=== PATIENT | male | born 1945 | race Two or more races ===

== ENCOUNTER 2018-11-30 09:34 | Inpatient (IN) | payer MEDICAID ==
[2018-11-30] VITALS (17 sets, daily range): BP systolic 70–142; BP diastolic 33–80
[~2018-11-30] VITALS: Ht 154.9 cm; Wt 96.4 kg
--- NOTE | 2018-11-30 09:40 | NUR ---
ED Nurse Note: informed Dr. Vincent regarding pt.'s troponin level of 5.612
--- NOTE | 2018-11-30 09:40 | NUR ---
ED Nurse Note: Patient brought in by [facility] from [facility] c/o fever that started last night, EMS states that the patient's temp was 103.0 at around 3am, patient was not given a tylenol, was given a norco at 0600. at time of arrival patient's temp is 97.8 oral. patient is also hypotensive at 70/41, patient is a dialysis patient, schedule is MWF. patient is alert and oriented x4. wound noted on patients left lower extremity, patient is amputated on both feet. IV started on right forearm 18 gauge, patient placed in trendelenburg position. will continue to monitor
--- NOTE | 2018-11-30 09:44 | Emergency Room Report ---
History of Present Illness General Chief Complaint: Fever Source: Patient, Medical Record Present Illness HPI Patient is a 73-year-old male brought in by ambulance after decreased oxygen saturation and increased fever. Patient was sent in from [facility]. He was noted to have temperature greater than 102 degrees. Patient is dialysis dependent and is normally dialyzed every Monday and Monday. He patient was noted to have did not have dialysis today. Been given [place] by facility. He was noted to be full code. Patient was noted to be hypotensive on arrival. Allergies: Coded Allergies: No Known Allergies (Unverified , 11/30/18) Patient History Past Medical History: see triage record Reviewed Nursing Documentation: PMH: Agreed; PSxH: Agreed Nursing Documentation-PMH Past Medical History: No History, Except For Hx Hypertension: Yes - anemia Hx Diabetes: Yes - polyneuropathy Hx Gastrointestinal Problems: Yes - GERD Hx Dialysis: Yes - CKD, MWF Review of Systems All Other Systems: limited Physical Exam Vital Signs Date Time Temp Pulse Resp B/P (MAP) Pulse Ox O2 Delivery O2 Flow Rate FiO2 11/30/18 09:34 98.2 61 22 78/51 (60) 96 Non-Rebreather 15.0 General Appearance: alert, moderate distress, Chronically Ill Eyes: bilateral eye conjunctivae pale ENT: normal pharynx Neck: full range of motion, thyroid normal Respiratory: rales - right lung base Cardiovascular #1: normal peripheral pulses, regular rate, rhythm, other - thrill to left upper extremity shunt Gastrointestinal: normal inspection, non tender, soft Musculoskeletal: decreased range of motion, other - bilateral amputations Neurologic: normal inspection, alert, oriented x3, track laminating machine tender III-XII nml as tested Skin: other - foul smelling drainage from left leg ulcer Procedures Critical Care Time Critical Care Time Critical care time excluding separately billed procedures was approximately 40 minutes Medical Decision Making Diagnostic Impression: Primary Impression: Severe sepsis Additional Impressions: ESRD (end stage renal disease) 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 Differential diagnosis include was not limited to sepsis, pneumonia, infected dialysis access , osteomyelitis, hyperkalemia among others. Because of complexity of patient's case laboratory tests and imaging studies were ordered. Patient was noted to be near anuric. He is currently on dialysis and is normally dialyzed Monday. He is scheduled for dialysis today. Patient was noted to be hypotensive initially. Patient denies any chest discomfort. Denies any shortness of breath. Patient was given IV fluids as well as IV antibiotics due to significant fever. Laboratory testing showed markedly elevated white blood count consistent with significant infection. Patient's left lower extremity ulcer appears to be necrotic and may have some evidence of osteomyelitis. Patient had previous amputation to that spot and may require further amputation. Dr. Pravin Patton was contacted for inpatient management. Dr. Davenport was contacted for surgical consult. Patient will be admitted to ICU for treatment of severe infection Labs Test 11/30/18 09:40 11/30/18 09:50 11/30/18 10:12 White Blood Count 30.5 K/UL (4.8-10.8) Red Blood Count 3.50 M/UL (4.70-6.10) Hemoglobin 9.1 G/DL (14.2-18.0) Hematocrit 29.8 % (42.0-52.0) Mean Corpuscular Volume 85 FL (80-99) Mean Corpuscular Hemoglobin 26.0 PG (27.0-31.0) Mean Corpuscular Hemoglobin Concent 30.5 G/DL (32.0-36.0) Red Cell Distribution Width 14.0 % (11.6-14.8) Platelet Count 362 K/UL (150-450) Mean Platelet Volume 5.7 FL (6.5-10.1) Neutrophils (%) (Auto) % (45.0-75.0) Lymphocytes (%) (Auto) % (20.0-45.0) Monocytes (%) (Auto) % (1.0-10.0) Eosinophils (%) (Auto) % (0.0-3.0) Basophils (%) (Auto) % (0.0-2.0) Differential Total Cells Counted 100 Neutrophils % (Manual) 91 % (45-75) Lymphocytes % (Manual) 2 % (20-45) Monocytes % (Manual) 6 % (1-10) Eosinophils % (Manual) 0 % (0-3) Basophils % (Manual) 0 % (0-2) Band Neutrophils 1 % (0-8) Platelet Estimate Adequate Platelet Morphology Normal Hypochromasia 2+ Anisocytosis 1+ Sodium Level 129 MMOL/L (136-145) Potassium Level 5.3 MMOL/L (3.5-5.1) Chloride Level 93 MMOL/L (98-107) Carbon Dioxide Level 25 MMOL/L (21-32) Anion Gap 11 mmol/L (5-15) Blood Urea Nitrogen 51 mg/dL (7-18) Creatinine 8.7 MG/DL (0.55-1.30) Estimat Glomerular Filtration Rate mL/min (>60) Glucose Level 328 MG/DL (74-106) Calcium Level 9.4 MG/DL (8.5-10.1) Phosphorus Level 4.3 MG/DL (2.5-4.9) Magnesium Level 2.1 MG/DL (1.8-2.4) Total Bilirubin 0.4 MG/DL (0.2-1.0) Aspartate Amino Transf (AST/SGOT) 31 U/L (15-37) Alanine Aminotransferase (ALT/SGPT) 13 U/L (12-78) Alkaline Phosphatase 141 U/L (46-116) Total Creatine Kinase 277 U/L (26-308) Creatine Kinase MB 15.5 NG/ML (0.0-3.6) Creatine Kinase MB Relative Index 5.5 Troponin I 5.612 ng/mL (0.000-0.056) Pro-B-Type Natriuretic Peptide > 73315 pg/mL (0-125) Total Protein 7.4 G/DL (6.4-8.2) Albumin 2.6 G/DL (3.4-5.0) Globulin 4.8 g/dL Albumin/Globulin Ratio 0.5 (1.0-2.7) Lactic Acid Level 1.20 mmol/L (0.4-2.0) Arterial Blood pH 7.349 (7.350-7.450) Arterial Blood Partial Pressure CO2 39.2 mmHg (35.0-45.0) Arterial Blood Partial Pressure O2 66.0 mmHg (75.0-100.0) Arterial Blood HCO3 21.1 mmol/L (22.0-26.0) Arterial Blood Oxygen Saturation 91.9 % (95-100) Arterial Blood Base Excess -4.1 (-2-2) Tank Test Positive EKG Diagnostic Results Rate: normal Rhythm: NSR ST Segments: no acute changes Reevaluation Time: 15:00 Last Vital Signs Date Time Temp Pulse Resp B/P (MAP) Pulse Ox O2 Delivery O2 Flow Rate FiO2 11/30/18 09:34 98.2 61 22 78/51 (60) 96 Non-Rebreather 15.0 Status: unchanged Reevaluation Impression Improved blood pressure and skin perfusion. Patient was seen by surgeon in the emergency department. Patient's mental status remained unchanged and patient continues to have no significant respiratory distress. Repeat lactic acid was also noted to be elevated Disposition: ADMITTED INPATIENT Condition: Critical Yamil Vincent MD Nov 30, 2018 09:44
[2018-11-30] MEDS ORDERED: Cefepime HCl 1 GM in NS 55 ML IV SCH (09:45)
[2018-11-30] MEDS ORDERED: Vancomycin 1 GM in NS 275 ML IV ONE (09:45)
--- NOTE | 2018-11-30 09:45 | NUR ---
ED Nurse Note: Patient presents with eschar on patients lower left leg. wound is non draining and presents a foul odor. Picture taken and updated
[2018-11-30 09:56] LABS: HEMATOCRIT 29.8 % (42.0-52.0); HEMOGLOBIN 9.1 G/DL (14.2-18.0); MEAN CORPUSCULAR VOLUME 85 FL (80-99); PLATELET COUNT 362 K/UL (150-450)
[2018-11-30 10:01] LABS: WHITE BLOOD COUNT 30.5 K/UL (4.8-10.8)
[2018-11-30 10:17] LABS: ANION GAP 11 mmol/L (5-15); BLOOD UREA NITROGEN 51 mg/dL (7-18); CALCIUM 9.4 MG/DL (8.5-10.1); CARBON DIOXIDE 25 MMOL/L (21-32); CHLORIDE 93 MMOL/L (98-107); CREATININE 8.7 MG/DL (0.55-1.30); POTASSIUM 5.3 MMOL/L (3.5-5.1); SODIUM 129 MMOL/L (136-145)
--- NOTE | 2018-11-30 10:30 | NUR ---
ED Nurse Note: 2nd IV access established on patients upper right forearm 18 gauge
[2018-11-30 10:31] LABS: ALANINE AMINOTRANSFERASE 13 U/L (12-78); ALBUMIN 2.6 G/DL (3.4-5.0); ALBUMIN/GLOBULIN RATIO 0.5 (1.0-2.7); ALKALINE PHOSPHATASE 141 U/L (46-116); ASPARTATE AMINO TRANSFERASE 31 U/L (15-37); BILIRUBIN,TOTAL 0.4 MG/DL (0.2-1.0); CKMB 15.5 NG/ML (0.0-3.6); CREATINE KINASE 277 U/L (26-308); PHOSPHORUS 4.3 MG/DL (2.5-4.9)
[2018-11-30] MEDS ORDERED: Aspirin Baby 81mg ORAL ONE (10:45)
--- NOTE | 2018-11-30 10:55 | Diagnostic Imaging Report ---
Indication: Left leg pain Comparison: None Findings: Two views of the left tibia and fibula were obtained. Bones are osteopenic. No definite fracture or malalignment identified. Extensive vascular calcification noted. IMPRESSION: No acute injury identified. Diffuse osteopenia.
--- NOTE | 2018-11-30 10:56 | Diagnostic Imaging Report ---
Indication: Dyspnea Comparison: None A single view chest radiograph was obtained. Findings: Pulmonary vascularity and interstitium are prominent. Heart is enlarged. Bones are osteopenic. IMPRESSION: CHF
--- NOTE | 2018-11-30 11:30 | NUR ---
ED Nurse Note: Patient sleeping calmly in bed
--- NOTE | 2018-11-30 12:30 | NUR ---
ED Nurse Note: Patient sleeping calmly in bed. will continue to monitor
[2018-11-30] MEDS ORDERED: NEPHROVITE1 TAB ORAL (12:58)
[2018-11-30] MEDS ORDERED: ASPIR 8181 MG ORAL (12:58)
[2018-11-30] MEDS ORDERED: METOPROLOL TART50 M1 ORAL (12:58)
[2018-11-30] MEDS ORDERED: CRANBERRY450 M4 PO (12:58)
[2018-11-30] MEDS ORDERED: PRO-STAT LIQUID30 ML ORAL (12:58)
[2018-11-30] MEDS ORDERED: DIOVAN320 MG ORAL (12:58)
[2018-11-30] MEDS ORDERED: GLUCAGON EMERGEN1 MG IJ (12:58)
[2018-11-30] MEDS ORDERED: BISACODYL10 M1 RC (12:58)
[2018-11-30] MEDS ORDERED: AMLODIPINE BESY10 MG ORAL (12:58)
[2018-11-30] MEDS ORDERED: GABAPENTIN100 MG ORAL (12:58)
[2018-11-30] MEDS ORDERED: RENVELA0.8 GM ORAL (12:58)
[2018-11-30] MEDS ORDERED: FLEET ENEMA133 ML RECTAL (12:58)
[2018-11-30] MEDS ORDERED: MILK OF MA2400 MG/10 ORAL (12:58)
[2018-11-30] MEDS ORDERED: COLACE100 MG ORAL (12:58)
[2018-11-30] MEDS ORDERED: PLAVIX75 MG ORAL (12:58)
[2018-11-30] MEDS ORDERED: GLUCOSE GEL38 GM PO (12:58)
[2018-11-30] MEDS ORDERED: NORCO 5-325 TA1 EACH ORAL (12:58)
[2018-11-30] MEDS ORDERED: NEXIUM40 MG ORAL (12:58)
[2018-11-30] MEDS ORDERED: HYDRALAZINE HCL25 M1 ORAL (12:58)
--- NOTE | 2018-11-30 14:07 | Consultation ---
History of Present Illness General Date patient seen: Nov 30, 2018 Chief Complaint: Fever Present Illness HPI 73 y/o M with hx of ESRD on HD MWF, anemia, polyneuropathy, GERD, NH resident presented to ED on 11/30 with fever, desaturation. Upon arrival to ED, patient was noted to be hypotensive. Reported T up to 102; here afebrile so far. Will be admitted to ICU. Allergies: Coded Allergies: No Known Allergies (Unverified , 11/30/18) Medication History Scheduled Amino Acids/Protein Hydrolys (Pro-Stat Liquid), 30 ML ORAL TWICE A DAY, ( Reported) Amlodipine Besylate* (Amlodipine Besylate*), 10 MG ORAL DAILY, (Reported) Aspirin* (Aspir 81*), 81 MG ORAL DAILY, (Reported) Bisacodyl (Bisacodyl), 10 MG RC PRN, (Reported) Clopidogrel Bisulfate* (Plavix*), 75 MG ORAL DAILY, (Reported) Cranberry Fruit Concentrate (Cranberry), 450 MG PO BID, (Reported) Docusate Sodium* (Colace*), 100 MG ORAL DAILY, (Reported) Esomeprazole Magnesium (Nexium), 40 MG ORAL DAILY, (Reported) Gabapentin* (Gabapentin*), 200 MG ORAL THREE TIMES A DAY, (Reported) Hydralazine Hcl* (Hydralazine Hcl*), 25 MG ORAL PRN, (Reported) Magnesium Hydroxide* (Milk Of Magnesia*), 30 ML ORAL DAILY, (Reported) Metoprolol Tartrate* (Metoprolol Tartrate*), 37.5 MG ORAL EVERY 12 HOURS, ( Reported) Na Phos,M-B/Na Phos,Di-Ba* (Fleet Enema*), 133 ML RECTAL PRN, (Reported) Sevelamer Carbonate* (Renvela*), 800 MG ORAL THREE TIMES A DAY, (Reported) Valsartan (Diovan), 320 MG ORAL DAILY, (Reported) Vitamin B Cmplx/Vit C/Folic AC (Nephro-Alina Tablet), 1 TAB ORAL DAILY, (Reported ) Scheduled PRN Hydrocodone Bit/Acetaminophen 5-325* (Lincoln 5-325*), 1 TAB ORAL Q4H PRN for For Pain, (Reported) Miscellaneous Medications Dextrose (Glucose Gel), 38 GM PO, (Reported) Glucagon,Human Recombinant (Glucagon Emergency Kit), 1 MG IJ, (Reported) Patient History Healthcare decision maker Resuscitation status Advanced Directive on File Patient History Narrative Pmhx: as above Shx: reviewed Fhx: non contributory Review of Systems All Other Systems: negative except mentioned in HPI Physical Exam Physical Exam Narrative General Appearance: alert, moderate distress, Chronically Ill Eyes: bilateral eye conjunctivae pale ENT: normal pharynx Neck: full range of motion, thyroid normal Respiratory: rales - right lung base Cardiovascular #1: normal peripheral pulses, regular rate, rhythm, other - thrill to left upper extremity shunt Gastrointestinal: normal inspection, non tender, soft Musculoskeletal: other - bilateral amputations Neurologic: normal inspection, alert, oriented x3, clerical aide III-XII nml as tested Skin: other - foul smelling drainage from left leg ulcer Last 24 Hour Vital Signs Date Time Temp Pulse Resp B/P (MAP) Pulse Ox O2 Delivery O2 Flow Rate FiO2 11/30/18 13:29 98.2 76 16 93/62 95 Room Air 15.0 11/30/18 12:18 97.8 79 16 87/59 95 Room Air 11/30/18 10:41 97.8 80 16 94/60 96 Room Air 11/30/18 09:40 61 22 Room Air 11/30/18 09:40 97.8 71 16 70/41 96 Room Air 11/30/18 09:34 98.2 61 22 78/51 (60) 96 Non-Rebreather 15.0 Laboratory Tests Test 11/30/18 09:40 11/30/18 09:50 11/30/18 10:12 White Blood Count 30.5 K/UL (4.8-10.8) *H Red Blood Count 3.50 M/UL (4.70-6.10) L Hemoglobin 9.1 G/DL (14.2-18.0) L Hematocrit 29.8 % (42.0-52.0) L Mean Corpuscular Volume 85 FL (80-99) Mean Corpuscular Hemoglobin 26.0 PG (27.0-31.0) L Mean Corpuscular Hemoglobin Concent 30.5 G/DL (32.0-36.0) L Red Cell Distribution Width 14.0 % (11.6-14.8) Platelet Count 362 K/UL (150-450) Mean Platelet Volume 5.7 FL (6.5-10.1) L Neutrophils (%) (Auto) % (45.0-75.0) Lymphocytes (%) (Auto) % (20.0-45.0) Monocytes (%) (Auto) % (1.0-10.0) Eosinophils (%) (Auto) % (0.0-3.0) Basophils (%) (Auto) % (0.0-2.0) Differential Total Cells Counted 100 Neutrophils % (Manual) 91 % (45-75) H Lymphocytes % (Manual) 2 % (20-45) L Monocytes % (Manual) 6 % (1-10) Eosinophils % (Manual) 0 % (0-3) Basophils % (Manual) 0 % (0-2) Band Neutrophils 1 % (0-8) Platelet Estimate Adequate Platelet Morphology Normal Hypochromasia 2+ Anisocytosis 1+ Sodium Level 129 MMOL/L (136-145) L Potassium Level 5.3 MMOL/L (3.5-5.1) H Chloride Level 93 MMOL/L (98-107) L Carbon Dioxide Level 25 MMOL/L (21-32) Anion Gap 11 mmol/L (5-15) Blood Urea Nitrogen 51 mg/dL (7-18) H Creatinine 8.7 MG/DL (0.55-1.30) H Estimat Glomerular Filtration Rate mL/min (>60) Glucose Level 328 MG/DL (74-106) H Calcium Level 9.4 MG/DL (8.5-10.1) Phosphorus Level 4.3 MG/DL (2.5-4.9) Magnesium Level 2.1 MG/DL (1.8-2.4) Total Bilirubin 0.4 MG/DL (0.2-1.0) Aspartate Amino Transf (AST/SGOT) 31 U/L (15-37) Alanine Aminotransferase (ALT/SGPT) 13 U/L (12-78) Alkaline Phosphatase 141 U/L (46-116) H Total Creatine Kinase 277 U/L (26-308) Creatine Kinase MB 15.5 NG/ML (0.0-3.6) H Creatine Kinase MB Relative Index 5.5 Troponin I 5.612 ng/mL (0.000-0.056) Pro-B-Type Natriuretic Peptide > 85177 pg/mL (0-125) H Total Protein 7.4 G/DL (6.4-8.2) Albumin 2.6 G/DL (3.4-5.0) L Globulin 4.8 g/dL Albumin/Globulin Ratio 0.5 (1.0-2.7) L Lactic Acid Level 1.20 mmol/L (0.4-2.0) Arterial Blood pH 7.349 (7.350-7.450) Arterial Blood Partial Pressure CO2 39.2 mmHg (35.0-45.0) Arterial Blood Partial Pressure O2 66.0 mmHg (75.0-100.0) L Arterial Blood HCO3 21.1 mmol/L (22.0-26.0) L Arterial Blood Oxygen Saturation 91.9 % (95-100) L Arterial Blood Base Excess -4.1 (-2-2) L Tank Test Positive Microbiology Date/Time Source Procedure Growth Status 11/30/18 09:50 Nasal Nares - Final Complete 11/30/18 09:50 Nasal Nares - Final Complete Height (Feet): 5 Height (Inches): 1.00 Weight (Pounds): 150 Medications Current Medications Medications (Trade) Dose Ordered Sig/Elva Route PRN Reason Start Time Stop Time Status Last Admin Dose Admin Cefepime HCl 1 gm/ Sodium Chloride 55 ml @ 110 mls/hr Q12H IV 11/30/18 09:45 12/01/18 09:44 11/30/18 09:54 Metronidazole 100 ml @ 100 mls/hr Q6H IV 11/30/18 09:45 12/01/18 09:44 11/30/18 10:30 Assessment/Plan Assessment/Plan: Abx: IV Vancomycin x1 11/20 Cefepime 11/30- Flagyl 11/30- Assessment: Septic shock- likely 2ry to PNA- r.o bacteremia -CXR: Pulmonary vascularity and interstitium are prominent. -influenza sc neg Fever ([employer])- here none so far Hyperleukocytosis L heel wet gangrene ESRD on HD MWF anemia polyneuropathy GERD NH resident Plan: -Switch empiric Cefepime and Flagyl #1 to Meropenem -Continue empiric IV Vancomycin #1 -f/u cx -Monitor CBC/CMP, temperatures -sp cx -ICU care -aspiration precautions Thank you for this consultation. Will continue to follow along with you. Discussed with Aparna Grijalva M.D. Nov 30, 2018 14:07
--- NOTE | 2018-11-30 14:14 | NUR ---
ED Nurse Note: Patient sleeping calmly in bed, waiting for room assignment.
[2018-11-30] MEDS ORDERED: Miralax 17gm pkt ORAL PRN (14:45)
[2018-11-30] MEDS ORDERED: Albuterol/Ipratropium 3ml neb HHN PRN (14:45)
--- NOTE | 2018-11-30 14:45 | NUR ---
ED Nurse Note: Dr. Davenport at bedside to look at infected woud, will continue to monitor
--- NOTE | 2018-11-30 15:17 | Consultation ---
Consult Note Consult Note asked to eval at the request of Dr Patton Has ESRD on HD- left arm fistula patient seen in ER multiple medical problems ER: Patient is a 73-year-old male brought in by ambulance after decreased oxygen saturation and increased fever. Patient was sent in from [facility]. He was noted to have temperature greater than 102 degrees. Patient is dialysis dependent and is normally dialyzed every Monday and Monday. He patient was noted to have did not have dialysis today. Been given [place] by facility. He was noted to be full code. Patient was noted to be hypotensive on arrival. No Known Allergies (Unverified , 11/30/18) Hx Hypertension: Yes - anemia Hx Diabetes: Yes - polyneuropathy Hx Gastrointestinal Problems: Yes - GERD Hx Dialysis: Yes - CKD, MWF examined data reviewed discussed with GS . Assessment/Plan ESRD on HD M W Fr Sepsis / Leukocytosuis ( Pneumonia, Infected foot ulcer) Hypotension / Shock Anemia GERD ECF resident DM OOC Elevated Troponin over 5 ICU admit Antibiotics Fluid challenge / Watch for CHF Dialysis as needed per orders Sincere Almaguer MD Nov 30, 2018 15:17
--- NOTE | 2018-11-30 16:40 | NUR ---
TRANSFER TO FLOOR: Patient transferred to ICU as ordered, per . Report given to RN. patient is accompanied by pc maintenance technician and RN
--- NOTE | 2018-11-30 16:45 | NUR ---
NURSE NOTES: Patient received from [facility] from the ER, transported up to the unit on a stretcher. Patient is A&O x3, able to follow commands. Vitals on arrival B/P:119/33, HR:105, RR:28, SpO2: 92%, T:99.5. Pt was received on room air, however quickly became SOB and nauseous, was placed on 3L NC, which improved SpO2 to 95%. Patient noted to have a unstageable Left heel pressure ulcer with a foul odor on admission. Rt FA #18 on upper part of FA, and Rt FA #18 also noted on lower part of FA, both placed in ER. Call light within reach, bed in lowest position with bed alarm on. Will resume plan of care.
--- NOTE | 2018-11-30 17:03 | Consultation ---
History of Present Illness General Date patient seen: Nov 30, 2018 Reason for Hospitalization: Fever Present Illness HPI This is a very pleasant 73-year-old male with multiple medical comorbidities who is a [facility]dc resident that presented to [facility] for evaluation fevers and worsening lower extremity necrosis. Patient was identified to have a T-max of 102, leukocytosis 30,000, elevated troponin, abnormal labs electrolytes, gangrene necrosis of the left heel with foul odor. 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 Patient initially hypotensive and tachycardic in emergency department but responsive to fluid. Patient renal insufficiency on hemodialysis through left upper extremity fistula. Surgery was called to the evaluate and assist with care given patient being and acute sepsis with potential etiology being the lower extremity foul-smelling necrotic gangrene. Patient was seen in the emergency department, patient evaluate, chart reviewed. Allergies: Coded Allergies: No Known Allergies (Unverified , 11/30/18) Medication History Scheduled Amino Acids/Protein Hydrolys (Pro-Stat Liquid), 30 ML ORAL TWICE A DAY, ( Reported) Amlodipine Besylate* (Amlodipine Besylate*), 10 MG ORAL DAILY, (Reported) Aspirin* (Aspir 81*), 81 MG ORAL DAILY, (Reported) Bisacodyl (Bisacodyl), 10 MG RC PRN, (Reported) Clopidogrel Bisulfate* (Plavix*), 75 MG ORAL DAILY, (Reported) Cranberry Fruit Concentrate (Cranberry), 450 MG PO BID, (Reported) Docusate Sodium* (Colace*), 100 MG ORAL DAILY, (Reported) Esomeprazole Magnesium (Nexium), 40 MG ORAL DAILY, (Reported) Gabapentin* (Gabapentin*), 200 MG ORAL THREE TIMES A DAY, (Reported) Hydralazine Hcl* (Hydralazine Hcl*), 25 MG ORAL PRN, (Reported) Magnesium Hydroxide* (Milk Of Magnesia*), 30 ML ORAL DAILY, (Reported) Metoprolol Tartrate* (Metoprolol Tartrate*), 37.5 MG ORAL EVERY 12 HOURS, ( Reported) Na Phos,M-B/Na Phos,Di-Ba* (Fleet Enema*), 133 ML RECTAL PRN, (Reported) Sevelamer Carbonate* (Renvela*), 800 MG ORAL THREE TIMES A DAY, (Reported) Valsartan (Diovan), 320 MG ORAL DAILY, (Reported) Vitamin B Cmplx/Vit C/Folic AC (Nephro-Alina Tablet), 1 TAB ORAL DAILY, (Reported ) Scheduled PRN Hydrocodone Bit/Acetaminophen 5-325* ([place] 5-325*), 1 TAB ORAL Q4H PRN for For Pain, (Reported) Miscellaneous Medications Dextrose (Glucose Gel), 38 GM PO, (Reported) Glucagon,Human Recombinant (Glucagon Emergency Kit), 1 MG IJ, (Reported) Patient History History Provided By: Patient, Medical Record, PMD Healthcare decision maker Resuscitation status Advanced Directive on File Yes Past Medical/Surgical History Past Medical/Surgical History: (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 (2) ESRD (end stage renal disease) (3) Severe sepsis (4) Infected ulcer of skin Review of Systems Review of Symptoms General ROS: no weight loss or fever Psychological ROS: no depression or mood changes, no memory loss Ophthalmic ROS: no visual changes or eye irritation ENT ROS: no nasal congestion, hearing loss, dizziness Allergy and Immunology ROS: no allergic symptoms or urticaria Hematological and Lymphatic ROS: no swollen glands, unusual bleeding or bruising Endocrine ROS: no polyuria, polydipsia, weight changes, temperature intolerance Respiratory ROS: no cough, shortness of breath, or wheezing Cardiovascular ROS: no chest pain or dyspnea on exertion Gastrointestinal ROS: denies abdominal pain, bright red blood in stool. Musculoskeletal ROS: no myalgias or arthralgias Neurological ROS: no TIA or stroke symptoms Dermatological ROS: no new or changing skin lesions, rashes or pruritis Physical Exam Physical Exam General appearance: alert, cooperative, no distress, appears stated age Head: Normocephalic, without obvious abnormality, atraumatic Eyes: conjunctivae/corneas clear. PERRL, EOM's intact. Fundi benign Throat: Lips, mucosa, and tongue normal. Teeth and gums normal Neck: supple, symmetrical, trachea midline, no adenopathy, thyroid: not enlarged, symmetric, no tenderness/mass/nodules, no carotid bruit and no JVD Lungs: clear to auscultation bilaterally Heart: regular rate and rhythm, S1, S2 normal, no murmur, click, rub or gallop Abdomen: soft, non-tender. Bowel sounds normal. No masses, no organomegaly Extremities: extremities with gangrene necrosis at the heel with foul odor. Soft. No purulent drainage. Periwound without significant cellulitis. Pulses: 2+ and symmetric Skin: Skin color, texture, turgor normal. No rashes or lesions Neurologic: Grossly normal Last 24 Hour Vital Signs Date Time Temp Pulse Resp B/P (MAP) Pulse Ox O2 Delivery O2 Flow Rate FiO2 11/30/18 15:32 98.2 83 18 91/61 95 Room Air 11/30/18 14:14 98.2 80 16 94/60 95 Room Air 11/30/18 13:29 98.2 76 16 93/62 95 Room Air 15.0 11/30/18 12:18 97.8 79 16 87/59 95 Room Air 11/30/18 10:41 97.8 80 16 94/60 96 Room Air 11/30/18 09:40 61 22 Room Air 11/30/18 09:40 97.8 71 16 70/41 96 Room Air 11/30/18 09:34 98.2 61 22 78/51 (60) 96 Non-Rebreather 15.0 Laboratory Tests Test 11/30/18 09:40 11/30/18 09:50 11/30/18 10:12 White Blood Count 30.5 K/UL (4.8-10.8) *H Red Blood Count 3.50 M/UL (4.70-6.10) L Hemoglobin 9.1 G/DL (14.2-18.0) L Hematocrit 29.8 % (42.0-52.0) L Mean Corpuscular Volume 85 FL (80-99) Mean Corpuscular Hemoglobin 26.0 PG (27.0-31.0) L Mean Corpuscular Hemoglobin Concent 30.5 G/DL (32.0-36.0) L Red Cell Distribution Width 14.0 % (11.6-14.8) Platelet Count 362 K/UL (150-450) Mean Platelet Volume 5.7 FL (6.5-10.1) L Neutrophils (%) (Auto) % (45.0-75.0) Lymphocytes (%) (Auto) % (20.0-45.0) Monocytes (%) (Auto) % (1.0-10.0) Eosinophils (%) (Auto) % (0.0-3.0) Basophils (%) (Auto) % (0.0-2.0) Differential Total Cells Counted 100 Neutrophils % (Manual) 91 % (45-75) H Lymphocytes % (Manual) 2 % (20-45) L Monocytes % (Manual) 6 % (1-10) Eosinophils % (Manual) 0 % (0-3) Basophils % (Manual) 0 % (0-2) Band Neutrophils 1 % (0-8) Platelet Estimate Adequate Platelet Morphology Normal Hypochromasia 2+ Anisocytosis 1+ Sodium Level 129 MMOL/L (136-145) L Potassium Level 5.3 MMOL/L (3.5-5.1) H Chloride Level 93 MMOL/L (98-107) L Carbon Dioxide Level 25 MMOL/L (21-32) Anion Gap 11 mmol/L (5-15) Blood Urea Nitrogen 51 mg/dL (7-18) H Creatinine 8.7 MG/DL (0.55-1.30) H Estimat Glomerular Filtration Rate mL/min (>60) Glucose Level 328 MG/DL (74-106) H Calcium Level 9.4 MG/DL (8.5-10.1) Phosphorus Level 4.3 MG/DL (2.5-4.9) Magnesium Level 2.1 MG/DL (1.8-2.4) Total Bilirubin 0.4 MG/DL (0.2-1.0) Aspartate Amino Transf (AST/SGOT) 31 U/L (15-37) Alanine Aminotransferase (ALT/SGPT) 13 U/L (12-78) Alkaline Phosphatase 141 U/L (46-116) H Total Creatine Kinase 277 U/L (26-308) Creatine Kinase MB 15.5 NG/ML (0.0-3.6) H Creatine Kinase MB Relative Index 5.5 Troponin I 5.612 ng/mL (0.000-0.056) Pro-B-Type Natriuretic Peptide > 06347 pg/mL (0-125) H Total Protein 7.4 G/DL (6.4-8.2) Albumin 2.6 G/DL (3.4-5.0) L Globulin 4.8 g/dL Albumin/Globulin Ratio 0.5 (1.0-2.7) L Lactic Acid Level 1.20 mmol/L (0.4-2.0) Arterial Blood pH 7.349 (7.350-7.450) Arterial Blood Partial Pressure CO2 39.2 mmHg (35.0-45.0) Arterial Blood Partial Pressure O2 66.0 mmHg (75.0-100.0) L Arterial Blood HCO3 21.1 mmol/L (22.0-26.0) L Arterial Blood Oxygen Saturation 91.9 % (95-100) L Arterial Blood Base Excess -4.1 (-2-2) L Tank Test Positive Microbiology Date/Time Source Procedure Growth Status 11/30/18 09:50 Nasal Nares - Final Complete 11/30/18 09:50 Nasal Nares - Final Complete Height (Feet): 5 Height (Inches): 1.00 Weight (Pounds): 150 Medications Current Medications Medications (Trade) Dose Ordered Sig/Elva Route PRN Reason Start Time Stop Time Status Last Admin Dose Admin Acetaminophen (Tylenol) 650 mg Q4H PRN ORAL fever 11/30/18 14:45 12/30/18 14:44 Albumin Human 500 ml @ 0 mls/hr Q0M ONCE IV 11/30/18 15:30 11/30/18 15:31 UNV Albuterol/ Ipratropium (Albuterol/ Ipratropium) 3 ml Q4H PRN HHN Shortness of Breath 11/30/18 14:45 12/05/18 14:44 Heparin Sodium (Porcine) (Heparin 5000 units/ml) 5,000 units EVERY 12 HOURS SUBQ 11/30/18 21:00 12/30/18 20:59 Meropenem 500 mg/ Sodium Chloride 55 ml @ 110 mls/hr Q24H IVPB 11/30/18 15:00 12/05/18 14:59 Morphine Sulfate (Morphine Sulfate) 2 mg Q4H PRN IVP Severe Pain (Pain Scale 7-10) 11/30/18 14:45 12/07/18 14:44 Norepinephrine Bitartrate 4 mg/ Dextrose 254 ml @ 0 mls/hr Q24H IV 11/30/18 14:45 12/30/18 14:44 Ondansetron HCl (Zofran) 4 mg Q6H PRN IVP Nausea & Vomiting 11/30/18 14:45 12/30/18 14:44 Pantoprazole (Protonix) 40 mg DAILY IVP 12/01/18 09:00 12/31/18 08:59 Polyethylene Glycol (Miralax) 17 gm DAILYPRN PRN ORAL Constipation 11/30/18 14:45 12/30/18 14:44 Sevelamer Carbonate (Renvela) 800 mg THREE TIMES A DAY ORAL 11/30/18 18:00 12/30/18 17:59 Sodium Chloride 1,000 ml @ 50 mls/hr Q20H IV 11/30/18 15:30 12/30/18 15:29 UNV Sodium Chloride 1,000 ml @ 100 mls/hr Q10H IVLG 11/30/18 14:35 12/30/18 14:34 Vancomycin HCl (Vanco rx to dose) 1 ea DAILY PRN MISC Per rx protocol 11/30/18 14:00 12/30/18 13:59 Vitamin B Complex/ Vit C/Folic Acid (Nephrovite) 1 tab DAILY ORAL 12/01/18 09:00 12/31/18 08:59 Assessment/Plan Problem List: (1) 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 On admission patient has a very foul-smelling left heel necrotic wound/ulcer. No purulent drainage no significant foot or leg cellulitis. Prior midfoot amputation. Very foul-smelling. Given patient's current medical condition status with his consent a wound expiration was done at the bedside to ensure no underlying pus, gas-forming infection, acute etiology of severe sepsis. Using a fresh #11 scalpel incision was made in the middle of the area of necrosis and followed down to healthy tissue which is not identified until bone was reached. Wound necrosis directly down to bone. No pus tunneling or gas-forming infectious and noted. We will continue with local wound care Recommend podiatry evaluation for potential debridement of heel versus further recommendations for amputation. Given patient's current medical condition status will need resuscitation and clearance prior to any surgical intervention or podiatry intervention. Antibiotics as per infectious disease We will follow with recommendations thank you ICD Codes: L97.404 - Non-pressure chronic ulcer of unspecified heel and midfoot with necrosis of bone SNOMED: 46438701, 922148584 (2) Severe sepsis Assessment & Plan: leukocytosis abnormal labs elevated troponin -abx as per ID -local wound care -will follow with recs thank you ICD Codes: A41.9 - Sepsis, unspecified organism; R65.20 - Severe sepsis without septic shock SNOMED: 32501834 (3) Infected ulcer of skin ICD Codes: L98.499 - Non-pressure chronic ulcer of skin of other sites with unspecified severity; L08.9 - Local infection of the skin and subcutaneous tissue, unspecified SNOMED: [id number] Noam Davenport Nov 30, 2018 17:03
[2018-11-30] MEDS: Meropenem 500 MG in NS 55 ML IVPB SCH (18:11)
[2018-11-30] MEDS: Renvela 800mg Pkt ORAL SCH (18:28)
--- NOTE | 2018-11-30 19:07 | Cardiology Progress Note ---
Assessment/Plan Assessment/Plan sepsis hypotension mi esrd dm gangrene ? rewsponded to ivf oxygen repeat crdiac enzyme neeed ekg adn echo ecotrin statin bb when bp allow he deneis any cp no ekg to review ordered [id number] Objective Last 24 Hour Vital Signs Date Time Temp Pulse Resp B/P (MAP) Pulse Ox O2 Delivery O2 Flow Rate FiO2 11/30/18 18:00 3.0 11/30/18 16:45 Nasal Cannula 3.0 11/30/18 15:32 98.2 83 18 91/61 95 Room Air 11/30/18 14:14 98.2 80 16 94/60 95 Room Air 11/30/18 13:29 98.2 76 16 93/62 95 Room Air 15.0 11/30/18 12:18 97.8 79 16 87/59 95 Room Air 11/30/18 10:41 97.8 80 16 94/60 96 Room Air 11/30/18 09:40 61 22 Room Air 11/30/18 09:40 97.8 71 16 70/41 96 Room Air 11/30/18 09:34 98.2 61 22 78/51 (60) 96 Non-Rebreather 15.0 Laboratory Tests Test 11/30/18 09:40 11/30/18 09:50 11/30/18 10:12 White Blood Count 30.5 K/UL (4.8-10.8) *H Red Blood Count 3.50 M/UL (4.70-6.10) L Hemoglobin 9.1 G/DL (14.2-18.0) L Hematocrit 29.8 % (42.0-52.0) L Mean Corpuscular Volume 85 FL (80-99) Mean Corpuscular Hemoglobin 26.0 PG (27.0-31.0) L Mean Corpuscular Hemoglobin Concent 30.5 G/DL (32.0-36.0) L Red Cell Distribution Width 14.0 % (11.6-14.8) Platelet Count 362 K/UL (150-450) Mean Platelet Volume 5.7 FL (6.5-10.1) L Neutrophils (%) (Auto) % (45.0-75.0) Lymphocytes (%) (Auto) % (20.0-45.0) Monocytes (%) (Auto) % (1.0-10.0) Eosinophils (%) (Auto) % (0.0-3.0) Basophils (%) (Auto) % (0.0-2.0) Differential Total Cells Counted 100 Neutrophils % (Manual) 91 % (45-75) H Lymphocytes % (Manual) 2 % (20-45) L Monocytes % (Manual) 6 % (1-10) Eosinophils % (Manual) 0 % (0-3) Basophils % (Manual) 0 % (0-2) Band Neutrophils 1 % (0-8) Platelet Estimate Adequate Platelet Morphology Normal Hypochromasia 2+ Anisocytosis 1+ Sodium Level 129 MMOL/L (136-145) L Potassium Level 5.3 MMOL/L (3.5-5.1) H Chloride Level 93 MMOL/L (98-107) L Carbon Dioxide Level 25 MMOL/L (21-32) Anion Gap 11 mmol/L (5-15) Blood Urea Nitrogen 51 mg/dL (7-18) H Creatinine 8.7 MG/DL (0.55-1.30) H Estimat Glomerular Filtration Rate mL/min (>60) Glucose Level 328 MG/DL (74-106) H Calcium Level 9.4 MG/DL (8.5-10.1) Phosphorus Level 4.3 MG/DL (2.5-4.9) Magnesium Level 2.1 MG/DL (1.8-2.4) Total Bilirubin 0.4 MG/DL (0.2-1.0) Aspartate Amino Transf (AST/SGOT) 31 U/L (15-37) Alanine Aminotransferase (ALT/SGPT) 13 U/L (12-78) Alkaline Phosphatase 141 U/L (46-116) H Total Creatine Kinase 277 U/L (26-308) Creatine Kinase MB 15.5 NG/ML (0.0-3.6) H Creatine Kinase MB Relative Index 5.5 Troponin I 5.612 ng/mL (0.000-0.056) Pro-B-Type Natriuretic Peptide > 27543 pg/mL (0-125) H Total Protein 7.4 G/DL (6.4-8.2) Albumin 2.6 G/DL (3.4-5.0) L Globulin 4.8 g/dL Albumin/Globulin Ratio 0.5 (1.0-2.7) L Lactic Acid Level 1.20 mmol/L (0.4-2.0) Arterial Blood pH 7.349 (7.350-7.450) Arterial Blood Partial Pressure CO2 39.2 mmHg (35.0-45.0) Arterial Blood Partial Pressure O2 66.0 mmHg (75.0-100.0) L Arterial Blood HCO3 21.1 mmol/L (22.0-26.0) L Arterial Blood Oxygen Saturation 91.9 % (95-100) L Arterial Blood Base Excess -4.1 (-2-2) L Tank Test Positive Microbiology Date/Time Source Procedure Growth Status 11/30/18 09:50 Nasal Nares - Final Complete 11/30/18 09:50 Nasal Nares - Final Complete Milton Mary MD Nov 30, 2018 19:07
--- NOTE | 2018-11-30 19:15 | NUR ---
HAND-OFF: Report given to IWONA Diaz.
--- NOTE | 2018-11-30 19:55 | NUR ---
NURSE NOTES: Received report from Ashlee BUSTILLO. Patient in bed awake,alert able to verbalize needs to staff. denies any pain or discomfort. received on oxygen 3L via mask , changed to 3 liters via N/C satting 96%. HOB elevated. pt with Temperature on 102.5 axillary cooling measure provided, Tylenol 650mg tab po given, will recheck temp. patient left foot with foul smell. dressing intact. skin warm and dry to touch. Urinal at bedside. Instructed patient to use call light for assistance. bed alarm on. bed lock and in low position. AV shunt on left upper arm with + bruit and thrill. Right lower F/a #18 and Right upper arm #18Iv intact running NS at 50cc/hr. will continue plan of care.
[2018-11-30] MEDS: Metoprolol Tartrate 12.5mg TAB ORAL SCH (21:00)
--- NOTE | 2018-11-30 21:01 | Consultation ---
DATE OF CONSULTATION: 11/30/2018 CARDIOLOGY CONSULTATION CONSULTING PHYSICIAN: Milton Mary M.D. REFERRING PHYSICIAN: Pravin Patton D.O. REASON FOR REFERRAL: Abnormal cardiac enzymes. HISTORY OF PRESENT ILLNESS: This is an elderly gentleman, who is a resident of convalescent facility with history of multiple medical problems. The patient was apparently transferred to the emergency room at [facility] because of fevers, noted to be in severe sepsis, and abnormal cardiac enzymes were documented in the emergency room. This consultation is subsequently requested. The patient is [place] speaking only. On questioning, denies having any chest pain. Denies any shortness of breath at the present time, but when he arrived to the intensive care unit, was noted to be somewhat short of breath. The natural sciences professor run sheet is difficult to read, but the patient was brought in from a correction to the emergency room. The emergency room physician's notation indicated to the ambulance that the patient was noted to have decreased oxygen saturation and increased temperature of 102, dialysis dependent, dilated usually Monday, Monday, and Monday, he did not have dialysis today, and was noted to be hypotensive on arrival. PAST MEDICAL HISTORY: According to the correction data indicates end-stage renal disease, on hemodialysis. 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 ALLERGIES: No known drug allergies. SOCIAL HISTORY: He denies any smoking or alcohol. He is a resident of convalescent facility. REVIEW OF SYSTEMS: GASTROINTESTINAL: He denies any nausea or vomiting. No diarrhea. No black or bloody stools. GENITOURINARY: Denies any discomfort or blood in his urine. PULMONARY: Denies any coughing or wheezing. CONSTITUTIONAL: No fevers he states although the correction does indicate a fever of 102, but he states he felt chills. PHYSICAL EXAMINATION: GENERAL: Shows to be elderly gentleman, in no respiratory distress. NECK: Supple although he does have nasal cannula in place. LUNGS: Clear to auscultation and percussion. CARDIAC: Regular rhythm. A holosystolic regurgitant murmur at the apex. ABDOMEN: Soft and nontender. Positive bowel sounds. EXTREMITIES: There is no significant edema. NEUROLOGICAL: He is arousable and responsive. LABORATORY AND DIAGNOSTIC DATA: White count of 30.5, hemoglobin 9.1, and platelet count of 362,000. A pH is 7.34, pCO2 of 39, pO2 of 66, and bicarbonate of 21. His sodium is 129, potassium 5.3, chloride 93, bicarb 25, BUN of 51, creatinine 8.7, and glucose of 328. Alkaline phosphatase 151. CK-MB of 15. ProBNP of greater than 35,000. Albumin of 2.6. He has had a tib-fib x-rays with no acute injuries and he has had a chest x-ray that showed congestive heart failure. I am unable to locate any EKGs in the patient's chart. ASSESSMENT: 1. Myocardial infarction possibly secondary event. 2. Valvular heart disease with possible mitral regurgitation. 3. Diabetes mellitus. 4. Diabetic peripheral neuropathy. 5. Peripheral vascular disease. 6. End-stage renal disease, on hemodialysis. 7. Sepsis. 8. Hypoalbuminemia. 9. Possible gangrene. PLAN: This patient was seen in cardiac consultation. The patient remained hypotensive, however, maintaining a blood pressures in the 90s right now. Albumin is being administered somewhat tachycardiac. An EKG will be ordered. An echocardiogram will be ordered. Serial enzymes will be ordered. The patient should receive some aspirin and some statins for the time being. He does have underlying history of infections from before. The patient has already been seen by Infectious Disease. The patient will have an echocardiogram. Blood cultures are pending. Empiric antibiotics have already been started, aspirin, and statins. As the patient's blood pressure allows, beta-blockers will be resumed. He absolutely denies any chest pain at the present time. Further recommendation depending on the results the above findings. The patient has already been seen by Infectious Disease as well as Nephrology and General Surgery as well. Dialysis as the patient's blood pressure allows. Milton Mary M.D. DR: FAYE JOB#: [id number] CC:
--- NOTE | 2018-11-30 21:29 | NUR ---
NURSE NOTES: called Dr. Davenport if he can come and insert Central to patient due to low BP need to hv Levo drip per Dr. Davenport ask ER MD if they can do central line if not call him back. called ER spoke with Bill BUSTILLO, per Bill Seo will do it. Charge nurse aware.
--- NOTE | 2018-11-30 21:35 | NUR ---
NURSE NOTES: Family at bedside
[2018-11-30] MEDS: Heparin 5000 units/ml inj SUBQ SCH (21:53)
[2018-11-30] MEDS: Aspirin EC 81mg tab ORAL SCH (21:53)
[2018-11-30] MEDS: Atorvastatin 80mg tab ORAL SCH (21:54)
[2018-11-30] MEDS ORDERED: Lidocaine 1% 10mg/ml/Epi 0.005mg/ml 30ml vial INJ ONE ×2 (22:35→23:45)
[2018-11-30] MEDS ORDERED: Heparin1,000 units/500ml Premix(Conc:2 units/ml) IV ONE (22:45)
[2018-11-30] MEDS ORDERED: Lidocaine 1% Plain 30 ml INJ ONE ×2 (22:45)
--- NOTE | 2018-11-30 22:45 | NUR ---
NURSE NOTES: Dr Seo came and inserted Right Femoral TLC dressing intact no bleeding. Per MD gardner to use the central line. Son aware. Consent given by Son
--- NOTE | 2018-11-30 23:15 | NUR ---
NURSE NOTES: Called dr. Patton regarding patient with 9/10 left foot toe pain and requesting King medication, Dr Patton gave orders noted and carried out. Addendum: 12/02/18 at 0421 by JESSICA DAMON RN started Levo drip at 5mcg/min BP 82/57 via right Femoral TLC.
[2018-11-30] MEDS: HYDROcodone/Acetamin 10/325 tab ORAL PRN (23:43)
[2018-12-01] VITALS (26 sets, daily range): BP systolic 85–137; BP diastolic 42–84
--- NOTE | 2018-12-01 00:43 | NUR ---
NURSE NOTES: patient complained of 9/10 left foot toe, repositioned, float feet, elevate with pillow, talk therapy provided not effective. Gilbert 10/325mg tab po given effective. Patient with low grade fever continue cooling measure continued. No s/s of acute distress noted. no s/s of hypo/hyperglycemia. call light within easy reach. will continue to monitor patient.
--- NOTE | 2018-12-01 02:00 | NUR ---
NURSE NOTES: Patient in bed sleeping comfortably. on 3 liter oxygen via N/C satting 91-94%. No s/s of acute distress noted. will continue plan of care.
--- NOTE | 2018-12-01 02:58 | NUR ---
RESPIRATORY NOTE: Pt desat to 90% on 3L NC. Placed pt on venturi mask 8 L 40%. Saturation increased to 94%. Will continue to monitor.
--- NOTE | 2018-12-01 03:00 | NUR ---
NURSE NOTES: patient saturation with 3L oxygen via N/C satting 88-91%. called RT, RT placed Venturi mask 8L satting 93-94%. denies any pain or discomfort. call light within easy reach. uses urinal.
--- NOTE | 2018-12-01 03:25 | NUR ---
RESPIRATORY NOTE: Pt felt discomfort and states that he cannot breathe with venturi mask. Begins to desat back down to 90%. ABG done. Placed pt back on 5 L NC. Breathing treatment given. Sats now increased to 94%. No respiratory distress noted. Will continue to monitor.
--- NOTE | 2018-12-01 04:01 | Emergency Room Report ---
History of Present Illness General Chief Complaint: Fever Source: Patient, Medical Record Present Illness Allergies: Coded Allergies: No Known Allergies (Unverified , 11/30/18) Nursing Documentation-[facility] Past Medical History: No History, Except For Hx Cardiac Problems: Yes Hx Hypertension: Yes Hx Diabetes: Yes Hx Gastrointestinal Problems: Yes - GERD Hx Dialysis: Yes - CKD, MWF Hx Neurological Problems: No Physical Exam Vital Signs Date Time Temp Pulse Resp B/P (MAP) Pulse Ox O2 Delivery O2 Flow Rate FiO2 11/30/18 09:34 98.2 61 22 78/51 (60) 96 Non-Rebreather 15.0 11/30/18 23:14 32 Procedures Critical Care Time Critical Care Time i. I feel this is a highly complex case requiring extensive working including EKG/Rhythm strip, Xray/CT/US, Blood/urine lab work, repeat exams while in ED, and administration of strong opiates/narcotics for pain control, admission to hospital or close patient follow up. Total time: 30 min bedside evaluation and treatment excludes procedures (EKG). Reason for critical care: sepsis, hypotension Possible complications: hypotension, hypertension, LA, shock, arrhythmias, metabolic acidosis, end organ damage, respiratory failure. Interventions: central line, pressors Course: I evaluated this patient in the ICU. Patient admitted for sepsis. End- stage renal disease on dialysis. Hypotensive. Discussed with family. Consent obtained. Right femoral central line placed. Pressors started. Care resumed by admitting team Consultations: nursing staff, EMS, family Performed by: Dr Seo Tolerated well condition = critical j. because of unstable vital signs this patient had a condition that could potentially threaten life or limb. I feel this is a critical patient who required my full attention while patient was considered critical. Total Critical Care Time excluding procedures was greater than 35 minutes Central Line Central Line : Consent: Written Central Line Lumen: triple Maximal Sterile Barrier Tech: yes cap, yes mask, yes sterile gown, yes sterile gloves, yes large sterile sheet, yes hand hygiene, yes chlorhexidine prep Central Line Postion: femoral (R) Anesthesia: Lidocaine Complications: none Central Line Post Position: sutured, good blood return Attempts: One Patient Tolerated: Well Complications: None Medical Decision Making Diagnostic Impression: Primary Impression: Severe sepsis Additional Impressions: Amputation below knee Infected ulcer of skin Amputation at midfoot Elevated troponin ESRD (end stage renal disease) ER Course Called to evaluate this patient in the ICU. Patient hypotensive. Admitted for sepsis. Not responsive to fluids. Discussed with sons at bedside. Consent obtained. Right femoral central line placed. Pressors started. Care resumed by admitting team Last Vital Signs Date Time Temp Pulse Resp B/P (MAP) Pulse Ox O2 Delivery O2 Flow Rate FiO2 12/01/18 02:00 101 16 129/79 (96) 94 12/01/18 00:13 99.0 12/01/18 00:00 Venturi Mask 8.0 11/30/18 23:14 32 Status: improved Disposition: ADMITTED INPATIENT Condition: Critical Referrals: NON PHYSICIAN (PCP) Nj Seo MD Dec 01, 2018 04:01
--- NOTE | 2018-12-01 04:07 | NUR ---
NURSE NOTES: patient on venturi mask 8L with saturation 88-91%. ABG done. breathing treatment given, after breathing Treatment saturation increase to 93-95%. patient denies sob. blood glucose check 190mg/dl. HOB elevated. EKG done per Dr. Mary order for mitral valve disorder.
--- NOTE | 2018-12-01 06:00 | NUR ---
NURSE NOTES: Patient on 3L oxygen via N/C
[2018-12-01 06:24] LABS: HEMATOCRIT 31.5 % (42.0-52.0); HEMOGLOBIN 9.7 G/DL (14.2-18.0); MEAN CORPUSCULAR VOLUME 86 FL (80-99); PLATELET COUNT 354 K/UL (150-450); RED BLOOD COUNT 3.67 M/UL (4.70-6.10); RED CELL DISTRIBUTION WIDTH 14.4 % (11.6-14.8)
[2018-12-01 06:56] LABS: AMMONIA 11 umol/L (11-32)
[2018-12-01 06:59] LABS: % IRON SATURATION 14 % (15-50); ALANINE AMINOTRANSFERASE 15 U/L (12-78); ALBUMIN 2.7 G/DL (3.4-5.0); ALBUMIN/GLOBULIN RATIO 0.6 (1.0-2.7); ALKALINE PHOSPHATASE 138 U/L (46-116); ANION GAP 18 mmol/L (5-15); ASPARTATE AMINO TRANSFERASE 55 U/L (15-37); BILIRUBIN,TOTAL 0.6 MG/DL (0.2-1.0); BLOOD UREA NITROGEN 60 mg/dL (7-18); CALCIUM 9.6 MG/DL (8.5-10.1); CARBON DIOXIDE 20 MMOL/L (21-32); CHLORIDE 95 MMOL/L (98-107); CHOLESTEROL 113 MG/DL (< 200); CREATININE 9.7 MG/DL (0.55-1.30); FERRITIN 1516 NG/ML (8-388); HDL CHOLESTEROL 24 MG/DL (40-60); IRON 10 ug/dL (50-175); POTASSIUM 5.7 MMOL/L (3.5-5.1); SODIUM 133 MMOL/L (136-145); TOTAL IRON BINDING CAPACITY 73 ug/dL (250-450); TRIGLYCERIDES 102 MG/DL (30-150)
[2018-12-01 07:08] LABS: CREATINE KINASE 489 U/L (26-308); GAMMA GLUTAMYL TRANSPEPTIDASE 80 U/L (5-85)
[2018-12-01 07:15] LABS: WHITE BLOOD COUNT 23.1 K/UL (4.8-10.8)
--- NOTE | 2018-12-01 07:18 | NUR ---
HAND-OFF: Report given to Ashlee RODSeen and examined by Dr Fernando an MD.
--- NOTE | 2018-12-01 07:19 | NUR ---
NURSE NOTES: Received report from IWONA Diaz. Patient in bed awake, alert able to verbalize needs to staff. No pain or discomfort reported at this time. Received on oxygen 3L via N/C SpO2 93%. 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 HOB elevated. Dr. King at bedside assessing patient's left foot ulcer. noted to have a foul smell. dressing reinforced. skin warm and dry to touch. AV shunt on left upper arm with + bruit and thrill. Right wrist #18g and Right AF #18g intact running NS at 50mL/hr. Urinal at bedside. Instructed patient to use call light for assistance. bed alarm on and in lowest position. Will f/u with Dr. Patton regarding dialysis and last night's desatting episodes. will resume plan of care.
--- NOTE | 2018-12-01 07:21 | Consultation ---
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 Left foot is not salvageable and patient will require higher level amputation BK vs AK. Discussed with patient in surinamese that his foot is a likely source of his current condition and he may succumb to his infection if not addressed. He understands and will consider. 2) Wound care orders placed 3) D/W IM, ID, Gen Surg 4) Will follow Thank you Eduard Florentino DPM Dec 01, 2018 07:20
--- NOTE | 2018-12-01 07:31 | NUR ---
NURSE NOTES: Endorsed to Ashlee BUSTILLO to let Dr Patton about pts SOB episode, and pt got better after resp. tx, 02 sat >92%.
--- NOTE | 2018-12-01 08:00 | NUR ---
NURSE NOTES: Dr. Almaguer at bedside assessing patient and will look into ordering dialysis if appropriate. Levophed running at 3mcg/min through Rt Femoral TLC. B/P: 119/70
--- NOTE | 2018-12-01 08:19 | NUR ---
NURSE NOTES: Spoke with Dr. Mary, updated him with patient's current condition and notified him of Troponin result 11.774, as well as EKG results. No new orders at this time. Will continue to monitor.
--- NOTE | 2018-12-01 08:22 | Nephrology Progress Note ---
Assessment/Plan Problem List: (1) ESRD (end stage renal disease) (2) Elevated troponin (3) Infected ulcer of skin (4) Diabetes Assessment: uncontrolled Assessment ESRD on HD M W Fr Sepsis / Leukocytosuis ( Pneumonia, Infected foot ulcer) Hypotension / Shock Anemia GERD ECF resident DM OOC Elevated Troponin over 5 Plan on low dose pressors Antibiotics Fluid challenge / Watch for CHF Dialysis today per orders per consultants Subjective ROS Limited/Unobtainable: No Interval Events/Complaints in icu Constitutional: Reports: malaise, weakness Objective Objective Last 24 Hour Vital Signs Date Time Temp Pulse Resp B/P (MAP) Pulse Ox O2 Delivery O2 Flow Rate FiO2 12/01/18 08:01 97 Nasal Cannula 3.0 32 12/01/18 07:00 102 16 119/72 (88) 94 12/01/18 07:00 119/72 12/01/18 06:00 103 16 117/73 (88) 94 12/01/18 06:00 117/73 12/01/18 05:00 131/73 12/01/18 05:00 103 16 131/73 (92) 93 12/01/18 04:00 99.4 110 16 131/75 (93) 93 12/01/18 04:00 109 12/01/18 04:00 131/75 12/01/18 04:00 Venturi Mask 8.0 12/01/18 03:51 108 18 95 Nasal Cannula 5.0 40 104 20 92 12/01/18 03:00 110 16 137/84 (101) 91 12/01/18 03:00 137/84 12/01/18 02:00 101 16 129/79 (96) 94 12/01/18 02:00 129/79 12/01/18 01:00 98 16 118/71 (87) 94 12/01/18 01:00 130/75 12/01/18 00:30 101 16 132/74 (93) 94 12/01/18 00:15 98 16 118/71 (87) 94 12/01/18 00:13 99.0 12/01/18 00:00 100.0 98 14 126/75 (92) 95 12/01/18 00:00 98 12/01/18 00:00 126/75 12/01/18 00:00 Venturi Mask 8.0 11/30/18 23:45 98 16 129/78 (95) 95 11/30/18 23:30 96 16 135/71 (92) 95 11/30/18 23:15 93 16 135/73 (93) 95 11/30/18 23:14 91 19 96 Simple Mask 3.0 32 11/30/18 23:14 96 Nasal Cannula 3.0 32 11/30/18 23:00 82 16 88/52 (64) 95 11/30/18 22:59 82/57 11/30/18 22:00 99.0 94 16 85/53 (64) 95 11/30/18 21:00 102.0 94 16 82/49 (60) 95 11/30/18 21:00 94 85/58 11/30/18 20:25 102.0 11/30/18 20:00 94 11/30/18 20:00 102.5 91 16 100/61 (74) 96 11/30/18 20:00 Nasal Cannula 3.0 11/30/18 19:00 94 16 95/58 (70) 95 11/30/18 18:40 Nasal Cannula 3.0 11/30/18 18:00 94 18 99/61 (74) 95 11/30/18 18:00 3.0 11/30/18 17:00 105 27 142/80 (100) 94 11/30/18 16:45 99.5 92 16 119/33 (61) 92 11/30/18 16:45 Nasal Cannula 3.0 11/30/18 16:40 98.2 80 18 98/62 95 Room Air 11/30/18 15:32 98.2 83 18 91/61 95 Room Air 11/30/18 14:14 98.2 80 16 94/60 95 Room Air 11/30/18 13:29 98.2 76 16 93/62 95 Room Air 15.0 11/30/18 12:18 97.8 79 16 87/59 95 Room Air 11/30/18 10:41 97.8 80 16 94/60 96 Room Air 11/30/18 09:40 61 22 Room Air 11/30/18 09:40 97.8 71 16 70/41 96 Room Air 11/30/18 09:34 98.2 61 22 78/51 (60) 96 Non-Rebreather 15.0 Intake and Output 11/30/18 12/01/18 19:00 07:00 Intake Total 1292.5 ml 729.54 ml Balance 1292.5 ml 729.54 ml Intake IV Total 1292.5 ml 729.54 ml # Voids 2 Laboratory Tests 11/30/18 09:40: White Blood Count 30.5*H, Red Blood Count 3.50L, Hemoglobin 9.1L, Hematocrit 29.8L, Mean Corpuscular Volume 85, Mean Corpuscular Hemoglobin 26.0L, Mean Corpuscular Hemoglobin Concent 30.5L, Red Cell Distribution Width 14.0, Platelet Count 362, Mean Platelet Volume 5.7L, Neutrophils (%) (Auto) , Lymphocytes (%) (Auto) , Monocytes (%) (Auto) , Eosinophils (%) (Auto) , Basophils (%) (Auto) , Differential Total Cells Counted 100, Neutrophils % ( Manual) 91H, Lymphocytes % (Manual) 2L, Monocytes % (Manual) 6, Eosinophils % ( Manual) 0, Basophils % (Manual) 0, Band Neutrophils 1, Platelet Estimate Adequate, Platelet Morphology Normal, Hypochromasia 2+, Anisocytosis 1+, Sodium Level 129L, Potassium Level 5.3H, Chloride Level 93L, Carbon Dioxide Level 25, Anion Gap 11, Blood Urea Nitrogen 51H, Creatinine 8.7H, Estimat Glomerular Filtration Rate , Glucose Level 328H, Calcium Level 9.4, Phosphorus Level 4.3, Magnesium Level 2.1, Total Bilirubin 0.4, Aspartate Amino Transf (AST/SGOT) 31, Alanine Aminotransferase (ALT/SGPT) 13, Alkaline Phosphatase 141H, Total Creatine Kinase 277, Creatine Kinase MB 15.5H, Creatine Kinase MB Relative Index 5.5, Troponin I 5.612H, Pro-B-Type Natriuretic Peptide > 91430P, Total Protein 7.4, Albumin 2.6L, Globulin 4.8, Albumin/Globulin Ratio 0.5L 11/30/18 09:50: Lactic Acid Level 1.20 11/30/18 10:12: Arterial Blood pH 7.349L, Arterial Blood Partial Pressure CO2 39.2, Arterial Blood Partial Pressure O2 66.0L, Arterial Blood HCO3 21.1L, Arterial Blood Oxygen Saturation 91.9L, Arterial Blood Base Excess -4.1L, Tank Test Positive 12/01/18 03:38: Arterial Blood pH 7.307L, Arterial Blood Partial Pressure CO2 34.7L, Arterial Blood Partial Pressure O2 57.5L, Arterial Blood HCO3 17.0*L, Arterial Blood Oxygen Saturation 87.1*L, Arterial Blood Base Excess -8.5L, Tank Test Positive 12/01/18 05:45: White Blood Count 23.1*H, Red Blood Count 3.67L, Hemoglobin 9.7L, Hematocrit 31.5L, Mean Corpuscular Volume 86, Mean Corpuscular Hemoglobin 26.6L, Mean Corpuscular Hemoglobin Concent 31.0L, Red Cell Distribution Width 14.4, Platelet Count 354, Mean Platelet Volume 5.8L, Neutrophils (%) (Auto) , Lymphocytes (%) (Auto) , Monocytes (%) (Auto) , Eosinophils (%) (Auto) , Basophils (%) (Auto) , Neutrophils % (Manual) [Pending], Lymphocytes % (Manual) [Pending], Platelet Estimate [Pending], Platelet Morphology [Pending], Arterial Blood pH 7.323L, Arterial Blood Partial Pressure CO2 30.2L, Arterial Blood Partial Pressure O2 61.7L, Arterial Blood HCO3 15.3*L, Arterial Blood Oxygen Saturation 89.4*L, Arterial Blood Base Excess -9.6*L, Tank Test Positive, Sodium Level 133L, Potassium Level 5.7H, Chloride Level 95L, Carbon Dioxide Level 20L, Anion Gap 18H, Blood Urea Nitrogen 60H, Creatinine 9.7H, Estimat Glomerular Filtration Rate , Glucose Level 229#H, Hemoglobin A1c 8.9H, Uric Acid 5.7, Calcium Level 9.6, Phosphorus Level 5.0H, Magnesium Level 2.2, Iron Level 10L, Total Iron Binding Capacity 73L, Percent Iron Saturation 14L, Unsaturated Iron Binding 63L, Ferritin 1516H, Total Bilirubin 0.6, Gamma Glutamyl Transpeptidase 80, Aspartate Amino Transf (AST/SGOT) 55H, Alanine Aminotransferase (ALT/SGPT) 15, Alkaline Phosphatase 138H, Ammonia 11, Total Creatine Kinase 489H, Troponin I 11.774H, C-Reactive Protein, Quantitative > 70.0H, Pro-B-Type Natriuretic Peptide > 19819F, Total Protein 7.6, Albumin 2.7L , Globulin 4.9, Albumin/Globulin Ratio 0.6L, Triglycerides Level 102, Cholesterol Level 113, LDL Cholesterol 56, HDL Cholesterol 24L, Cholesterol/HDL Ratio 4.7H, Vitamin B12 Level 1097H, Folate 18.8, Thyroid Stimulating Hormone ( TSH) 1.075, Random Vancomycin Level 11.0 Height (Feet): 5 Height (Inches): 1.00 Weight (Pounds): 167 General Appearance: no apparent distress, lethargic Cardiovascular: tachycardia Respiratory/Chest: decreased breath sounds, other - SOB at times Abdomen: soft Sincere Almaguer MD Dec 01, 2018 08:22
--- NOTE | 2018-12-01 08:28 | NUR ---
NURSE NOTES: [facility] Nephrology @ [phone] notified of urgent dialysis order, as per Dr. Almaguer. Waiting for call back.
--- NOTE | 2018-12-01 08:30 | Consultation ---
DATE OF CONSULTATION: 12/01/2018 CONSULTING PHYSICIAN: Eduard King D.P.M. REQUESTING PHYSICIAN: Pravin Patton D.O. REASON FOR CONSULTATION: Infected left foot in the presence of diabetes mellitus, peripheral vascular disease, and end-stage renal disease. HISTORY OF PRESENT ILLNESS: The patient is a 73-year-old male who was admitted to [facility] yesterday for severe sepsis. The patient states that he has had the wound on his left heel for several months and the nursing care facility has been tending to it putting some type of cream and dressings daily. The patient does admit to pain in the left foot. He is nonambulatory and states that he uses a wheelchair for getting around. He also denies any problems with his circulation. PAST MEDICAL HISTORY: Significant for end-stage renal disease, peripheral vascular disease, hypertension, anemia, gastroesophageal reflux disease, metabolic encephalopathy. ALLERGIES: He has no known drug allergies. MEDICATIONS: Per [facility] and currently include meropenem and vancomycin. FAMILY HISTORY: Noncontributory. SOCIAL HISTORY: The patient resides in a group home facility. REVIEW OF SYSTEMS: HEENT: The patient denies any headaches, blurred vision, or ringing in the ears. CARDIOVASCULAR: The patient denies any chest pain or shortness of breath. GENITOURINARY: The patient denies any issues with urination. GASTROINTESTINAL: The patient denies any constipation, diarrhea, blood in the stools. PHYSICAL EXAMINATION: VITAL SIGNS: Temperature is 99.4, pulse 103, respiration rate is 16, blood pressure is 117/73, saturating 93% on room air. LOWER EXTREMITIES: Vascular, nonpalpable pedal pulses noted bilaterally. Left foot is warmer than the right. No edema noted. DERMATOLOGICAL: Skin on the right foot is intact. Left foot posterior heel, a large necrotic wound is noted. There is some sanguinous drainage noted from the site. Periwound skin is macerated. There is a strong malodor coming from the wound. Bone is exposed. MUSCULOSKELETAL: There is a right transmetatarsal amputation noted. Left Chopart amputation noted. Otherwise, no other gross deformities are seen. DIAGNOSTIC DATA: Lower extremity imaging, a left tib-fib x-ray is noted. No acute injury identified. Diffuse osteopenia. LABORATORY DATA: White blood cell count is 23.1, down from admission of 30.5, hemoglobin and hematocrit is 9.7 and 31.5, and platelet count is 357. Potassium is 5.7, BUN 60, creatinine is 9.7. Hemoglobin A1c is 8.9, glucose 229. C-reactive protein is pending. Albumin is 2.7. ASSESSMENT: 1. Wet gangrene of the left heel, possible source is leukocytosis/septic shock. 2. Uncontrolled diabetes mellitus. 3. History of peripheral vascular disease. 4. Left Chopart amputation. 5. Right transmetatarsal amputation. 6. Nonambulatory. 7. End-stage renal disease. PLAN: 1. General surgery consult noted. Exploration was performed. No amanuel purulence seen. Bone is exposed. 2. The patient examined, extensive chart review performed. Left foot is nonsalvageable and the patient will require higher level amputation either below-knee versus above-knee amputation. Discussed with the patient in Kiswahili that his foot is likely source of his current condition and he may succumb to infection if not addressed. He understands and will consider. 3. Wound care orders placed to apply Betadine-soaked gauze twice a day. 4. Discussed current condition with Dr. Patton , Dr. Ramirez and Dr. Davenport. 5. We will follow. Thank you for the courtesy of this consultation. Eduard King D.P.M. DR: Eva JOB#: [id number] CC: VIDA
--- NOTE | 2018-12-01 08:52 | Consultation ---
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 At the facility fever was over 102. Patient did not have dialysis at that day as scheduled. Upon arrival patient was afebrile , but hypotensive with blood pressure 78/51 and was hypoxic , requiring 100% nonrebreathing mask ; patient was also tachypneic. Laboratory work-up revealed significant leukocytosis WBC 30.5, hemoglobin 9.1, hematocrit 29.8 , platelet count 362. ABG on room air revealed O2 sat 91% . Sodium 129, potassium 5.3, chloride 93. BUN 51, creatinine 8.7 , consistent with known history of end-stage renal disease. Glucose 328. Stable LFT. Troponin 5.612; pro BNP above 35,000. EKG revealed sinus rhythm, no acute ischemic changes. Physical exam revealed foul-smelling drainage from the left leg ulcer. Surgeon seen patient in emergency department. Patient received fluid bolus, blood pressure responded to fluids initially . Patient pancultured, started on empiric antibiotic and admitted to ICU for further management. Allergies: Coded Allergies: No Known Allergies (Unverified , 11/30/18) Medication History Scheduled Amino Acids/Protein Hydrolys (Pro-Stat Liquid), 30 ML ORAL TWICE A DAY, ( Reported) Amlodipine Besylate* (Amlodipine Besylate*), 10 MG ORAL DAILY, (Reported) Aspirin* (Aspir 81*), 81 MG ORAL DAILY, (Reported) Bisacodyl (Bisacodyl), 10 MG RC PRN, (Reported) Clopidogrel Bisulfate* (Plavix*), 75 MG ORAL DAILY, (Reported) Cranberry Fruit Concentrate (Cranberry), 450 MG PO BID, (Reported) Docusate Sodium* (Colace*), 100 MG ORAL DAILY, (Reported) Esomeprazole Magnesium (Nexium), 40 MG ORAL DAILY, (Reported) Gabapentin* (Gabapentin*), 200 MG ORAL THREE TIMES A DAY, (Reported) Hydralazine Hcl* (Hydralazine Hcl*), 25 MG ORAL PRN, (Reported) Magnesium Hydroxide* (Milk Of Magnesia*), 30 ML ORAL DAILY, (Reported) Metoprolol Tartrate* (Metoprolol Tartrate*), 37.5 MG ORAL EVERY 12 HOURS, ( Reported) Na Phos,M-B/Na Phos,Di-Ba* (Fleet Enema*), 133 ML RECTAL PRN, (Reported) Sevelamer Carbonate* (Renvela*), 800 MG ORAL THREE TIMES A DAY, (Reported) Valsartan (Diovan), 320 MG ORAL DAILY, (Reported) Vitamin B Cmplx/Vit C/Folic AC (Nephro-Alina Tablet), 1 TAB ORAL DAILY, (Reported ) Scheduled PRN Hydrocodone Bit/Acetaminophen 5-325* (Choudrant 5-325*), 1 TAB ORAL Q4H PRN for For Pain, (Reported) Miscellaneous Medications Dextrose (Glucose Gel), 38 GM PO, (Reported) Glucagon,Human Recombinant (Glucagon Emergency Kit), 1 MG IJ, (Reported) Patient History History Provided By: Medical Record, EMS Healthcare decision maker N Resuscitation status Advanced Directive on File Yes Past Medical/Surgical History Past Medical/Surgical History: (1) ESRD (end stage renal disease) (2) Diabetes Review of Systems ROS Narrative unable to obtain due to patient's condition Physical Exam General Appearance: no apparent distress, alert Lines, tubes and drains: central line - R femoral HEENT: normocephalic, atraumatic, anicteric Neck: supple Respiratory/Chest: lungs clear, no respiratory distress, no accessory muscle use Cardiovascular/Chest: normal rate, regular rhythm Abdomen: non tender, soft Extremities: no calf tenderness Skin Exam: warm/dry, other - midfoot amputation ; R midfoot DIEGO, L midfoot with dressing Neurologic: alert Musculoskeletal: atrophy - BLE, other - kat mid foot amputation Last 24 Hour Vital Signs Date Time Temp Pulse Resp B/P (MAP) Pulse Ox O2 Delivery O2 Flow Rate FiO2 12/01/18 08:01 97 Nasal Cannula 3.0 32 12/01/18 07:00 102 16 119/72 (88) 94 12/01/18 07:00 119/72 12/01/18 06:00 103 16 117/73 (88) 94 12/01/18 06:00 117/73 12/01/18 05:00 131/73 12/01/18 05:00 103 16 131/73 (92) 93 12/01/18 04:00 99.4 110 16 131/75 (93) 93 12/01/18 04:00 109 12/01/18 04:00 131/75 12/01/18 04:00 Venturi Mask 8.0 12/01/18 03:51 108 18 95 Nasal Cannula 5.0 40 104 20 92 12/01/18 03:00 110 16 137/84 (101) 91 12/01/18 03:00 137/84 12/01/18 02:00 101 16 129/79 (96) 94 12/01/18 02:00 129/79 12/01/18 01:00 98 16 118/71 (87) 94 12/01/18 01:00 130/75 12/01/18 00:30 101 16 132/74 (93) 94 12/01/18 00:15 98 16 118/71 (87) 94 12/01/18 00:13 99.0 12/01/18 00:00 100.0 98 14 126/75 (92) 95 12/01/18 00:00 98 12/01/18 00:00 126/75 12/01/18 00:00 Venturi Mask 8.0 11/30/18 23:45 98 16 129/78 (95) 95 11/30/18 23:30 96 16 135/71 (92) 95 11/30/18 23:15 93 16 135/73 (93) 95 11/30/18 23:14 91 19 96 Simple Mask 3.0 32 11/30/18 23:14 96 Nasal Cannula 3.0 32 11/30/18 23:00 82 16 88/52 (64) 95 11/30/18 22:59 82/57 11/30/18 22:00 99.0 94 16 85/53 (64) 95 11/30/18 21:00 102.0 94 16 82/49 (60) 95 11/30/18 21:00 94 85/58 11/30/18 20:25 102.0 11/30/18 20:00 94 11/30/18 20:00 102.5 91 16 100/61 (74) 96 11/30/18 20:00 Nasal Cannula 3.0 11/30/18 19:00 94 16 95/58 (70) 95 11/30/18 18:40 Nasal Cannula 3.0 11/30/18 18:00 94 18 99/61 (74) 95 11/30/18 18:00 3.0 11/30/18 17:00 105 27 142/80 (100) 94 11/30/18 16:45 99.5 92 16 119/33 (61) 92 11/30/18 16:45 Nasal Cannula 3.0 11/30/18 16:40 98.2 80 18 98/62 95 Room Air 11/30/18 15:32 98.2 83 18 91/61 95 Room Air 11/30/18 14:14 98.2 80 16 94/60 95 Room Air 11/30/18 13:29 98.2 76 16 93/62 95 Room Air 15.0 11/30/18 12:18 97.8 79 16 87/59 95 Room Air 11/30/18 10:41 97.8 80 16 94/60 96 Room Air 11/30/18 09:40 61 22 Room Air 11/30/18 09:40 97.8 71 16 70/41 96 Room Air 11/30/18 09:34 98.2 61 22 78/51 (60) 96 Non-Rebreather 15.0 Intake and Output 11/30/18 12/01/18 19:00 07:00 Intake Total 1292.5 ml 729.54 ml Balance 1292.5 ml 729.54 ml Intake IV Total 1292.5 ml 729.54 ml # Voids 2 Laboratory Tests Test 11/30/18 09:40 11/30/18 09:50 11/30/18 10:12 12/01/18 03:38 White Blood Count 30.5 K/UL (4.8-10.8) *H Red Blood Count 3.50 M/UL (4.70-6.10) L Hemoglobin 9.1 G/DL (14.2-18.0) L Hematocrit 29.8 % (42.0-52.0) L Mean Corpuscular Volume 85 FL (80-99) Mean Corpuscular Hemoglobin 26.0 PG (27.0-31.0) L Mean Corpuscular Hemoglobin Concent 30.5 G/DL (32.0-36.0) L Red Cell Distribution Width 14.0 % (11.6-14.8) Platelet Count 362 K/UL (150-450) Mean Platelet Volume 5.7 FL (6.5-10.1) L Neutrophils (%) (Auto) % (45.0-75.0) Lymphocytes (%) (Auto) % (20.0-45.0) Monocytes (%) (Auto) % (1.0-10.0) Eosinophils (%) (Auto) % (0.0-3.0) Basophils (%) (Auto) % (0.0-2.0) Differential Total Cells Counted 100 Neutrophils % (Manual) 91 % (45-75) H Lymphocytes % (Manual) 2 % (20-45) L Monocytes % (Manual) 6 % (1-10) Eosinophils % (Manual) 0 % (0-3) Basophils % (Manual) 0 % (0-2) Band Neutrophils 1 % (0-8) Platelet Estimate Adequate Platelet Morphology Normal Hypochromasia 2+ Anisocytosis 1+ Sodium Level 129 MMOL/L (136-145) L Potassium Level 5.3 MMOL/L (3.5-5.1) H Chloride Level 93 MMOL/L (98-107) L Carbon Dioxide Level 25 MMOL/L (21-32) Anion Gap 11 mmol/L (5-15) Blood Urea Nitrogen 51 mg/dL (7-18) H Creatinine 8.7 MG/DL (0.55-1.30) H Estimat Glomerular Filtration Rate mL/min (>60) Glucose Level 328 MG/DL (74-106) H Calcium Level 9.4 MG/DL (8.5-10.1) Phosphorus Level 4.3 MG/DL (2.5-4.9) Magnesium Level 2.1 MG/DL (1.8-2.4) Total Bilirubin 0.4 MG/DL (0.2-1.0) Aspartate Amino Transf (AST/SGOT) 31 U/L (15-37) Alanine Aminotransferase (ALT/SGPT) 13 U/L (12-78) Alkaline Phosphatase 141 U/L (46-116) H Total Creatine Kinase 277 U/L (26-308) Creatine Kinase MB 15.5 NG/ML (0.0-3.6) H Creatine Kinase MB Relative Index 5.5 Troponin I 5.612 ng/mL (0.000-0.056) Pro-B-Type Natriuretic Peptide > 22426 pg/mL (0-125) H Total Protein 7.4 G/DL (6.4-8.2) Albumin 2.6 G/DL (3.4-5.0) L Globulin 4.8 g/dL Albumin/Globulin Ratio 0.5 (1.0-2.7) L Lactic Acid Level 1.20 mmol/L (0.4-2.0) Arterial Blood pH 7.349 (7.350-7.450) 7.307 (7.350-7.450) Arterial Blood Partial Pressure CO2 39.2 mmHg (35.0-45.0) 34.7 mmHg (35.0-45.0) L Arterial Blood Partial Pressure O2 66.0 mmHg (75.0-100.0) L 57.5 mmHg (75.0-100.0) L Arterial Blood HCO3 21.1 mmol/L (22.0-26.0) L 17.0 mmol/L (22.0-26.0) *L Arterial Blood Oxygen Saturation 91.9 % (95-100) L 87.1 % (95-100) *L Arterial Blood Base Excess -4.1 (-2-2) L -8.5 (-2-2) L Tank Test Positive Positive Test 12/01/18 05:45 White Blood Count 23.1 K/UL (4.8-10.8) *H Red Blood Count 3.67 M/UL (4.70-6.10) L Hemoglobin 9.7 G/DL (14.2-18.0) L Hematocrit 31.5 % (42.0-52.0) L Mean Corpuscular Volume 86 FL (80-99) Mean Corpuscular Hemoglobin 26.6 PG (27.0-31.0) L Mean Corpuscular Hemoglobin Concent 31.0 G/DL (32.0-36.0) L Red Cell Distribution Width 14.4 % (11.6-14.8) Platelet Count 354 K/UL (150-450) Mean Platelet Volume 5.8 FL (6.5-10.1) L Neutrophils (%) (Auto) % (45.0-75.0) Lymphocytes (%) (Auto) % (20.0-45.0) Monocytes (%) (Auto) % (1.0-10.0) Eosinophils (%) (Auto) % (0.0-3.0) Basophils (%) (Auto) % (0.0-2.0) Neutrophils % (Manual) Pending Lymphocytes % (Manual) Pending Platelet Estimate Pending Platelet Morphology Pending Arterial Blood pH 7.323 (7.350-7.450) Arterial Blood Partial Pressure CO2 30.2 mmHg (35.0-45.0) L Arterial Blood Partial Pressure O2 61.7 mmHg (75.0-100.0) L Arterial Blood HCO3 15.3 mmol/L (22.0-26.0) *L Arterial Blood Oxygen Saturation 89.4 % (95-100) *L Arterial Blood Base Excess -9.6 (-2-2) *L Tank Test Positive Sodium Level 133 MMOL/L (136-145) L Potassium Level 5.7 MMOL/L (3.5-5.1) H Chloride Level 95 MMOL/L (98-107) L Carbon Dioxide Level 20 MMOL/L (21-32) L Anion Gap 18 mmol/L (5-15) H Blood Urea Nitrogen 60 mg/dL (7-18) H Creatinine 9.7 MG/DL (0.55-1.30) H Estimat Glomerular Filtration Rate mL/min (>60) Glucose Level 229 MG/DL (74-106) #H Hemoglobin A1c 8.9 % (4.3-6.0) H Uric Acid 5.7 MG/DL (2.6-7.2) Calcium Level 9.6 MG/DL (8.5-10.1) Phosphorus Level 5.0 MG/DL (2.5-4.9) H Magnesium Level 2.2 MG/DL (1.8-2.4) Iron Level 10 ug/dL (50-175) L Total Iron Binding Capacity 73 ug/dL (250-450) L Percent Iron Saturation 14 % (15-50) L Unsaturated Iron Binding 63 ug/dL (112-346) L Ferritin 1516 NG/ML (8-388) H Total Bilirubin 0.6 MG/DL (0.2-1.0) Gamma Glutamyl Transpeptidase 80 U/L (5-85) Aspartate Amino Transf (AST/SGOT) 55 U/L (15-37) H Alanine Aminotransferase (ALT/SGPT) 15 U/L (12-78) Alkaline Phosphatase 138 U/L (46-116) H Ammonia 11 umol/L (11-32) Total Creatine Kinase 489 U/L (26-308) H Troponin I 11.774 ng/mL (0.000-0.056) C-Reactive Protein, Quantitative > 70.0 mg/dL (0.00-0.90) H Pro-B-Type Natriuretic Peptide > 88923 pg/mL (0-125) H Total Protein 7.6 G/DL (6.4-8.2) Albumin 2.7 G/DL (3.4-5.0) L Globulin 4.9 g/dL Albumin/Globulin Ratio 0.6 (1.0-2.7) L Triglycerides Level 102 MG/DL (30-150) Cholesterol Level 113 MG/DL (< 200) LDL Cholesterol 56 mg/dL (<100) HDL Cholesterol 24 MG/DL (40-60) L Cholesterol/HDL Ratio 4.7 (3.3-4.4) H Vitamin B12 Level 1097 PG/ML (193-986) H Folate 18.8 NG/ML (8.6-58.9) Thyroid Stimulating Hormone (TSH) 1.075 uiU/mL (0.358-3.740) Random Vancomycin Level 11.0 ug/mL Microbiology Date/Time Source Procedure Growth Status 11/30/18 09:50 Nasal Nares - Final Complete 11/30/18 09:50 Nasal Nares - Final Complete 11/30/18 10:00 Rectum Received Height (Feet): 5 Height (Inches): 1.00 Weight (Pounds): 167 Medications Current Medications Medications (Trade) Dose Ordered Sig/Elva Route PRN Reason Start Time Stop Time Status Last Admin Dose Admin Acetaminophen (Tylenol) 650 mg Q4H PRN ORAL fever 11/30/18 14:45 12/30/18 14:44 11/30/18 19:55 Acetaminophen/ Hydrocodone Bitart (Choudrant 10/325) 1 tab EVERY 6 HOURS PRN ORAL Severe Pain (Pain Scale 7-10) 11/30/18 23:15 12/07/18 23:14 11/30/18 23:43 Acetaminophen/ Hydrocodone Bitart (Choudrant 5/325) 1 tab Q6H PRN ORAL Moderate Pain (Pain Scale 4-6) 11/30/18 23:15 12/07/18 23:14 Albuterol/ Ipratropium (Albuterol/ Ipratropium) 3 ml Q4H PRN HHN Shortness of Breath 11/30/18 14:45 12/05/18 14:44 12/01/18 03:50 Aspirin (Ecotrin) 81 mg DAILY ORAL 11/30/18 19:00 12/30/18 18:59 Atorvastatin Calcium (Lipitor) 80 mg BEDTIME ORAL 11/30/18 21:00 12/30/18 20:59 Chlorhexidine Gluconate (Keke-Hex 2%) 1 applic DAILY@2000 TOPIC 12/01/18 20:00 12/31/18 19:59 Heparin Sodium (Porcine) (Heparin 5000 units/ml) 5,000 units EVERY 12 HOURS SUBQ 11/30/18 21:00 12/30/18 20:59 Meropenem 500 mg/ Sodium Chloride 55 ml @ 110 mls/hr Q24H IVPB 11/30/18 15:00 12/05/18 14:59 11/30/18 18:11 Metoprolol Tartrate (Lopressor) 12.5 mg Q12HR ORAL 11/30/18 21:00 12/30/18 20:59 Morphine Sulfate (Morphine Sulfate) 2 mg Q4H PRN IVP Severe Pain (Pain Scale 7-10) 11/30/18 14:45 12/07/18 14:44 Norepinephrine Bitartrate 4 mg/ Dextrose 254 ml @ 0 mls/hr Q24H IV 11/30/18 14:45 12/30/18 14:44 11/30/18 22:59 Ondansetron HCl (Zofran) 4 mg Q6H PRN IVP Nausea & Vomiting 11/30/18 14:45 12/30/18 14:44 Pantoprazole (Protonix) 40 mg DAILY IVP 12/01/18 09:00 12/31/18 08:59 Polyethylene Glycol (Miralax) 17 gm DAILYPRN PRN ORAL Constipation 11/30/18 14:45 12/30/18 14:44 Sevelamer Carbonate (Renvela) 800 mg THREE TIMES A DAY ORAL 11/30/18 18:00 12/30/18 17:59 11/30/18 18:28 Sodium Chloride 1,000 ml @ 50 mls/hr Q20H IV 11/30/18 15:30 12/30/18 15:29 11/30/18 15:30 Vancomycin HCl (Vanco rx to dose) 1 ea DAILY PRN MISC Per rx protocol 11/30/18 14:00 12/30/18 13:59 Vancomycin HCl 1 gm/Sodium Chloride 275 ml @ 183.3 mls/ hr ONCE ONCE IVPB 12/01/18 10:00 12/01/18 11:30 Vitamin B Complex/ Vit C/Folic Acid (Nephrovite) 1 tab DAILY ORAL 12/01/18 09:00 12/31/18 08:59 Assessment/Plan Assessment/Plan: ASSESSMENT Severe sepsis with shock Possible pneumonia Acute GA Infected leg ulcer, probably gangrene Ulcer of heel and midfoot with necrosis to bone PVD with amputation End-stage renal disease, on hemodialysis Anemia of chronic kidney disease Electrolyte abnormalities Diabetes mellitus with diabetic neuropathy PLAN OF CARE ICU O2 HHN , now on NC CXR and ABG noted BP responded to IVF initially, now on Levophed, monitor hemodynamic status and titrate pressor to keep mean arterial BP above 65 Serial troponin Echo cardio follows Started on ASA, and statin Low-dose of BB, closely monitor BP abx as per ID fup with SCX, WCX surgery follows status post wound exploration ; wound necrosis to bone noted wound care as per surgeon recommendation podiatry eval appreciated : left foot not salvageable and will require amputation wound care DVT prophylaxis HD as per rn labor and delivery with close monitoring of volumes, renal parameters, and electrolytes-today BS management DVT prophylaxis Monitor H&H with goal to keep Hgb above 7 Supportive care case discussed and evaluated by supervising physician Beatriz Nova NP Dec 01, 2018 08:52
--- NOTE | 2018-12-01 08:58 | Diagnostic Imaging Report ---
EXAM: XR Chest, 1 View CLINICAL HISTORY: DYSPNEA TECHNIQUE: Frontal view of the chest. COMPARISON: Chest x-ray dated 11 30 18 FINDINGS: Lungs: Interval development of patchy opacities throughout the right lung, concerning for pneumonia. Persistent pulmonary vascular congestion. Pleural space: Unremarkable. The costophrenic angles are sharp. No visible pneumothorax. Heart: Mild cardiomegaly. Mediastinum: Unremarkable. Bones joints: Unremarkable. Vasculature: Atherosclerotic calcifications are noted within the aortic arch. Tubes, lines and devices: Telemetry leads overlie the thorax. Other findings: Trace fluid in the minor fissure. IMPRESSION: 1. Interval development of patchy consolidation throughout the right lung, concerning for pneumonia. Consolidations related to pulmonary edema are less likely since it is predominantly on the right side. 2. Persistent pulmonary vascular congestion. 3. Trace fluid in the minor fissure. 4. Mild cardiomegaly.
[2018-12-01] MEDS: Metoprolol Tartrate 12.5mg TAB ORAL SCH ×2 (09:00→21:00)
[2018-12-01] MEDS: Pantoprazole Inj IVP SCH (09:24)
[2018-12-01] MEDS: Renvela 800mg Pkt ORAL SCH ×3 (09:24→18:20)
[2018-12-01] MEDS: Aspirin EC 81mg tab ORAL SCH (09:25)
[2018-12-01] MEDS: Nephrovite tab (Rena-Vite) ORAL SCH (09:25)
[2018-12-01] MEDS: Heparin 5000 units/ml inj SUBQ SCH ×2 (09:29→21:01)
--- NOTE | 2018-12-01 09:45 | NUR ---
NURSE NOTES: cash application clerkLloyd at bedside. Consent obtained and put in chart. Pt connected to machine, tolerating well. B/P:112/72, HR:106, RR:20, SpO2: 94%. Levo running at 2mcgs/min. Will continue to titrate off of Levo as tolerated, per Dr. Mary.
[2018-12-01] MEDS ORDERED: Vancomycin 1 GM in NS 275 ML IVPB ONE (10:00)
--- NOTE | 2018-12-01 11:40 | NUR ---
NURSE NOTES: Dialysis complete at this time. 1L out, per IWONA Desai. Pt tolerated it well. B/P:120/72, HR:82, RR:13, SpO2:98%. Temp 99.2 after receiving Tylenol for a fever of 102.5. Pt remains on 3L NC. Pt repositioned. No distress noted and no physical concerns voiced.
--- NOTE | 2018-12-01 12:03 | NUR ---
RD ASSESSMENT & RECOMMENDATIONS SEE CARE ACTIVITY FOR COMPLETE ASSESSMENT DAILY ESTIMATED NEEDS: Needs based on Wound, sepsis, ESRD w/ HD, 65kg abw 25-35 kcals/kg 3946-5698 total kcals 1.25-2 g protein/kg 81-130 g total protein 20-22 mL/kg 0817-4353 total fluid mLs NUTRITION DIAGNOSIS: Increased kcal/prot needs R/T sepsis, ESRD dx, wound healing as evidenced by critically elev wbc (30.5* -> 23.1*), elev CRP, febrile, hypotensive on pressor support, elev HR, pt HD dependent, admitted w/ lt heel gangrene, w/ necrosis directly down to bone per MD. CURRENT DIET:RENAL, nectar thick PO DIET RECOMMENDATIONS: RENAL, CCHO MED/ texture per HYDROGEN CELL TENDER ADDITIONAL RECOMMENDATIONS: * HYDROGEN CELL TENDER evaluation for appropriate texture * Monitor PO tolerance and acceptance -> add Nepro x 1 for now (425kcal, 19g prot per one thomas) * Wound healing: Continue Nephrovite x 1 : add ZnSO4 220mg QD x 10 days : Paul 1pkt daily * Rec NISS + long acting insulin * Calibrated bedscale wt, obtain dry wt post HD
--- NOTE | 2018-12-01 12:54 | Surgery Progress Note ---
Surgery Progress Note Subjective Additional Comments Patient seen and examined bedside. Still in ICU. He is awake alert responsive. Febrile. Tachycardic. Leukocytosis slightly improved today. Labs noted. Troponins trending up. Cardiology input appreciated. Objective Last 24 Hour Vital Signs Date Time Temp Pulse Resp B/P (MAP) Pulse Ox O2 Delivery O2 Flow Rate FiO2 12/01/18 12:00 108/65 12/01/18 11:00 95/61 12/01/18 10:00 101.6 105 21 108/75 (86) 96 12/01/18 10:00 108/75 12/01/18 09:55 101.6 12/01/18 09:30 112/72 12/01/18 09:00 102.5 106 22 110/67 (81) 94 12/01/18 09:00 107 112/68 12/01/18 09:00 110/67 12/01/18 08:01 97 Nasal Cannula 3.0 32 12/01/18 08:00 119/70 12/01/18 08:00 Nasal Cannula 3.0 12/01/18 08:00 99 22 119/70 (86) 93 12/01/18 07:26 102 12/01/18 07:00 102 16 119/72 (88) 94 12/01/18 07:00 119/72 12/01/18 06:00 103 16 117/73 (88) 94 12/01/18 06:00 117/73 12/01/18 05:00 131/73 12/01/18 05:00 103 16 131/73 (92) 93 12/01/18 04:00 99.4 110 16 131/75 (93) 93 12/01/18 04:00 109 12/01/18 04:00 131/75 12/01/18 04:00 Venturi Mask 8.0 12/01/18 03:51 108 18 95 Nasal Cannula 5.0 40 104 20 92 12/01/18 03:00 110 16 137/84 (101) 91 12/01/18 03:00 137/84 12/01/18 02:00 101 16 129/79 (96) 94 12/01/18 02:00 129/79 12/01/18 01:00 98 16 118/71 (87) 94 12/01/18 01:00 130/75 12/01/18 00:30 101 16 132/74 (93) 94 12/01/18 00:15 98 16 118/71 (87) 94 12/01/18 00:13 99.0 12/01/18 00:00 100.0 98 14 126/75 (92) 95 12/01/18 00:00 98 12/01/18 00:00 126/75 12/01/18 00:00 Venturi Mask 8.0 11/30/18 23:45 98 16 129/78 (95) 95 11/30/18 23:30 96 16 135/71 (92) 95 11/30/18 23:15 93 16 135/73 (93) 95 11/30/18 23:14 91 19 96 Simple Mask 3.0 32 11/30/18 23:14 96 Nasal Cannula 3.0 32 11/30/18 23:00 82 16 88/52 (64) 95 11/30/18 22:59 82/57 11/30/18 22:00 99.0 94 16 85/53 (64) 95 11/30/18 21:00 102.0 94 16 82/49 (60) 95 11/30/18 21:00 94 85/58 11/30/18 20:00 94 11/30/18 20:00 102.5 91 16 100/61 (74) 96 11/30/18 20:00 Nasal Cannula 3.0 11/30/18 19:00 94 16 95/58 (70) 95 11/30/18 18:40 Nasal Cannula 3.0 11/30/18 18:00 94 18 99/61 (74) 95 11/30/18 18:00 3.0 11/30/18 17:00 105 27 142/80 (100) 94 11/30/18 16:45 99.5 92 16 119/33 (61) 92 11/30/18 16:45 Nasal Cannula 3.0 11/30/18 16:40 98.2 80 18 98/62 95 Room Air 11/30/18 15:32 98.2 83 18 91/61 95 Room Air 11/30/18 14:14 98.2 80 16 94/60 95 Room Air 11/30/18 13:29 98.2 76 16 93/62 95 Room Air 15.0 I&O Intake and Output 11/30/18 12/01/18 18:59 06:59 Intake Total 1105 ml 855.61 ml Balance 1105 ml 855.61 ml IV Total 1105 ml 855.61 ml # Voids 2 Dressing: saturated Wound: other Drains: other Cardiovascular: RSR Respiratory: decreased breath sounds Abdomen: soft, present bowel sounds Extremities: cyanosis, no edema, no tenderness, other Laboratory Tests Test 12/01/18 03:38 12/01/18 05:45 Arterial Blood pH 7.307 (7.350-7.450) 7.323 (7.350-7.450) Arterial Blood Partial Pressure CO2 34.7 mmHg (35.0-45.0) L 30.2 mmHg (35.0-45.0) L Arterial Blood Partial Pressure O2 57.5 mmHg (75.0-100.0) L 61.7 mmHg (75.0-100.0) L Arterial Blood HCO3 17.0 mmol/L (22.0-26.0) *L 15.3 mmol/L (22.0-26.0) *L Arterial Blood Oxygen Saturation 87.1 % (95-100) *L 89.4 % (95-100) *L Arterial Blood Base Excess -8.5 (-2-2) L -9.6 (-2-2) *L Tank Test Positive Positive White Blood Count 23.1 K/UL (4.8-10.8) *H Red Blood Count 3.67 M/UL (4.70-6.10) L Hemoglobin 9.7 G/DL (14.2-18.0) L Hematocrit 31.5 % (42.0-52.0) L Mean Corpuscular Volume 86 FL (80-99) Mean Corpuscular Hemoglobin 26.6 PG (27.0-31.0) L Mean Corpuscular Hemoglobin Concent 31.0 G/DL (32.0-36.0) L Red Cell Distribution Width 14.4 % (11.6-14.8) Platelet Count 354 K/UL (150-450) Mean Platelet Volume 5.8 FL (6.5-10.1) L Neutrophils (%) (Auto) % (45.0-75.0) Lymphocytes (%) (Auto) % (20.0-45.0) Monocytes (%) (Auto) % (1.0-10.0) Eosinophils (%) (Auto) % (0.0-3.0) Basophils (%) (Auto) % (0.0-2.0) Differential Total Cells Counted 100 Neutrophils % (Manual) 92 % (45-75) H Lymphocytes % (Manual) 2 % (20-45) L Monocytes % (Manual) 3 % (1-10) Eosinophils % (Manual) 0 % (0-3) Basophils % (Manual) 0 % (0-2) Band Neutrophils 3 % (0-8) Platelet Estimate Adequate Platelet Morphology Normal Hypochromasia 1+ Sodium Level 133 MMOL/L (136-145) L Potassium Level 5.7 MMOL/L (3.5-5.1) H Chloride Level 95 MMOL/L (98-107) L Carbon Dioxide Level 20 MMOL/L (21-32) L Anion Gap 18 mmol/L (5-15) H Blood Urea Nitrogen 60 mg/dL (7-18) H Creatinine 9.7 MG/DL (0.55-1.30) H Estimat Glomerular Filtration Rate mL/min (>60) Glucose Level 229 MG/DL (74-106) #H Hemoglobin A1c 8.9 % (4.3-6.0) H Uric Acid 5.7 MG/DL (2.6-7.2) Calcium Level 9.6 MG/DL (8.5-10.1) Phosphorus Level 5.0 MG/DL (2.5-4.9) H Magnesium Level 2.2 MG/DL (1.8-2.4) Iron Level 10 ug/dL (50-175) L Total Iron Binding Capacity 73 ug/dL (250-450) L Percent Iron Saturation 14 % (15-50) L Unsaturated Iron Binding 63 ug/dL (112-346) L Ferritin 1516 NG/ML (8-388) H Total Bilirubin 0.6 MG/DL (0.2-1.0) Gamma Glutamyl Transpeptidase 80 U/L (5-85) Aspartate Amino Transf (AST/SGOT) 55 U/L (15-37) H Alanine Aminotransferase (ALT/SGPT) 15 U/L (12-78) Alkaline Phosphatase 138 U/L (46-116) H Ammonia 11 umol/L (11-32) Total Creatine Kinase 489 U/L (26-308) H Troponin I 11.774 ng/mL (0.000-0.056) C-Reactive Protein, Quantitative > 70.0 mg/dL (0.00-0.90) H Pro-B-Type Natriuretic Peptide > 21881 pg/mL (0-125) H Total Protein 7.6 G/DL (6.4-8.2) Albumin 2.7 G/DL (3.4-5.0) L Globulin 4.9 g/dL Albumin/Globulin Ratio 0.6 (1.0-2.7) L Triglycerides Level 102 MG/DL (30-150) Cholesterol Level 113 MG/DL (< 200) LDL Cholesterol 56 mg/dL (<100) HDL Cholesterol 24 MG/DL (40-60) L Cholesterol/HDL Ratio 4.7 (3.3-4.4) H Vitamin B12 Level 1097 PG/ML (193-986) H Folate 18.8 NG/ML (8.6-58.9) Thyroid Stimulating Hormone (TSH) 1.075 uiU/mL (0.358-3.740) Random Vancomycin Level 11.0 ug/mL Hepatitis B Surface Antigen Pending Plan Problems: (1) 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 On admission patient has a very foul-smelling left heel necrotic wound/ulcer. No purulent drainage no significant foot or leg cellulitis. Prior midfoot amputation. Very foul-smelling. Given patient's current medical condition status with his consent a wound expiration was done at the bedside to ensure no underlying pus, gas-forming infection, acute etiology of severe sepsis. Using a fresh #11 scalpel incision was made in the middle of the area of necrosis and followed down to healthy tissue which is not identified until bone was reached. Wound necrosis directly down to bone. No pus tunneling or gas-forming infectious and noted. We will continue with local wound care Appreciate podiatry input. Agree foot not salvageable and recommend BKA. We will proceed once cleared Given patient's current medical condition status will need resuscitation and clearance prior to any surgical intervention or podiatry intervention. Antibiotics as per infectious disease We will follow with recommendations thank you (2) Severe sepsis Assessment & Plan: leukocytosis abnormal labs elevated troponin -abx as per ID -local wound care Appreciate cardiology input. Will plan for amputation -will follow with recs thank you (3) Infected ulcer of skin Noam Davenport Dec 01, 2018 12:54
[2018-12-01] MEDS: Meropenem 500 MG in NS 55 ML IVPB SCH (14:48)
--- NOTE | 2018-12-01 15:00 | NUR ---
NURSE NOTES: Patient's son at bedside. Updated him on patient's current condition. SpO2 (98%) and HR (80) significantly improved after dialysis. Patient cleaned and repositioned. Patient on Levophed 1mcg/min. B/P: 105/86. Will continue to monitor.
--- NOTE | 2018-12-01 15:41 | NUR ---
CASE MANAGEMENT: INITIAL REVIEW 73 YO M CONTRERAS FROM [facility] CC: FEVER PMHx: HTN. DM. GERD. HD MWF. CKD. SI:SEVERE SEPSIS. ESRD. T 98.2 HR 61 RR 22 B/P 78/51 SATS 96% ON 15L/NRB WBC 30.5 NA 129 K 5.3 CL 93 BUN 51 CR 8.7 GLU 328 ALP 141 CKMB 15.5 BNP >35K IS:CEFEPIME IV X1 FLAGYL IV X1 NS BOLUS X1 ASA PO X1 PATIENT ADMITTED TO ICU 11/30/2018 @ 1250 DCP: PATIENT TO BE DISCHARGED TO SNF ONCE MEDICALLY CLEARED. Addendum: 12/01/18 at 1656 by Melinda Causey INTERQUAL MET
[2018-12-01] MEDS ORDERED: NS 275ml ONE (17:09)
[2018-12-01] MEDS ORDERED: Tubing IV Secondary IV ONE (17:09)
--- NOTE | 2018-12-01 17:12 | Cardiology Report ---
APPROVED REPORT EKG Measurement Heart [id number] Normal sinus rhythm Low voltage QRS Inferolateral ST-T abn suggesting acute ischemia Nonspecific T wave abnormality Abnormal EKG
--- NOTE | 2018-12-01 17:16 | Cardiology Report ---
APPROVED REPORT EKG Measurement Heart [id number] Normal sinus rhythm Left axis deviation Low voltage QRS Incomplete right bundle branch block Abnormal ECG
--- NOTE | 2018-12-01 17:19 | Infectious Diseases Prog Note ---
Assessment/Plan Assessment/Plan Assessment: Septic shock-2ry to PNA- r.o bacteremia -12/01 CXR: . Interval development of patchy consolidation throughout the right lung, concerning for pneumonia. Consolidations related to pulmonary edema are less likely since it is predominantly on the right side. Persistent pulmonary vascular congestion. -CXR: Pulmonary vascularity and interstitium are prominent. -influenza sc neg -sp cx, BCx p Fever Hyperleukocytosis; improving ESRD on HD MWF anemia polyneuropathy GERD NH resident Plan: -Continue empiric Meropenem #2 and IV Vancomycin #2 and add Azithromycin for atypical coverage -11/30 SP Cefepime #1, Flagyl #1 -f/u cx (Sp, BL) -Monitor CBC/CMP, temperatures -ICU care -aspiration precautions Thank you for this consultation. Will continue to follow along with you. Discussed with RN Subjective Allergies: Coded Allergies: No Known Allergies (Unverified , 11/30/18) Subjective Tm 102.5 wbc improving levophed down to 1 Objective Vital Signs Last 24 Hour Vital Signs Date Time Temp Pulse Resp B/P (MAP) Pulse Ox O2 Delivery O2 Flow Rate FiO2 12/01/18 17:00 82 12 107/64 (78) 96 12/01/18 17:00 107/64 12/01/18 16:00 Nasal Cannula 3.0 12/01/18 16:00 99.4 85 16 113/67 (82) 95 12/01/18 16:00 113/67 12/01/18 15:39 85 12/01/18 15:00 81 15 112/65 (81) 97 12/01/18 15:00 105/86 12/01/18 14:48 94/61 12/01/18 14:00 80 14 104/67 (79) 98 12/01/18 14:00 104/67 12/01/18 13:00 80 13 97/61 (73) 97 12/01/18 13:00 97/61 12/01/18 12:00 108/65 12/01/18 12:00 Nasal Cannula 3.0 12/01/18 12:00 99.2 85 15 111/65 (80) 97 12/01/18 11:53 83 12/01/18 11:00 95/61 12/01/18 11:00 81 14 115/68 (84) 96 12/01/18 10:00 101.6 105 21 108/75 (86) 96 12/01/18 10:00 108/75 12/01/18 09:55 101.6 12/01/18 09:30 112/72 12/01/18 09:00 102.5 106 22 110/67 (81) 94 12/01/18 09:00 107 112/68 12/01/18 09:00 110/67 12/01/18 08:01 97 Nasal Cannula 3.0 32 12/01/18 08:00 119/70 12/01/18 08:00 Nasal Cannula 3.0 12/01/18 08:00 99 22 119/70 (86) 93 12/01/18 07:26 102 12/01/18 07:00 102 16 119/72 (88) 94 12/01/18 07:00 119/72 12/01/18 06:00 103 16 117/73 (88) 94 12/01/18 06:00 117/73 12/01/18 05:00 131/73 12/01/18 05:00 103 16 131/73 (92) 93 12/01/18 04:00 99.4 110 16 131/75 (93) 93 12/01/18 04:00 109 12/01/18 04:00 131/75 12/01/18 04:00 Venturi Mask 8.0 12/01/18 03:51 108 18 95 Nasal Cannula 5.0 40 104 20 92 12/01/18 03:00 110 16 137/84 (101) 91 12/01/18 03:00 137/84 12/01/18 02:00 101 16 129/79 (96) 94 12/01/18 02:00 129/79 12/01/18 01:00 98 16 118/71 (87) 94 12/01/18 01:00 130/75 12/01/18 00:30 101 16 132/74 (93) 94 12/01/18 00:15 98 16 118/71 (87) 94 12/01/18 00:13 99.0 12/01/18 00:00 100.0 98 14 126/75 (92) 95 12/01/18 00:00 98 12/01/18 00:00 126/75 12/01/18 00:00 Venturi Mask 8.0 11/30/18 23:45 98 16 129/78 (95) 95 11/30/18 23:30 96 16 135/71 (92) 95 11/30/18 23:15 93 16 135/73 (93) 95 11/30/18 23:14 91 19 96 Simple Mask 3.0 32 11/30/18 23:14 96 Nasal Cannula 3.0 32 11/30/18 23:00 82 16 88/52 (64) 95 11/30/18 22:59 82/57 11/30/18 22:00 99.0 94 16 85/53 (64) 95 11/30/18 21:00 102.0 94 16 82/49 (60) 95 11/30/18 21:00 94 85/58 11/30/18 20:00 94 11/30/18 20:00 102.5 91 16 100/61 (74) 96 11/30/18 20:00 Nasal Cannula 3.0 11/30/18 19:00 94 16 95/58 (70) 95 11/30/18 18:40 Nasal Cannula 3.0 11/30/18 18:00 94 18 99/61 (74) 95 11/30/18 18:00 3.0 Height (Feet): 5 Height (Inches): 1.00 Weight (Pounds): 167 Microbiology Date/Time Source Procedure Growth Status 11/30/18 09:50 Nasal Nares - Final Complete 11/30/18 09:50 Nasal Nares - Final Complete 11/30/18 10:00 Rectum Received Laboratory Tests Test 12/01/18 03:38 12/01/18 05:45 Arterial Blood pH 7.307 (7.350-7.450) 7.323 (7.350-7.450) Arterial Blood Partial Pressure CO2 34.7 mmHg (35.0-45.0) L 30.2 mmHg (35.0-45.0) L Arterial Blood Partial Pressure O2 57.5 mmHg (75.0-100.0) L 61.7 mmHg (75.0-100.0) L Arterial Blood HCO3 17.0 mmol/L (22.0-26.0) *L 15.3 mmol/L (22.0-26.0) *L Arterial Blood Oxygen Saturation 87.1 % (95-100) *L 89.4 % (95-100) *L Arterial Blood Base Excess -8.5 (-2-2) L -9.6 (-2-2) *L Tank Test Positive Positive White Blood Count 23.1 K/UL (4.8-10.8) *H Red Blood Count 3.67 M/UL (4.70-6.10) L Hemoglobin 9.7 G/DL (14.2-18.0) L Hematocrit 31.5 % (42.0-52.0) L Mean Corpuscular Volume 86 FL (80-99) Mean Corpuscular Hemoglobin 26.6 PG (27.0-31.0) L Mean Corpuscular Hemoglobin Concent 31.0 G/DL (32.0-36.0) L Red Cell Distribution Width 14.4 % (11.6-14.8) Platelet Count 354 K/UL (150-450) Mean Platelet Volume 5.8 FL (6.5-10.1) L Neutrophils (%) (Auto) % (45.0-75.0) Lymphocytes (%) (Auto) % (20.0-45.0) Monocytes (%) (Auto) % (1.0-10.0) Eosinophils (%) (Auto) % (0.0-3.0) Basophils (%) (Auto) % (0.0-2.0) Differential Total Cells Counted 100 Neutrophils % (Manual) 92 % (45-75) H Lymphocytes % (Manual) 2 % (20-45) L Monocytes % (Manual) 3 % (1-10) Eosinophils % (Manual) 0 % (0-3) Basophils % (Manual) 0 % (0-2) Band Neutrophils 3 % (0-8) Platelet Estimate Adequate Platelet Morphology Normal Hypochromasia 1+ Sodium Level 133 MMOL/L (136-145) L Potassium Level 5.7 MMOL/L (3.5-5.1) H Chloride Level 95 MMOL/L (98-107) L Carbon Dioxide Level 20 MMOL/L (21-32) L Anion Gap 18 mmol/L (5-15) H Blood Urea Nitrogen 60 mg/dL (7-18) H Creatinine 9.7 MG/DL (0.55-1.30) H Estimat Glomerular Filtration Rate mL/min (>60) Glucose Level 229 MG/DL (74-106) #H Hemoglobin A1c 8.9 % (4.3-6.0) H Uric Acid 5.7 MG/DL (2.6-7.2) Calcium Level 9.6 MG/DL (8.5-10.1) Phosphorus Level 5.0 MG/DL (2.5-4.9) H Magnesium Level 2.2 MG/DL (1.8-2.4) Iron Level 10 ug/dL (50-175) L Total Iron Binding Capacity 73 ug/dL (250-450) L Percent Iron Saturation 14 % (15-50) L Unsaturated Iron Binding 63 ug/dL (112-346) L Ferritin 1516 NG/ML (8-388) H Total Bilirubin 0.6 MG/DL (0.2-1.0) Gamma Glutamyl Transpeptidase 80 U/L (5-85) Aspartate Amino Transf (AST/SGOT) 55 U/L (15-37) H Alanine Aminotransferase (ALT/SGPT) 15 U/L (12-78) Alkaline Phosphatase 138 U/L (46-116) H Ammonia 11 umol/L (11-32) Total Creatine Kinase 489 U/L (26-308) H Troponin I 11.774 ng/mL (0.000-0.056) C-Reactive Protein, Quantitative > 70.0 mg/dL (0.00-0.90) H Pro-B-Type Natriuretic Peptide > 60816 pg/mL (0-125) H Total Protein 7.6 G/DL (6.4-8.2) Albumin 2.7 G/DL (3.4-5.0) L Globulin 4.9 g/dL Albumin/Globulin Ratio 0.6 (1.0-2.7) L Triglycerides Level 102 MG/DL (30-150) Cholesterol Level 113 MG/DL (< 200) LDL Cholesterol 56 mg/dL (<100) HDL Cholesterol 24 MG/DL (40-60) L Cholesterol/HDL Ratio 4.7 (3.3-4.4) H Vitamin B12 Level 1097 PG/ML (193-986) H Folate 18.8 NG/ML (8.6-58.9) Thyroid Stimulating Hormone (TSH) 1.075 uiU/mL (0.358-3.740) Random Vancomycin Level 11.0 ug/mL Hepatitis B Surface Antigen Pending Current Medications Medications (Trade) Dose Ordered Sig/Elva Route PRN Reason Start Time Stop Time Status Last Admin Dose Admin Acetaminophen (Tylenol) 650 mg Q4H PRN ORAL fever 11/30/18 14:45 12/30/18 14:44 12/01/18 09:25 Acetaminophen/ Hydrocodone Bitart ([place] 10/325) 1 tab EVERY 6 HOURS PRN ORAL Severe Pain (Pain Scale 7-10) 11/30/18 23:15 12/07/18 23:14 11/30/18 23:43 Acetaminophen/ Hydrocodone Bitart ([place] 5/325) 1 tab Q6H PRN ORAL Moderate Pain (Pain Scale 4-6) 11/30/18 23:15 12/07/18 23:14 Albuterol/ Ipratropium (Albuterol/ Ipratropium) 3 ml Q4H PRN HHN Shortness of Breath 11/30/18 14:45 12/05/18 14:44 12/01/18 03:50 Aspirin (Ecotrin) 81 mg DAILY ORAL 11/30/18 19:00 12/30/18 18:59 12/01/18 09:25 Atorvastatin Calcium (Lipitor) 80 mg BEDTIME ORAL 11/30/18 21:00 12/30/18 20:59 Chlorhexidine Gluconate (Keke-Hex 2%) 1 applic DAILY@2000 TOPIC 12/01/18 20:00 12/31/18 19:59 Heparin Sodium (Porcine) (Heparin 5000 units/ml) 5,000 units EVERY 12 HOURS SUBQ 11/30/18 21:00 12/30/18 20:59 12/01/18 09:29 Meropenem 500 mg/ Sodium Chloride 55 ml @ 110 mls/hr Q24H IVPB 11/30/18 15:00 12/05/18 14:59 12/01/18 14:48 Metoprolol Tartrate (Lopressor) 12.5 mg Q12HR ORAL 11/30/18 21:00 12/30/18 20:59 Morphine Sulfate (Morphine Sulfate) 2 mg Q4H PRN IVP Severe Pain (Pain Scale 7-10) 11/30/18 14:45 12/07/18 14:44 Norepinephrine Bitartrate 4 mg/ Dextrose 254 ml @ 0 mls/hr Q24H IV 11/30/18 14:45 12/30/18 14:44 12/01/18 14:48 Ondansetron HCl (Zofran) 4 mg Q6H PRN IVP Nausea & Vomiting 11/30/18 14:45 12/30/18 14:44 Pantoprazole (Protonix) 40 mg DAILY IVP 12/01/18 09:00 12/31/18 08:59 12/01/18 09:24 Polyethylene Glycol (Miralax) 17 gm DAILYPRN PRN ORAL Constipation 11/30/18 14:45 12/30/18 14:44 Sevelamer Carbonate (Renvela) 800 mg THREE TIMES A DAY ORAL 11/30/18 18:00 12/30/18 17:59 12/01/18 12:26 Sodium Chloride 1,000 ml @ 50 mls/hr Q20H IV 11/30/18 15:30 12/30/18 15:29 12/01/18 12:27 Vancomycin HCl (Vanco rx to dose) 1 ea DAILY PRN MISC Per rx protocol 11/30/18 14:00 12/30/18 13:59 Vitamin B Complex/ Vit C/Folic Acid (Nephrovite) 1 tab DAILY ORAL 12/01/18 09:00 12/31/18 08:59 12/01/18 09:25 Aparna Ramirez M.D. Dec 01, 2018 17:19
[2018-12-01] MEDS ORDERED: Azithromycin 250mg tab ORAL SCH ×2 (17:30→18:15)
--- NOTE | 2018-12-01 17:45 | History and Physical Report ---
DATE OF ADMISSION: 11/30/2018 DATE AND TIME SEEN: 12/01/2018 at 10 a.m. CONSULTANTS: 1. Rebekah Arora M.D. 2. Milton Mary M.D. 3. Sincere Almaguer M.D. 4. Noam Davenport M.D. 5. Corbin Wright M.D. 6. Eduard King D.P.M. CHIEF COMPLAINT: Septic shock, necrotic leg, ESRD. BRIEF HISTORY: This is a 73-year-old male from [facility], presented with leg looking much worse. The patient came to [place], diagnosed with septic shock, necrotic leg, and ESRD, admitted to ICU for further care. Currently, O2 NC, calm, sleeping in bed, getting dialysis, not talking much. REVIEW OF SYSTEMS: Unavailable. PAST MEDICAL HISTORY: Hypertension, diabetes, anemia, PVD, GERD, metabolic encephalopathy, and ESRD. PAST SURGICAL HISTORY: Amputation of left midfoot. MEDICATIONS: Include chlorhexidine, vancomycin, pantoprazole, lidocaine, hydrocodone, heparin, atorvastatin, metoprolol, aspirin, , meropenem, albuterol, morphine, polyethylene, norepinephrine, and vancomycin. ALLERGIES: Denies. REVIEW OF SYSTEMS: Unavailable. PHYSICAL EXAMINATION: GENERAL: Calm in bed, lethargic, O2 NC, sleeping in bed, in ICU. VITAL SIGNS: Temperature is 101, pulse 105, respirations 21, blood pressure 108/75. CARDIOVASCULAR: No murmur. LUNGS: Poor air exchange. ABDOMEN: Bowel sounds distant. EXTREMITIES: No cyanosis, clubbing, or edema. Left foot dressing clean and dry. NEUROLOGIC: The patient is flaccid in bed, not following directions. LABORATORY AND DIAGNOSTIC DATA: Labs at this time show white count 23, hemoglobin and hematocrit 9.7 and 31 and otherwise CBC is normal. BMP shows sodium 133, potassium 5.7, chloride 95, CO2 20. BUN/creatinine 60/9.7. Glucose 229. Troponin . BNP is 35,000. Albumin 2.7, malnutrition. ASSESSMENT: 1. Septic shock. 2. ESRD. 3. Anemia. 4. Necrotic leg. 5. Malnutrition. 6. Diabetes. 7. Hypertension. 8. PVD. 9. GERD. 10. Metabolic encephalopathy. 11. ESRD. PLAN: 1. Blood pressure and blood sugar control. 2. Wound care, antibiotic Infectious Disease. 3. Pain control. 4. Surgery followup dialysis as needed. 5. CBC and BMP in the morning. 6. Resume home medications. Pravin Patton D.O. DR: YARIEL JOB#: [id number] CC:
[2018-12-01] MEDS: HYDROcodone/Acetamin 10/325 tab ORAL PRN (18:21)
--- NOTE | 2018-12-01 18:21 | NUR ---
NURSE NOTES: Pt cleaned after bowel movement and repositioned. Pt c/o pain 7/10, requested and received PRN Mcloud. Will reassess in 30 min.
--- NOTE | 2018-12-01 18:52 | NUR ---
NURSE NOTES: Pt reported some pain relief, 4/10 on pain scale. Observed laying in bed, calmly with eyes closed.
--- NOTE | 2018-12-01 19:15 | NUR ---
HAND-OFF: Report given to IWONA Diaz.
--- NOTE | 2018-12-01 19:20 | NUR ---
NURSE NOTES: Received report from Ashlee BUSTILLO. Patient in bed resting awake,alert able to verbalize needs to staff. denies any pain or discomfort. received on oxygen 3 liters via N/C satting 94%. HOB elevated. pt with Temperature on 99.6 axillary cooling measure provided. patient left foot with foul smell. dressing intact. skin warm and dry to touch. P200 mattress for wound management. Urinal at bedside. Instructed patient to use call light for assistance. bed alarm on. bed lock and in low position. AV shunt on left upper arm with + bruit and thrill. Right lower F/a #18 and Right upper arm #18 intact running NS at 50cc/hr, received patient with Levophed 1mcg/min BP 84/54 titrate to Levo @ 2mcg will continue plan of care.
--- NOTE | 2018-12-01 20:11 | NUR ---
NURSE NOTES: Seen by Dr. Ramirez with new order wound culture of left foot, and clindamycin ATB noted and carried out.
[2018-12-01] MEDS: Dyna-Hex 2% Top Sol 2oz TOPIC SCH (21:00)
[2018-12-01] MEDS: Atorvastatin 80mg tab ORAL SCH (21:00)
--- NOTE | 2018-12-01 22:24 | Cardiology Progress Note ---
Assessment/Plan Assessment/Plan acute OK, possibly due to CAD aggravated by sepsis, pneumonia, work up for endocarditis in progress Subjective Subjective the patient is sleeping in bed, he jsut udnerwent dialysis denies chest pain and reports feeling fine Objective Last 24 Hour Vital Signs Date Time Temp Pulse Resp B/P (MAP) Pulse Ox O2 Delivery O2 Flow Rate FiO2 12/01/18 21:30 99.0 12/01/18 21:00 71 104/65 12/01/18 21:00 107/66 12/01/18 21:00 82 16 107/66 (80) 94 12/01/18 20:00 99.6 83 13 112/65 (81) 94 12/01/18 20:00 Nasal Cannula 3.0 12/01/18 20:00 115/65 12/01/18 19:00 71 13 85/55 (65) 94 12/01/18 18:00 85 17 117/70 (86) 92 12/01/18 17:00 82 12 107/64 (78) 96 12/01/18 17:00 107/64 12/01/18 16:00 Nasal Cannula 3.0 12/01/18 16:00 99.4 85 16 113/67 (82) 95 12/01/18 16:00 113/67 12/01/18 15:39 85 12/01/18 15:00 81 15 112/65 (81) 97 12/01/18 15:00 105/86 12/01/18 14:48 94/61 12/01/18 14:00 80 14 104/67 (79) 98 12/01/18 14:00 104/67 12/01/18 13:00 80 13 97/61 (73) 97 12/01/18 13:00 97/61 12/01/18 12:00 108/65 12/01/18 12:00 Nasal Cannula 3.0 12/01/18 12:00 99.2 85 15 111/65 (80) 97 12/01/18 11:53 83 12/01/18 11:00 95/61 12/01/18 11:00 81 14 115/68 (84) 96 12/01/18 10:00 101.6 105 21 108/75 (86) 96 12/01/18 10:00 108/75 12/01/18 09:30 112/72 12/01/18 09:00 102.5 106 22 110/67 (81) 94 12/01/18 09:00 107 112/68 12/01/18 09:00 110/67 12/01/18 08:01 97 Nasal Cannula 3.0 32 12/01/18 08:00 119/70 12/01/18 08:00 Nasal Cannula 3.0 12/01/18 08:00 99 22 119/70 (86) 93 12/01/18 07:26 102 12/01/18 07:00 102 16 119/72 (88) 94 12/01/18 07:00 119/72 12/01/18 06:00 103 16 117/73 (88) 94 12/01/18 06:00 117/73 12/01/18 05:00 131/73 12/01/18 05:00 103 16 131/73 (92) 93 12/01/18 04:00 99.4 110 16 131/75 (93) 93 12/01/18 04:00 109 12/01/18 04:00 131/75 12/01/18 04:00 Venturi Mask 8.0 12/01/18 03:51 108 18 95 Nasal Cannula 5.0 40 104 20 92 12/01/18 03:00 110 16 137/84 (101) 91 12/01/18 03:00 137/84 12/01/18 02:00 101 16 129/79 (96) 94 12/01/18 02:00 129/79 12/01/18 01:00 98 16 118/71 (87) 94 12/01/18 01:00 130/75 12/01/18 00:30 101 16 132/74 (93) 94 12/01/18 00:15 98 16 118/71 (87) 94 12/01/18 00:13 99.0 12/01/18 00:00 100.0 98 14 126/75 (92) 95 12/01/18 00:00 98 12/01/18 00:00 126/75 12/01/18 00:00 Venturi Mask 8.0 11/30/18 23:45 98 16 129/78 (95) 95 11/30/18 23:30 96 16 135/71 (92) 95 11/30/18 23:15 93 16 135/73 (93) 95 11/30/18 23:14 91 19 96 Simple Mask 3.0 32 11/30/18 23:14 96 Nasal Cannula 3.0 32 11/30/18 23:00 82 16 88/52 (64) 95 11/30/18 22:59 82/57 General Appearance: lethargic EENT: PERRL/EOMI Neck: JVD Rhythm: NSR Cardiovascular: regularly irregular, systolic murmur Respiratory/Chest: crackles/rales Abdomen: soft Extremities: no swelling Intake and Output 11/30/18 12/01/18 19:00 07:00 Intake Total 1292.5 ml 729.54 ml Balance 1292.5 ml 729.54 ml IV Total 1292.5 ml 729.54 ml # Voids 2 Laboratory Tests Test 12/01/18 03:38 12/01/18 05:45 Arterial Blood pH 7.307 (7.350-7.450) 7.323 (7.350-7.450) Arterial Blood Partial Pressure CO2 34.7 mmHg (35.0-45.0) L 30.2 mmHg (35.0-45.0) L Arterial Blood Partial Pressure O2 57.5 mmHg (75.0-100.0) L 61.7 mmHg (75.0-100.0) L Arterial Blood HCO3 17.0 mmol/L (22.0-26.0) *L 15.3 mmol/L (22.0-26.0) *L Arterial Blood Oxygen Saturation 87.1 % (95-100) *L 89.4 % (95-100) *L Arterial Blood Base Excess -8.5 (-2-2) L -9.6 (-2-2) *L Tank Test Positive Positive White Blood Count 23.1 K/UL (4.8-10.8) *H Red Blood Count 3.67 M/UL (4.70-6.10) L Hemoglobin 9.7 G/DL (14.2-18.0) L Hematocrit 31.5 % (42.0-52.0) L Mean Corpuscular Volume 86 FL (80-99) Mean Corpuscular Hemoglobin 26.6 PG (27.0-31.0) L Mean Corpuscular Hemoglobin Concent 31.0 G/DL (32.0-36.0) L Red Cell Distribution Width 14.4 % (11.6-14.8) Platelet Count 354 K/UL (150-450) Mean Platelet Volume 5.8 FL (6.5-10.1) L Neutrophils (%) (Auto) % (45.0-75.0) Lymphocytes (%) (Auto) % (20.0-45.0) Monocytes (%) (Auto) % (1.0-10.0) Eosinophils (%) (Auto) % (0.0-3.0) Basophils (%) (Auto) % (0.0-2.0) Differential Total Cells Counted 100 Neutrophils % (Manual) 92 % (45-75) H Lymphocytes % (Manual) 2 % (20-45) L Monocytes % (Manual) 3 % (1-10) Eosinophils % (Manual) 0 % (0-3) Basophils % (Manual) 0 % (0-2) Band Neutrophils 3 % (0-8) Platelet Estimate Adequate Platelet Morphology Normal Hypochromasia 1+ Sodium Level 133 MMOL/L (136-145) L Potassium Level 5.7 MMOL/L (3.5-5.1) H Chloride Level 95 MMOL/L (98-107) L Carbon Dioxide Level 20 MMOL/L (21-32) L Anion Gap 18 mmol/L (5-15) H Blood Urea Nitrogen 60 mg/dL (7-18) H Creatinine 9.7 MG/DL (0.55-1.30) H Estimat Glomerular Filtration Rate mL/min (>60) Glucose Level 229 MG/DL (74-106) #H Hemoglobin A1c 8.9 % (4.3-6.0) H Uric Acid 5.7 MG/DL (2.6-7.2) Calcium Level 9.6 MG/DL (8.5-10.1) Phosphorus Level 5.0 MG/DL (2.5-4.9) H Magnesium Level 2.2 MG/DL (1.8-2.4) Iron Level 10 ug/dL (50-175) L Total Iron Binding Capacity 73 ug/dL (250-450) L Percent Iron Saturation 14 % (15-50) L Unsaturated Iron Binding 63 ug/dL (112-346) L Ferritin 1516 NG/ML (8-388) H Total Bilirubin 0.6 MG/DL (0.2-1.0) Gamma Glutamyl Transpeptidase 80 U/L (5-85) Aspartate Amino Transf (AST/SGOT) 55 U/L (15-37) H Alanine Aminotransferase (ALT/SGPT) 15 U/L (12-78) Alkaline Phosphatase 138 U/L (46-116) H Ammonia 11 umol/L (11-32) Total Creatine Kinase 489 U/L (26-308) H Troponin I 11.774 ng/mL (0.000-0.056) C-Reactive Protein, Quantitative > 70.0 mg/dL (0.00-0.90) H Pro-B-Type Natriuretic Peptide > 81795 pg/mL (0-125) H Total Protein 7.6 G/DL (6.4-8.2) Albumin 2.7 G/DL (3.4-5.0) L Globulin 4.9 g/dL Albumin/Globulin Ratio 0.6 (1.0-2.7) L Triglycerides Level 102 MG/DL (30-150) Cholesterol Level 113 MG/DL (< 200) LDL Cholesterol 56 mg/dL (<100) HDL Cholesterol 24 MG/DL (40-60) L Cholesterol/HDL Ratio 4.7 (3.3-4.4) H Vitamin B12 Level 1097 PG/ML (193-986) H Folate 18.8 NG/ML (8.6-58.9) Thyroid Stimulating Hormone (TSH) 1.075 uiU/mL (0.358-3.740) Random Vancomycin Level 11.0 ug/mL Hepatitis B Surface Antigen Pending Microbiology Date/Time Source Procedure Growth Status 11/30/18 09:50 Nasal Nares - Final Complete 11/30/18 09:50 Nasal Nares - Final Complete 11/30/18 10:00 Rectum Received Cortney Garcia MD Dec 01, 2018 22:24
[2018-12-01] MEDS: Clindamycin 600mg 50 ML IV SCH (22:45)
[2018-12-01] MEDS: HYDROcodone/Acetamin 5/325 tab ORAL PRN (23:29)
--- NOTE | 2018-12-01 23:30 | NUR ---
NURSE NOTES: patient complained of 6/10 left foot toe, repositioned, float feet, elevate with pillow, talk therapy provided not effective. Isabella 5/325mg tab PO given effective. No s/s of acute distress noted. no s/s of hypo/hyperglycemia. call light within easy reach. will continue to monitor patient.
[2018-12-02] VITALS (36 sets, daily range): BP systolic 84–117; BP diastolic 52–70
--- NOTE | 2018-12-02 | NUR ---
NURSE NOTES: NORCO EFFECTIVE 0/10 PAIN. PATIENT IN BED SLEEPING COMFORTABLY.
--- NOTE | 2018-12-02 02:00 | NUR ---
NURSE NOTES: Patient in bed sleeping comfortably in bed. no s/s of acute distress noted. On Levo drip at 2mcg/min BP 109/65 via right Femoral TLC.Turned and repositioned. Frequent visual checks continued. Pt anuric, kept clean and dry. will continue plan of care.
--- NOTE | 2018-12-02 04:00 | NUR ---
NURSE NOTES: Patient in bed sleeping comfortably in bed. on 3 liters oxygen via N/C satting 97%. No s/s of hypo/hyperglycemia.no s/s of acute distress noted. On Levo drip at 2mcg/min BP 108/62 via right Femoral TLC.Turned and repositioned. Frequent visual checks continued. Pt anuric, kept clean and dry. will continue plan of care.
--- NOTE | 2018-12-02 06:00 | NUR ---
NURSE NOTES: Patient in bed awake,alert able to verbalize needs known to staff. on 3 liters oxygen via N/C satting 97%. No s/s of hypo/hyperglycemia. no s/s of acute distress noted. Temp 98.9 Axillary. On Levo drip at 2mcg/min BP 112/65 via right Femoral TLC.Turned and repositioned. Frequent visual checks continued. Pt anuric, kept clean and dry. call light within easy reach. will continue plan of care
[2018-12-02 06:18] LABS: HEMATOCRIT 26.8 % (42.0-52.0); HEMOGLOBIN 8.4 G/DL (14.2-18.0); MEAN CORPUSCULAR VOLUME 85 FL (80-99); PLATELET COUNT 350 K/UL (150-450); RED BLOOD COUNT 3.16 M/UL (4.70-6.10); RED CELL DISTRIBUTION WIDTH 14.6 % (11.6-14.8); WHITE BLOOD COUNT 20.7 K/UL (4.8-10.8)
[2018-12-02] MEDS: Clindamycin 600mg 50 ML IV SCH ×3 (06:27→21:10)
[2018-12-02 06:44] LABS: ALANINE AMINOTRANSFERASE 16 U/L (12-78); ALBUMIN 2.4 G/DL (3.4-5.0); ALBUMIN/GLOBULIN RATIO 0.5 (1.0-2.7); ALKALINE PHOSPHATASE 122 U/L (46-116); ANION GAP 16 mmol/L (5-15); ASPARTATE AMINO TRANSFERASE 51 U/L (15-37); BILIRUBIN,TOTAL 0.6 MG/DL (0.2-1.0); BLOOD UREA NITROGEN 54 mg/dL (7-18); CALCIUM 9.3 MG/DL (8.5-10.1); CARBON DIOXIDE 23 MMOL/L (21-32); CHLORIDE 100 MMOL/L (98-107); CREATININE 8.3 MG/DL (0.55-1.30); POTASSIUM 4.8 MMOL/L (3.5-5.1); SODIUM 138 MMOL/L (136-145)
[2018-12-02 06:59] LABS: PHOSPHORUS 6.1 MG/DL (2.5-4.9)
--- NOTE | 2018-12-02 07:20 | NUR ---
NURSE NOTES: Received report from IWONA Diza. Patient in bed asleep, awakens to name. No pain or discomfort reported at this time. Received on oxygen 3L via N/C SpO2 97%. B/P: 111/68 HR: 76 on playground monitor. HOB elevated. Patient's left foot ulcer noted to have a foul smell. dressing clean, dry and intact. AV shunt on left upper arm with + bruit and thrill. Right AF #18g intact running NS at 50mL/hr. Right femoral TLC clean, dry intact, asymptomatic. Urinal at bedside. Instructed patient to use call light for assistance. Bed alarm on and in lowest position. Dr. Mary notified of Troponin 13.96. Ordered to decrease Levophed by 1cc every 30 mins. Levophed decreased from 7.5cc/hr to 6.5cc/hr. will resume plan of care.
--- NOTE | 2018-12-02 07:22 | Pulmonolgy Critical Care Note ---
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 full a/coagulation - per cardio management abx as per ID fup with SCX, WCX surgery follows status post wound exploration ; wound necrosis to bone noted wound care as per surgeon recommendation podiatry eval appreciated : left foot not salvageable and will require amputation wound care DVT prophylaxis HD as per grain inspector with close monitoring of volumes, renal parameters, and electrolytes-today BS management DVT prophylaxis Monitor H&H with goal to keep Hgb above 7 Supportive care case discussed and evaluated by supervising physician Critical Care - Objective Last 24 Hour Vital Signs Date Time Temp Pulse Resp B/P (MAP) Pulse Ox O2 Delivery O2 Flow Rate FiO2 12/02/18 06:00 98.9 80 12 112/65 (81) 97 12/02/18 06:00 112/65 12/02/18 05:00 75 9 109/66 (80) 96 12/02/18 05:00 109/66 12/02/18 04:00 77 12/02/18 04:00 108/62 12/02/18 04:00 Nasal Cannula 3.0 12/02/18 04:00 98.0 74 12 108/62 (77) 96 12/02/18 03:44 96 Nasal Cannula 3.0 32 12/02/18 03:00 109/67 12/02/18 03:00 78 12 109/65 (80) 96 12/02/18 02:00 113/61 12/02/18 02:00 76 13 113/61 (78) 97 12/02/18 01:00 75 14 103/63 (76) 96 12/02/18 01:00 103/63 12/02/18 00:00 107/68 12/02/18 00:00 72 12/02/18 00:00 Nasal Cannula 3.0 12/02/18 00:00 99.0 75 13 107/68 (81) 95 12/01/18 23:59 99.0 12/01/18 23:00 78 11 110/64 (79) 94 12/01/18 23:00 78 11 110/64 (79) 94 12/01/18 23:00 110/64 12/01/18 22:25 80 18 105/42 (63) 95 12/01/18 22:25 80 18 105/42 (63) 95 12/01/18 22:00 105/42 12/01/18 21:30 99.0 12/01/18 21:00 71 104/65 12/01/18 21:00 107/66 12/01/18 21:00 100.0 82 16 107/66 (80) 94 12/01/18 20:00 99.6 83 13 112/65 (81) 94 12/01/18 20:00 Nasal Cannula 3.0 12/01/18 20:00 71 12/01/18 20:00 115/65 12/01/18 19:00 71 13 85/55 (65) 94 12/01/18 18:00 85 17 117/70 (86) 92 12/01/18 17:00 82 12 107/64 (78) 96 12/01/18 17:00 107/64 12/01/18 16:00 Nasal Cannula 3.0 12/01/18 16:00 99.4 85 16 113/67 (82) 95 12/01/18 16:00 113/67 12/01/18 15:39 85 12/01/18 15:00 81 15 112/65 (81) 97 12/01/18 15:00 105/86 12/01/18 14:48 94/61 12/01/18 14:00 80 14 104/67 (79) 98 12/01/18 14:00 104/67 12/01/18 13:00 80 13 97/61 (73) 97 12/01/18 13:00 97/61 12/01/18 12:00 108/65 12/01/18 12:00 Nasal Cannula 3.0 12/01/18 12:00 99.2 85 15 111/65 (80) 97 12/01/18 11:53 83 12/01/18 11:00 95/61 12/01/18 11:00 81 14 115/68 (84) 96 12/01/18 10:00 101.6 105 21 108/75 (86) 96 12/01/18 10:00 108/75 12/01/18 09:30 112/72 12/01/18 09:00 102.5 106 22 110/67 (81) 94 12/01/18 09:00 107 112/68 12/01/18 09:00 110/67 12/01/18 08:01 97 Nasal Cannula 3.0 32 12/01/18 08:00 119/70 12/01/18 08:00 Nasal Cannula 3.0 12/01/18 08:00 99 22 119/70 (86) 93 12/01/18 07:26 102 Objective: General Appearance: no apparent distress, alert Lines, tubes and drains: central line R femoral HEENT: normocephalic, atraumatic, anicteric Neck: supple Respiratory/Chest: lungs clear, no respiratory distress, no accessory muscle use Cardiovascular/Chest: normal rate, regular rhythm, LUE AV shunt + bruit/thrill Abdomen: non tender, soft Extremities: no calf tenderness Skin Exam: warm/dry, bilateral midfoot amputation ; R midfoot [employer], L midfoot with dressing Neurologic: alert Musculoskeletal: atrophy - BLE, kat mid foot amputation Micro: Microbiology Date/Time Source Procedure Growth Status 11/30/18 09:45 Blood Blood Culture - Preliminary NO GROWTH AFTER 24 HOURS Resulted 11/30/18 09:40 Blood Blood Culture - Preliminary NO GROWTH AFTER 24 HOURS Resulted 12/01/18 06:00 Sputum Gram Stain - Final Resulted 12/01/18 06:00 Sputum Sputum Culture Pending Resulted 11/30/18 10:00 Nasal Nares MRSA Culture - Final NO METHICILLIN RESISTANT STAPH AUREUS... Complete 11/30/18 09:50 Nasal Nares - Final Complete 11/30/18 09:50 Nasal Nares - Final Complete 11/30/18 10:00 Rectum VRE Culture - Final NO VANCOMYCIN RESISTANT ENTEROCOCCUS ... Complete 11/30/18 10:00 Rectum Received Accucheck: 190 Critical Care - Subjective ROS Limited/Unobtainable: Yes Interval Events: leukocytosis trending down, fever last night, currently afebrile HD done yesterday troponin tenuin up, no c/o chest pain CXR pending for this am Condition: critical IV Access: central - R femoral intact EKG Rhythm: Sinus Rhythm FI02: 32 Sputum Amount: Small Fluids: NS at 50 Drips: Levophed 2 mcg/min I&O: Intake and Output 12/01/18 12/02/18 19:00 07:00 Intake Total 1471.44 ml 733.82 ml Output Total 1000 ml 0 ml Balance 471.44 ml 733.82 ml Intake Oral 450 ml 50 ml IV Total 1021.44 ml 683.82 ml Output Urine Total 0 ml 0 ml Hemodialysis UF 1000 ml # Bowel Movements 1 CXR: CXR 12/01 1. Interval development of patchy consolidation throughout the right lung, concerning for pneumonia. Consolidations related to pulmonary edema are less likely since it is predominantly on the right side. 2. Persistent pulmonary vascular congestion. 3. Trace fluid in the minor fissure. 4. Mild cardiomegaly. Beatriz Nova NP Dec 02, 2018 07:22
--- NOTE | 2018-12-02 08:42 | General Progress Note ---
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 SNOMED: 10653534, 797081376 (4) ESRD (end stage renal disease) ICD Codes: N18.6 - End stage renal disease SNOMED: 48237365 (5) Severe sepsis ICD Codes: A41.9 - Sepsis, unspecified organism; R65.20 - Severe sepsis without septic shock SNOMED: 65960000 (6) Elevated troponin ICD Codes: R79.89 - Other specified abnormal findings of blood chemistry SNOMED: 912083462, 506661262, 607575507 (7) Infected ulcer of skin ICD Codes: L98.499 - Non-pressure chronic ulcer of skin of other sites with unspecified severity; L08.9 - Local infection of the skin and subcutaneous tissue, unspecified SNOMED: 6270742 (8) Amputation at midfoot ICD Codes: S98.319A - Complete traumatic amputation of unspecified midfoot, initial encounter SNOMED: 439116403 (9) Diabetes ICD Codes: E11.9 - Type 2 diabetes mellitus without complications SNOMED: 90846958 Status: unchanged Assessment/Plan: wound care abx pt diet cbc bmp am Subjective Constitutional: Reports: weakness Allergies: Coded Allergies: No Known Allergies (Unverified , 11/30/18) All Systems: reviewed and negative except above Subjective o2nc calm in icu Objective Last 24 Hour Vital Signs Date Time Temp Pulse Resp B/P (MAP) Pulse Ox O2 Delivery O2 Flow Rate FiO2 12/02/18 07:30 111/68 12/02/18 07:00 78 11 111/68 (82) 98 12/02/18 07:00 111/68 12/02/18 06:00 98.9 80 12 112/65 (81) 97 12/02/18 06:00 112/65 12/02/18 05:00 75 9 109/66 (80) 96 12/02/18 05:00 109/66 12/02/18 04:00 77 12/02/18 04:00 108/62 12/02/18 04:00 Nasal Cannula 3.0 12/02/18 04:00 98.0 74 12 108/62 (77) 96 12/02/18 03:44 96 Nasal Cannula 3.0 32 12/02/18 03:00 109/67 12/02/18 03:00 78 12 109/65 (80) 96 12/02/18 02:00 113/61 12/02/18 02:00 76 13 113/61 (78) 97 12/02/18 01:00 75 14 103/63 (76) 96 12/02/18 01:00 103/63 12/02/18 00:00 107/68 12/02/18 00:00 72 12/02/18 00:00 Nasal Cannula 3.0 12/02/18 00:00 99.0 75 13 107/68 (81) 95 12/01/18 23:59 99.0 12/01/18 23:00 78 11 110/64 (79) 94 12/01/18 23:00 78 11 110/64 (79) 94 12/01/18 23:00 110/64 12/01/18 22:25 80 18 105/42 (63) 95 12/01/18 22:25 80 18 105/42 (63) 95 12/01/18 22:00 105/42 12/01/18 21:30 99.0 12/01/18 21:00 71 104/65 12/01/18 21:00 107/66 12/01/18 21:00 100.0 82 16 107/66 (80) 94 12/01/18 20:00 99.6 83 13 112/65 (81) 94 12/01/18 20:00 Nasal Cannula 3.0 12/01/18 20:00 71 12/01/18 20:00 115/65 12/01/18 19:00 71 13 85/55 (65) 94 12/01/18 18:00 85 17 117/70 (86) 92 12/01/18 17:00 82 12 107/64 (78) 96 12/01/18 17:00 107/64 12/01/18 16:00 Nasal Cannula 3.0 12/01/18 16:00 99.4 85 16 113/67 (82) 95 12/01/18 16:00 113/67 10/12/19 15:39 85 12/01/18 15:00 81 15 112/65 (81) 97 12/01/18 15:00 105/86 12/01/18 14:48 94/61 12/01/18 14:00 80 14 104/67 (79) 98 12/01/18 14:00 104/67 12/01/18 13:00 80 13 97/61 (73) 97 12/01/18 13:00 97/61 12/01/18 12:00 108/65 12/01/18 12:00 Nasal Cannula 3.0 12/01/18 12:00 99.2 85 15 111/65 (80) 97 12/01/18 11:53 83 12/01/18 11:00 95/61 12/01/18 11:00 81 14 115/68 (84) 96 12/01/18 10:00 101.6 105 21 108/75 (86) 96 12/01/18 10:00 108/75 12/01/18 09:30 112/72 12/01/18 09:00 102.5 106 22 110/67 (81) 94 12/01/18 09:00 107 112/68 12/01/18 09:00 110/67 Intake and Output 12/01/18 12/02/18 19:00 07:00 Intake Total 1471.44 ml 841.44 ml Output Total 1000 ml 0 ml Balance 471.44 ml 841.44 ml Intake Oral 450 ml 50 ml IV Total 1021.44 ml 791.44 ml Output Urine Total 0 ml 0 ml Hemodialysis UF 1000 ml # Bowel Movements 1 Laboratory Tests 12/02/18 05:00: White Blood Count 20.7H, Red Blood Count 3.16L, Hemoglobin 8.4L, Hematocrit 26.8L, Mean Corpuscular Volume 85, Mean Corpuscular Hemoglobin 26.5L, Mean Corpuscular Hemoglobin Concent 31.2L, Red Cell Distribution Width 14.6, Platelet Count 350, Mean Platelet Volume 6.2L, Neutrophils (%) (Auto) , Lymphocytes (%) (Auto) , Monocytes (%) (Auto) , Eosinophils (%) (Auto) , Basophils (%) (Auto) , Differential Total Cells Counted 100, Neutrophils % ( Manual) 86H, Lymphocytes % (Manual) 9L, Monocytes % (Manual) 5, Eosinophils % ( Manual) 0, Basophils % (Manual) 0, Band Neutrophils 0, Platelet Estimate Adequate, Platelet Morphology Normal, Hypochromasia 2+, Anisocytosis 1+, Sodium Level 138, Potassium Level 4.8, Chloride Level 100, Carbon Dioxide Level 23, Anion Gap 16H, Blood Urea Nitrogen 54H, Creatinine 8.3H, Estimat Glomerular Filtration Rate , Glucose Level 211H, Uric Acid 4.7, Calcium Level 9.3, Phosphorus Level 6.1H, Magnesium Level 2.4, Total Bilirubin 0.6, Aspartate Amino Transf (AST/SGOT) 51H, Alanine Aminotransferase (ALT/SGPT) 16, Alkaline Phosphatase 122H, Troponin I 13.986H, C-Reactive Protein, Quantitative > 70.0H, Pro-B-Type Natriuretic Peptide > 31112C, Total Protein 6.9, Albumin 2.4L, Globulin 4.5, Albumin/Globulin Ratio 0.5L, Random Vancomycin Level 18.2 Height (Feet): 5 Height (Inches): 1.00 Weight (Pounds): 167 General Appearance: lethargic EENT: normal ENT inspection Neck: normal alignment Cardiovascular: normal peripheral pulses, normal rate, regular rhythm Respiratory/Chest: chest wall non-tender, lungs clear, normal breath sounds Abdomen: normal bowel sounds, non tender, soft Extremities: normal inspection Edema: no edema noted Arm (L), no edema noted Arm (R), no edema noted Leg (L), no edema noted Leg (R), no edema noted Pedal (L), no edema noted Pedal (R), no edema noted Generalized Neurologic: motor weakness Skin: normal pigmentation, warm/dry Pravin Patton DO Dec 02, 2018 08:42
[2018-12-02] MEDS: Pantoprazole Inj IVP SCH ×2 (08:56→21:03)
[2018-12-02] MEDS: Nephrovite tab (Rena-Vite) ORAL SCH (08:57)
[2018-12-02] MEDS: Renvela 800mg Pkt ORAL SCH ×3 (08:57→17:05)
[2018-12-02] MEDS: Metoprolol Tartrate 12.5mg TAB ORAL SCH ×2 (08:57→21:00)
[2018-12-02] MEDS: Aspirin EC 81mg tab ORAL SCH (08:57)
[2018-12-02] MEDS: Azithromycin 250mg tab ORAL SCH (08:57)
[2018-12-02] MEDS: Heparin 5000 units/ml inj SUBQ SCH (09:04)
--- NOTE | 2018-12-02 09:38 | Nephrology Progress Note ---
Assessment/Plan Problem List: (1) ESRD (end stage renal disease) (2) Elevated troponin Assessment: and rising (3) Infected ulcer of skin (4) Diabetes Assessment: uncontrolled Assessment ESRD on HD M W Fr Sepsis / Leukocytosuis ( Pneumonia, Infected foot ulcer) Hypotension / Shock Anemia GERD ECF resident DM OOC Elevated Troponin over 5 Plan asa , beta blockers on low dose pressors Antibiotics Fluid challenge / Watch for CHF Dialysis 12/01 per orders per consultants will start heparin Subjective ROS Limited/Unobtainable: No Constitutional: Reports: malaise Objective Objective Last 24 Hour Vital Signs Date Time Temp Pulse Resp B/P (MAP) Pulse Ox O2 Delivery O2 Flow Rate FiO2 12/02/18 09:09 95 Nasal Cannula 3.0 32 12/02/18 08:57 77 107/66 12/02/18 07:30 111/68 12/02/18 07:00 78 11 111/68 (82) 98 12/02/18 07:00 111/68 12/02/18 06:00 98.9 80 12 112/65 (81) 97 12/02/18 06:00 112/65 12/02/18 05:00 75 9 109/66 (80) 96 12/02/18 05:00 109/66 12/02/18 04:00 77 12/02/18 04:00 108/62 12/02/18 04:00 Nasal Cannula 3.0 12/02/18 04:00 98.0 74 12 108/62 (77) 96 12/02/18 03:44 96 Nasal Cannula 3.0 32 12/02/18 03:00 109/67 12/02/18 03:00 78 12 109/65 (80) 96 12/02/18 02:00 113/61 12/02/18 02:00 76 13 113/61 (78) 97 12/02/18 01:00 75 14 103/63 (76) 96 12/02/18 01:00 103/63 12/02/18 00:00 107/68 12/02/18 00:00 72 12/02/18 00:00 Nasal Cannula 3.0 12/02/18 00:00 99.0 75 13 107/68 (81) 95 12/01/18 23:59 99.0 12/01/18 23:00 78 11 110/64 (79) 94 12/01/18 23:00 78 11 110/64 (79) 94 12/01/18 23:00 110/64 12/01/18 22:25 80 18 105/42 (63) 95 12/01/18 22:25 80 18 105/42 (63) 95 12/01/18 22:00 105/42 12/01/18 21:30 99.0 12/01/18 21:00 71 104/65 12/01/18 21:00 107/66 12/01/18 21:00 100.0 82 16 107/66 (80) 94 12/01/18 20:00 99.6 83 13 112/65 (81) 94 12/01/18 20:00 Nasal Cannula 3.0 12/01/18 20:00 71 12/01/18 20:00 115/65 12/01/18 19:00 71 13 85/55 (65) 94 12/01/18 18:00 85 17 117/70 (86) 92 12/01/18 17:00 82 12 107/64 (78) 96 12/01/18 17:00 107/64 12/01/18 16:00 Nasal Cannula 3.0 12/01/18 16:00 99.4 85 16 113/67 (82) 95 12/01/18 16:00 113/67 12/01/18 15:39 85 12/01/18 15:00 81 15 112/65 (81) 97 12/01/18 15:00 105/86 12/01/18 14:48 94/61 12/01/18 14:00 80 14 104/67 (79) 98 12/01/18 14:00 104/67 12/01/18 13:00 80 13 97/61 (73) 97 12/01/18 13:00 97/61 12/01/18 12:00 108/65 12/01/18 12:00 Nasal Cannula 3.0 12/01/18 12:00 99.2 85 15 111/65 (80) 97 12/01/18 11:53 83 12/01/18 11:00 95/61 12/01/18 11:00 81 14 115/68 (84) 96 12/01/18 10:00 101.6 105 21 108/75 (86) 96 12/01/18 10:00 108/75 Intake and Output 12/01/18 12/02/18 19:00 07:00 Intake Total 1471.44 ml 841.44 ml Output Total 1000 ml 0 ml Balance 471.44 ml 841.44 ml Intake Oral 450 ml 50 ml IV Total 1021.44 ml 791.44 ml Output Urine Total 0 ml 0 ml Hemodialysis UF 1000 ml # Bowel Movements 1 Laboratory Tests 12/02/18 05:00: White Blood Count 20.7H, Red Blood Count 3.16L, Hemoglobin 8.4L, Hematocrit 26.8L, Mean Corpuscular Volume 85, Mean Corpuscular Hemoglobin 26.5L, Mean Corpuscular Hemoglobin Concent 31.2L, Red Cell Distribution Width 14.6, Platelet Count 350, Mean Platelet Volume 6.2L, Neutrophils (%) (Auto) , Lymphocytes (%) (Auto) , Monocytes (%) (Auto) , Eosinophils (%) (Auto) , Basophils (%) (Auto) , Differential Total Cells Counted 100, Neutrophils % ( Manual) 86H, Lymphocytes % (Manual) 9L, Monocytes % (Manual) 5, Eosinophils % ( Manual) 0, Basophils % (Manual) 0, Band Neutrophils 0, Platelet Estimate Adequate, Platelet Morphology Normal, Hypochromasia 2+, Anisocytosis 1+, Sodium Level 138, Potassium Level 4.8, Chloride Level 100, Carbon Dioxide Level 23, Anion Gap 16H, Blood Urea Nitrogen 54H, Creatinine 8.3H, Estimat Glomerular Filtration Rate , Glucose Level 211H, Uric Acid 4.7, Calcium Level 9.3, Phosphorus Level 6.1H, Magnesium Level 2.4, Total Bilirubin 0.6, Aspartate Amino Transf (AST/SGOT) 51H, Alanine Aminotransferase (ALT/SGPT) 16, Alkaline Phosphatase 122H, Troponin I 13.986H, C-Reactive Protein, Quantitative > 70.0H, Pro-B-Type Natriuretic Peptide > 24065A, Total Protein 6.9, Albumin 2.4L, Globulin 4.5, Albumin/Globulin Ratio 0.5L, Random Vancomycin Level 18.2 Height (Feet): 5 Height (Inches): 1.00 Weight (Pounds): 167 General Appearance: no apparent distress Respiratory/Chest: decreased breath sounds Abdomen: soft Objective no change Sincere Almaguer MD Dec 02, 2018 09:38
--- NOTE | 2018-12-02 09:39 | Diagnostic Imaging Report ---
EXAM: XR Chest, 1 View CLINICAL HISTORY: Shortness of breath TECHNIQUE: Frontal view of the chest. COMPARISON: Chest x-ray dated 12 01 18 FINDINGS: Lungs: Persistent patchy consolidation throughout the right lung. Persistent pulmonary vascular congestion. Pleural space: Unremarkable. The costophrenic angles are sharp. No visible pneumothorax. Heart: Mild cardiomegaly. Mediastinum: Unremarkable. Bones joints: Unremarkable. Vasculature: Atherosclerotic calcifications are noted within the aortic arch. Tubes, lines and devices: Telemetry leads overlie the thorax. IMPRESSION: 1. No significant change in the patchy consolidation throughout the right lung. 2. No significant change in the pulmonary vascular congestion. 3. Mild cardiomegaly.
--- NOTE | 2018-12-02 09:45 | NUR ---
NURSE NOTES: Dr Almaguer at bedside assessing pt. Updated him on patient's current condition. New orders received, noted, and carried out. To start Heparin drip, awaiting labs. Dialysis ordered for tomorrow 12/03.
[2018-12-02] MEDS ORDERED: NS 275ml ONE (09:57)
--- NOTE | 2018-12-02 10:19 | NUR ---
NURSE NOTES: Called [facility] per Dr Almaguer's order to confirm dialysis for 12/03/18. Spoke to Nathanael.
[2018-12-02] MEDS ORDERED: Vancomycin 500mg/D5W 100ml IVPB ONE ×2 (11:00)
[2018-12-02] MEDS: Docusate 100mg cap ORAL SCH ×2 (12:03→17:05)
--- NOTE | 2018-12-02 12:03 | Cardiology Report ---
APPROVED REPORT EXAM: Two-dimensional and M-mode echocardiogram with Doppler and color Doppler. INDICATION Left ventricular function M-Mode DIMENSIONS IVSd1.1 (0.7-1.1cm)Left Atrium (MM)4.8 (1.6-4.0cm) LVDd5.6 (3.5-5.6cm)Aortic Root3.7 (2.0-3.7cm) PWd1.2 (0.7-1.1cm)Aortic Cusp Exc.2.0 (1.5-2.0cm) LVDs3.9 (2.5-4.0cm) PWs1.6 cm Normal left ventricular chamber size. Mildly depressed systolic function and wall motion. Left ventricular ejection fraction estimated to be 50 %. Mild left ventricular hypertrophy. No evidence of pericardial effusion. Left atrial size at upper limits of normal. Right cardiac chamber sizes are within normal limits. Focal aortic valve sclerosis with adequate cusp excursion. Thickened mitral valve leaflets with normal excursion. Mild mitral annulus and aortic root calcification. Pulmonic valve not well visualized. Normal tricuspid valve structure. IVC dilated at 2.3 cm without physiological collapse, suggestive of increased RA pressure. A color flow and spectral Doppler study was performed and revealed: Trace aortic regurgitation. Moderate mitral regurgitation. Mitral inflow velocities indicates possible pseudo normalization pattern implying significant left ventricular diastolic dysfunction (Grade II). Mild tricuspid regurgitation. Tricuspid systolic velocities suggests peak right ventricular systolic pressure of 53 mmHg, consistent with moderate pulmonary hypertension. No pulmonic regurgitation present.
[2018-12-02] MEDS: NovoLOG Insulin Flexpen SUBQ SCH ×3 (12:06→21:03)
--- NOTE | 2018-12-02 13:00 | NUR ---
NURSE NOTES: Patient continues to have no appetite. Took a few bites of rice for lunch. Drank about 140mL fluids. Remains anuric. Labs still pending for Heparin drip. Will continue to monitor.
[2018-12-02 13:16] LABS: HEMATOCRIT 27.7 % (42.0-52.0); HEMOGLOBIN 8.4 G/DL (14.2-18.0); MEAN CORPUSCULAR VOLUME 85 FL (80-99); PLATELET COUNT 312 K/UL (150-450); RED BLOOD COUNT 3.25 M/UL (4.70-6.10); RED CELL DISTRIBUTION WIDTH 14.2 % (11.6-14.8); WHITE BLOOD COUNT 18.4 K/UL (4.8-10.8)
--- NOTE | 2018-12-02 13:17 | NUR ---
CASE MANAGEMENT: REVIEW 12/02/2018 SI:SEVERE SEPSIS. ESRD. T 99.2 HR 77 RR 12 B/P 98/58 SATS 93% ON 3L/NC BUN 54 CR 8.3 GLU 211 IS:NS IV @ 50 mL/HR LIPITOR PO QHS AZITHROMYCIN PO QD ASA PO QD HEPARIN DRIP PER PARAMETERS MEROPENEM IV Q24H LEVOPHED PER PARAMETERS CLINDAMYCIN IV Q8H ICU STATUS DCP: PATIENT TO BE DISCHARGED TO SNF ONCE MEDICALLY CLEARED.
[2018-12-02 13:25] LABS: INR 1.8 (0.9-1.1)
[2018-12-02] MEDS ORDERED: Heparin 25,000u/D5W 500ml 500 ML IV SCH ×2 (14:00→21:00)
[2018-12-02] MEDS ORDERED: Heparin 5000 units/ml inj IV SCH ×2 (14:00→21:00)
--- NOTE | 2018-12-02 14:02 | Consultation ---
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 Present Illness Allergies: Coded Allergies: No Known Allergies (Unverified , 11/30/18) Medication History Scheduled Amino Acids/Protein Hydrolys (Pro-Stat Liquid), 30 ML ORAL TWICE A DAY, ( Reported) Amlodipine Besylate* (Amlodipine Besylate*), 10 MG ORAL DAILY, (Reported) Aspirin* (Aspir 81*), 81 MG ORAL DAILY, (Reported) Bisacodyl (Bisacodyl), 10 MG RC PRN, (Reported) Clopidogrel Bisulfate* (Plavix*), 75 MG ORAL DAILY, (Reported) Cranberry Fruit Concentrate (Cranberry), 450 MG PO BID, (Reported) Docusate Sodium* (Colace*), 100 MG ORAL DAILY, (Reported) Esomeprazole Magnesium (Nexium), 40 MG ORAL DAILY, (Reported) Gabapentin* (Gabapentin*), 200 MG ORAL THREE TIMES A DAY, (Reported) Hydralazine Hcl* (Hydralazine Hcl*), 25 MG ORAL PRN, (Reported) Magnesium Hydroxide* (Milk Of Magnesia*), 30 ML ORAL DAILY, (Reported) Metoprolol Tartrate* (Metoprolol Tartrate*), 37.5 MG ORAL EVERY 12 HOURS, ( Reported) Na Phos,M-B/Na Phos,Di-Ba* (Fleet Enema*), 133 ML RECTAL PRN, (Reported) Sevelamer Carbonate* (Renvela*), 800 MG ORAL THREE TIMES A DAY, (Reported) Valsartan (Diovan), 320 MG ORAL DAILY, (Reported) Vitamin B Cmplx/Vit C/Folic AC (Nephro-Alina Tablet), 1 TAB ORAL DAILY, (Reported ) Scheduled PRN Hydrocodone Bit/Acetaminophen 5-325* (Vista 5-325*), 1 TAB ORAL Q4H PRN for For Pain, (Reported) Miscellaneous Medications Dextrose (Glucose Gel), 38 GM PO, (Reported) Glucagon,Human Recombinant (Glucagon Emergency Kit), 1 MG IJ, (Reported) Patient History Healthcare decision maker N Resuscitation status Advanced Directive on File Yes Physical Exam Last 24 Hour Vital Signs Date Time Temp Pulse Resp B/P (MAP) Pulse Ox O2 Delivery O2 Flow Rate FiO2 12/02/18 13:48 97/56 12/02/18 13:00 16 108/66 (80) 100 12/02/18 12:00 94/58 12/02/18 12:00 99.2 14 94/58 (70) 95 12/02/18 12:00 Nasal Cannula 3.0 12/02/18 11:55 73 12/02/18 11:00 97/62 12/02/18 11:00 13 97/62 (74) 96 12/02/18 10:00 107/67 12/02/18 10:00 12 98/58 (71) 93 12/02/18 09:30 107/67 12/02/18 09:09 95 Nasal Cannula 3.0 32 12/02/18 09:00 93/59 12/02/18 09:00 12 93/59 (70) 94 12/02/18 08:57 77 107/66 12/02/18 08:00 Nasal Cannula 3.0 12/02/18 08:00 77 12/02/18 08:00 107/66 12/02/18 08:00 99.2 76 12 107/66 (80) 96 12/02/18 07:30 111/68 12/02/18 07:00 78 11 111/68 (82) 98 12/02/18 07:00 111/68 12/02/18 06:00 98.9 80 12 112/65 (81) 97 12/02/18 06:00 112/65 12/02/18 05:00 75 9 109/66 (80) 96 12/02/18 05:00 109/66 12/02/18 04:00 77 12/02/18 04:00 108/62 12/02/18 04:00 Nasal Cannula 3.0 12/02/18 04:00 98.0 74 12 108/62 (77) 96 12/02/18 03:44 96 Nasal Cannula 3.0 32 12/02/18 03:00 109/67 12/02/18 03:00 78 12 109/65 (80) 96 12/02/18 02:00 113/61 12/02/18 02:00 76 13 113/61 (78) 97 12/02/18 01:00 75 14 103/63 (76) 96 12/02/18 01:00 103/63 12/02/18 00:00 107/68 12/02/18 00:00 72 12/02/18 00:00 Nasal Cannula 3.0 12/02/18 00:00 99.0 75 13 107/68 (81) 95 12/01/18 23:59 99.0 12/01/18 23:00 78 11 110/64 (79) 94 12/01/18 23:00 78 11 110/64 (79) 94 12/01/18 23:00 110/64 12/01/18 22:25 80 18 105/42 (63) 95 12/01/18 22:25 80 18 105/42 (63) 95 12/01/18 22:00 105/42 12/01/18 21:30 99.0 12/01/18 21:00 71 104/65 12/01/18 21:00 107/66 12/01/18 21:00 100.0 82 16 107/66 (80) 94 12/01/18 20:00 99.6 83 13 112/65 (81) 94 12/01/18 20:00 Nasal Cannula 3.0 12/01/18 20:00 71 12/01/18 20:00 115/65 12/01/18 19:00 71 13 85/55 (65) 94 12/01/18 18:00 85 17 117/70 (86) 92 12/01/18 17:00 82 12 107/64 (78) 96 12/01/18 17:00 107/64 12/01/18 16:00 Nasal Cannula 3.0 12/01/18 16:00 99.4 85 16 113/67 (82) 95 12/01/18 16:00 113/67 12/01/18 15:39 85 12/01/18 15:00 81 15 112/65 (81) 97 12/01/18 15:00 105/86 12/01/18 14:48 94/61 12/01/18 14:00 80 14 104/67 (79) 98 12/01/18 14:00 104/67 Intake and Output 12/01/18 12/02/18 18:59 06:59 Intake Total 1482.87 ml 808.82 ml Output Total 1000 ml 0 ml Balance 482.87 ml 808.82 ml Intake Oral 450 ml 50 ml IV Total 1032.87 ml 758.82 ml Output Urine Total 0 ml 0 ml Hemodialysis UF 1000 ml # Bowel Movements 1 Laboratory Tests Test 12/02/18 05:00 12/02/18 12:45 White Blood Count 20.7 K/UL (4.8-10.8) H 18.4 K/UL (4.8-10.8) H Red Blood Count 3.16 M/UL (4.70-6.10) L 3.25 M/UL (4.70-6.10) L Hemoglobin 8.4 G/DL (14.2-18.0) L 8.4 G/DL (14.2-18.0) L Hematocrit 26.8 % (42.0-52.0) L 27.7 % (42.0-52.0) L Mean Corpuscular Volume 85 FL (80-99) 85 FL (80-99) Mean Corpuscular Hemoglobin 26.5 PG (27.0-31.0) L 26.0 PG (27.0-31.0) L Mean Corpuscular Hemoglobin Concent 31.2 G/DL (32.0-36.0) L 30.5 G/DL (32.0-36.0) L Red Cell Distribution Width 14.6 % (11.6-14.8) 14.2 % (11.6-14.8) Platelet Count 350 K/UL (150-450) 312 K/UL (150-450) Mean Platelet Volume 6.2 FL (6.5-10.1) L 5.9 FL (6.5-10.1) L Neutrophils (%) (Auto) % (45.0-75.0) % (45.0-75.0) Lymphocytes (%) (Auto) % (20.0-45.0) % (20.0-45.0) Monocytes (%) (Auto) % (1.0-10.0) % (1.0-10.0) Eosinophils (%) (Auto) % (0.0-3.0) % (0.0-3.0) Basophils (%) (Auto) % (0.0-2.0) % (0.0-2.0) Differential Total Cells Counted 100 Neutrophils % (Manual) 86 % (45-75) H Pending Lymphocytes % (Manual) 9 % (20-45) L Pending Monocytes % (Manual) 5 % (1-10) Eosinophils % (Manual) 0 % (0-3) Basophils % (Manual) 0 % (0-2) Band Neutrophils 0 % (0-8) Platelet Estimate Adequate Pending Platelet Morphology Normal Pending Hypochromasia 2+ Anisocytosis 1+ Sodium Level 138 MMOL/L (136-145) Potassium Level 4.8 MMOL/L (3.5-5.1) Chloride Level 100 MMOL/L (98-107) Carbon Dioxide Level 23 MMOL/L (21-32) Anion Gap 16 mmol/L (5-15) H Blood Urea Nitrogen 54 mg/dL (7-18) H Creatinine 8.3 MG/DL (0.55-1.30) H Estimat Glomerular Filtration Rate mL/min (>60) Glucose Level 211 MG/DL (74-106) H Uric Acid 4.7 MG/DL (2.6-7.2) Calcium Level 9.3 MG/DL (8.5-10.1) Phosphorus Level 6.1 MG/DL (2.5-4.9) H Magnesium Level 2.4 MG/DL (1.8-2.4) Total Bilirubin 0.6 MG/DL (0.2-1.0) Aspartate Amino Transf (AST/SGOT) 51 U/L (15-37) H Alanine Aminotransferase (ALT/SGPT) 16 U/L (12-78) Alkaline Phosphatase 122 U/L (46-116) H Troponin I 13.986 ng/mL (0.000-0.056) C-Reactive Protein, Quantitative > 70.0 mg/dL (0.00-0.90) H Pro-B-Type Natriuretic Peptide > 31812 pg/mL (0-125) H Total Protein 6.9 G/DL (6.4-8.2) Albumin 2.4 G/DL (3.4-5.0) L Globulin 4.5 g/dL Albumin/Globulin Ratio 0.5 (1.0-2.7) L Random Vancomycin Level 18.2 ug/mL Prothrombin Time 18.4 SEC (9.30-11.50) H Prothromb Time International Ratio 1.8 (0.9-1.1) H Activated Partial Thromboplast Time 46 SEC (23-33) H Height (Feet): 5 Height (Inches): 1.00 Weight (Pounds): 167 Medications Current Medications Medications (Trade) Dose Ordered Sig/Elva Route PRN Reason Start Time Stop Time Status Last Admin Dose Admin Acetaminophen (Tylenol) 650 mg Q4H PRN ORAL fever 11/30/18 14:45 12/30/18 14:44 12/01/18 21:00 Acetaminophen/ Hydrocodone Bitart (Vista 10/325) 1 tab EVERY 6 HOURS PRN ORAL Severe Pain (Pain Scale 7-10) 11/30/18 23:15 12/07/18 23:14 12/01/18 18:21 Acetaminophen/ Hydrocodone Bitart (Vista 5/325) 1 tab Q6H PRN ORAL Moderate Pain (Pain Scale 4-6) 11/30/18 23:15 12/07/18 23:14 12/01/18 23:29 Albuterol/ Ipratropium (Albuterol/ Ipratropium) 3 ml Q4H PRN HHN Shortness of Breath 11/30/18 14:45 12/05/18 14:44 12/01/18 03:50 Aspirin (Ecotrin) 325 mg DAILY ORAL 12/03/18 09:00 12/30/18 18:59 Atorvastatin Calcium (Lipitor) 80 mg BEDTIME ORAL 11/30/18 21:00 12/30/18 20:59 12/01/18 21:00 Azithromycin (Zithromax) 500 mg DAILY ORAL 12/02/18 09:00 12/09/18 08:59 12/02/18 08:57 Chlorhexidine Gluconate (Keek-Hex 2%) 1 applic DAILY@2000 TOPIC 12/01/18 20:00 12/31/18 19:59 12/01/18 21:00 Clindamycin HCl/ Dextrose 50 ml @ 100 mls/hr Q8HR IV 12/01/18 22:00 12/08/18 21:59 12/02/18 13:47 Dextrose (Dextrose 50%) 25 ml Q30M PRN IV Hypoglycemia 12/02/18 08:00 01/01/19 07:59 Dextrose (Dextrose 50%) 50 ml Q30M PRN IV Hypoglycemia 12/02/18 08:00 01/01/19 07:59 Docusate Sodium (Colace) 100 mg THREE TIMES A DAY ORAL 12/02/18 13:00 01/01/19 12:59 12/02/18 12:03 Heparin Sodium (Porcine) (Heparin 5000 units/ml) 3,000 units ONCE IV 12/02/18 14:00 12/02/18 15:00 Heparin Sodium/ Dextrose 500 ml @ 18.18 mls/ hr ADJUST PER PROTOCOL IV 12/02/18 14:00 01/01/19 13:59 Insulin Aspart (NovoLOG) BEFORE MEALS AND HS SUBQ 12/02/18 11:30 01/01/19 11:29 12/02/18 12:06 Meropenem 500 mg/ Sodium Chloride 55 ml @ 110 mls/hr Q24H IVPB 11/30/18 15:00 12/05/18 14:59 12/01/18 14:48 Metoprolol Tartrate (Lopressor) 12.5 mg Q12HR ORAL 11/30/18 21:00 12/30/18 20:59 Morphine Sulfate (Morphine Sulfate) 2 mg Q4H PRN IVP Severe Pain (Pain Scale 7-10) 11/30/18 14:45 12/07/18 14:44 Norepinephrine Bitartrate 4 mg/ Dextrose 254 ml @ 0 mls/hr Q24H IV 11/30/18 14:45 12/30/18 14:44 12/02/18 13:48 Ondansetron HCl (Zofran) 4 mg Q6H PRN IVP Nausea & Vomiting 11/30/18 14:45 12/30/18 14:44 Pantoprazole (Protonix) 40 mg Q12HR IVP 12/02/18 21:00 12/31/18 08:59 Polyethylene Glycol (Miralax) 17 gm DAILYPRN PRN ORAL Constipation 11/30/18 14:45 12/30/18 14:44 Sevelamer Carbonate (Renvela) 800 mg THREE TIMES A DAY ORAL 11/30/18 18:00 12/30/18 17:59 12/02/18 12:01 Sodium Chloride 1,000 ml @ 50 mls/hr Q20H IV 11/30/18 15:30 12/30/18 15:29 12/02/18 06:31 Vancomycin HCl (Vanco rx to dose) 1 ea DAILY PRN MISC Per rx protocol 11/30/18 14:00 12/30/18 13:59 Vitamin B Complex/ Vit C/Folic Acid (Nephrovite) 1 tab DAILY ORAL 12/01/18 09:00 12/31/18 08:59 12/02/18 08:57 Assessment/Plan Assessment/Plan: Hematology Consult REQ MD: Abdi Goldman RFC: Coagulopathy and Leukocytosis DOS: 12/02/[address] [place] -- 73 years old male with PMH of hypertension, ESRD, on hemodialysis, bilateral midfoot amputation, hypercholesterolemia, diabetes mellitus, anemia, was brought from the [facility] for fever and hypoxia. At the facility fever was over 102. Patient did not have dialysis at that day as scheduled. To get HD tomorrow. Upon arrival patient was afebrile , but hypotensive with blood pressure 78/51 and was hypoxic , requiring 100% nonrebreathing mask ; patient was also tachypneic. Laboratory work-up revealed significant leukocytosis WBC 30.5, hemoglobin 9.1, hematocrit 29.8 , platelet count 362. Noted to have a inr of 1.8, heme was consulted. Currently in the icu is on pressors. Allergies: Coded Allergies: No Known Allergies (Unverified , 11/30/18) Medications Scheduled Amino Acids/Protein Hydrolys (Pro-Stat Liquid), 30 ML ORAL TWICE A DAY, ( Reported) Amlodipine Besylate* (Amlodipine Besylate*), 10 MG ORAL DAILY, (Reported) Aspirin* (Aspir 81*), 81 MG ORAL DAILY, (Reported) Bisacodyl (Bisacodyl), 10 MG RC PRN, (Reported) Clopidogrel Bisulfate* (Plavix*), 75 MG ORAL DAILY, (Reported) Cranberry Fruit Concentrate (Cranberry), 450 MG PO BID, (Reported) Docusate Sodium* (Colace*), 100 MG ORAL DAILY, (Reported) Esomeprazole Magnesium (Nexium), 40 MG ORAL DAILY, (Reported) Gabapentin* (Gabapentin*), 200 MG ORAL THREE TIMES A DAY, (Reported) Hydralazine Hcl* (Hydralazine Hcl*), 25 MG ORAL PRN, (Reported) Magnesium Hydroxide* (Milk Of Magnesia*), 30 ML ORAL DAILY, (Reported) Metoprolol Tartrate* (Metoprolol Tartrate*), 37.5 MG ORAL EVERY 12 HOURS, ( Reported) Na Phos,M-B/Na Phos,Di-Ba* (Fleet Enema*), 133 ML RECTAL PRN, (Reported) Sevelamer Carbonate* (Renvela*), 800 MG ORAL THREE TIMES A DAY, (Reported) Valsartan (Diovan), 320 MG ORAL DAILY, (Reported) Vitamin B Cmplx/Vit C/Folic AC (Nephro-Alina Tablet), 1 TAB ORAL DAILY, (Reported ) Scheduled PRN Hydrocodone Bit/Acetaminophen 5-325* (Vista 5-325*), 1 TAB ORAL Q4H PRN for For Pain, (Reported) Miscellaneous Medications Dextrose (Glucose Gel), 38 GM PO, (Reported) Glucagon,Human Recombinant (Glucagon Emergency Kit), 1 MG IJ, (Reported) Patient History History Provided By: Medical Record, EMS Healthcare decision maker N Resuscitation status Advanced Directive on File Yes Past Medical/Surgical History Past Medical/Surgical History: (1) ESRD (end stage renal disease) (2) Diabetes Review of Systems ROS Narrative unable to obtain due to patient's condition Physical Exam: Vitals: reviewed General Appearance: NAD HEENT: normocephalic, atraumatic Neck: non-tender, normal alignment Respiratory/Chest: normal breath sounds bilaterally Cardiovascular/Chest: normal peripheral pulses, normal rate Abdomen: normal bowel sounds, soft, nontender Extremities: normal range of motion s/p midfoot amputation ; R midfoot DIEGO, L midfoot with dressing, femoral line ++ Musculoskeletal: atrophy - BLE, other - kat mid foot amputation Labs: noted Meds: noted Assessment/Plan: # Coagulation defect, multifactorial usually related to poor PO intake versus medications, versus cirrhosis, in this case, is likely related to sepsis and dic --> administer Vitamin K if patient is bleeding or FFP if the INR is >10 --> hold off on ffp unless active procedure/bleeding, first begin with vit K 10 --> mixing study as needed ordered --> hep and hiv ordered as well # Anemia of chronic disease (or of iron deficiency) due to underlying chronic medical issues, multifactorial --> Anemia workup has been ordered, rule out gi bleed --> No evidence of hemolysis is noted, peripheral smear has been reviewed. --> Hgb goal >7. Transfuse prn. --> Epogen or iron at this time is not particularly indicated --> Medications have been reviewed --> low threshold for gi evaluation in case has occult + # Leukocytosis/elevated white blood cell count, unspecified likely related to underlying stress reaction with septic shock (with poss pna) --> have reviewed peripheral smear and bandemia/neutrophilia noted --> continue antibiotics if they have been started by ID team(indira/vanc) --> monitor for resolution # Acute PR --> is on heparin gtt --> with esrd --> as per cards recs # Infected leg ulcer, probably gangrene --> Ulcer of heel and midfoot with necrosis to bone --> per podiatry and surg recs # PVD with amputation # End-stage renal disease - on hemodialysis --> per renal # Electrolyte abnormalities # Diabetes mellitus with diabetic neuropathy # Dvt ppx scds/hep gtt The timing of this note does not necessarily reflect the time of the patient was seen. Greatly appreciate consultation. Lloyd Dailey MD Dec 02, 2018 14:02
--- NOTE | 2018-12-02 14:08 | NUR ---
NURSE NOTES: Started Heparin drip, witnessed by IWONA Nye. Pt is 75.75kg. Conc: [id number]/500mL, Drip running @ 12units/kg/hr= 18.18mL/hr.
[2018-12-02] MEDS: Meropenem 500 MG in NS 55 ML IVPB SCH (14:26)
--- NOTE | 2018-12-02 16:19 | Surgery Progress Note ---
Surgery Progress Note Subjective Additional Comments leukocytosis trending down troponin trending up labs noted exam stable discussed care plan at bedside with patient Objective Last 24 Hour Vital Signs Date Time Temp Pulse Resp B/P (MAP) Pulse Ox O2 Delivery O2 Flow Rate FiO2 12/02/18 16:00 109/57 12/02/18 15:00 99/52 12/02/18 14:00 77 11 91/55 (67) 100 12/02/18 14:00 91/55 12/02/18 13:48 97/56 12/02/18 13:00 16 108/66 (80) 100 12/02/18 13:00 105/56 12/02/18 12:00 94/58 12/02/18 12:00 99.2 14 94/58 (70) 95 12/02/18 12:00 Nasal Cannula 3.0 12/02/18 11:55 73 12/02/18 11:00 97/62 12/02/18 11:00 13 97/62 (74) 96 12/02/18 10:00 107/67 12/02/18 10:00 12 98/58 (71) 93 12/02/18 09:30 107/67 12/02/18 09:09 95 Nasal Cannula 3.0 32 12/02/18 09:00 93/59 12/02/18 09:00 12 93/59 (70) 94 12/02/18 08:57 77 107/66 12/02/18 08:00 Nasal Cannula 3.0 12/02/18 08:00 77 12/02/18 08:00 107/66 12/02/18 08:00 99.2 76 12 107/66 (80) 96 12/02/18 07:30 111/68 12/02/18 07:00 78 11 111/68 (82) 98 12/02/18 07:00 111/68 12/02/18 06:00 98.9 80 12 112/65 (81) 97 12/02/18 06:00 112/65 12/02/18 05:00 75 9 109/66 (80) 96 12/02/18 05:00 109/66 12/02/18 04:00 77 12/02/18 04:00 108/62 12/02/18 04:00 Nasal Cannula 3.0 12/02/18 04:00 98.0 74 12 108/62 (77) 96 12/02/18 03:44 96 Nasal Cannula 3.0 32 12/02/18 03:00 109/67 12/02/18 03:00 78 12 109/65 (80) 96 12/02/18 02:00 113/61 12/02/18 02:00 76 13 113/61 (78) 97 12/02/18 01:00 75 14 103/63 (76) 96 12/02/18 01:00 103/63 12/02/18 00:00 107/68 12/02/18 00:00 72 12/02/18 00:00 Nasal Cannula 3.0 12/02/18 00:00 99.0 75 13 107/68 (81) 95 12/01/18 23:59 99.0 12/01/18 23:00 78 11 110/64 (79) 94 12/01/18 23:00 78 11 110/64 (79) 94 12/01/18 23:00 110/64 12/01/18 22:25 80 18 105/42 (63) 95 12/01/18 22:25 80 18 105/42 (63) 95 12/01/18 22:00 105/42 12/01/18 21:30 99.0 12/01/18 21:00 71 104/65 12/01/18 21:00 107/66 12/01/18 21:00 100.0 82 16 107/66 (80) 94 12/01/18 20:00 99.6 83 13 112/65 (81) 94 12/01/18 20:00 Nasal Cannula 3.0 12/01/18 20:00 71 12/01/18 20:00 115/65 12/01/18 19:00 71 13 85/55 (65) 94 12/01/18 18:00 85 17 117/70 (86) 92 12/01/18 17:00 82 12 107/64 (78) 96 12/01/18 17:00 107/64 I&O Intake and Output 12/01/18 12/02/18 18:59 06:59 Intake Total 1482.87 ml 808.82 ml Output Total 1000 ml 0 ml Balance 482.87 ml 808.82 ml Intake Oral 450 ml 50 ml IV Total 1032.87 ml 758.82 ml Output Urine Total 0 ml 0 ml Hemodialysis UF 1000 ml # Bowel Movements 1 Dressing: saturated Wound: other Drains: other Cardiovascular: RSR Respiratory: decreased breath sounds Abdomen: soft, present bowel sounds Extremities: cyanosis, other Laboratory Tests Test 12/02/18 05:00 12/02/18 12:45 White Blood Count 20.7 K/UL (4.8-10.8) H 18.4 K/UL (4.8-10.8) H Red Blood Count 3.16 M/UL (4.70-6.10) L 3.25 M/UL (4.70-6.10) L Hemoglobin 8.4 G/DL (14.2-18.0) L 8.4 G/DL (14.2-18.0) L Hematocrit 26.8 % (42.0-52.0) L 27.7 % (42.0-52.0) L Mean Corpuscular Volume 85 FL (80-99) 85 FL (80-99) Mean Corpuscular Hemoglobin 26.5 PG (27.0-31.0) L 26.0 PG (27.0-31.0) L Mean Corpuscular Hemoglobin Concent 31.2 G/DL (32.0-36.0) L 30.5 G/DL (32.0-36.0) L Red Cell Distribution Width 14.6 % (11.6-14.8) 14.2 % (11.6-14.8) Platelet Count 350 K/UL (150-450) 312 K/UL (150-450) Mean Platelet Volume 6.2 FL (6.5-10.1) L 5.9 FL (6.5-10.1) L Neutrophils (%) (Auto) % (45.0-75.0) % (45.0-75.0) Lymphocytes (%) (Auto) % (20.0-45.0) % (20.0-45.0) Monocytes (%) (Auto) % (1.0-10.0) % (1.0-10.0) Eosinophils (%) (Auto) % (0.0-3.0) % (0.0-3.0) Basophils (%) (Auto) % (0.0-2.0) % (0.0-2.0) Differential Total Cells Counted 100 100 Neutrophils % (Manual) 86 % (45-75) H 92 % (45-75) H Lymphocytes % (Manual) 9 % (20-45) L 5 % (20-45) L Monocytes % (Manual) 5 % (1-10) 1 % (1-10) Eosinophils % (Manual) 0 % (0-3) 1 % (0-3) Basophils % (Manual) 0 % (0-2) 0 % (0-2) Band Neutrophils 0 % (0-8) 1 % (0-8) Platelet Estimate Adequate Adequate Platelet Morphology Normal Normal Hypochromasia 2+ 2+ Anisocytosis 1+ 1+ Sodium Level 138 MMOL/L (136-145) Potassium Level 4.8 MMOL/L (3.5-5.1) Chloride Level 100 MMOL/L (98-107) Carbon Dioxide Level 23 MMOL/L (21-32) Anion Gap 16 mmol/L (5-15) H Blood Urea Nitrogen 54 mg/dL (7-18) H Creatinine 8.3 MG/DL (0.55-1.30) H Estimat Glomerular Filtration Rate mL/min (>60) Glucose Level 211 MG/DL (74-106) H Uric Acid 4.7 MG/DL (2.6-7.2) Calcium Level 9.3 MG/DL (8.5-10.1) Phosphorus Level 6.1 MG/DL (2.5-4.9) H Magnesium Level 2.4 MG/DL (1.8-2.4) Total Bilirubin 0.6 MG/DL (0.2-1.0) Aspartate Amino Transf (AST/SGOT) 51 U/L (15-37) H Alanine Aminotransferase (ALT/SGPT) 16 U/L (12-78) Alkaline Phosphatase 122 U/L (46-116) H Troponin I 13.986 ng/mL (0.000-0.056) C-Reactive Protein, Quantitative > 70.0 mg/dL (0.00-0.90) H Pro-B-Type Natriuretic Peptide > 64123 pg/mL (0-125) H Total Protein 6.9 G/DL (6.4-8.2) Albumin 2.4 G/DL (3.4-5.0) L Globulin 4.5 g/dL Albumin/Globulin Ratio 0.5 (1.0-2.7) L Random Vancomycin Level 18.2 ug/mL Prothrombin Time 18.4 SEC (9.30-11.50) H Prothromb Time International Ratio 1.8 (0.9-1.1) H Activated Partial Thromboplast Time 46 SEC (23-33) H Plan Problems: (1) 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 On admission patient has a very foul-smelling left heel necrotic wound/ulcer. No purulent drainage no significant foot or leg cellulitis. Prior midfoot amputation. Very foul-smelling. Given patient's current medical condition status with his consent a wound expiration was done at the bedside to ensure no underlying pus, gas-forming infection, acute etiology of severe sepsis. Using a fresh #11 scalpel incision was made in the middle of the area of necrosis and followed down to healthy tissue which is not identified until bone was reached. Wound necrosis directly down to bone. No pus tunneling or gas-forming infectious and noted. We will continue with local wound care Appreciate podiatry input. Agree foot not salvageable and recommend BKA. We will proceed once cleared Given patient's current medical condition status will need resuscitation and clearance prior to any surgical intervention or podiatry intervention. Antibiotics as per infectious disease We will follow with recommendations thank you (2) Severe sepsis Assessment & Plan: leukocytosis abnormal labs elevated troponin -abx as per ID -local wound care Appreciate cardiology input. Will plan for amputation on cardiac cleared okay for heparin gtt -will follow with recs thank you (3) Infected ulcer of skin Noam Davenport Dec 02, 2018 16:19
[2018-12-02] MEDS: HYDROcodone/Acetamin 5/325 tab ORAL PRN (17:05)
--- NOTE | 2018-12-02 17:05 | NUR ---
NURSE NOTES: Patient c/o pain 5/10, given Narco 5/325MG PO. Pt's temp 100.2, given Tylenol 650MG PO. Will reassess in 30 mins. Pt was cleaned and repositioned. Bed in lowest position, Call light within reach.
--- NOTE | 2018-12-02 19:12 | NUR ---
HAND-OFF: Report given to IWONA Diaz.
--- NOTE | 2018-12-02 19:20 | NUR ---
NURSE NOTES: Received report from Ashlee BUSTILLO. Patient in bed resting awake,alert able to verbalize needs to staff. denies any pain or discomfort at this time. received on oxygen 3 liters via N/C satting 94%. HOB elevated. pt with Temperature on 99.4 axillary. patient left foot with dressing intact. skin warm and dry to touch. P200 mattress for wound management. Patient anuric. AV shunt on left upper arm with + bruit and thrill. Right lower F/a #18 and Right upper arm #18 intact running NS at 50cc/hr, Levophed @ 2mcg BP 99/60, and Heparin drip at 12mcg/kg/hr for elevated troponin. Timed PTT at 2000. no bleeding. Instructed patient to use call light for assistance. bed alarm on. bed lock and in low position. will continue plan of care.
--- NOTE | 2018-12-02 20:01 | Cardiology Progress Note ---
Assessment/Plan Assessment/Plan endocarditis so far not confirmed, cultures are negative, no vegetations on TTE Subjective Subjective denies chest pain and reports feeling fine, no leg pain Objective Last 24 Hour Vital Signs Date Time Temp Pulse Resp B/P (MAP) Pulse Ox O2 Delivery O2 Flow Rate FiO2 12/02/18 19:18 94 Nasal Cannula 3.0 32 12/02/18 19:00 99/58 12/02/18 19:00 72 12 99/58 (72) 92 12/02/18 18:30 99.5 69 11 98/58 (71) 100 12/02/18 18:00 71 10 84/53 (63) 98 12/02/18 18:00 84/53 12/02/18 17:35 99.0 12/02/18 17:30 83 12 92/56 (68) 100 12/02/18 17:00 93/66 12/02/18 17:00 100.2 75 19 93/66 (75) 100 12/02/18 16:30 99.6 12 97/61 (73) 99 12/02/18 16:00 Nasal Cannula 3.0 12/02/18 16:00 109/57 12/02/18 16:00 83 13 92/54 (67) 100 12/02/18 15:37 71 12/02/18 15:30 86 14 95/56 (69) 96 12/02/18 15:00 84 13 84/57 (66) 100 12/02/18 15:00 99/52 12/02/18 14:30 84 12 101/52 (68) 99 12/02/18 14:00 77 11 91/55 (67) 100 12/02/18 14:00 91/55 12/02/18 13:48 97/56 12/02/18 13:30 81 13 97/56 (70) 99 12/02/18 13:00 16 108/66 (80) 100 12/02/18 13:00 105/56 12/02/18 12:30 77 12 109/63 (78) 100 12/02/18 12:00 94/58 12/02/18 12:00 99.2 14 94/58 (70) 95 12/02/18 12:00 Nasal Cannula 3.0 12/02/18 11:55 73 12/02/18 11:00 97/62 12/02/18 11:00 13 97/62 (74) 96 12/02/18 10:00 107/67 12/02/18 10:00 12 98/58 (71) 93 12/02/18 09:30 107/67 12/02/18 09:09 95 Nasal Cannula 3.0 32 12/02/18 09:00 93/59 12/02/18 09:00 12 93/59 (70) 94 12/02/18 08:57 77 107/66 12/02/18 08:00 Nasal Cannula 3.0 12/02/18 08:00 77 12/02/18 08:00 107/66 12/02/18 08:00 99.2 76 12 107/66 (80) 96 12/02/18 07:30 111/68 12/02/18 07:00 78 11 111/68 (82) 98 12/02/18 07:00 111/68 12/02/18 06:00 98.9 80 12 112/65 (81) 97 12/02/18 06:00 112/65 12/02/18 05:00 75 9 109/66 (80) 96 12/02/18 05:00 109/66 12/02/18 04:00 77 12/02/18 04:00 108/62 12/02/18 04:00 Nasal Cannula 3.0 12/02/18 04:00 98.0 74 12 108/62 (77) 96 12/02/18 03:44 96 Nasal Cannula 3.0 32 12/02/18 03:00 109/67 12/02/18 03:00 78 12 109/65 (80) 96 12/02/18 02:00 113/61 12/02/18 02:00 76 13 113/61 (78) 97 12/02/18 01:00 75 14 103/63 (76) 96 12/02/18 01:00 103/63 12/02/18 00:00 107/68 12/02/18 00:00 72 12/02/18 00:00 Nasal Cannula 3.0 12/02/18 00:00 99.0 75 13 107/68 (81) 95 12/01/18 23:59 99.0 12/01/18 23:00 78 11 110/64 (79) 94 12/01/18 23:00 78 11 110/64 (79) 94 12/01/18 23:00 110/64 12/01/18 22:25 80 18 105/42 (63) 95 12/01/18 22:25 80 18 105/42 (63) 95 12/01/18 22:00 105/42 12/01/18 21:00 71 104/65 12/01/18 21:00 107/66 12/01/18 21:00 100.0 82 16 107/66 (80) 94 12/01/18 20:00 99.6 83 13 112/65 (81) 94 12/01/18 20:00 Nasal Cannula 3.0 12/01/18 20:00 71 12/01/18 20:00 115/65 General Appearance: other - sleeping comfortably EENT: PERRL/EOMI Neck: supple, JVD Cardiovascular: regular rhythm Respiratory/Chest: crackles/rales Abdomen: soft Extremities: other - bilaeral foot amputation Intake and Output 12/01/18 12/02/18 18:59 06:59 Intake Total 1482.87 ml 808.82 ml Output Total 1000 ml 0 ml Balance 482.87 ml 808.82 ml Intake Oral 450 ml 50 ml IV Total 1032.87 ml 758.82 ml Output Urine Total 0 ml 0 ml Hemodialysis UF 1000 ml # Bowel Movements 1 Laboratory Tests Test 12/02/18 05:00 12/02/18 12:45 White Blood Count 20.7 K/UL (4.8-10.8) H 18.4 K/UL (4.8-10.8) H Red Blood Count 3.16 M/UL (4.70-6.10) L 3.25 M/UL (4.70-6.10) L Hemoglobin 8.4 G/DL (14.2-18.0) L 8.4 G/DL (14.2-18.0) L Hematocrit 26.8 % (42.0-52.0) L 27.7 % (42.0-52.0) L Mean Corpuscular Volume 85 FL (80-99) 85 FL (80-99) Mean Corpuscular Hemoglobin 26.5 PG (27.0-31.0) L 26.0 PG (27.0-31.0) L Mean Corpuscular Hemoglobin Concent 31.2 G/DL (32.0-36.0) L 30.5 G/DL (32.0-36.0) L Red Cell Distribution Width 14.6 % (11.6-14.8) 14.2 % (11.6-14.8) Platelet Count 350 K/UL (150-450) 312 K/UL (150-450) Mean Platelet Volume 6.2 FL (6.5-10.1) L 5.9 FL (6.5-10.1) L Neutrophils (%) (Auto) % (45.0-75.0) % (45.0-75.0) Lymphocytes (%) (Auto) % (20.0-45.0) % (20.0-45.0) Monocytes (%) (Auto) % (1.0-10.0) % (1.0-10.0) Eosinophils (%) (Auto) % (0.0-3.0) % (0.0-3.0) Basophils (%) (Auto) % (0.0-2.0) % (0.0-2.0) Differential Total Cells Counted 100 100 Neutrophils % (Manual) 86 % (45-75) H 92 % (45-75) H Lymphocytes % (Manual) 9 % (20-45) L 5 % (20-45) L Monocytes % (Manual) 5 % (1-10) 1 % (1-10) Eosinophils % (Manual) 0 % (0-3) 1 % (0-3) Basophils % (Manual) 0 % (0-2) 0 % (0-2) Band Neutrophils 0 % (0-8) 1 % (0-8) Platelet Estimate Adequate Adequate Platelet Morphology Normal Normal Hypochromasia 2+ 2+ Anisocytosis 1+ 1+ Sodium Level 138 MMOL/L (136-145) Potassium Level 4.8 MMOL/L (3.5-5.1) Chloride Level 100 MMOL/L (98-107) Carbon Dioxide Level 23 MMOL/L (21-32) Anion Gap 16 mmol/L (5-15) H Blood Urea Nitrogen 54 mg/dL (7-18) H Creatinine 8.3 MG/DL (0.55-1.30) H Estimat Glomerular Filtration Rate mL/min (>60) Glucose Level 211 MG/DL (74-106) H Uric Acid 4.7 MG/DL (2.6-7.2) Calcium Level 9.3 MG/DL (8.5-10.1) Phosphorus Level 6.1 MG/DL (2.5-4.9) H Magnesium Level 2.4 MG/DL (1.8-2.4) Total Bilirubin 0.6 MG/DL (0.2-1.0) Aspartate Amino Transf (AST/SGOT) 51 U/L (15-37) H Alanine Aminotransferase (ALT/SGPT) 16 U/L (12-78) Alkaline Phosphatase 122 U/L (46-116) H Troponin I 13.986 ng/mL (0.000-0.056) C-Reactive Protein, Quantitative > 70.0 mg/dL (0.00-0.90) H Pro-B-Type Natriuretic Peptide > 72566 pg/mL (0-125) H Total Protein 6.9 G/DL (6.4-8.2) Albumin 2.4 G/DL (3.4-5.0) L Globulin 4.5 g/dL Albumin/Globulin Ratio 0.5 (1.0-2.7) L Random Vancomycin Level 18.2 ug/mL Prothrombin Time 18.4 SEC (9.30-11.50) H Prothromb Time International Ratio 1.8 (0.9-1.1) H Activated Partial Thromboplast Time 46 SEC (23-33) H Microbiology Date/Time Source Procedure Growth Status 11/30/18 09:45 Blood Blood Culture - Preliminary NO GROWTH AFTER 24 HOURS Resulted 11/30/18 09:40 Blood Blood Culture - Preliminary NO GROWTH AFTER 24 HOURS Resulted 12/01/18 06:00 Sputum Gram Stain - Final Resulted 12/01/18 06:00 Sputum Sputum Culture Pending Resulted 11/30/18 10:00 Nasal Nares MRSA Culture - Final NO METHICILLIN RESISTANT STAPH AUREUS... Complete 11/30/18 09:50 Nasal Nares - Final Complete 11/30/18 09:50 Nasal Nares - Final Complete 11/30/18 10:00 Rectum VRE Culture - Final NO VANCOMYCIN RESISTANT ENTEROCOCCUS ... Complete 11/30/18 10:00 Rectum Received Cortney Garcia MD Dec 02, 2018 20:01
[2018-12-02 20:45] LABS: INR 1.6 (0.9-1.1)
[2018-12-02] MEDS: Dyna-Hex 2% Top Sol 2oz TOPIC SCH (21:01)
--- NOTE | 2018-12-02 21:02 | NUR ---
NURSE NOTES: PTT result 60, will follow Heparin protocol. Addendum: 12/03/18 at 0242 by JESSICA DAMON RN at 2100 Levo drip titrate to 4mcg/min BP 60/44
[2018-12-02] MEDS: Atorvastatin 80mg tab ORAL SCH (21:03)
--- NOTE | 2018-12-02 23:00 | NUR ---
NURSE NOTES: Patient in bed sleeping comfortably. Levo drip titrate to 2mcg/min BP 99/61.
[2018-12-03] VITALS (39 sets, daily range): BP systolic 80–145; BP diastolic 51–102
--- NOTE | 2018-12-03 01:00 | NUR ---
NURSE NOTES: Turned and repartitioned patient in bed patient able to hold on the side rail. Denies any pain or discomfort. no s/s of hypo/hyperglycemia. Call light within easy reach.
--- NOTE | 2018-12-03 03:00 | NUR ---
NURSE NOTES: Turned and repartitioned patient in bed patient able to hold on the side rail. Denies any pain or discomfort. no s/s of hypo/hyperglycemia. Continue on Levo drips at 2mcg/min BP105/64. Heparin drip at 14units/kg/hr. Fireproof Door Maker here to draw Timed PTT. Call light within easy reach.
[2018-12-03] MEDS: HYDROcodone/Acetamin 10/325 tab ORAL PRN ×2 (04:22→21:29)
--- NOTE | 2018-12-03 04:50 | NUR ---
NURSE NOTES: Called Lab for timed PTT still pending result spoke with Deana Lumber Hacker. charge nurse aware.
[2018-12-03 04:54] LABS: BASOPHILS % (AUTO) 0.3 % (0.0-2.0); EOSINOPHILS % (AUTO) 0.9 % (0.0-3.0); HEMATOCRIT 26.4 % (42.0-52.0); HEMOGLOBIN 8.2 G/DL (14.2-18.0); LYMPHOCYTES % (AUTO) 7.6 % (20.0-45.0); MEAN CORPUSCULAR VOLUME 84 FL (80-99); MONOCYTES % (AUTO) 7.3 % (1.0-10.0); NEUTROPHILS % (AUTO) 83.9 % (45.0-75.0); PLATELET COUNT 309 K/UL (150-450); RED BLOOD COUNT 3.14 M/UL (4.70-6.10); RED CELL DISTRIBUTION WIDTH 14.7 % (11.6-14.8); WHITE BLOOD COUNT 15.3 K/UL (4.8-10.8)
--- NOTE | 2018-12-03 05:10 | NUR ---
NURSE NOTES: Bed bath given tolerated well. [place] given for 9/10 left foot pain and prior to wound treatment and bed bath.
[2018-12-03] MEDS ORDERED: Heparin 5000 units/ml inj IV ONE (05:30)
[2018-12-03] MEDS ORDERED: Heparin 25,000u/D5W 500ml 500 ML IV SCH ×3 (05:30→21:15)
[2018-12-03 05:41] LABS: ALANINE AMINOTRANSFERASE 18 U/L (12-78); ALBUMIN 2.3 G/DL (3.4-5.0); ALBUMIN/GLOBULIN RATIO 0.5 (1.0-2.7); ALKALINE PHOSPHATASE 186 U/L (46-116); ANION GAP 14 mmol/L (5-15); ASPARTATE AMINO TRANSFERASE 35 U/L (15-37); BILIRUBIN,TOTAL 0.6 MG/DL (0.2-1.0); BLOOD UREA NITROGEN 70 mg/dL (7-18); CALCIUM 9.1 MG/DL (8.5-10.1); CARBON DIOXIDE 23 MMOL/L (21-32); CHLORIDE 99 MMOL/L (98-107); CREATININE 9.3 MG/DL (0.55-1.30); PHOSPHORUS 4.3 MG/DL (2.5-4.9); POTASSIUM 4.8 MMOL/L (3.5-5.1); SODIUM 136 MMOL/L (136-145)
[2018-12-03] MEDS: NovoLOG Insulin Flexpen SUBQ SCH ×4 (05:44→21:23)
[2018-12-03] MEDS: Clindamycin 600mg 50 ML IV SCH ×3 (05:44→21:24)
[2018-12-03] MEDS ORDERED: Heparin 5000 units/ml inj IV SCH ×2 (05:45→13:15)
--- NOTE | 2018-12-03 07:30 | NUR ---
HAND-OFF: Report given to Alexandra BUSTILLO. Titrate Levo drips at 4mcg/min BP 80/59
--- NOTE | 2018-12-03 07:31 | NUR ---
NURSE NOTES: Received patient from IWONA Diaz. Patient sleeping at this time with no sign of acute distress. Patient blood pressure 102/62 on 4mcg/hr Levophed drip. Patient showing normal sinus rhythm on the medical social worker with rate of 78 beats per minute. patient on 3L NC with no sign of acute respiratory distress and SpO2 100% at this time. Patient had fever during the night. Temperature 99.0 at this time. Will continue to monitor. Patient is anuric at this time with urinal at the bedside. Patient has left upper arm AV shunt that is patent, thrill/bruit present. Patient has order for dialysis scheduled for today with [facility] dialysis. Dialysis nurse called yesterday to confirm. Patient on heparin drip at 16units/hr at this time for elevated troponin. Most recent PTT is 55. Troponin trending down. PTT to be drawn again at 1149. Will follow up with lab. Patient has right femoral triple lumen catheter central line with dressing intact and changed yesterday. Patient bed in low position with bed alarm on and call light in reach at this time. Will continue to monitor temperature and blood pressure.
[2018-12-03] MEDS ORDERED: Aspirin EC 81mg tab ORAL SCH (09:00)
[2018-12-03] MEDS: Metoprolol Tartrate 12.5mg TAB ORAL SCH ×2 (09:00→21:00)
--- NOTE | 2018-12-03 09:08 | General Progress Note ---
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 SNOMED: 15596678, 371928071 (4) ESRD (end stage renal disease) ICD Codes: N18.6 - End stage renal disease SNOMED: 83026002 (5) Severe sepsis ICD Codes: A41.9 - Sepsis, unspecified organism; R65.20 - Severe sepsis without septic shock SNOMED: 37332839 (6) Elevated troponin ICD Codes: R79.89 - Other specified abnormal findings of blood chemistry SNOMED: 459262121, 663031329, 029054164 (7) Infected ulcer of skin ICD Codes: L98.499 - Non-pressure chronic ulcer of skin of other sites with unspecified severity; L08.9 - Local infection of the skin and subcutaneous tissue, unspecified SNOMED: 3978497 (8) Amputation at midfoot ICD Codes: S98.319A - Complete traumatic amputation of unspecified midfoot, initial encounter SNOMED: 872604531 (9) Diabetes ICD Codes: E11.9 - Type 2 diabetes mellitus without complications SNOMED: 01022484 Status: unchanged Assessment/Plan: wound care abx pt diet cbc bmp am Subjective Constitutional: Reports: weakness Allergies: Coded Allergies: No Known Allergies (Unverified , 11/30/18) All Systems: reviewed and negative except above Subjective o2nc calm in icu Objective Last 24 Hour Vital Signs Date Time Temp Pulse Resp B/P (MAP) Pulse Ox O2 Delivery O2 Flow Rate FiO2 12/03/18 08:00 99.0 78 22 107/64 (78) 98 12/03/18 08:00 Nasal Cannula 3.0 12/03/18 07:09 70 11 94/57 (69) 99 12/03/18 07:06 70 12 83/51 (62) 98 12/03/18 07:00 80/57 12/03/18 07:00 99.5 70 12 80/57 (65) 100 12/03/18 06:00 95/56 12/03/18 06:00 74 10 95/56 (69) 99 12/03/18 05:00 78 15 96/79 (85) 90 12/03/18 05:00 96/79 12/03/18 04:52 99.0 12/03/18 04:00 75 12/03/18 04:00 109/69 12/03/18 04:00 Nasal Cannula 3.0 12/03/18 04:00 99.9 77 12 109/69 (82) 99 12/03/18 03:00 109/69 12/03/18 03:00 77 12 109/69 (82) 99 12/03/18 02:00 118/68 12/03/18 02:00 78 21 118/68 (85) 100 12/03/18 01:30 75 16 102/68 (79) 100 12/03/18 01:00 105/60 12/03/18 01:00 74 20 105/60 (75) 100 12/03/18 00:30 75 21 111/69 (83) 100 12/03/18 00:00 99.0 73 11 102/62 (75) 88 12/03/18 00:00 102/62 12/03/18 00:00 Nasal Cannula 3.0 12/02/18 23:00 99/61 12/02/18 23:00 71 22 91/54 (66) 100 12/02/18 22:30 79 12 107/70 (82) 100 12/02/18 22:00 78 17 117/63 (81) 99 12/02/18 22:00 117/60 12/02/18 21:30 74 21 113/64 (80) 100 12/02/18 21:28 72 13 97/59 (72) 98 12/02/18 21:15 72 11 85/60 (68) 100 12/02/18 21:00 73 88/52 12/02/18 21:00 60/44 12/02/18 21:00 72 17 88/52 (64) 90 12/02/18 20:30 73 11 100/61 (74) 92 12/02/18 20:00 99.4 73 12 99/60 (73) 94 12/02/18 20:00 99/60 12/02/18 20:00 Nasal Cannula 3.0 12/02/18 20:00 73 12/02/18 19:18 94 Nasal Cannula 3.0 32 12/02/18 19:00 99/58 12/02/18 19:00 72 12 99/58 (72) 92 12/02/18 18:30 99.5 69 11 98/58 (71) 100 12/02/18 18:00 71 10 84/53 (63) 98 12/02/18 18:00 84/53 12/02/18 17:35 99.0 12/02/18 17:30 83 12 92/56 (68) 100 12/02/18 17:00 93/66 12/02/18 17:00 100.2 75 19 93/66 (75) 100 12/02/18 16:30 99.6 12 97/61 (73) 99 12/02/18 16:00 Nasal Cannula 3.0 12/02/18 16:00 109/57 12/02/18 16:00 83 13 92/54 (67) 100 12/02/18 15:37 71 12/02/18 15:30 86 14 95/56 (69) 96 12/02/18 15:00 84 13 84/57 (66) 100 12/02/18 15:00 99/52 12/02/18 14:30 84 12 101/52 (68) 99 12/02/18 14:00 77 11 91/55 (67) 100 12/02/18 14:00 91/55 12/02/18 13:48 97/56 12/02/18 13:30 81 13 97/56 (70) 99 12/02/18 13:00 16 108/66 (80) 100 12/02/18 13:00 105/56 12/02/18 12:30 77 12 109/63 (78) 100 12/02/18 12:00 94/58 12/02/18 12:00 99.2 14 94/58 (70) 95 12/02/18 12:00 Nasal Cannula 3.0 12/02/18 11:55 73 12/02/18 11:00 97/62 12/02/18 11:00 13 97/62 (74) 96 12/02/18 10:00 107/67 12/02/18 10:00 12 98/58 (71) 93 12/02/18 09:30 107/67 12/02/18 09:09 95 Nasal Cannula 3.0 32 Intake and Output 12/02/18 12/03/18 19:00 07:00 Intake Total 1476.716 ml 1415.84 ml Output Total 0 ml 0 ml Balance 1476.716 ml 1415.84 ml Intake Oral 620 ml 400 ml IV Total 856.716 ml 1015.84 ml Output Urine Total 0 ml 0 ml # Bowel Movements 2 Laboratory Tests 12/02/18 12:45: White Blood Count 18.4H, Red Blood Count 3.25L, Hemoglobin 8.4L, Hematocrit 27.7L, Mean Corpuscular Volume 85, Mean Corpuscular Hemoglobin 26.0L, Mean Corpuscular Hemoglobin Concent 30.5L, Red Cell Distribution Width 14.2, Platelet Count 312, Mean Platelet Volume 5.9L, Neutrophils (%) (Auto) , Lymphocytes (%) (Auto) , Monocytes (%) (Auto) , Eosinophils (%) (Auto) , Basophils (%) (Auto) , Differential Total Cells Counted 100, Neutrophils % ( Manual) 92H, Lymphocytes % (Manual) 5L, Monocytes % (Manual) 1, Eosinophils % ( Manual) 1, Basophils % (Manual) 0, Band Neutrophils 1, Platelet Estimate Adequate, Platelet Morphology Normal, Hypochromasia 2+, Anisocytosis 1+, Prothrombin Time 18.4H, Prothromb Time International Ratio 1.8H, Activated Partial Thromboplast Time 46H 12/02/18 20:20: Prothrombin Time 16.5H, Prothromb Time International Ratio 1.6H, Activated Partial Thromboplast Time 60H 12/03/18 03:00: White Blood Count 15.3H, Red Blood Count 3.14L, Hemoglobin 8.2L, Hematocrit 26.4L, Mean Corpuscular Volume 84, Mean Corpuscular Hemoglobin 26.1L, Mean Corpuscular Hemoglobin Concent 31.0L, Red Cell Distribution Width 14.7, Platelet Count 309, Mean Platelet Volume 6.2L, Neutrophils (%) (Auto) 83.9H, Lymphocytes (%) (Auto) 7.6L, Monocytes (%) (Auto) 7.3, Eosinophils (%) (Auto) 0.9, Basophils (%) (Auto) 0.3, Activated Partial Thromboplast Time 55H, Sodium Level 136, Potassium Level 4.8, Chloride Level 99, Carbon Dioxide Level 23, Anion Gap 14, Blood Urea Nitrogen 70H, Creatinine 9.3H, Estimat Glomerular Filtration Rate , Glucose Level 238H, Calcium Level 9.1, Phosphorus Level 4.3, Magnesium Level 2.4, Total Bilirubin 0.6, Aspartate Amino Transf (AST/SGOT) 35, Alanine Aminotransferase (ALT/SGPT) 18, Alkaline Phosphatase 186H, Troponin I 11.137H, C-Reactive Protein, Quantitative 29.4H, Pro-B-Type Natriuretic Peptide > 92223B, Total Protein 6.8, Albumin 2.3L, Globulin 4.5, Albumin/Globulin Ratio 0.5L Height (Feet): 5 Height (Inches): 1.00 Weight (Pounds): 167 General Appearance: lethargic EENT: normal ENT inspection Neck: normal alignment Cardiovascular: normal peripheral pulses, normal rate, regular rhythm Respiratory/Chest: chest wall non-tender, lungs clear, normal breath sounds Abdomen: normal bowel sounds, non tender, soft Extremities: normal inspection Edema: no edema noted Arm (L), no edema noted Arm (R), no edema noted Leg (L), no edema noted Leg (R), no edema noted Pedal (L), no edema noted Pedal (R), no edema noted Generalized Neurologic: motor weakness Skin: normal pigmentation, warm/dry Pravin Patton DO Dec 03, 2018 09:08
--- NOTE | 2018-12-03 09:29 | Hematology/Onc Progress Note ---
Assessment/Plan Assessment/Plan Assessment/Plan: # Coagulation defect, multifactorial usually related to poor PO intake versus medications, versus cirrhosis, in this case, is likely related to sepsis and dic --> administer Vitamin K if patient is bleeding or FFP if the INR is >10 --> hold off on ffp unless active procedure/bleeding, first begin with vit K 10 --> mixing study ordered and reviewed, likely has vit K deficiency --> hep and hiv ordered as well # Anemia of chronic disease, due to underlying chronic medical issues, multifactorial --> Anemia workup has been reviewed, is c/w acd --> No evidence of hemolysis is noted, peripheral smear has been reviewed --> Hgb goal >7. Transfuse prn. --> Epogen or iron at this time is not particularly indicated --> Medications have been reviewed --> low threshold for gi evaluation in case has occult + # Leukocytosis/elevated white blood cell count, unspecified likely related to underlying stress reaction with septic shock (with poss pna) --> have reviewed peripheral smear and bandemia/neutrophilia noted --> continue antibiotics if they have been started by ID team (clinda/indira/vanc) --> monitor for resolution # Acute NE --> is on heparin gtt --> with esrd --> as per cards recs --> TTe neg for vegetatons # Infected leg ulcer, probably gangrene --> Ulcer of heel and midfoot with necrosis to bone --> per podiatry and surg recs # PVD with amputation # End-stage renal disease - on hemodialysis --> per renal HD 12/03 # Electrolyte abnormalities # Diabetes mellitus with diabetic neuropathy # Dvt ppx scds/hep gtt The timing of this note does not necessarily reflect the time of the patient was seen. Greatly appreciate consultation. Subjective Constitutional: Denies: no symptoms, chills, fever, malaise, weakness, other Cardiovascular: Denies: no symptoms, chest pain, edema, irregular heart rate, lightheadedness, palpitations, syncope, other Respiratory: Denies: no symptoms, cough, shortness of breath, SOB with excertion, SOB at rest, sputum, wheezing, other Gastrointestinal/Abdominal: Denies: no symptoms, abdomen distended, abdominal pain, black stools, tarry stools, blood in stool, constipated, diarrhea, difficulty swallowing, nausea, poor appetite, poor fluid intake, rectal bleeding , vomiting, other Hematologic/Lymphatic: Denies: no symptoms, anemia, easy bleeding, easy bruising, adenopathy, other Allergies: Coded Allergies: No Known Allergies (Unverified , 11/30/18) Subjective 12/03: no bleeding, no night sweats, on levo in icu, dw rn Objective Objective Current Medications Medications (Trade) Dose Ordered Sig/Elva Route PRN Reason Start Time Stop Time Status Last Admin Dose Admin Acetaminophen (Tylenol) 650 mg Q4H PRN ORAL fever 11/30/18 14:45 12/30/18 14:44 12/02/18 17:05 Acetaminophen/ Hydrocodone Bitart ([place] 10/325) 1 tab EVERY 6 HOURS PRN ORAL Severe Pain (Pain Scale 7-10) 11/30/18 23:15 12/07/18 23:14 12/03/18 04:22 Acetaminophen/ Hydrocodone Bitart ([place] 5/325) 1 tab Q6H PRN ORAL Moderate Pain (Pain Scale 4-6) 11/30/18 23:15 12/07/18 23:14 12/02/18 17:05 Albuterol/ Ipratropium (Albuterol/ Ipratropium) 3 ml Q4H PRN HHN Shortness of Breath 11/30/18 14:45 12/05/18 14:44 12/01/18 03:50 Aspirin (Ecotrin) 325 mg DAILY ORAL 12/03/18 09:00 12/30/18 18:59 Atorvastatin Calcium (Lipitor) 80 mg BEDTIME ORAL 11/30/18 21:00 12/30/18 20:59 12/02/18 21:03 Azithromycin (Zithromax) 500 mg DAILY ORAL 12/02/18 09:00 12/09/18 08:59 12/02/18 08:57 Chlorhexidine Gluconate (Keke-Hex 2%) 1 applic DAILY@2000 TOPIC 12/01/18 20:00 12/31/18 19:59 12/02/18 21:01 Clindamycin HCl/ Dextrose 50 ml @ 100 mls/hr Q8HR IV 12/01/18 22:00 12/08/18 21:59 12/03/18 05:44 Dextrose (Dextrose 50%) 25 ml Q30M PRN IV Hypoglycemia 12/02/18 08:00 01/01/19 07:59 Dextrose (Dextrose 50%) 50 ml Q30M PRN IV Hypoglycemia 12/02/18 08:00 01/01/19 07:59 Docusate Sodium (Colace) 100 mg THREE TIMES A DAY ORAL 12/02/18 13:00 01/01/19 12:59 12/02/18 17:05 Heparin Sodium/ Dextrose 500 ml @ 24.24 mls/ hr ADJUST PER PROTOCOL IV 12/03/18 05:30 01/02/19 05:29 12/03/18 05:49 Insulin Aspart (NovoLOG) BEFORE MEALS AND HS SUBQ 12/02/18 11:30 01/01/19 11:29 12/03/18 05:44 Meropenem 500 mg/ Sodium Chloride 55 ml @ 110 mls/hr Q24H IVPB 11/30/18 15:00 12/05/18 14:59 12/02/18 14:26 Metoprolol Tartrate (Lopressor) 12.5 mg Q12HR ORAL 11/30/18 21:00 12/30/18 20:59 Morphine Sulfate (Morphine Sulfate) 2 mg Q4H PRN IVP Severe Pain (Pain Scale 7-10) 11/30/18 14:45 12/07/18 14:44 Norepinephrine Bitartrate 4 mg/ Dextrose 254 ml @ 0 mls/hr Q24H IV 11/30/18 14:45 12/30/18 14:44 12/02/18 13:48 Ondansetron HCl (Zofran) 4 mg Q6H PRN IVP Nausea & Vomiting 11/30/18 14:45 12/30/18 14:44 Pantoprazole (Protonix) 40 mg Q12HR IVP 12/02/18 21:00 12/31/18 08:59 12/02/18 21:03 Polyethylene Glycol (Miralax) 17 gm DAILYPRN PRN ORAL Constipation 11/30/18 14:45 12/30/18 14:44 Sevelamer Carbonate (Renvela) 800 mg THREE TIMES A DAY ORAL 11/30/18 18:00 12/30/18 17:59 12/02/18 17:05 Sodium Chloride 1,000 ml @ 50 mls/hr Q20H IV 11/30/18 15:30 12/30/18 15:29 12/03/18 02:48 Vancomycin HCl (Vanco rx to dose) 1 ea DAILY PRN MISC Per rx protocol 11/30/18 14:00 12/30/18 13:59 Vitamin B Complex/ Vit C/Folic Acid (Nephrovite) 1 tab DAILY ORAL 12/01/18 09:00 12/31/18 08:59 12/02/18 08:57 Last 24 Hour Vital Signs Date Time Temp Pulse Resp B/P (MAP) Pulse Ox O2 Delivery O2 Flow Rate FiO2 12/03/18 08:00 99.0 78 22 107/64 (78) 98 12/03/18 08:00 Nasal Cannula 3.0 12/03/18 07:09 70 11 94/57 (69) 99 12/03/18 07:06 70 12 83/51 (62) 98 12/03/18 07:00 80/57 12/03/18 07:00 99.5 70 12 80/57 (65) 100 12/03/18 06:00 95/56 12/03/18 06:00 74 10 95/56 (69) 99 12/03/18 05:00 78 15 96/79 (85) 90 12/03/18 05:00 96/79 12/03/18 04:52 99.0 12/03/18 04:00 75 12/03/18 04:00 109/69 12/03/18 04:00 Nasal Cannula 3.0 12/03/18 04:00 99.9 77 12 109/69 (82) 99 12/03/18 03:00 109/69 12/03/18 03:00 77 12 109/69 (82) 99 12/03/18 02:00 118/68 12/03/18 02:00 78 21 118/68 (85) 100 12/03/18 01:30 75 16 102/68 (79) 100 12/03/18 01:00 105/60 12/03/18 01:00 74 20 105/60 (75) 100 12/03/18 00:30 75 21 111/69 (83) 100 12/03/18 00:00 99.0 73 11 102/62 (75) 88 12/03/18 00:00 102/62 12/03/18 00:00 Nasal Cannula 3.0 12/02/18 23:00 99/61 12/02/18 23:00 71 22 91/54 (66) 100 12/02/18 22:30 79 12 107/70 (82) 100 12/02/18 22:00 78 17 117/63 (81) 99 12/02/18 22:00 117/60 12/02/18 21:30 74 21 113/64 (80) 100 12/02/18 21:28 72 13 97/59 (72) 98 12/02/18 21:15 72 11 85/60 (68) 100 12/02/18 21:00 73 88/52 12/02/18 21:00 60/44 12/02/18 21:00 72 17 88/52 (64) 90 12/02/18 20:30 73 11 100/61 (74) 92 12/02/18 20:00 99.4 73 12 99/60 (73) 94 12/02/18 20:00 99/60 12/02/18 20:00 Nasal Cannula 3.0 12/02/18 20:00 73 12/02/18 19:18 94 Nasal Cannula 3.0 32 12/02/18 19:00 99/58 12/02/18 19:00 72 12 99/58 (72) 92 12/02/18 18:30 99.5 69 11 98/58 (71) 100 12/02/18 18:00 71 10 84/53 (63) 98 12/02/18 18:00 84/53 12/02/18 17:35 99.0 12/02/18 17:30 83 12 92/56 (68) 100 12/02/18 17:00 93/66 12/02/18 17:00 100.2 75 19 93/66 (75) 100 12/02/18 16:30 99.6 12 97/61 (73) 99 12/02/18 16:00 Nasal Cannula 3.0 12/02/18 16:00 109/57 12/02/18 16:00 83 13 92/54 (67) 100 12/02/18 15:37 71 12/02/18 15:30 86 14 95/56 (69) 96 12/02/18 15:00 84 13 84/57 (66) 100 12/02/18 15:00 99/52 12/02/18 14:30 84 12 101/52 (68) 99 12/02/18 14:00 77 11 91/55 (67) 100 12/02/18 14:00 91/55 12/02/18 13:48 97/56 12/02/18 13:30 81 13 97/56 (70) 99 12/02/18 13:00 16 108/66 (80) 100 12/02/18 13:00 105/56 12/02/18 12:30 77 12 109/63 (78) 100 12/02/18 12:00 94/58 12/02/18 12:00 99.2 14 94/58 (70) 95 12/02/18 12:00 Nasal Cannula 3.0 12/02/18 11:55 73 12/02/18 11:00 97/62 12/02/18 11:00 13 97/62 (74) 96 12/02/18 10:00 107/67 12/02/18 10:00 12 98/58 (71) 93 12/02/18 09:30 107/67 12/02/18 09:09 95 Nasal Cannula 3.0 32 12/02/18 09:00 93/59 12/02/18 09:00 12 93/59 (70) 94 12/02/18 08:57 77 107/66 12/02/18 08:00 Nasal Cannula 3.0 12/02/18 08:00 77 12/02/18 08:00 107/66 12/02/18 08:00 99.2 76 12 107/66 (80) 96 12/02/18 07:30 111/68 12/02/18 07:00 78 11 111/68 (82) 98 12/02/18 07:00 111/68 12/02/18 06:00 98.9 80 12 112/65 (81) 97 12/02/18 06:00 112/65 12/02/18 05:00 75 9 109/66 (80) 96 12/02/18 05:00 109/66 12/02/18 04:00 77 12/02/18 04:00 108/62 12/02/18 04:00 Nasal Cannula 3.0 12/02/18 04:00 98.0 74 12 108/62 (77) 96 12/02/18 03:44 96 Nasal Cannula 3.0 32 12/02/18 03:00 109/67 12/02/18 03:00 78 12 109/65 (80) 96 12/02/18 02:00 113/61 12/02/18 02:00 76 13 113/61 (78) 97 12/02/18 01:00 75 14 103/63 (76) 96 12/02/18 01:00 103/63 12/02/18 00:00 107/68 12/02/18 00:00 72 12/02/18 00:00 Nasal Cannula 3.0 12/02/18 00:00 99.0 75 13 107/68 (81) 95 12/01/18 23:59 99.0 12/01/18 23:00 78 11 110/64 (79) 94 12/01/18 23:00 78 11 110/64 (79) 94 12/01/18 23:00 110/64 12/01/18 22:25 80 18 105/42 (63) 95 12/01/18 22:25 80 18 105/42 (63) 95 12/01/18 22:00 105/42 12/01/18 21:00 71 104/65 12/01/18 21:00 107/66 12/01/18 21:00 100.0 82 16 107/66 (80) 94 12/01/18 20:00 99.6 83 13 112/65 (81) 94 12/01/18 20:00 Nasal Cannula 3.0 12/01/18 20:00 71 12/01/18 20:00 115/65 12/01/18 19:00 71 13 85/55 (65) 94 12/01/18 18:00 85 17 117/70 (86) 92 12/01/18 17:00 82 12 107/64 (78) 96 12/01/18 17:00 107/64 12/01/18 16:00 Nasal Cannula 3.0 12/01/18 16:00 99.4 85 16 113/67 (82) 95 12/01/18 16:00 113/67 12/01/18 15:39 85 12/01/18 15:00 81 15 112/65 (81) 97 12/01/18 15:00 105/86 12/01/18 14:48 94/61 12/01/18 14:00 80 14 104/67 (79) 98 12/01/18 14:00 104/67 12/01/18 13:00 80 13 97/61 (73) 97 12/01/18 13:00 97/61 12/01/18 12:00 108/65 12/01/18 12:00 Nasal Cannula 3.0 12/01/18 12:00 99.2 85 15 111/65 (80) 97 12/01/18 11:53 83 12/01/18 11:00 95/61 12/01/18 11:00 81 14 115/68 (84) 96 12/01/18 10:00 101.6 105 21 108/75 (86) 96 12/01/18 10:00 108/75 12/01/18 09:30 112/72 Intake and Output 12/02/18 12/03/18 19:00 07:00 Intake Total 1476.716 ml 1415.84 ml Output Total 0 ml 0 ml Balance 1476.716 ml 1415.84 ml Intake Oral 620 ml 400 ml IV Total 856.716 ml 1015.84 ml Output Urine Total 0 ml 0 ml # Bowel Movements 2 Labs Test 11/30/18 09:40 11/30/18 09:50 11/30/18 10:12 12/01/18 03:38 White Blood Count 30.5 K/UL (4.8-10.8) Red Blood Count 3.50 M/UL (4.70-6.10) Hemoglobin 9.1 G/DL (14.2-18.0) Hematocrit 29.8 % (42.0-52.0) Mean Corpuscular Volume 85 FL (80-99) Mean Corpuscular Hemoglobin 26.0 PG (27.0-31.0) Mean Corpuscular Hemoglobin Concent 30.5 G/DL (32.0-36.0) Red Cell Distribution Width 14.0 % (11.6-14.8) Platelet Count 362 K/UL (150-450) Mean Platelet Volume 5.7 FL (6.5-10.1) Neutrophils (%) (Auto) % (45.0-75.0) Lymphocytes (%) (Auto) % (20.0-45.0) Monocytes (%) (Auto) % (1.0-10.0) Eosinophils (%) (Auto) % (0.0-3.0) Basophils (%) (Auto) % (0.0-2.0) Differential Total Cells Counted 100 Neutrophils % (Manual) 91 % (45-75) Lymphocytes % (Manual) 2 % (20-45) Monocytes % (Manual) 6 % (1-10) Eosinophils % (Manual) 0 % (0-3) Basophils % (Manual) 0 % (0-2) Band Neutrophils 1 % (0-8) Platelet Estimate Adequate Platelet Morphology Normal Hypochromasia 2+ Anisocytosis 1+ Sodium Level 129 MMOL/L (136-145) Potassium Level 5.3 MMOL/L (3.5-5.1) Chloride Level 93 MMOL/L (98-107) Carbon Dioxide Level 25 MMOL/L (21-32) Anion Gap 11 mmol/L (5-15) Blood Urea Nitrogen 51 mg/dL (7-18) Creatinine 8.7 MG/DL (0.55-1.30) Estimat Glomerular Filtration Rate mL/min (>60) Glucose Level 328 MG/DL (74-106) Calcium Level 9.4 MG/DL (8.5-10.1) Phosphorus Level 4.3 MG/DL (2.5-4.9) Magnesium Level 2.1 MG/DL (1.8-2.4) Total Bilirubin 0.4 MG/DL (0.2-1.0) Aspartate Amino Transf (AST/SGOT) 31 U/L (15-37) Alanine Aminotransferase (ALT/SGPT) 13 U/L (12-78) Alkaline Phosphatase 141 U/L (46-116) Total Creatine Kinase 277 U/L (26-308) Creatine Kinase MB 15.5 NG/ML (0.0-3.6) Creatine Kinase MB Relative Index 5.5 Troponin I 5.612 ng/mL (0.000-0.056) Pro-B-Type Natriuretic Peptide > 81749 pg/mL (0-125) Total Protein 7.4 G/DL (6.4-8.2) Albumin 2.6 G/DL (3.4-5.0) Globulin 4.8 g/dL Albumin/Globulin Ratio 0.5 (1.0-2.7) Lactic Acid Level 1.20 mmol/L (0.4-2.0) Arterial Blood pH 7.349 (7.350-7.450) 7.307 (7.350-7.450) Arterial Blood Partial Pressure CO2 39.2 mmHg (35.0-45.0) 34.7 mmHg (35.0-45.0) Arterial Blood Partial Pressure O2 66.0 mmHg (75.0-100.0) 57.5 mmHg (75.0-100.0) Arterial Blood HCO3 21.1 mmol/L (22.0-26.0) 17.0 mmol/L (22.0-26.0) Arterial Blood Oxygen Saturation 91.9 % (95-100) 87.1 % (95-100) Arterial Blood Base Excess -4.1 (-2-2) -8.5 (-2-2) Tank Test Positive Positive Test 12/01/18 05:45 12/02/18 05:00 12/02/18 12:45 12/02/18 20:20 White Blood Count 23.1 K/UL (4.8-10.8) 20.7 K/UL (4.8-10.8) 18.4 K/UL (4.8-10.8) Red Blood Count 3.67 M/UL (4.70-6.10) 3.16 M/UL (4.70-6.10) 3.25 M/UL (4.70-6.10) Hemoglobin 9.7 G/DL (14.2-18.0) 8.4 G/DL (14.2-18.0) 8.4 G/DL (14.2-18.0) Hematocrit 31.5 % (42.0-52.0) 26.8 % (42.0-52.0) 27.7 % (42.0-52.0) Mean Corpuscular Volume 86 FL (80-99) 85 FL (80-99) 85 FL (80-99) Mean Corpuscular Hemoglobin 26.6 PG (27.0-31.0) 26.5 PG (27.0-31.0) 26.0 PG (27.0-31.0) Mean Corpuscular Hemoglobin Concent 31.0 G/DL (32.0-36.0) 31.2 G/DL (32.0-36.0) 30.5 G/DL (32.0-36.0) Red Cell Distribution Width 14.4 % (11.6-14.8) 14.6 % (11.6-14.8) 14.2 % (11.6-14.8) Platelet Count 354 K/UL (150-450) 350 K/UL (150-450) 312 K/UL (150-450) Mean Platelet Volume 5.8 FL (6.5-10.1) 6.2 FL (6.5-10.1) 5.9 FL (6.5-10.1) Neutrophils (%) (Auto) % (45.0-75.0) % (45.0-75.0) % (45.0-75.0) Lymphocytes (%) (Auto) % (20.0-45.0) % (20.0-45.0) % (20.0-45.0) Monocytes (%) (Auto) % (1.0-10.0) % (1.0-10.0) % (1.0-10.0) Eosinophils (%) (Auto) % (0.0-3.0) % (0.0-3.0) % (0.0-3.0) Basophils (%) (Auto) % (0.0-2.0) % (0.0-2.0) % (0.0-2.0) Differential Total Cells Counted 100 100 100 Neutrophils % (Manual) 92 % (45-75) 86 % (45-75) 92 % (45-75) Lymphocytes % (Manual) 2 % (20-45) 9 % (20-45) 5 % (20-45) Monocytes % (Manual) 3 % (1-10) 5 % (1-10) 1 % (1-10) Eosinophils % (Manual) 0 % (0-3) 0 % (0-3) 1 % (0-3) Basophils % (Manual) 0 % (0-2) 0 % (0-2) 0 % (0-2) Band Neutrophils 3 % (0-8) 0 % (0-8) 1 % (0-8) Platelet Estimate Adequate Adequate Adequate Platelet Morphology Normal Normal Normal Hypochromasia 1+ 2+ 2+ Arterial Blood pH 7.323 (7.350-7.450) Arterial Blood Partial Pressure CO2 30.2 mmHg (35.0-45.0) Arterial Blood Partial Pressure O2 61.7 mmHg (75.0-100.0) Arterial Blood HCO3 15.3 mmol/L (22.0-26.0) Arterial Blood Oxygen Saturation 89.4 % (95-100) Arterial Blood Base Excess -9.6 (-2-2) Tank Test Positive Sodium Level 133 MMOL/L (136-145) 138 MMOL/L (136-145) Potassium Level 5.7 MMOL/L (3.5-5.1) 4.8 MMOL/L (3.5-5.1) Chloride Level 95 MMOL/L (98-107) 100 MMOL/L (98-107) Carbon Dioxide Level 20 MMOL/L (21-32) 23 MMOL/L (21-32) Anion Gap 18 mmol/L (5-15) 16 mmol/L (5-15) Blood Urea Nitrogen 60 mg/dL (7-18) 54 mg/dL (7-18) Creatinine 9.7 MG/DL (0.55-1.30) 8.3 MG/DL (0.55-1.30) Estimat Glomerular Filtration Rate mL/min (>60) mL/min (>60) Glucose Level 229 MG/DL (74-106) 211 MG/DL (74-106) Hemoglobin A1c 8.9 % (4.3-6.0) Uric Acid 5.7 MG/DL (2.6-7.2) 4.7 MG/DL (2.6-7.2) Calcium Level 9.6 MG/DL (8.5-10.1) 9.3 MG/DL (8.5-10.1) Phosphorus Level 5.0 MG/DL (2.5-4.9) 6.1 MG/DL (2.5-4.9) Magnesium Level 2.2 MG/DL (1.8-2.4) 2.4 MG/DL (1.8-2.4) Iron Level 10 ug/dL (50-175) Total Iron Binding Capacity 73 ug/dL (250-450) Percent Iron Saturation 14 % (15-50) Unsaturated Iron Binding 63 ug/dL (112-346) Ferritin 1516 NG/ML (8-388) Total Bilirubin 0.6 MG/DL (0.2-1.0) 0.6 MG/DL (0.2-1.0) Gamma Glutamyl Transpeptidase 80 U/L (5-85) Aspartate Amino Transf (AST/SGOT) 55 U/L (15-37) 51 U/L (15-37) Alanine Aminotransferase (ALT/SGPT) 15 U/L (12-78) 16 U/L (12-78) Alkaline Phosphatase 138 U/L (46-116) 122 U/L (46-116) Ammonia 11 umol/L (11-32) Total Creatine Kinase 489 U/L (26-308) Troponin I 11.774 ng/mL (0.000-0.056) 13.986 ng/mL (0.000-0.056) C-Reactive Protein, Quantitative > 70.0 mg/dL (0.00-0.90) > 70.0 mg/dL (0.00-0.90) Pro-B-Type Natriuretic Peptide > 31743 pg/mL (0-125) > 48491 pg/mL (0-125) Total Protein 7.6 G/DL (6.4-8.2) 6.9 G/DL (6.4-8.2) Albumin 2.7 G/DL (3.4-5.0) 2.4 G/DL (3.4-5.0) Globulin 4.9 g/dL 4.5 g/dL Albumin/Globulin Ratio 0.6 (1.0-2.7) 0.5 (1.0-2.7) Triglycerides Level 102 MG/DL (30-150) Cholesterol Level 113 MG/DL (< 200) LDL Cholesterol 56 mg/dL (<100) HDL Cholesterol 24 MG/DL (40-60) Cholesterol/HDL Ratio 4.7 (3.3-4.4) Vitamin B12 Level 1097 PG/ML (193-986) Folate 18.8 NG/ML (8.6-58.9) Thyroid Stimulating Hormone (TSH) 1.075 uiU/mL (0.358-3.740) Random Vancomycin Level 11.0 ug/mL 18.2 ug/mL Hepatitis B Surface Antigen Negative (Negative) Anisocytosis 1+ 1+ Prothrombin Time 18.4 SEC (9.30-11.50) 16.5 SEC (9.30-11.50) Prothromb Time International Ratio 1.8 (0.9-1.1) 1.6 (0.9-1.1) Activated Partial Thromboplast Time 46 SEC (23-33) 60 SEC (23-33) Test 12/03/18 03:00 White Blood Count 15.3 K/UL (4.8-10.8) Red Blood Count 3.14 M/UL (4.70-6.10) Hemoglobin 8.2 G/DL (14.2-18.0) Hematocrit 26.4 % (42.0-52.0) Mean Corpuscular Volume 84 FL (80-99) Mean Corpuscular Hemoglobin 26.1 PG (27.0-31.0) Mean Corpuscular Hemoglobin Concent 31.0 G/DL (32.0-36.0) Red Cell Distribution Width 14.7 % (11.6-14.8) Platelet Count 309 K/UL (150-450) Mean Platelet Volume 6.2 FL (6.5-10.1) Neutrophils (%) (Auto) 83.9 % (45.0-75.0) Lymphocytes (%) (Auto) 7.6 % (20.0-45.0) Monocytes (%) (Auto) 7.3 % (1.0-10.0) Eosinophils (%) (Auto) 0.9 % (0.0-3.0) Basophils (%) (Auto) 0.3 % (0.0-2.0) Activated Partial Thromboplast Time 55 SEC (23-33) Sodium Level 136 MMOL/L (136-145) Potassium Level 4.8 MMOL/L (3.5-5.1) Chloride Level 99 MMOL/L (98-107) Carbon Dioxide Level 23 MMOL/L (21-32) Anion Gap 14 mmol/L (5-15) Blood Urea Nitrogen 70 mg/dL (7-18) Creatinine 9.3 MG/DL (0.55-1.30) Estimat Glomerular Filtration Rate mL/min (>60) Glucose Level 238 MG/DL (74-106) Calcium Level 9.1 MG/DL (8.5-10.1) Phosphorus Level 4.3 MG/DL (2.5-4.9) Magnesium Level 2.4 MG/DL (1.8-2.4) Total Bilirubin 0.6 MG/DL (0.2-1.0) Aspartate Amino Transf (AST/SGOT) 35 U/L (15-37) Alanine Aminotransferase (ALT/SGPT) 18 U/L (12-78) Alkaline Phosphatase 186 U/L (46-116) Troponin I 11.137 ng/mL (0.000-0.056) C-Reactive Protein, Quantitative 29.4 mg/dL (0.00-0.90) Pro-B-Type Natriuretic Peptide > 53700 pg/mL (0-125) Total Protein 6.8 G/DL (6.4-8.2) Albumin 2.3 G/DL (3.4-5.0) Globulin 4.5 g/dL Albumin/Globulin Ratio 0.5 (1.0-2.7) Height (Feet): 5 Height (Inches): 1.00 Weight (Pounds): 167 Lymphatic: normal other Objective Physical Exam: Vitals: reviewed General Appearance: NAD HEENT: normocephalic, atraumatic Neck: non-tender, normal alignment Respiratory/Chest: normal breath sounds bilaterally Cardiovascular/Chest: normal peripheral pulses, normal rate Abdomen: normal bowel sounds, soft, nontender Extremities: normal range of motion s/p midfoot amputation ; R midfoot DIEGO, L midfoot with dressing, femoral line ++ Musculoskeletal: atrophy - BLE, other - kat mid foot amputation Lloyd Dailey MD Dec 03, 2018 09:29
[2018-12-03] MEDS: Nephrovite tab (Rena-Vite) ORAL SCH (09:45)
[2018-12-03] MEDS: Pantoprazole Inj IVP SCH ×2 (09:46→21:24)
[2018-12-03] MEDS: Docusate 100mg cap ORAL SCH ×3 (09:46→17:42)
[2018-12-03] MEDS: Azithromycin 250mg tab ORAL SCH (09:46)
[2018-12-03] MEDS: Renvela 800mg Pkt ORAL SCH ×3 (09:46→17:42)
--- NOTE | 2018-12-03 10:00 | NUR ---
NURSE NOTES: Patient temperature 99.0. Will continue to monitor. patient denies pain or acute distress. patient Blood pressure 116/66 on Levophed at 4mcg/hr. Will continue to monitor. Awaiting arrival of dialysis nurse. Patient bed in low position with bed alarm on and call light in reach. Assessed patient's urine retention using bladder scanner. NO residual urine noted on bladder scanner. Patient has not voided this morning. aware.
--- NOTE | 2018-12-03 10:26 | Nephrology Progress Note ---
Assessment/Plan Problem List: (1) ESRD (end stage renal disease) (2) Elevated troponin Assessment: and rising (3) Infected ulcer of skin (4) Diabetes Assessment: uncontrolled Assessment ESRD on HD M W Fr Sepsis / Leukocytosuis ( Pneumonia, Infected foot ulcer) Hypotension / Shock Anemia GERD ECF resident DM OOC Elevated Troponin over 5 Plan asa , beta blockers on low dose pressors Antibiotics Fluid challenge / Watch for CHF Dialysis 12/03 per orders per consultants will start heparin Subjective ROS Limited/Unobtainable: No Constitutional: Reports: malaise Objective Objective Last 24 Hour Vital Signs Date Time Temp Pulse Resp B/P (MAP) Pulse Ox O2 Delivery O2 Flow Rate FiO2 12/03/18 09:40 94 Nasal Cannula 3.0 32 12/03/18 09:00 79 111/67 12/03/18 08:00 99.0 78 22 107/64 (78) 98 12/03/18 08:00 Nasal Cannula 3.0 12/03/18 07:09 70 11 94/57 (69) 99 12/03/18 07:06 70 12 83/51 (62) 98 12/03/18 07:00 80/57 12/03/18 07:00 99.5 70 12 80/57 (65) 100 12/03/18 06:00 95/56 12/03/18 06:00 74 10 95/56 (69) 99 12/03/18 05:00 78 15 96/79 (85) 90 12/03/18 05:00 96/79 12/03/18 04:52 99.0 12/03/18 04:00 75 12/03/18 04:00 109/69 12/03/18 04:00 Nasal Cannula 3.0 12/03/18 04:00 99.9 77 12 109/69 (82) 99 12/03/18 03:00 109/69 12/03/18 03:00 77 12 109/69 (82) 99 12/03/18 02:00 118/68 12/03/18 02:00 78 21 118/68 (85) 100 12/03/18 01:30 75 16 102/68 (79) 100 12/03/18 01:00 105/60 12/03/18 01:00 74 20 105/60 (75) 100 12/03/18 00:30 75 21 111/69 (83) 100 12/03/18 00:00 99.0 73 11 102/62 (75) 88 12/03/18 00:00 102/62 12/03/18 00:00 Nasal Cannula 3.0 12/02/18 23:00 99/61 12/02/18 23:00 71 22 91/54 (66) 100 12/02/18 22:30 79 12 107/70 (82) 100 12/02/18 22:00 78 17 117/63 (81) 99 12/02/18 22:00 117/60 12/02/18 21:30 74 21 113/64 (80) 100 12/02/18 21:28 72 13 97/59 (72) 98 12/02/18 21:15 72 11 85/60 (68) 100 12/02/18 21:00 73 88/52 12/02/18 21:00 60/44 12/02/18 21:00 72 17 88/52 (64) 90 12/02/18 20:30 73 11 100/61 (74) 92 12/02/18 20:00 99.4 73 12 99/60 (73) 94 12/02/18 20:00 99/60 12/02/18 20:00 Nasal Cannula 3.0 12/02/18 20:00 73 12/02/18 19:18 94 Nasal Cannula 3.0 32 12/02/18 19:00 99/58 12/02/18 19:00 72 12 99/58 (72) 92 12/02/18 18:30 99.5 69 11 98/58 (71) 100 12/02/18 18:00 71 10 84/53 (63) 98 12/02/18 18:00 84/53 12/02/18 17:35 99.0 12/02/18 17:30 83 12 92/56 (68) 100 12/02/18 17:00 93/66 12/02/18 17:00 100.2 75 19 93/66 (75) 100 12/02/18 16:30 99.6 12 97/61 (73) 99 12/02/18 16:00 Nasal Cannula 3.0 12/02/18 16:00 109/57 12/02/18 16:00 83 13 92/54 (67) 100 12/02/18 15:37 71 10/13/19 15:30 86 14 95/56 (69) 96 12/02/18 15:00 84 13 84/57 (66) 100 12/02/18 15:00 99/52 12/02/18 14:30 84 12 101/52 (68) 99 12/02/18 14:00 77 11 91/55 (67) 100 12/02/18 14:00 91/55 12/02/18 13:48 97/56 12/02/18 13:30 81 13 97/56 (70) 99 12/02/18 13:00 16 108/66 (80) 100 12/02/18 13:00 105/56 12/02/18 12:30 77 12 109/63 (78) 100 12/02/18 12:00 94/58 12/02/18 12:00 99.2 14 94/58 (70) 95 12/02/18 12:00 Nasal Cannula 3.0 12/02/18 11:55 73 12/02/18 11:00 97/62 12/02/18 11:00 13 97/62 (74) 96 Intake and Output 12/02/18 12/03/18 19:00 07:00 Intake Total 1476.716 ml 1415.84 ml Output Total 0 ml 0 ml Balance 1476.716 ml 1415.84 ml Intake Oral 620 ml 400 ml IV Total 856.716 ml 1015.84 ml Output Urine Total 0 ml 0 ml # Bowel Movements 2 Laboratory Tests 12/02/18 12:45: White Blood Count 18.4H, Red Blood Count 3.25L, Hemoglobin 8.4L, Hematocrit 27.7L, Mean Corpuscular Volume 85, Mean Corpuscular Hemoglobin 26.0L, Mean Corpuscular Hemoglobin Concent 30.5L, Red Cell Distribution Width 14.2, Platelet Count 312, Mean Platelet Volume 5.9L, Neutrophils (%) (Auto) , Lymphocytes (%) (Auto) , Monocytes (%) (Auto) , Eosinophils (%) (Auto) , Basophils (%) (Auto) , Differential Total Cells Counted 100, Neutrophils % ( Manual) 92H, Lymphocytes % (Manual) 5L, Monocytes % (Manual) 1, Eosinophils % ( Manual) 1, Basophils % (Manual) 0, Band Neutrophils 1, Platelet Estimate Adequate, Platelet Morphology Normal, Hypochromasia 2+, Anisocytosis 1+, Prothrombin Time 18.4H, Prothromb Time International Ratio 1.8H, Activated Partial Thromboplast Time 46H 12/02/18 20:20: Prothrombin Time 16.5H, Prothromb Time International Ratio 1.6H, Activated Partial Thromboplast Time 60H 12/03/18 03:00: White Blood Count 15.3H, Red Blood Count 3.14L, Hemoglobin 8.2L, Hematocrit 26.4L, Mean Corpuscular Volume 84, Mean Corpuscular Hemoglobin 26.1L, Mean Corpuscular Hemoglobin Concent 31.0L, Red Cell Distribution Width 14.7, Platelet Count 309, Mean Platelet Volume 6.2L, Neutrophils (%) (Auto) 83.9H, Lymphocytes (%) (Auto) 7.6L, Monocytes (%) (Auto) 7.3, Eosinophils (%) (Auto) 0.9, Basophils (%) (Auto) 0.3, Activated Partial Thromboplast Time 55H, Sodium Level 136, Potassium Level 4.8, Chloride Level 99, Carbon Dioxide Level 23, Anion Gap 14, Blood Urea Nitrogen 70H, Creatinine 9.3H, Estimat Glomerular Filtration Rate , Glucose Level 238H, Calcium Level 9.1, Phosphorus Level 4.3, Magnesium Level 2.4, Total Bilirubin 0.6, Aspartate Amino Transf (AST/SGOT) 35, Alanine Aminotransferase (ALT/SGPT) 18, Alkaline Phosphatase 186H, Troponin I 11.137H, C-Reactive Protein, Quantitative 29.4H, Pro-B-Type Natriuretic Peptide > 04665B, Total Protein 6.8, Albumin 2.3L, Globulin 4.5, Albumin/Globulin Ratio 0.5L Height (Feet): 5 Height (Inches): 1.00 Weight (Pounds): 167 General Appearance: no apparent distress, lethargic Objective no change Sincere Almaguer MD Dec 03, 2018 10:26
--- NOTE | 2018-12-03 10:45 | Pulmonolgy Critical Care Note ---
Critical Care - Asmt/Plan Problems: (1) Non-ST elevation (NSTEMI) myocardial infarction (2) Severe sepsis (3) ESRD (end stage renal disease) (4) Amputation at midfoot (5) Diabetes (6) HTN (hypertension) Respiratory: monitor respiratory rate, adjust FIO2, CXR Cardiac: continue pressors, d/c residential monitor Renal: F/U I&O Infectious Disease: check cultures, continue antibiotics, other - wbc decreasing Gastrointestinal: continue feedings/current rate Endocrine: monitor blood sugar, continue sliding scale insulin Hematologic: transfuse if hgb<8.5 Neurologic: PRN Ativan, PRN Morphine, keep patient comfortable Affect: PRN ativan Disposition: keep in ICU Time Spent (Minutes): 40 Notes Reviewed: women's studies lecturer, renal Discussed with: nurses, consultants, behavioral health case managercommunication and outreach manager - Objective Last 24 Hour Vital Signs Date Time Temp Pulse Resp B/P (MAP) Pulse Ox O2 Delivery O2 Flow Rate FiO2 12/03/18 09:40 94 Nasal Cannula 3.0 32 12/03/18 09:00 79 111/67 12/03/18 08:00 99.0 78 22 107/64 (78) 98 12/03/18 08:00 Nasal Cannula 3.0 12/03/18 07:09 70 11 94/57 (69) 99 12/03/18 07:06 70 12 83/51 (62) 98 12/03/18 07:00 80/57 12/03/18 07:00 99.5 70 12 80/57 (65) 100 12/03/18 06:00 95/56 12/03/18 06:00 74 10 95/56 (69) 99 12/03/18 05:00 78 15 96/79 (85) 90 12/03/18 05:00 96/79 12/03/18 04:52 99.0 12/03/18 04:00 75 12/03/18 04:00 109/69 12/03/18 04:00 Nasal Cannula 3.0 12/03/18 04:00 99.9 77 12 109/69 (82) 99 12/03/18 03:00 109/69 12/03/18 03:00 77 12 109/69 (82) 99 12/03/18 02:00 118/68 12/03/18 02:00 78 21 118/68 (85) 100 12/03/18 01:30 75 16 102/68 (79) 100 12/03/18 01:00 105/60 12/03/18 01:00 74 20 105/60 (75) 100 12/03/18 00:30 75 21 111/69 (83) 100 12/03/18 00:00 99.0 73 11 102/62 (75) 88 12/03/18 00:00 102/62 12/03/18 00:00 Nasal Cannula 3.0 12/02/18 23:00 99/61 12/02/18 23:00 71 22 91/54 (66) 100 12/02/18 22:30 79 12 107/70 (82) 100 12/02/18 22:00 78 17 117/63 (81) 99 12/02/18 22:00 117/60 12/02/18 21:30 74 21 113/64 (80) 100 12/02/18 21:28 72 13 97/59 (72) 98 12/02/18 21:15 72 11 85/60 (68) 100 12/02/18 21:00 73 88/52 12/02/18 21:00 60/44 12/02/18 21:00 72 17 88/52 (64) 90 12/02/18 20:30 73 11 100/61 (74) 92 12/02/18 20:00 99.4 73 12 99/60 (73) 94 12/02/18 20:00 99/60 12/02/18 20:00 Nasal Cannula 3.0 12/02/18 20:00 73 12/02/18 19:18 94 Nasal Cannula 3.0 32 12/02/18 19:00 99/58 12/02/18 19:00 72 12 99/58 (72) 92 12/02/18 18:30 99.5 69 11 98/58 (71) 100 12/02/18 18:00 71 10 84/53 (63) 98 12/02/18 18:00 84/53 12/02/18 17:35 99.0 12/02/18 17:30 83 12 92/56 (68) 100 12/02/18 17:00 93/66 12/02/18 17:00 100.2 75 19 93/66 (75) 100 12/02/18 16:30 99.6 12 97/61 (73) 99 12/02/18 16:00 Nasal Cannula 3.0 12/02/18 16:00 109/57 12/02/18 16:00 83 13 92/54 (67) 100 12/02/18 15:37 71 12/02/18 15:30 86 14 95/56 (69) 96 12/02/18 15:00 84 13 84/57 (66) 100 12/02/18 15:00 99/52 12/02/18 14:30 84 12 101/52 (68) 99 12/02/18 14:00 77 11 91/55 (67) 100 12/02/18 14:00 91/55 12/02/18 13:48 97/56 12/02/18 13:30 81 13 97/56 (70) 99 12/02/18 13:00 16 108/66 (80) 100 12/02/18 13:00 105/56 12/02/18 12:30 77 12 109/63 (78) 100 12/02/18 12:00 94/58 12/02/18 12:00 99.2 14 94/58 (70) 95 12/02/18 12:00 Nasal Cannula 3.0 12/02/18 11:55 73 12/02/18 11:00 97/62 12/02/18 11:00 13 97/62 (74) 96 Status: awake Condition: critical HEENT: atraumatic Neck: full ROM Heart: HR/BP stable Abdomen: soft, non-tender, feeding tube Extremities: other - wound left heel Micro: Microbiology Date/Time Source Procedure Growth Status 12/01/18 06:00 Sputum Gram Stain - Final Complete 12/01/18 06:00 Sputum Culture - Final Bree Albicans Usual Upper Respiratory Vickie Complete 12/01/18 00:00 Foot Left Gram Stain - Final Resulted 12/01/18 00:00 Foot Left Wound Culture Pending Resulted Accucheck: 282 Critical Care - Subjective ROS Limited/Unobtainable: No Condition: critical FI02: 32 Sputum Amount: Small I&O: Intake and Output 12/02/18 12/03/18 19:00 07:00 Intake Total 1476.716 ml 1415.84 ml Output Total 0 ml 0 ml Balance 1476.716 ml 1415.84 ml Intake Oral 620 ml 400 ml IV Total 856.716 ml 1015.84 ml Output Urine Total 0 ml 0 ml # Bowel Movements 2 CXR: less haziness at right Labs: Laboratory Tests Test 12/02/18 12:45 12/02/18 20:20 12/03/18 03:00 White Blood Count 18.4 K/UL (4.8-10.8) H 15.3 K/UL (4.8-10.8) H Red Blood Count 3.25 M/UL (4.70-6.10) L 3.14 M/UL (4.70-6.10) L Hemoglobin 8.4 G/DL (14.2-18.0) L 8.2 G/DL (14.2-18.0) L Hematocrit 27.7 % (42.0-52.0) L 26.4 % (42.0-52.0) L Mean Corpuscular Volume 85 FL (80-99) 84 FL (80-99) Mean Corpuscular Hemoglobin 26.0 PG (27.0-31.0) L 26.1 PG (27.0-31.0) L Mean Corpuscular Hemoglobin Concent 30.5 G/DL (32.0-36.0) L 31.0 G/DL (32.0-36.0) L Red Cell Distribution Width 14.2 % (11.6-14.8) 14.7 % (11.6-14.8) Platelet Count 312 K/UL (150-450) 309 K/UL (150-450) Mean Platelet Volume 5.9 FL (6.5-10.1) L 6.2 FL (6.5-10.1) L Neutrophils (%) (Auto) % (45.0-75.0) 83.9 % (45.0-75.0) H Lymphocytes (%) (Auto) % (20.0-45.0) 7.6 % (20.0-45.0) L Monocytes (%) (Auto) % (1.0-10.0) 7.3 % (1.0-10.0) Eosinophils (%) (Auto) % (0.0-3.0) 0.9 % (0.0-3.0) Basophils (%) (Auto) % (0.0-2.0) 0.3 % (0.0-2.0) Differential Total Cells Counted 100 Neutrophils % (Manual) 92 % (45-75) H Lymphocytes % (Manual) 5 % (20-45) L Monocytes % (Manual) 1 % (1-10) Eosinophils % (Manual) 1 % (0-3) Basophils % (Manual) 0 % (0-2) Band Neutrophils 1 % (0-8) Platelet Estimate Adequate Platelet Morphology Normal Hypochromasia 2+ Anisocytosis 1+ Prothrombin Time 18.4 SEC (9.30-11.50) H 16.5 SEC (9.30-11.50) H Prothromb Time International Ratio 1.8 (0.9-1.1) H 1.6 (0.9-1.1) H Activated Partial Thromboplast Time 46 SEC (23-33) H 60 SEC (23-33) H 55 SEC (23-33) H Sodium Level 136 MMOL/L (136-145) Potassium Level 4.8 MMOL/L (3.5-5.1) Chloride Level 99 MMOL/L (98-107) Carbon Dioxide Level 23 MMOL/L (21-32) Anion Gap 14 mmol/L (5-15) Blood Urea Nitrogen 70 mg/dL (7-18) H Creatinine 9.3 MG/DL (0.55-1.30) H Estimat Glomerular Filtration Rate mL/min (>60) Glucose Level 238 MG/DL (74-106) H Calcium Level 9.1 MG/DL (8.5-10.1) Phosphorus Level 4.3 MG/DL (2.5-4.9) Magnesium Level 2.4 MG/DL (1.8-2.4) Total Bilirubin 0.6 MG/DL (0.2-1.0) Aspartate Amino Transf (AST/SGOT) 35 U/L (15-37) Alanine Aminotransferase (ALT/SGPT) 18 U/L (12-78) Alkaline Phosphatase 186 U/L (46-116) H Troponin I 11.137 ng/mL (0.000-0.056) C-Reactive Protein, Quantitative 29.4 mg/dL (0.00-0.90) H Pro-B-Type Natriuretic Peptide > 39806 pg/mL (0-125) H Total Protein 6.8 G/DL (6.4-8.2) Albumin 2.3 G/DL (3.4-5.0) L Globulin 4.5 g/dL Albumin/Globulin Ratio 0.5 (1.0-2.7) L Rebekah Arora MD Dec 03, 2018 10:45
--- NOTE | 2018-12-03 11:13 | Diagnostic Imaging Report ---
Indication: Shortness of breath Technique: One view of the chest Comparison: 12/02/2018 Findings: Right lung infiltrates versus edema have improved considerably in the interim, although some patchy perihilar disease persists. Left lung, bilateral pleural spaces remain clear Impression: Improved right lung parenchymal disease, over one day
--- NOTE | 2018-12-03 11:46 | Diagnostic Imaging Report ---
Indication: Abnormal liver function tests, abnormal renal function tests, leukocytosis Technique: Eric-scale and duplex images of the upper abdomen were obtained Comparison: Findings: Gallbladder is unremarkable, without stones, wall thickening, nor pericholecystic fluid. Sonographic Harrell's sign is negative. Common bile duct measures 3 mm in diameter. No intrahepatic biliary ductal dilatation. The liver is mildly enlarged. There is equivocal slight surface nodularity. Normal echogenicity. Portal vein and hepatic veins are patent. There is trace free intraperitoneal fluid demonstrated. Pancreas is obscured by bowel gas. Spleen is unremarkable. Left kidney measures 10.9 cm in length. Right kidney measures 10.2 cm length. Both kidneys demonstrate slightly increased echogenicity. There is no hydronephrosis. Echogenic foci are seen in the renal sinuses bilaterally. . Abdominal aorta is partially obscured by bowel gas, visualized portions are non-aneurysmal . There is a right pleural effusion. There is questionably a small left pleural effusion Impression: Mild hepatomegaly. Equivocal slight hepatic surface nodularity, raises possibility of cirrhotic change if real Increased bilateral renal echogenicity, suggests medical renal disease. Negative for hydronephrosis Right pleural effusion. Equivocal small left pleural effusion Echogenic foci in the bilateral renal sinuses, may reflect nonobstructive renal calculi versus artifact Note nonvisualization of the pancreas and portions of the abdominal aorta
--- NOTE | 2018-12-03 12:00 | NUR ---
NURSE NOTES: Patient on hemodialysis. Patient denies acute distress or pain at this time. Patient blood pressure 124/73 on 4mcg/hr Levophed drip. Will titrate levophed drip when hemodialysis complete. Patient showing normal sinus rhythm on the quality assurance monitor with rate of bats per minute. patient on 3L NC with no sign of acute respiratory distress and SpO2 100% at this time.Temperature 98.7 at this time. Will continue to monitor. Patient remains anuric. Left upper arm AV shunt that is patent, thrill/bruit present. Patient remains anuric. Patient remains on heparin drip at 16units/hr at this time for elevated troponin. PTT drawn. Awaiting result. Will follow up with lab. Right femoral triple lumen catheter central line remains intact with dressing intact. Patient bed in low position with bed alarm on and call light in reach at this time. Will continue to monitor temperature and blood pressure.
--- NOTE | 2018-12-03 12:03 | Infectious Diseases Prog Note ---
Assessment/Plan Assessment/Plan Assessment: Septic shock-2ry to PNA and wet gangrene -12/01 CXR: . Interval development of patchy consolidation throughout the right lung, concerning for pneumonia. Consolidations related to pulmonary edema are less likely since it is predominantly on the right side. Persistent pulmonary vascular congestion. -CXR: Pulmonary vascularity and interstitium are prominent. -influenza sc neg -sp cx normal resp ingris - BCx NTD L heel wet gangrene -wound cx p -xray L tibia/fibula: No acute injury identified. Diffuse osteopenia. Fever ; improving Hyperleukocytosis; improving ESRD on HD MWF anemia polyneuropathy GERD [facility] resident Plan: -Switch empiric Meropenem #4 to ZOsyn -COntinue empiric IV Vancomycin #4 , Clindamycin #3 -Azithromycin #3/5 -11/30 SP Cefepime #1, Flagyl #1 -f/u cx (Sp, BL) -Monitor CBC/CMP, temperatures -ICU care -aspiration precautions -podiatry, surgery f/u- plan for L foot amputation Thank you for this consultation. Will continue to follow along with you. Discussed with RN Subjective Allergies: Coded Allergies: No Known Allergies (Unverified , 11/30/18) Subjective Tm 100.2 wbc improving levophed at 4 bcx NTD Objective Vital Signs Last 24 Hour Vital Signs Date Time Temp Pulse Resp B/P (MAP) Pulse Ox O2 Delivery O2 Flow Rate FiO2 12/03/18 09:40 94 Nasal Cannula 3.0 32 12/03/18 09:00 79 111/67 12/03/18 08:00 99.0 78 22 107/64 (78) 98 12/03/18 08:00 Nasal Cannula 3.0 12/03/18 07:09 70 11 94/57 (69) 99 12/03/18 07:06 70 12 83/51 (62) 98 12/03/18 07:00 80/57 12/03/18 07:00 99.5 70 12 80/57 (65) 100 12/03/18 06:00 95/56 12/03/18 06:00 74 10 95/56 (69) 99 12/03/18 05:00 78 15 96/79 (85) 90 12/03/18 05:00 96/79 12/03/18 04:52 99.0 12/03/18 04:00 75 10/14/19 04:00 109/69 12/03/18 04:00 Nasal Cannula 3.0 12/03/18 04:00 99.9 77 12 109/69 (82) 99 12/03/18 03:00 109/69 12/03/18 03:00 77 12 109/69 (82) 99 12/03/18 02:00 118/68 12/03/18 02:00 78 21 118/68 (85) 100 12/03/18 01:30 75 16 102/68 (79) 100 12/03/18 01:00 105/60 12/03/18 01:00 74 20 105/60 (75) 100 12/03/18 00:30 75 21 111/69 (83) 100 12/03/18 00:00 99.0 73 11 102/62 (75) 88 12/03/18 00:00 102/62 12/03/18 00:00 Nasal Cannula 3.0 12/02/18 23:00 99/61 12/02/18 23:00 71 22 91/54 (66) 100 12/02/18 22:30 79 12 107/70 (82) 100 12/02/18 22:00 78 17 117/63 (81) 99 12/02/18 22:00 117/60 12/02/18 21:30 74 21 113/64 (80) 100 12/02/18 21:28 72 13 97/59 (72) 98 12/02/18 21:15 72 11 85/60 (68) 100 12/02/18 21:00 73 88/52 12/02/18 21:00 60/44 12/02/18 21:00 72 17 88/52 (64) 90 12/02/18 20:30 73 11 100/61 (74) 92 12/02/18 20:00 99.4 73 12 99/60 (73) 94 12/02/18 20:00 99/60 12/02/18 20:00 Nasal Cannula 3.0 12/02/18 20:00 73 12/02/18 19:18 94 Nasal Cannula 3.0 32 12/02/18 19:00 99/58 12/02/18 19:00 72 12 99/58 (72) 92 12/02/18 18:30 99.5 69 11 98/58 (71) 100 12/02/18 18:00 71 10 84/53 (63) 98 12/02/18 18:00 84/53 12/02/18 17:35 99.0 12/02/18 17:30 83 12 92/56 (68) 100 12/02/18 17:00 93/66 12/02/18 17:00 100.2 75 19 93/66 (75) 100 12/02/18 16:30 99.6 12 97/61 (73) 99 12/02/18 16:00 Nasal Cannula 3.0 12/02/18 16:00 109/57 12/02/18 16:00 83 13 92/54 (67) 100 12/02/18 15:37 71 12/02/18 15:30 86 14 95/56 (69) 96 12/02/18 15:00 84 13 84/57 (66) 100 12/02/18 15:00 99/52 12/02/18 14:30 84 12 101/52 (68) 99 12/02/18 14:00 77 11 91/55 (67) 100 12/02/18 14:00 91/55 12/02/18 13:48 97/56 12/02/18 13:30 81 13 97/56 (70) 99 12/02/18 13:00 16 108/66 (80) 100 12/02/18 13:00 105/56 12/02/18 12:30 77 12 109/63 (78) 100 12/02/18 12:00 94/58 12/02/18 12:00 99.2 14 94/58 (70) 95 12/02/18 12:00 Nasal Cannula 3.0 Height (Feet): 5 Height (Inches): 1.00 Weight (Pounds): 167 Microbiology Date/Time Source Procedure Growth Status 12/01/18 06:00 Sputum Gram Stain - Final Complete 12/01/18 06:00 Sputum Culture - Final Bree Albicans Usual Upper Respiratory Ingris Complete 12/01/18 00:00 Foot Left Gram Stain - Final Resulted 12/01/18 00:00 Foot Left Wound Culture Pending Resulted Laboratory Tests Test 12/02/18 12:45 12/02/18 20:20 12/03/18 03:00 White Blood Count 18.4 K/UL (4.8-10.8) H 15.3 K/UL (4.8-10.8) H Red Blood Count 3.25 M/UL (4.70-6.10) L 3.14 M/UL (4.70-6.10) L Hemoglobin 8.4 G/DL (14.2-18.0) L 8.2 G/DL (14.2-18.0) L Hematocrit 27.7 % (42.0-52.0) L 26.4 % (42.0-52.0) L Mean Corpuscular Volume 85 FL (80-99) 84 FL (80-99) Mean Corpuscular Hemoglobin 26.0 PG (27.0-31.0) L 26.1 PG (27.0-31.0) L Mean Corpuscular Hemoglobin Concent 30.5 G/DL (32.0-36.0) L 31.0 G/DL (32.0-36.0) L Red Cell Distribution Width 14.2 % (11.6-14.8) 14.7 % (11.6-14.8) Platelet Count 312 K/UL (150-450) 309 K/UL (150-450) Mean Platelet Volume 5.9 FL (6.5-10.1) L 6.2 FL (6.5-10.1) L Neutrophils (%) (Auto) % (45.0-75.0) 83.9 % (45.0-75.0) H Lymphocytes (%) (Auto) % (20.0-45.0) 7.6 % (20.0-45.0) L Monocytes (%) (Auto) % (1.0-10.0) 7.3 % (1.0-10.0) Eosinophils (%) (Auto) % (0.0-3.0) 0.9 % (0.0-3.0) Basophils (%) (Auto) % (0.0-2.0) 0.3 % (0.0-2.0) Differential Total Cells Counted 100 Neutrophils % (Manual) 92 % (45-75) H Lymphocytes % (Manual) 5 % (20-45) L Monocytes % (Manual) 1 % (1-10) Eosinophils % (Manual) 1 % (0-3) Basophils % (Manual) 0 % (0-2) Band Neutrophils 1 % (0-8) Platelet Estimate Adequate Platelet Morphology Normal Hypochromasia 2+ Anisocytosis 1+ Prothrombin Time 18.4 SEC (9.30-11.50) H 16.5 SEC (9.30-11.50) H Prothromb Time International Ratio 1.8 (0.9-1.1) H 1.6 (0.9-1.1) H Activated Partial Thromboplast Time 46 SEC (23-33) H 60 SEC (23-33) H 55 SEC (23-33) H Sodium Level 136 MMOL/L (136-145) Potassium Level 4.8 MMOL/L (3.5-5.1) Chloride Level 99 MMOL/L (98-107) Carbon Dioxide Level 23 MMOL/L (21-32) Anion Gap 14 mmol/L (5-15) Blood Urea Nitrogen 70 mg/dL (7-18) H Creatinine 9.3 MG/DL (0.55-1.30) H Estimat Glomerular Filtration Rate mL/min (>60) Glucose Level 238 MG/DL (74-106) H Calcium Level 9.1 MG/DL (8.5-10.1) Phosphorus Level 4.3 MG/DL (2.5-4.9) Magnesium Level 2.4 MG/DL (1.8-2.4) Total Bilirubin 0.6 MG/DL (0.2-1.0) Aspartate Amino Transf (AST/SGOT) 35 U/L (15-37) Alanine Aminotransferase (ALT/SGPT) 18 U/L (12-78) Alkaline Phosphatase 186 U/L (46-116) H Troponin I 11.137 ng/mL (0.000-0.056) C-Reactive Protein, Quantitative 29.4 mg/dL (0.00-0.90) H Pro-B-Type Natriuretic Peptide > 60546 pg/mL (0-125) H Total Protein 6.8 G/DL (6.4-8.2) Albumin 2.3 G/DL (3.4-5.0) L Globulin 4.5 g/dL Albumin/Globulin Ratio 0.5 (1.0-2.7) L Current Medications Medications (Trade) Dose Ordered Sig/Elva Route PRN Reason Start Time Stop Time Status Last Admin Dose Admin Acetaminophen (Tylenol) 650 mg Q4H PRN ORAL fever 11/30/18 14:45 12/30/18 14:44 12/02/18 17:05 Acetaminophen/ Hydrocodone Bitart ([place] 10/325) 1 tab EVERY 6 HOURS PRN ORAL Severe Pain (Pain Scale 7-10) 11/30/18 23:15 12/07/18 23:14 12/03/18 04:22 Acetaminophen/ Hydrocodone Bitart ([place] 5/325) 1 tab Q6H PRN ORAL Moderate Pain (Pain Scale 4-6) 11/30/18 23:15 12/07/18 23:14 12/02/18 17:05 Albuterol/ Ipratropium (Albuterol/ Ipratropium) 3 ml Q4H PRN HHN Shortness of Breath 11/30/18 14:45 12/05/18 14:44 12/01/18 03:50 Aspirin (ASA) 325 mg DAILY ORAL 12/03/18 10:00 01/02/19 09:59 12/03/18 10:16 Atorvastatin Calcium (Lipitor) 80 mg BEDTIME ORAL 11/30/18 21:00 12/30/18 20:59 12/02/18 21:03 Azithromycin (Zithromax) 500 mg DAILY ORAL 12/02/18 09:00 12/09/18 08:59 12/03/18 09:46 Chlorhexidine Gluconate (Keke-Hex 2%) 1 applic DAILY@2000 TOPIC 12/01/18 20:00 12/31/18 19:59 12/02/18 21:01 Clindamycin HCl/ Dextrose 50 ml @ 100 mls/hr Q8HR IV 12/01/18 22:00 12/08/18 21:59 12/03/18 05:44 Dextrose (Dextrose 50%) 25 ml Q30M PRN IV Hypoglycemia 12/02/18 08:00 01/01/19 07:59 Dextrose (Dextrose 50%) 50 ml Q30M PRN IV Hypoglycemia 12/02/18 08:00 01/01/19 07:59 Docusate Sodium (Colace) 100 mg THREE TIMES A DAY ORAL 12/02/18 13:00 01/01/19 12:59 12/03/18 09:46 Heparin Sodium/ Dextrose 500 ml @ 24.24 mls/ hr ADJUST PER PROTOCOL IV 12/03/18 05:30 01/02/19 05:29 12/03/18 05:49 Insulin Aspart (NovoLOG) BEFORE MEALS AND HS SUBQ 12/02/18 11:30 01/01/19 11:29 12/03/18 05:44 Meropenem 500 mg/ Sodium Chloride 55 ml @ 110 mls/hr Q24H IVPB 11/30/18 15:00 12/05/18 14:59 12/02/18 14:26 Metoprolol Tartrate (Lopressor) 12.5 mg Q12HR ORAL 11/30/18 21:00 12/30/18 20:59 Morphine Sulfate (Morphine Sulfate) 2 mg Q4H PRN IVP Severe Pain (Pain Scale 7-10) 11/30/18 14:45 12/07/18 14:44 Norepinephrine Bitartrate 4 mg/ Dextrose 254 ml @ 0 mls/hr Q24H IV 11/30/18 14:45 12/30/18 14:44 12/02/18 13:48 Ondansetron HCl (Zofran) 4 mg Q6H PRN IVP Nausea & Vomiting 11/30/18 14:45 12/30/18 14:44 Pantoprazole (Protonix) 40 mg Q12HR IVP 12/02/18 21:00 12/31/18 08:59 12/03/18 09:46 Polyethylene Glycol (Miralax) 17 gm DAILYPRN PRN ORAL Constipation 11/30/18 14:45 12/30/18 14:44 Sevelamer Carbonate (Renvela) 800 mg THREE TIMES A DAY ORAL 11/30/18 18:00 12/30/18 17:59 12/03/18 09:46 Sodium Chloride 1,000 ml @ 50 mls/hr Q20H IV 11/30/18 15:30 12/30/18 15:29 12/03/18 02:48 Vancomycin HCl (Vanco rx to dose) 1 ea DAILY PRN MISC Per rx protocol 11/30/18 14:00 12/30/18 13:59 Vitamin B Complex/ Vit C/Folic Acid (Nephrovite) 1 tab DAILY ORAL 12/01/18 09:00 12/31/18 08:59 12/03/18 09:45 Aparna Ramirez M.D. Dec 03, 2018 12:03
--- NOTE | 2018-12-03 13:25 | NUR ---
NURSE NOTES: hemodialysis complete. 1 Liter output. Insulin drip to be increased to 18units with 3000unit bolus. Dialysis nurse advised for the rate change to be held for 30 minutes to allow the hemodialysis access site to clot. Will wait 30 min and change rate. Pharmacy notified. Patient given lunch tray at this time.
[2018-12-03] MEDS: Piperacillin/Tazobactam 2.25 GM in D5W 55 ML IVPB SCH ×2 (13:30→21:23)
[2018-12-03] MEDS: HYDROcodone/Acetamin 5/325 tab ORAL PRN (14:26)
--- NOTE | 2018-12-03 15:00 | NUR ---
*-* INSURANCE *-* ALL CLINICALS AND REVIEWS have been faxed to: [facility] NO TRACKING# YET CM:OSVALDO #[phone] FAX#[phone] REVIEWS/CLINICALS Addendum: 12/04/18 at 1022 by CARINA LANZA CM PREFERRED IPA tracking# pending CM: Osvaldo Lee#[phone] fax#[phone]
--- NOTE | 2018-12-03 15:15 | NUR ---
CASE MANAGEMENT: REVIEW 12/03/2018 SI:SEVERE SEPSIS. ESRD. T 99 HR 78 RR 22 B/P 107/64 SATS 98% ON 3L/NC WBC 15.3 BUN 70 CR 9.3 GLU 238 ALP 186 TROPONIN 11.137 AND 9.199 BNP >60377 IS:NS IV @ 50 mL/HR LIPITOR PO QHS AZITHROMYCIN PO QD ASA PO QD HEPARIN DRIP PER PARAMETERS MEROPENEM IV Q24H LEVOPHED PER PARAMETERS CLINDAMYCIN IV Q8H ICU STATUS DCP: PATIENT TO BE DISCHARGED TO SNF ONCE MEDICALLY CLEARED.
--- NOTE | 2018-12-03 15:38 | Surgery Progress Note ---
Surgery Progress Note Subjective Additional Comments leukocytosis trending down troponin trending down us noted exam unchanged. Objective Last 24 Hour Vital Signs Date Time Temp Pulse Resp B/P (MAP) Pulse Ox O2 Delivery O2 Flow Rate FiO2 12/03/18 14:45 127/70 12/03/18 12:00 Nasal Cannula 3.0 12/03/18 09:40 94 Nasal Cannula 3.0 32 12/03/18 09:00 79 111/67 12/03/18 08:00 99.0 78 22 107/64 (78) 98 12/03/18 08:00 Nasal Cannula 3.0 12/03/18 07:09 70 11 94/57 (69) 99 12/03/18 07:06 70 12 83/51 (62) 98 12/03/18 07:00 80/57 12/03/18 07:00 99.5 70 12 80/57 (65) 100 12/03/18 06:00 95/56 12/03/18 06:00 74 10 95/56 (69) 99 12/03/18 05:00 78 15 96/79 (85) 90 12/03/18 05:00 96/79 12/03/18 04:52 99.0 12/03/18 04:00 75 12/03/18 04:00 109/69 12/03/18 04:00 Nasal Cannula 3.0 12/03/18 04:00 99.9 77 12 109/69 (82) 99 12/03/18 03:00 109/69 12/03/18 03:00 77 12 109/69 (82) 99 12/03/18 02:00 118/68 12/03/18 02:00 78 21 118/68 (85) 100 12/03/18 01:30 75 16 102/68 (79) 100 12/03/18 01:00 105/60 12/03/18 01:00 74 20 105/60 (75) 100 12/03/18 00:30 75 21 111/69 (83) 100 12/03/18 00:00 99.0 73 11 102/62 (75) 88 12/03/18 00:00 102/62 12/03/18 00:00 Nasal Cannula 3.0 12/02/18 23:00 99/61 12/02/18 23:00 71 22 91/54 (66) 100 12/02/18 22:30 79 12 107/70 (82) 100 12/02/18 22:00 78 17 117/63 (81) 99 12/02/18 22:00 117/60 12/02/18 21:30 74 21 113/64 (80) 100 12/02/18 21:28 72 13 97/59 (72) 98 12/02/18 21:15 72 11 85/60 (68) 100 12/02/18 21:00 73 88/52 12/02/18 21:00 60/44 12/02/18 21:00 72 17 88/52 (64) 90 12/02/18 20:30 73 11 100/61 (74) 92 12/02/18 20:00 99.4 73 12 99/60 (73) 94 12/02/18 20:00 99/60 12/02/18 20:00 Nasal Cannula 3.0 12/02/18 20:00 73 12/02/18 19:18 94 Nasal Cannula 3.0 32 12/02/18 19:00 99/58 12/02/18 19:00 72 12 99/58 (72) 92 12/02/18 18:30 99.5 69 11 98/58 (71) 100 12/02/18 18:00 71 10 84/53 (63) 98 12/02/18 18:00 84/53 12/02/18 17:35 99.0 12/02/18 17:30 83 12 92/56 (68) 100 12/02/18 17:00 93/66 12/02/18 17:00 100.2 75 19 93/66 (75) 100 12/02/18 16:30 99.6 12 97/61 (73) 99 12/02/18 16:00 Nasal Cannula 3.0 12/02/18 16:00 109/57 12/02/18 16:00 83 13 92/54 (67) 100 12/02/18 15:37 71 I&O Intake and Output 12/02/18 12/03/18 19:00 07:00 Intake Total 1476.716 ml 1415.84 ml Output Total 0 ml 0 ml Balance 1476.716 ml 1415.84 ml Intake Oral 620 ml 400 ml IV Total 856.716 ml 1015.84 ml Output Urine Total 0 ml 0 ml # Bowel Movements 2 Dressing: saturated Wound: other Drains: other Cardiovascular: RSR Respiratory: clear Abdomen: soft, non-tender, present bowel sounds Extremities: cyanosis, no tenderness, other Laboratory Tests Test 12/02/18 20:20 12/03/18 03:00 12/03/18 11:49 Prothrombin Time 16.5 SEC (9.30-11.50) H Prothromb Time International Ratio 1.6 (0.9-1.1) H Activated Partial Thromboplast Time 60 SEC (23-33) H 55 SEC (23-33) H 54 SEC (23-33) H White Blood Count 15.3 K/UL (4.8-10.8) H Red Blood Count 3.14 M/UL (4.70-6.10) L Hemoglobin 8.2 G/DL (14.2-18.0) L Hematocrit 26.4 % (42.0-52.0) L Mean Corpuscular Volume 84 FL (80-99) Mean Corpuscular Hemoglobin 26.1 PG (27.0-31.0) L Mean Corpuscular Hemoglobin Concent 31.0 G/DL (32.0-36.0) L Red Cell Distribution Width 14.7 % (11.6-14.8) Platelet Count 309 K/UL (150-450) Mean Platelet Volume 6.2 FL (6.5-10.1) L Neutrophils (%) (Auto) 83.9 % (45.0-75.0) H Lymphocytes (%) (Auto) 7.6 % (20.0-45.0) L Monocytes (%) (Auto) 7.3 % (1.0-10.0) Eosinophils (%) (Auto) 0.9 % (0.0-3.0) Basophils (%) (Auto) 0.3 % (0.0-2.0) Sodium Level 136 MMOL/L (136-145) Potassium Level 4.8 MMOL/L (3.5-5.1) Chloride Level 99 MMOL/L (98-107) Carbon Dioxide Level 23 MMOL/L (21-32) Anion Gap 14 mmol/L (5-15) Blood Urea Nitrogen 70 mg/dL (7-18) H Creatinine 9.3 MG/DL (0.55-1.30) H Estimat Glomerular Filtration Rate mL/min (>60) Glucose Level 238 MG/DL (74-106) H Calcium Level 9.1 MG/DL (8.5-10.1) Phosphorus Level 4.3 MG/DL (2.5-4.9) Magnesium Level 2.4 MG/DL (1.8-2.4) Total Bilirubin 0.6 MG/DL (0.2-1.0) Aspartate Amino Transf (AST/SGOT) 35 U/L (15-37) Alanine Aminotransferase (ALT/SGPT) 18 U/L (12-78) Alkaline Phosphatase 186 U/L (46-116) H Troponin I 11.137 ng/mL (0.000-0.056) 9.199 ng/mL (0.000-0.056) C-Reactive Protein, Quantitative 29.4 mg/dL (0.00-0.90) H Pro-B-Type Natriuretic Peptide > 30901 pg/mL (0-125) H Total Protein 6.8 G/DL (6.4-8.2) Albumin 2.3 G/DL (3.4-5.0) L Globulin 4.5 g/dL Albumin/Globulin Ratio 0.5 (1.0-2.7) L Plan Problems: (1) Severe sepsis Assessment & Plan: This is a 73-year-old male who presents with severe sepsis, fevers, leukocytosis, abnormal labs, elevated troponins, abnormal lecture lites. On admission patient has a very foul-smelling left heel necrotic wound/ulcer. No purulent drainage no significant foot or leg cellulitis. Prior midfoot amputation. Very foul-smelling. Given patient's current medical condition status with his consent a wound expiration was done at the bedside to ensure no underlying pus, gas-forming infection, acute etiology of severe sepsis. Using a fresh #11 scalpel incision was made in the middle of the area of necrosis and followed down to healthy tissue which is not identified until bone was reached. Wound necrosis directly down to bone. No pus tunneling or gas-forming infectious and noted. We will continue with local wound care Appreciate podiatry input. Agree foot not salvageable and recommend BKA. We will proceed once cleared Given patient's current medical condition status will need resuscitation and clearance prior to any surgical intervention or podiatry intervention. Antibiotics as per infectious disease Cardiology clearance pending We will follow with recommendations thank you leukocytosis abnormal labs elevated troponin -abx as per ID -local wound care Appreciate cardiology input. Will plan for amputation on cardiac cleared okay for heparin gtt -will follow with recs thank you Noam Davenport Dec 03, 2018 15:38
--- NOTE | 2018-12-03 16:00 | NUR ---
NURSE NOTES: Patient sleeping with no sign of acute distress. Patient blood pressure 121/70 on 4mcg/hr Levophed drip. Will titrate levophed drip per protocol. Patient showing normal sinus rhythm on the patient monitor with rate of 83 beats per minute. patient on 3L NC with no sign of acute respiratory distress and SpO2 100% at this time.Temperature 98.7 at this time. Will continue to monitor. Patient remains anuric. Left upper arm AV shunt that is patent, thrill/bruit present. Pressure dressing intact with no blood noted on the outside of the dressing. Patient remains anuric. Patient remains on heparin drip at 18units/hr at this time for elevated troponin. Next PTT ordered for 2020. Troponin at 1149 was 9.199 and trending down. Next troponin to be drawn at 2020. Right femoral triple lumen catheter central line remains intact with dressing intact. Patient bed in low position with bed alarm on and call light in reach at this time. Will continue to monitor temperature and blood pressure.
--- NOTE | 2018-12-03 17:44 | NUR ---
Social Service Note Patient is a resident of [facility] [phone], since 11/07/17. POLST completed by patient 10/2017 indicating Full code, Full treatment, long-term artificial nutrition and he doesn't have an advance directive. Patient's son is the surrogate decision maker Shailesh Maldonado [phone]. Patient receives dialysis - at [facility] [phone] chair time 5am. Patient is on bed hold. Patient will return to [place] once medically appropriate.
--- NOTE | 2018-12-03 18:30 | NUR ---
NURSE NOTES: Attempted to turn levophed to 2mcg/hr at 1800. Patient blood pressure dropped from 116/59 to 84/67. Levophed increased to 4mcg/hr at 1815. Blood pressure now 105/58. Patient restless at this time. Patient denies acute distress. Patient on bedpan per request. Will follow up and clean patient when he is ready. Patient temp 99.5. [place] removed. Will continue to monitor. Patient bed in low position with bed alarm on and call light in reach. Dinner tray at the bedside. Patient states that he does not want to eat at this time. Will continue to monitor blood pressure and temperature.
--- NOTE | 2018-12-03 19:15 | NUR ---
HAND-OFF: Report given to IWONA Diaz. patient has fever of 100.3 at this time. Temp at 1800 99.3. Endorsed to follow up. Patient blood pressure now 123/70 on Levophed at 4mcg/hr. Endorsed to monitor and follow up.
[2018-12-03] MEDS: Dyna-Hex 2% Top Sol 2oz TOPIC SCH (19:42)
--- NOTE | 2018-12-03 19:42 | NUR ---
NURSE NOTES: Patient in bed resting awake,alert able to verbalize needs to staff. denies any pain or discomfort at this time. received on oxygen 3 liters via N/C satting 94%. HOB elevated. pt with Temperature on 100.6 axillary patient refused cooling measure per patient he feels cold, patient teaching provided regarding the risk and benefits of cooling measure but pt strongly refused. Tylenol given . patient left foot with dressing intact. skin warm and dry to touch. P200 mattress for wound management. Patient anuric. AV shunt on left upper arm with + bruit and thrill. Right upper arm #18 intact and Right femoral TLC running NS at 50cc/hr, Levophed @ 4mcg BP 121/67 titrate to 2mcg, and Heparin drip at 18mcg/kg/hr for elevated troponin. Timed PTT at 2020. no bleeding. Instructed patient to use call light for assistance. bed alarm on. bed lock and in low position. will continue plan of care.
--- NOTE | 2018-12-03 20:04 | Cardiology Progress Note ---
Assessment/Plan Assessment/Plan sepsis hypotension mi esrd dm gangrene oo pressor levophed oxygen repeat cardiac enzyme show a down trend will expect a slow down trend dueto renal isuf echo note borderline global hypo with ef 50% on ecotrin and heparin and statin and bb still he deneis any cp ekg form a few day ago showed st depression pers reviewed wbc improved but still elevated d/w surgery needs amputation not emergent now but in a few days dc pressors when able to on heparin for vascular issue will increase bb when off pressor and bp is stable remain critically ill Subjective Cardiovascular: Denies: chest pain, lightheadedness, palpitations Respiratory: Denies: shortness of breath Gastrointestinal/Abdominal: Denies: abdominal pain Genitourinary: Denies: burning Objective Last 24 Hour Vital Signs Date Time Temp Pulse Resp B/P (MAP) Pulse Ox O2 Delivery O2 Flow Rate FiO2 12/03/18 19:26 80 20 98 Nasal Cannula 3.0 32 12/03/18 19:21 98 Nasal Cannula 3.0 32 12/03/18 19:00 80 20 123/70 (87) 99 12/03/18 19:00 123/70 12/03/18 18:45 81 13 105/58 (74) 100 12/03/18 18:45 123/70 12/03/18 18:30 81 13 105/58 (74) 100 12/03/18 18:30 109/60 12/03/18 18:15 81 13 81/54 (63) 98 12/03/18 18:15 84/67 12/03/18 18:00 83 13 133/70 (91) 98 12/03/18 18:00 116/59 12/03/18 17:55 116/59 12/03/18 17:00 83 13 133/70 (91) 98 12/03/18 17:00 116/59 12/03/18 16:00 99.5 83 12 125/67 (86) 96 12/03/18 16:00 121/70 12/03/18 16:00 Nasal Cannula 3.0 12/03/18 16:00 81 12/03/18 15:00 119/64 12/03/18 15:00 81 11 127/70 (89) 98 12/03/18 14:45 127/70 12/03/18 14:00 84 23 145/102 (116) 96 12/03/18 14:00 118/70 12/03/18 13:00 78 16 132/69 (90) 100 12/03/18 13:00 124/73 12/03/18 12:00 98.7 80 16 120/90 (100) 100 12/03/18 12:00 133/74 12/03/18 12:00 Nasal Cannula 3.0 12/03/18 12:00 80 12/03/18 11:00 79 10 125/67 (86) 100 12/03/18 11:00 126/66 12/03/18 10:00 79 20 116/66 (83) 98 12/03/18 10:00 119/67 12/03/18 09:40 94 Nasal Cannula 3.0 32 12/03/18 09:00 77 11 102/61 (75) 97 12/03/18 09:00 79 111/67 12/03/18 09:00 111/67 12/03/18 08:30 77 10 102/62 (75) 98 12/03/18 08:30 102/61 12/03/18 08:00 78 12/03/18 08:00 99.0 78 22 107/64 (78) 98 12/03/18 08:00 102/62 12/03/18 08:00 Nasal Cannula 3.0 12/03/18 07:45 107/64 12/03/18 07:45 99.0 78 22 107/64 (78) 98 12/03/18 07:30 107/64 12/03/18 07:30 76 13 113/69 (84) 99 12/03/18 07:15 113/69 12/03/18 07:15 76 13 113/69 (84) 99 12/03/18 07:09 70 11 94/57 (69) 99 12/03/18 07:06 70 12 83/51 (62) 98 12/03/18 07:00 80/57 12/03/18 07:00 99.5 70 12 80/57 (65) 100 12/03/18 06:00 95/56 12/03/18 06:00 74 10 95/56 (69) 99 12/03/18 05:00 78 15 96/79 (85) 90 12/03/18 05:00 96/79 12/03/18 04:52 99.0 12/03/18 04:00 75 12/03/18 04:00 109/69 12/03/18 04:00 Nasal Cannula 3.0 12/03/18 04:00 99.9 77 12 109/69 (82) 99 12/03/18 03:00 109/69 12/03/18 03:00 77 12 109/69 (82) 99 12/03/18 02:00 118/68 12/03/18 02:00 78 21 118/68 (85) 100 12/03/18 01:30 75 16 102/68 (79) 100 12/03/18 01:00 105/60 12/03/18 01:00 74 20 105/60 (75) 100 12/03/18 00:30 75 21 111/69 (83) 100 12/03/18 00:00 99.0 73 11 102/62 (75) 88 12/03/18 00:00 102/62 12/03/18 00:00 Nasal Cannula 3.0 12/02/18 23:00 99/61 12/02/18 23:00 71 22 91/54 (66) 100 12/02/18 22:30 79 12 107/70 (82) 100 12/02/18 22:00 78 17 117/63 (81) 99 12/02/18 22:00 117/60 12/02/18 21:30 74 21 113/64 (80) 100 12/02/18 21:28 72 13 97/59 (72) 98 12/02/18 21:15 72 11 85/60 (68) 100 12/02/18 21:00 73 88/52 12/02/18 21:00 60/44 12/02/18 21:00 72 17 88/52 (64) 90 12/02/18 20:30 73 11 100/61 (74) 92 12/02/18 20:00 99.4 73 12 99/60 (73) 94 12/02/18 20:00 99/60 12/02/18 20:00 Nasal Cannula 3.0 12/02/18 20:00 73 General Appearance: no apparent distress, alert Neck: supple Cardiovascular: normal rate Respiratory/Chest: crackles/rales Abdomen: normal bowel sounds, non tender, soft Extremities: no swelling Intake and Output 12/02/18 12/03/18 18:59 06:59 Intake Total 1483.536 ml 1402.16 ml Output Total 0 ml 0 ml Balance 1483.536 ml 1402.16 ml Intake Oral 620 ml 400 ml IV Total 863.536 ml 1002.16 ml Output Urine Total 0 ml 0 ml # Bowel Movements 2 Laboratory Tests Test 12/02/18 20:20 12/03/18 03:00 12/03/18 11:49 Prothrombin Time 16.5 SEC (9.30-11.50) H Prothromb Time International Ratio 1.6 (0.9-1.1) H Activated Partial Thromboplast Time 60 SEC (23-33) H 55 SEC (23-33) H 54 SEC (23-33) H White Blood Count 15.3 K/UL (4.8-10.8) H Red Blood Count 3.14 M/UL (4.70-6.10) L Hemoglobin 8.2 G/DL (14.2-18.0) L Hematocrit 26.4 % (42.0-52.0) L Mean Corpuscular Volume 84 FL (80-99) Mean Corpuscular Hemoglobin 26.1 PG (27.0-31.0) L Mean Corpuscular Hemoglobin Concent 31.0 G/DL (32.0-36.0) L Red Cell Distribution Width 14.7 % (11.6-14.8) Platelet Count 309 K/UL (150-450) Mean Platelet Volume 6.2 FL (6.5-10.1) L Neutrophils (%) (Auto) 83.9 % (45.0-75.0) H Lymphocytes (%) (Auto) 7.6 % (20.0-45.0) L Monocytes (%) (Auto) 7.3 % (1.0-10.0) Eosinophils (%) (Auto) 0.9 % (0.0-3.0) Basophils (%) (Auto) 0.3 % (0.0-2.0) Sodium Level 136 MMOL/L (136-145) Potassium Level 4.8 MMOL/L (3.5-5.1) Chloride Level 99 MMOL/L (98-107) Carbon Dioxide Level 23 MMOL/L (21-32) Anion Gap 14 mmol/L (5-15) Blood Urea Nitrogen 70 mg/dL (7-18) H Creatinine 9.3 MG/DL (0.55-1.30) H Estimat Glomerular Filtration Rate mL/min (>60) Glucose Level 238 MG/DL (74-106) H Calcium Level 9.1 MG/DL (8.5-10.1) Phosphorus Level 4.3 MG/DL (2.5-4.9) Magnesium Level 2.4 MG/DL (1.8-2.4) Total Bilirubin 0.6 MG/DL (0.2-1.0) Aspartate Amino Transf (AST/SGOT) 35 U/L (15-37) Alanine Aminotransferase (ALT/SGPT) 18 U/L (12-78) Alkaline Phosphatase 186 U/L (46-116) H Troponin I 11.137 ng/mL (0.000-0.056) 9.199 ng/mL (0.000-0.056) C-Reactive Protein, Quantitative 29.4 mg/dL (0.00-0.90) H Pro-B-Type Natriuretic Peptide > 90385 pg/mL (0-125) H Total Protein 6.8 G/DL (6.4-8.2) Albumin 2.3 G/DL (3.4-5.0) L Globulin 4.5 g/dL Albumin/Globulin Ratio 0.5 (1.0-2.7) L Microbiology Date/Time Source Procedure Growth Status 12/01/18 06:00 Sputum Gram Stain - Final Complete 12/01/18 06:00 Sputum Culture - Final Bree Albicans Usual Upper Respiratory Vickie Complete 12/01/18 00:00 Foot Left Gram Stain - Final Resulted 12/01/18 00:00 Foot Left Wound Culture Pending Resulted Milton Mary MD Dec 03, 2018 20:04
--- NOTE | 2018-12-03 20:31 | NUR ---
NURSE NOTES: seen and examined by Dr. Mary
--- NOTE | 2018-12-03 20:57 | NUR ---
NURSE NOTES: Called lab spoke with Velvet regarding the Timed PTT lab result still pending, per Velvet will talk to Maggie. starr
--- NOTE | 2018-12-03 21:10 | NUR ---
NURSE NOTES: Timed PTT 99 with new order Heparin drip at 16units/kg/hr, next timed PTT 0300 noted and carried out.
[2018-12-03] MEDS: Atorvastatin 80mg tab ORAL SCH (21:24)
--- NOTE | 2018-12-03 21:30 | NUR ---
NURSE NOTES: Patient complained of 9/10 left feel pain elevated with pillows, talk therapy provided no effective. [place] 10/325mg given. Bd bath given. will continue plan of care.
--- NOTE | 2018-12-03 22:30 | NUR ---
NURSE NOTES: patient in bed resting. denies any pain or discomfort. no s/s of acute distress noted. no s/s of hypo/hyperglycemia. call light within easy reach.
[2018-12-03] MEDS ORDERED: Vancomycin 500mg/D5W 110ml IVPB ONE ×2 (23:00)
[2018-12-04] VITALS (43 sets, daily range): BP systolic 81–133; BP diastolic 53–79
--- NOTE | 2018-12-04 | NUR ---
titrate Levo to 4mcg bp 89/43
[2018-12-04] MEDS: Morphine Sulfate 2mg/ml Inj(IV/IM USE ONLY) IVP PRN ×4 (00:21→22:25)
--- NOTE | 2018-12-04 00:21 | NUR ---
NURSE NOTES: patient calling out and moaning he is in pain. requested to have [place] 10 but RN had previously given, Medication not due yet. patient did not want [place] 5 request morphine instead. 2 mg morphine given at this time for pain 7/10. Patient also placed on bedpan. Will continue to monitor.
--- NOTE | 2018-12-04 03:00 | NUR ---
NURSE NOTES: Medical Van Driver came and draw blood for timed PTT.
[2018-12-04 03:49] LABS: BASOPHILS % (AUTO) 0.6 % (0.0-2.0); EOSINOPHILS % (AUTO) 2.5 % (0.0-3.0); HEMOGLOBIN 8.4 G/DL (14.2-18.0); MEAN CORPUSCULAR VOLUME 84 FL (80-99); MONOCYTES % (AUTO) 8.3 % (1.0-10.0); NEUTROPHILS % (AUTO) 75.6 % (45.0-75.0); PLATELET COUNT 306 K/UL (150-450); RED BLOOD COUNT 3.23 M/UL (4.70-6.10); WHITE BLOOD COUNT 12.8 K/UL (4.8-10.8)
[2018-12-04 03:54] LABS: ANION GAP 10 mmol/L (5-15); BLOOD UREA NITROGEN 46 mg/dL (7-18); CALCIUM 9.1 MG/DL (8.5-10.1); CARBON DIOXIDE 26 MMOL/L (21-32); CHLORIDE 99 MMOL/L (98-107); CREATININE 7.1 MG/DL (0.55-1.30); POTASSIUM 4.2 MMOL/L (3.5-5.1); SODIUM 135 MMOL/L (136-145)
[2018-12-04 03:55] LABS: INR 1.6 (0.9-1.1)
--- NOTE | 2018-12-04 04:03 | NUR ---
NURSE NOTES: Timed PTT 56 end message to [employer]
[2018-12-04] MEDS ORDERED: Heparin 5000 units/ml inj IV SCH ×2 (04:15→19:15)
[2018-12-04] MEDS: Heparin 25,000u/D5W 500ml 500 ML IV SCH ×3 (04:28→19:55)
[2018-12-04] MEDS: HYDROcodone/Acetamin 10/325 tab ORAL PRN (04:36)
--- NOTE | 2018-12-04 04:36 | NUR ---
NURSE NOTES: PTT 56 with new order Heparin order noted and carried out. 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 Bed bath given. Patient complained of 10/10 foot/heel pain elevated with pillow, talk therapy provided and TV not effective and patient requesting [place] 10/325mg. [place] 10/325mg 1 tab po given will recheck patient. call light within easy reach.
--- NOTE | 2018-12-04 06:00 | NUR ---
titrate Levo to 2mcg bp 132/68
[2018-12-04] MEDS: Clindamycin 600mg 50 ML IV SCH ×3 (06:16→21:35)
[2018-12-04] MEDS: Piperacillin/Tazobactam 2.25 GM in D5W 55 ML IVPB SCH ×3 (06:16→21:36)
[2018-12-04] MEDS: NovoLOG Insulin Flexpen SUBQ SCH ×4 (06:17→21:00)
--- NOTE | 2018-12-04 07:30 | NUR ---
HAND-OFF: Report given to Gladys BUSTILLO.
--- NOTE | 2018-12-04 07:33 | NUR ---
NURSE NOTES: Report received from IWONA Diaz Addendum: 12/04/18 at 1851 by Gladys Ward RN SEEN BY DR TRINITY LEWIS WITH ORDER TO CHANGE THE SENSITIVE INSULIN TO AVERAGE. ORDER NOTED AND CARRIED OUT
--- NOTE | 2018-12-04 08:10 | NUR ---
NURSE NOTES: Asleep when received, no apparent acute distress.Foul smell in the room from left leg gangrene.Dressing clean and intact.Bilateral heel floated.No fever at this time.Abdomen soft and non distended. Anuric with AV Shunt MAL bruit and thrill present.Right femoral TLC running levophed at 2 mcg. RAC 18G patent saline lock.Pt on NS at 50cc with no episode of SOB. Call light within easy reach.HOB elevated at 35 degree to prevent aspiration.Bed in low position and 3/4 side rails up to ease repositioning.Pt assist in repositioning.Mouth care done, will continue monitor
[2018-12-04] MEDS: Pantoprazole Inj IVP SCH ×2 (08:49→20:57)
[2018-12-04] MEDS: Docusate 100mg cap ORAL SCH ×3 (08:56→17:33)
[2018-12-04] MEDS: Nephrovite tab (Rena-Vite) ORAL SCH (08:56)
[2018-12-04] MEDS: Renvela 800mg Pkt ORAL SCH ×3 (08:56→17:32)
[2018-12-04] MEDS: Metoprolol Tartrate 12.5mg TAB ORAL SCH ×2 (09:00→20:57)
[2018-12-04] MEDS: Azithromycin 250mg tab ORAL SCH (09:00)
[2018-12-04 09:02] LABS: ALANINE AMINOTRANSFERASE 20 U/L (12-78); ALBUMIN 2.2 G/DL (3.4-5.0); ALKALINE PHOSPHATASE 247 U/L (46-116); ASPARTATE AMINO TRANSFERASE 46 U/L (15-37); BILIRUBIN,DIRECT 0.3 MG/DL (0.0-0.3); BILIRUBIN,TOTAL 0.7 MG/DL (0.2-1.0); PHOSPHORUS 3.8 MG/DL (2.5-4.9)
--- NOTE | 2018-12-04 09:40 | NUR ---
NURSE NOTES: Seen by Dr Arora, will follow up with new order
--- NOTE | 2018-12-04 10:10 | Pulmonolgy Critical Care Note ---
Critical Care - Asmt/Plan Problems: (1) Non-ST elevation (NSTEMI) myocardial infarction (2) Severe sepsis (3) ESRD (end stage renal disease) (4) Amputation at midfoot (5) Diabetes (6) HTN (hypertension) Respiratory: monitor respiratory rate, adjust FIO2, CXR Cardiac: continue pressors, continue to monitor HR/BP Renal: F/U I&O, keep IV fluid, check electrolytes Infectious Disease: check cultures Gastrointestinal: continue feedings/current rate Endocrine: monitor blood sugar Hematologic: monitor H/H, transfuse if hgb<8.5 Neurologic: keep patient comfortable Prophylaxis: Protonix Disposition: keep in ICU Notes Reviewed: cardio Discussed with: nurses, consultants, family preservation caseworkerconfiguration management manager - Objective Last 24 Hour Vital Signs Date Time Temp Pulse Resp B/P (MAP) Pulse Ox O2 Delivery O2 Flow Rate FiO2 12/04/18 09:00 98.5 81 9 124/65 (84) 98 12/04/18 09:00 71 97/72 12/04/18 08:56 71 20 100 Nasal Cannula 3.0 32 12/04/18 08:56 100 Nasal Cannula 3.0 32 12/04/18 08:30 68 15 94/67 (76) 99 12/04/18 08:00 69 18 97/58 (71) 99 12/04/18 07:30 70 12 97/61 (73) 100 12/04/18 07:00 72 9 96/59 (71) 98 12/04/18 07:00 96/59 12/04/18 06:30 80 11 132/68 (89) 99 12/04/18 06:00 132/68 12/04/18 06:00 99.4 81 9 124/65 (84) 98 12/04/18 05:06 99.5 12/04/18 05:00 81 13 130/75 (93) 97 12/04/18 05:00 96/79 12/04/18 04:00 Nasal Cannula 3.0 12/04/18 04:00 99.5 82 11 133/75 (94) 98 12/04/18 04:00 109/69 12/04/18 03:00 79 13 119/71 (87) 98 12/04/18 03:00 119/71 12/04/18 02:00 77 11 131/67 (88) 99 12/04/18 02:00 131/61 12/04/18 01:30 76 12 125/70 (88) 99 12/04/18 01:00 75 16 110/71 (84) 99 12/04/18 01:00 80 12/04/18 01:00 110/71 12/04/18 00:51 99.5 12/04/18 00:30 74 12 131/70 (90) 98 12/04/18 00:02 99.0 67 13 89/53 (65) 12/04/18 00:00 82 12/04/18 00:00 89/53 12/04/18 00:00 Nasal Cannula 3.0 12/03/18 23:30 68 12 92/55 (67) 99 12/03/18 23:00 69 12 96/56 (69) 100 12/03/18 23:00 96/56 12/03/18 22:00 71 12 99/65 (76) 100 12/03/18 22:00 99/65 12/03/18 21:30 73 11 108/62 (77) 97 12/03/18 21:00 75 106/62 12/03/18 21:00 97/56 12/03/18 21:00 74 13 97/56 (70) 98 12/03/18 20:30 75 13 106/62 (77) 98 12/03/18 20:12 99.5 12/03/18 20:12 99.5 12/03/18 20:00 Nasal Cannula 3.0 12/03/18 20:00 75 12/03/18 20:00 100.6 74 12 99/59 (72) 98 12/03/18 20:00 99/59 12/03/18 19:42 100.6 12/03/18 19:30 81 18 121/67 (85) 98 12/03/18 19:26 80 20 98 Nasal Cannula 3.0 32 12/03/18 19:21 98 Nasal Cannula 3.0 32 12/03/18 19:00 80 20 123/70 (87) 99 12/03/18 19:00 123/70 12/03/18 18:45 81 13 105/58 (74) 100 12/03/18 18:45 123/70 12/03/18 18:30 81 13 105/58 (74) 100 12/03/18 18:30 109/60 12/03/18 18:15 81 13 81/54 (63) 98 12/03/18 18:15 84/67 12/03/18 18:00 83 13 133/70 (91) 98 12/03/18 18:00 116/59 12/03/18 17:55 116/59 12/03/18 17:00 83 13 133/70 (91) 98 12/03/18 17:00 116/59 12/03/18 16:00 99.5 83 12 125/67 (86) 96 12/03/18 16:00 121/70 12/03/18 16:00 Nasal Cannula 3.0 12/03/18 16:00 81 12/03/18 15:00 119/64 12/03/18 15:00 81 11 127/70 (89) 98 12/03/18 14:45 127/70 12/03/18 14:00 84 23 145/102 (116) 96 12/03/18 14:00 118/70 12/03/18 13:00 78 16 132/69 (90) 100 12/03/18 13:00 124/73 12/03/18 12:00 98.7 80 16 120/90 (100) 100 12/03/18 12:00 133/74 12/03/18 12:00 Nasal Cannula 3.0 12/03/18 12:00 80 12/03/18 11:00 79 10 125/67 (86) 100 12/03/18 11:00 126/66 Status: awake Condition: critical HEENT: atraumatic Lungs: clear Heart: HR/BP unstable Abdomen: feeding tube Extremities: no C/C/E Decubiti: location Accucheck: 193 Critical Care - Subjective ROS Limited/Unobtainable: Yes Condition: critical EKG Rhythm: Sinus Rhythm FI02: 32 Sputum Amount: None I&O: Intake and Output 12/03/18 12/04/18 19:00 07:00 Intake Total 1767.005 ml 1504.33 ml Output Total 1000 ml 0 ml Balance 767.005 ml 1504.33 ml Intake Oral 630 ml 400 ml IV Total 1137.005 ml 1104.33 ml Output Urine Total 0 ml 0 ml Hemodialysis UF 1000 ml CXR: improved Labs: Laboratory Tests Test 12/03/18 11:49 12/03/18 19:55 12/04/18 02:50 Activated Partial Thromboplast Time 54 SEC (23-33) H 99 SEC (23-33) H 56 SEC (23-33) H Troponin I 9.199 ng/mL (0.000-0.056) 7.754 ng/mL (0.000-0.056) Random Vancomycin Level 19.5 ug/mL White Blood Count 12.8 K/UL (4.8-10.8) H Red Blood Count 3.23 M/UL (4.70-6.10) L Hemoglobin 8.4 G/DL (14.2-18.0) L Hematocrit 27.0 % (42.0-52.0) L Mean Corpuscular Volume 84 FL (80-99) Mean Corpuscular Hemoglobin 25.9 PG (27.0-31.0) L Mean Corpuscular Hemoglobin Concent 31.0 G/DL (32.0-36.0) L Red Cell Distribution Width 14.0 % (11.6-14.8) Platelet Count 306 K/UL (150-450) Mean Platelet Volume 6.0 FL (6.5-10.1) L Neutrophils (%) (Auto) 75.6 % (45.0-75.0) H Lymphocytes (%) (Auto) 13.0 % (20.0-45.0) L Monocytes (%) (Auto) 8.3 % (1.0-10.0) Eosinophils (%) (Auto) 2.5 % (0.0-3.0) Basophils (%) (Auto) 0.6 % (0.0-2.0) Erythrocyte Sedimentation Rate 124 MM/HR (0-20) H Prothrombin Time 17.0 SEC (9.30-11.50) H Prothromb Time International Ratio 1.6 (0.9-1.1) H Sodium Level 135 MMOL/L (136-145) L Potassium Level 4.2 MMOL/L (3.5-5.1) Chloride Level 99 MMOL/L (98-107) Carbon Dioxide Level 26 MMOL/L (21-32) Anion Gap 10 mmol/L (5-15) Blood Urea Nitrogen 46 mg/dL (7-18) H Creatinine 7.1 MG/DL (0.55-1.30) H Estimat Glomerular Filtration Rate mL/min (>60) Glucose Level 194 MG/DL (74-106) H Calcium Level 9.1 MG/DL (8.5-10.1) Phosphorus Level 3.8 MG/DL (2.5-4.9) Magnesium Level 2.2 MG/DL (1.8-2.4) Total Bilirubin 0.7 MG/DL (0.2-1.0) Direct Bilirubin 0.3 MG/DL (0.0-0.3) Aspartate Amino Transf (AST/SGOT) 46 U/L (15-37) H Alanine Aminotransferase (ALT/SGPT) 20 U/L (12-78) Alkaline Phosphatase 247 U/L (46-116) H C-Reactive Protein, Quantitative 25.9 mg/dL (0.00-0.90) H Total Protein 7.0 G/DL (6.4-8.2) Albumin 2.2 G/DL (3.4-5.0) L Rebekah Arora MD Dec 04, 2018 10:10
--- NOTE | 2018-12-04 10:15 | NUR ---
NURSE NOTES: Seen by Rosina will follow up with new orders.Pt remains hemodynamically stable and on 2mcg. First attempt to wean from Levophed but SBP drop to 86.Will continue to monitor.Turned and repositioned.
--- NOTE | 2018-12-04 10:28 | Nephrology Progress Note ---
Assessment/Plan Problem List: (1) ESRD (end stage renal disease) (2) Severe sepsis (3) Non-ST elevation (NSTEMI) myocardial infarction (4) Diabetes Assessment ESRD on HD M W Fr Sepsis / Leukocytosuis ( Pneumonia, Infected foot ulcer) Hypotension / Shock Anemia GERD ECF resident DM OOC Elevated Troponin over 5 Plan asa , beta blockers on low dose pressors Antibiotics Fluid challenge / Watch for CHF Dialysis 12/03 next per orders per consultants on IV heparin Subjective ROS Limited/Unobtainable: No Constitutional: Reports: malaise, weakness Objective Objective Last 24 Hour Vital Signs Date Time Temp Pulse Resp B/P (MAP) Pulse Ox O2 Delivery O2 Flow Rate FiO2 12/04/18 10:19 68 15 94/67 (76) 99 12/04/18 10:00 69 10 111/59 (76) 100 12/04/18 09:00 98.5 81 9 124/65 (84) 98 12/04/18 09:00 71 97/72 12/04/18 08:56 71 20 100 Nasal Cannula 3.0 32 12/04/18 08:56 100 Nasal Cannula 3.0 32 12/04/18 08:30 68 15 94/67 (76) 99 12/04/18 08:00 Nasal Cannula 3.0 12/04/18 08:00 69 18 97/58 (71) 99 12/04/18 07:30 70 12 97/61 (73) 100 12/04/18 07:00 72 9 96/59 (71) 98 12/04/18 07:00 96/59 12/04/18 06:30 80 11 132/68 (89) 99 12/04/18 06:00 132/68 12/04/18 06:00 99.4 81 9 124/65 (84) 98 12/04/18 05:06 99.5 12/04/18 05:00 81 13 130/75 (93) 97 12/04/18 05:00 96/79 12/04/18 04:00 Nasal Cannula 3.0 12/04/18 04:00 99.5 82 11 133/75 (94) 98 12/04/18 04:00 109/69 12/04/18 03:00 79 13 119/71 (87) 98 12/04/18 03:00 119/71 12/04/18 02:00 77 11 131/67 (88) 99 12/04/18 02:00 131/61 12/04/18 01:30 76 12 125/70 (88) 99 12/04/18 01:00 75 16 110/71 (84) 99 12/04/18 01:00 80 12/04/18 01:00 110/71 12/04/18 00:51 99.5 12/04/18 00:30 74 12 131/70 (90) 98 12/04/18 00:02 99.0 67 13 89/53 (65) 12/04/18 00:00 82 12/04/18 00:00 89/53 12/04/18 00:00 Nasal Cannula 3.0 12/03/18 23:30 68 12 92/55 (67) 99 12/03/18 23:00 69 12 96/56 (69) 100 12/03/18 23:00 96/56 12/03/18 22:00 71 12 99/65 (76) 100 12/03/18 22:00 99/65 12/03/18 21:30 73 11 108/62 (77) 97 12/03/18 21:00 75 106/62 12/03/18 21:00 97/56 12/03/18 21:00 74 13 97/56 (70) 98 12/03/18 20:30 75 13 106/62 (77) 98 12/03/18 20:12 99.5 12/03/18 20:12 99.5 12/03/18 20:00 Nasal Cannula 3.0 12/03/18 20:00 75 12/03/18 20:00 100.6 74 12 99/59 (72) 98 12/03/18 20:00 99/59 12/03/18 19:42 100.6 12/03/18 19:30 81 18 121/67 (85) 98 12/03/18 19:26 80 20 98 Nasal Cannula 3.0 32 12/03/18 19:21 98 Nasal Cannula 3.0 32 12/03/18 19:00 80 20 123/70 (87) 99 12/03/18 19:00 123/70 12/03/18 18:45 81 13 105/58 (74) 100 12/03/18 18:45 123/70 12/03/18 18:30 81 13 105/58 (74) 100 12/03/18 18:30 109/60 12/03/18 18:15 81 13 81/54 (63) 98 12/03/18 18:15 84/67 12/03/18 18:00 83 13 133/70 (91) 98 12/03/18 18:00 116/59 12/03/18 17:55 116/59 12/03/18 17:00 83 13 133/70 (91) 98 12/03/18 17:00 116/59 12/03/18 16:00 99.5 83 12 125/67 (86) 96 12/03/18 16:00 121/70 12/03/18 16:00 Nasal Cannula 3.0 12/03/18 16:00 81 12/03/18 15:00 119/64 12/03/18 15:00 81 11 127/70 (89) 98 12/03/18 14:45 127/70 12/03/18 14:00 84 23 145/102 (116) 96 12/03/18 14:00 118/70 12/03/18 13:00 78 16 132/69 (90) 100 12/03/18 13:00 124/73 12/03/18 12:00 98.7 80 16 120/90 (100) 100 12/03/18 12:00 133/74 12/03/18 12:00 Nasal Cannula 3.0 12/03/18 12:00 80 12/03/18 11:00 79 10 125/67 (86) 100 12/03/18 11:00 126/66 Intake and Output 12/03/18 12/04/18 19:00 07:00 Intake Total 1767.005 ml 1504.33 ml Output Total 1000 ml 0 ml Balance 767.005 ml 1504.33 ml Intake Oral 630 ml 400 ml IV Total 1137.005 ml 1104.33 ml Output Urine Total 0 ml 0 ml Hemodialysis UF 1000 ml Laboratory Tests 12/03/18 11:49: Activated Partial Thromboplast Time 54H, Troponin I 9.199H 12/03/18 19:55: Activated Partial Thromboplast Time 99H, Troponin I 7.754H, Random Vancomycin Level 19.5 12/04/18 02:50: Activated Partial Thromboplast Time 56H, White Blood Count 12.8H, Red Blood Count 3.23L, Hemoglobin 8.4L, Hematocrit 27.0L, Mean Corpuscular Volume 84, Mean Corpuscular Hemoglobin 25.9L, Mean Corpuscular Hemoglobin Concent 31.0L, Red Cell Distribution Width 14.0, Platelet Count 306, Mean Platelet Volume 6.0L , Neutrophils (%) (Auto) 75.6H, Lymphocytes (%) (Auto) 13.0L, Monocytes (%) ( Auto) 8.3, Eosinophils (%) (Auto) 2.5, Basophils (%) (Auto) 0.6, Erythrocyte Sedimentation Rate 124H, Prothrombin Time 17.0H, Prothromb Time International Ratio 1.6H, Sodium Level 135L, Potassium Level 4.2, Chloride Level 99, Carbon Dioxide Level 26, Anion Gap 10, Blood Urea Nitrogen 46H, Creatinine 7.1H, Estimat Glomerular Filtration Rate , Glucose Level 194H, Calcium Level 9.1, Phosphorus Level 3.8, Magnesium Level 2.2, Total Bilirubin 0.7, Direct Bilirubin 0.3, Aspartate Amino Transf (AST/SGOT) 46H, Alanine Aminotransferase ( ALT/SGPT) 20, Alkaline Phosphatase 247H, C-Reactive Protein, Quantitative 25.9H , Total Protein 7.0, Albumin 2.2L Height (Feet): 5 Height (Inches): 1.00 Weight (Pounds): 169 General Appearance: no apparent distress, lethargic Cardiovascular: bradycardia Respiratory/Chest: decreased breath sounds Abdomen: distended Objective no change Sincere Almaguer MD Dec 04, 2018 10:28
--- NOTE | 2018-12-04 11:15 | NUR ---
NURSE NOTES: SEEN BY DR SANTAMARIA , WILL FOLLOW UP WITH NEW ORDER
[2018-12-04] MEDS ORDERED: Heparin 25,000u/D5W 500ml 500 ML IV SCH (11:24)
--- NOTE | 2018-12-04 11:32 | Infectious Diseases Prog Note ---
Assessment/Plan Assessment/Plan Assessment: Septic shock-2ry to PNA and wet gangrene -12/01 CXR: . Interval development of patchy consolidation throughout the right lung, concerning for pneumonia. Consolidations related to pulmonary edema are less likely since it is predominantly on the right side. Persistent pulmonary vascular congestion. -CXR: Pulmonary vascularity and interstitium are prominent. -influenza sc neg -sp cx normal resp ingris - BCx NTD L heel wet gangrene -wound cx p -xray L tibia/fibula: No acute injury identified. Diffuse osteopenia. Fever ; improving Hyperleukocytosis; improving ESRD on HD MWF anemia polyneuropathy GERD [place] resident Plan: -Continue ZOsyn #2 (abx d #5) -COntinue empiric IV Vancomycin #5, Clindamycin #4 -Azithromycin #4/5 -12/03 SP Meropenem #4 -11/30 SP Cefepime #1, Flagyl #1 -f/u cx (Sp, BL) -Monitor CBC/CMP, temperatures -ICU care -aspiration precautions -podiatry, surgery f/u- plan for L foot amputation Thank you for this consultation. Will continue to follow along with you. Discussed with RN Subjective Allergies: Coded Allergies: No Known Allergies (Unverified , 11/30/18) Subjective Tm 100.6 wbc improving on levophed at 2 Objective Vital Signs Last 24 Hour Vital Signs Date Time Temp Pulse Resp B/P (MAP) Pulse Ox O2 Delivery O2 Flow Rate FiO2 12/04/18 10:19 68 15 94/67 (76) 99 12/04/18 10:00 69 10 111/59 (76) 100 12/04/18 09:00 98.5 81 9 124/65 (84) 98 12/04/18 09:00 71 97/72 12/04/18 08:56 71 20 100 Nasal Cannula 3.0 32 12/04/18 08:56 100 Nasal Cannula 3.0 32 12/04/18 08:30 68 15 94/67 (76) 99 12/04/18 08:00 Nasal Cannula 3.0 12/04/18 08:00 69 18 97/58 (71) 99 12/04/18 08:00 71 12/04/18 07:30 70 12 97/61 (73) 100 12/04/18 07:00 72 9 96/59 (71) 98 12/04/18 07:00 96/59 12/04/18 06:30 80 11 132/68 (89) 99 12/04/18 06:00 132/68 12/04/18 06:00 99.4 81 9 124/65 (84) 98 12/04/18 05:06 99.5 12/04/18 05:00 81 13 130/75 (93) 97 12/04/18 05:00 96/79 12/04/18 04:00 Nasal Cannula 3.0 12/04/18 04:00 99.5 82 11 133/75 (94) 98 12/04/18 04:00 109/69 12/04/18 03:00 79 13 119/71 (87) 98 12/04/18 03:00 119/71 12/04/18 02:00 77 11 131/67 (88) 99 12/04/18 02:00 131/61 12/04/18 01:30 76 12 125/70 (88) 99 12/04/18 01:00 75 16 110/71 (84) 99 12/04/18 01:00 80 12/04/18 01:00 110/71 12/04/18 00:51 99.5 12/04/18 00:30 74 12 131/70 (90) 98 12/04/18 00:02 99.0 67 13 89/53 (65) 12/04/18 00:00 82 12/04/18 00:00 89/53 12/04/18 00:00 Nasal Cannula 3.0 12/03/18 23:30 68 12 92/55 (67) 99 12/03/18 23:00 69 12 96/56 (69) 100 12/03/18 23:00 96/56 12/03/18 22:00 71 12 99/65 (76) 100 12/03/18 22:00 99/65 12/03/18 21:30 73 11 108/62 (77) 97 12/03/18 21:00 75 106/62 12/03/18 21:00 97/56 12/03/18 21:00 74 13 97/56 (70) 98 12/03/18 20:30 75 13 106/62 (77) 98 12/03/18 20:12 99.5 12/03/18 20:12 99.5 12/03/18 20:00 Nasal Cannula 3.0 12/03/18 20:00 75 12/03/18 20:00 100.6 74 12 99/59 (72) 98 12/03/18 20:00 99/59 12/03/18 19:42 100.6 12/03/18 19:30 81 18 121/67 (85) 98 12/03/18 19:26 80 20 98 Nasal Cannula 3.0 32 12/03/18 19:21 98 Nasal Cannula 3.0 32 12/03/18 19:00 80 20 123/70 (87) 99 12/03/18 19:00 123/70 12/03/18 18:45 81 13 105/58 (74) 100 12/03/18 18:45 123/70 12/03/18 18:30 81 13 105/58 (74) 100 12/03/18 18:30 109/60 12/03/18 18:15 81 13 81/54 (63) 98 12/03/18 18:15 84/67 12/03/18 18:00 83 13 133/70 (91) 98 12/03/18 18:00 116/59 12/03/18 17:55 116/59 12/03/18 17:00 83 13 133/70 (91) 98 12/03/18 17:00 116/59 12/03/18 16:00 99.5 83 12 125/67 (86) 96 12/03/18 16:00 121/70 12/03/18 16:00 Nasal Cannula 3.0 12/03/18 16:00 81 12/03/18 15:00 119/64 12/03/18 15:00 81 11 127/70 (89) 98 12/03/18 14:45 127/70 12/03/18 14:00 84 23 145/102 (116) 96 12/03/18 14:00 118/70 12/03/18 13:00 78 16 132/69 (90) 100 12/03/18 13:00 124/73 12/03/18 12:00 98.7 80 16 120/90 (100) 100 12/03/18 12:00 133/74 12/03/18 12:00 Nasal Cannula 3.0 12/03/18 12:00 80 Height (Feet): 5 Height (Inches): 1.00 Weight (Pounds): 169 Laboratory Tests Test 12/03/18 11:49 12/03/18 19:55 12/04/18 02:50 12/04/18 10:20 Activated Partial Thromboplast Time 54 SEC (23-33) H 99 SEC (23-33) H 56 SEC (23-33) H 102 SEC (23-33) H Troponin I 9.199 ng/mL (0.000-0.056) 7.754 ng/mL (0.000-0.056) 7.033 ng/mL (0.000-0.056) Random Vancomycin Level 19.5 ug/mL White Blood Count 12.8 K/UL (4.8-10.8) H Red Blood Count 3.23 M/UL (4.70-6.10) L Hemoglobin 8.4 G/DL (14.2-18.0) L Hematocrit 27.0 % (42.0-52.0) L Mean Corpuscular Volume 84 FL (80-99) Mean Corpuscular Hemoglobin 25.9 PG (27.0-31.0) L Mean Corpuscular Hemoglobin Concent 31.0 G/DL (32.0-36.0) L Red Cell Distribution Width 14.0 % (11.6-14.8) Platelet Count 306 K/UL (150-450) Mean Platelet Volume 6.0 FL (6.5-10.1) L Neutrophils (%) (Auto) 75.6 % (45.0-75.0) H Lymphocytes (%) (Auto) 13.0 % (20.0-45.0) L Monocytes (%) (Auto) 8.3 % (1.0-10.0) Eosinophils (%) (Auto) 2.5 % (0.0-3.0) Basophils (%) (Auto) 0.6 % (0.0-2.0) Erythrocyte Sedimentation Rate 124 MM/HR (0-20) H Prothrombin Time 17.0 SEC (9.30-11.50) H Prothromb Time International Ratio 1.6 (0.9-1.1) H Sodium Level 135 MMOL/L (136-145) L Potassium Level 4.2 MMOL/L (3.5-5.1) Chloride Level 99 MMOL/L (98-107) Carbon Dioxide Level 26 MMOL/L (21-32) Anion Gap 10 mmol/L (5-15) Blood Urea Nitrogen 46 mg/dL (7-18) H Creatinine 7.1 MG/DL (0.55-1.30) H Estimat Glomerular Filtration Rate mL/min (>60) Glucose Level 194 MG/DL (74-106) H Calcium Level 9.1 MG/DL (8.5-10.1) Phosphorus Level 3.8 MG/DL (2.5-4.9) Magnesium Level 2.2 MG/DL (1.8-2.4) Total Bilirubin 0.7 MG/DL (0.2-1.0) Direct Bilirubin 0.3 MG/DL (0.0-0.3) Aspartate Amino Transf (AST/SGOT) 46 U/L (15-37) H Alanine Aminotransferase (ALT/SGPT) 20 U/L (12-78) Alkaline Phosphatase 247 U/L (46-116) H C-Reactive Protein, Quantitative 25.9 mg/dL (0.00-0.90) H Total Protein 7.0 G/DL (6.4-8.2) Albumin 2.2 G/DL (3.4-5.0) L Current Medications Medications (Trade) Dose Ordered Sig/Elva Route PRN Reason Start Time Stop Time Status Last Admin Dose Admin Acetaminophen (Tylenol) 650 mg Q4H PRN ORAL fever 11/30/18 14:45 12/30/18 14:44 12/03/18 19:42 Acetaminophen/ Hydrocodone Bitart (Odin 10/325) 1 tab EVERY 6 HOURS PRN ORAL Severe Pain (Pain Scale 7-10) 11/30/18 23:15 12/07/18 23:14 12/04/18 04:36 Acetaminophen/ Hydrocodone Bitart (Odin 5/325) 1 tab Q6H PRN ORAL Moderate Pain (Pain Scale 4-6) 11/30/18 23:15 12/07/18 23:14 12/03/18 14:26 Albuterol/ Ipratropium (Albuterol/ Ipratropium) 3 ml Q4H PRN HHN Shortness of Breath 11/30/18 14:45 12/05/18 14:44 12/01/18 03:50 Aspirin (ASA) 325 mg DAILY ORAL 12/03/18 10:00 01/02/19 09:59 12/04/18 08:55 Atorvastatin Calcium (Lipitor) 80 mg BEDTIME ORAL 11/30/18 21:00 12/30/18 20:59 12/03/18 21:24 Azithromycin (Zithromax) 500 mg DAILY ORAL 12/02/18 09:00 12/09/18 08:59 12/04/18 09:00 Chlorhexidine Gluconate (Keke-Hex 2%) 1 applic DAILY@2000 TOPIC 12/01/18 20:00 12/31/18 19:59 12/03/18 19:42 Clindamycin HCl/ Dextrose 50 ml @ 100 mls/hr Q8HR IV 12/01/18 22:00 12/08/18 21:59 12/04/18 06:16 Dextrose (Dextrose 50%) 25 ml Q30M PRN IV Hypoglycemia 12/04/18 08:15 01/03/19 08:14 Dextrose (Dextrose 50%) 50 ml Q30M PRN IV Hypoglycemia 12/04/18 08:15 01/03/19 08:14 Docusate Sodium (Colace) 100 mg THREE TIMES A DAY ORAL 12/02/18 13:00 01/01/19 12:59 12/04/18 08:56 Heparin Sodium/ Dextrose 500 ml @ 24.24 mls/ hr ADJUST PER PROTOCOL IV 12/04/18 11:24 01/03/19 11:23 Insulin Aspart (NovoLOG) BEFORE MEALS AND HS SUBQ 12/04/18 11:30 01/03/19 11:29 Metoprolol Tartrate (Lopressor) 12.5 mg Q12HR ORAL 11/30/18 21:00 12/30/18 20:59 Morphine Sulfate (Morphine Sulfate) 2 mg Q4H PRN IVP Severe Pain (Pain Scale 7-10) 11/30/18 14:45 12/07/18 14:44 12/04/18 00:21 Norepinephrine Bitartrate 4 mg/ Dextrose 254 ml @ 0 mls/hr Q24H IV 11/30/18 14:45 12/30/18 14:44 12/03/18 17:55 Ondansetron HCl (Zofran) 4 mg Q6H PRN IVP Nausea & Vomiting 11/30/18 14:45 12/30/18 14:44 Pantoprazole (Protonix) 40 mg Q12HR IVP 12/02/18 21:00 12/31/18 08:59 12/04/18 08:49 Piperacillin Sod/ Tazobactam Sod 2.25 gm/Dextrose 55 ml @ 110 mls/hr Q8HR IVPB 12/03/18 14:00 12/10/18 13:59 12/04/18 06:16 Polyethylene Glycol (Miralax) 17 gm DAILYPRN PRN ORAL Constipation 11/30/18 14:45 12/30/18 14:44 Sevelamer Carbonate (Renvela) 800 mg THREE TIMES A DAY ORAL 11/30/18 18:00 12/30/18 17:59 12/04/18 08:56 Sodium Chloride 1,000 ml @ 50 mls/hr Q20H IV 11/30/18 15:30 12/30/18 15:29 12/03/18 21:30 Vancomycin HCl (Vanco rx to dose) 1 ea DAILY PRN MISC Per rx protocol 11/30/18 14:00 12/30/18 13:59 Vitamin B Complex/ Vit C/Folic Acid (Nephrovite) 1 tab DAILY ORAL 12/01/18 09:00 12/31/18 08:59 12/04/18 08:56 Aparna Ramirez M.D. Dec 04, 2018 11:32
--- NOTE | 2018-12-04 11:47 | Cardiology Progress Note ---
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 levophed oxygen sats are ok repeat cardiac enzyme show a down trend will expect a slow down trend due to renal isuf echo note borderline global hypo with ef 50% on ecotrin and heparin and statin and bb still he deneis any cp ekg form a few day ago showed st depression pers reviewed wbc improved but still elevated d/w surgery needs amputation not emergent but soon dc pressors when able to on heparin for vascular issue will increase bb when off pressor and bp is stable remain critically ill Subjective Cardiovascular: Denies: chest pain, lightheadedness, palpitations Respiratory: Denies: shortness of breath Gastrointestinal/Abdominal: Denies: abdominal pain Genitourinary: Denies: burning Objective Last 24 Hour Vital Signs Date Time Temp Pulse Resp B/P (MAP) Pulse Ox O2 Delivery O2 Flow Rate FiO2 12/04/18 10:19 68 15 94/67 (76) 99 12/04/18 10:00 69 10 111/59 (76) 100 12/04/18 09:00 98.5 81 9 124/65 (84) 98 12/04/18 09:00 71 97/72 12/04/18 08:56 71 20 100 Nasal Cannula 3.0 32 12/04/18 08:56 100 Nasal Cannula 3.0 32 12/04/18 08:30 68 15 94/67 (76) 99 12/04/18 08:00 Nasal Cannula 3.0 12/04/18 08:00 69 18 97/58 (71) 99 12/04/18 08:00 71 12/04/18 07:30 70 12 97/61 (73) 100 12/04/18 07:00 72 9 96/59 (71) 98 12/04/18 07:00 96/59 12/04/18 06:30 80 11 132/68 (89) 99 12/04/18 06:00 132/68 12/04/18 06:00 99.4 81 9 124/65 (84) 98 12/04/18 05:06 99.5 12/04/18 05:00 81 13 130/75 (93) 97 12/04/18 05:00 96/79 12/04/18 04:00 Nasal Cannula 3.0 12/04/18 04:00 99.5 82 11 133/75 (94) 98 12/04/18 04:00 109/69 12/04/18 03:00 79 13 119/71 (87) 98 12/04/18 03:00 119/71 12/04/18 02:00 77 11 131/67 (88) 99 12/04/18 02:00 131/61 12/04/18 01:30 76 12 125/70 (88) 99 12/04/18 01:00 75 16 110/71 (84) 99 12/04/18 01:00 80 12/04/18 01:00 110/71 12/04/18 00:51 99.5 12/04/18 00:30 74 12 131/70 (90) 98 12/04/18 00:02 99.0 67 13 89/53 (65) 12/04/18 00:00 82 12/04/18 00:00 89/53 12/04/18 00:00 Nasal Cannula 3.0 12/03/18 23:30 68 12 92/55 (67) 99 12/03/18 23:00 69 12 96/56 (69) 100 12/03/18 23:00 96/56 12/03/18 22:00 71 12 99/65 (76) 100 12/03/18 22:00 99/65 12/03/18 21:30 73 11 108/62 (77) 97 12/03/18 21:00 75 106/62 12/03/18 21:00 97/56 12/03/18 21:00 74 13 97/56 (70) 98 12/03/18 20:30 75 13 106/62 (77) 98 12/03/18 20:12 99.5 12/03/18 20:12 99.5 12/03/18 20:00 Nasal Cannula 3.0 12/03/18 20:00 75 12/03/18 20:00 100.6 74 12 99/59 (72) 98 12/03/18 20:00 99/59 12/03/18 19:42 100.6 12/03/18 19:30 81 18 121/67 (85) 98 12/03/18 19:26 80 20 98 Nasal Cannula 3.0 32 12/03/18 19:21 98 Nasal Cannula 3.0 32 12/03/18 19:00 80 20 123/70 (87) 99 12/03/18 19:00 123/70 12/03/18 18:45 81 13 105/58 (74) 100 12/03/18 18:45 123/70 12/03/18 18:30 81 13 105/58 (74) 100 12/03/18 18:30 109/60 12/03/18 18:15 81 13 81/54 (63) 98 12/03/18 18:15 84/67 12/03/18 18:00 83 13 133/70 (91) 98 12/03/18 18:00 116/59 12/03/18 17:55 116/59 12/03/18 17:00 83 13 133/70 (91) 98 12/03/18 17:00 116/59 12/03/18 16:00 99.5 83 12 125/67 (86) 96 12/03/18 16:00 121/70 12/03/18 16:00 Nasal Cannula 3.0 12/03/18 16:00 81 12/03/18 15:00 119/64 12/03/18 15:00 81 11 127/70 (89) 98 12/03/18 14:45 127/70 12/03/18 14:00 84 23 145/102 (116) 96 12/03/18 14:00 118/70 12/03/18 13:00 78 16 132/69 (90) 100 12/03/18 13:00 124/73 12/03/18 12:00 98.7 80 16 120/90 (100) 100 12/03/18 12:00 133/74 12/03/18 12:00 Nasal Cannula 3.0 12/03/18 12:00 80 General Appearance: no apparent distress, alert Neck: supple Cardiovascular: normal rate Respiratory/Chest: lungs clear - ant Abdomen: normal bowel sounds, non tender, soft Extremities: no swelling Intake and Output 12/03/18 12/04/18 19:00 07:00 Intake Total 1767.005 ml 1504.33 ml Output Total 1000 ml 0 ml Balance 767.005 ml 1504.33 ml Intake Oral 630 ml 400 ml IV Total 1137.005 ml 1104.33 ml Output Urine Total 0 ml 0 ml Hemodialysis UF 1000 ml Laboratory Tests Test 12/03/18 11:49 12/03/18 19:55 12/04/18 02:50 12/04/18 10:20 Activated Partial Thromboplast Time 54 SEC (23-33) H 99 SEC (23-33) H 56 SEC (23-33) H 102 SEC (23-33) H Troponin I 9.199 ng/mL (0.000-0.056) 7.754 ng/mL (0.000-0.056) 7.033 ng/mL (0.000-0.056) Random Vancomycin Level 19.5 ug/mL White Blood Count 12.8 K/UL (4.8-10.8) H Red Blood Count 3.23 M/UL (4.70-6.10) L Hemoglobin 8.4 G/DL (14.2-18.0) L Hematocrit 27.0 % (42.0-52.0) L Mean Corpuscular Volume 84 FL (80-99) Mean Corpuscular Hemoglobin 25.9 PG (27.0-31.0) L Mean Corpuscular Hemoglobin Concent 31.0 G/DL (32.0-36.0) L Red Cell Distribution Width 14.0 % (11.6-14.8) Platelet Count 306 K/UL (150-450) Mean Platelet Volume 6.0 FL (6.5-10.1) L Neutrophils (%) (Auto) 75.6 % (45.0-75.0) H Lymphocytes (%) (Auto) 13.0 % (20.0-45.0) L Monocytes (%) (Auto) 8.3 % (1.0-10.0) Eosinophils (%) (Auto) 2.5 % (0.0-3.0) Basophils (%) (Auto) 0.6 % (0.0-2.0) Erythrocyte Sedimentation Rate 124 MM/HR (0-20) H Prothrombin Time 17.0 SEC (9.30-11.50) H Prothromb Time International Ratio 1.6 (0.9-1.1) H Sodium Level 135 MMOL/L (136-145) L Potassium Level 4.2 MMOL/L (3.5-5.1) Chloride Level 99 MMOL/L (98-107) Carbon Dioxide Level 26 MMOL/L (21-32) Anion Gap 10 mmol/L (5-15) Blood Urea Nitrogen 46 mg/dL (7-18) H Creatinine 7.1 MG/DL (0.55-1.30) H Estimat Glomerular Filtration Rate mL/min (>60) Glucose Level 194 MG/DL (74-106) H Calcium Level 9.1 MG/DL (8.5-10.1) Phosphorus Level 3.8 MG/DL (2.5-4.9) Magnesium Level 2.2 MG/DL (1.8-2.4) Total Bilirubin 0.7 MG/DL (0.2-1.0) Direct Bilirubin 0.3 MG/DL (0.0-0.3) Aspartate Amino Transf (AST/SGOT) 46 U/L (15-37) H Alanine Aminotransferase (ALT/SGPT) 20 U/L (12-78) Alkaline Phosphatase 247 U/L (46-116) H C-Reactive Protein, Quantitative 25.9 mg/dL (0.00-0.90) H Total Protein 7.0 G/DL (6.4-8.2) Albumin 2.2 G/DL (3.4-5.0) L Milton Mary MD Dec 04, 2018 11:47
--- NOTE | 2018-12-04 12:11 | NUR ---
NURSE NOTES: Patient asleep, no significant change in condition. Call light within easy reach.Will continue to monitor
--- NOTE | 2018-12-04 13:27 | Surgery Progress Note ---
Surgery Progress Note Subjective Additional Comments labs noted. wbc trending down. trop trending down discussed with cardiology. will plan for surgery in next 1-2 days Objective Last 24 Hour Vital Signs Date Time Temp Pulse Resp B/P (MAP) Pulse Ox O2 Delivery O2 Flow Rate FiO2 12/04/18 12:30 69 12 103/67 (79) 100 12/04/18 12:00 98.8 70 13 93/54 (67) 100 12/04/18 12:00 Nasal Cannula 3.0 12/04/18 11:30 69 18 110/66 (81) 99 12/04/18 11:00 69 13 103/69 (80) 93 12/04/18 10:30 69 10 108/65 (79) 98 12/04/18 10:19 68 15 94/67 (76) 99 12/04/18 10:00 69 10 111/59 (76) 100 12/04/18 09:00 98.5 81 9 124/65 (84) 98 12/04/18 09:00 71 97/72 12/04/18 08:56 71 20 100 Nasal Cannula 3.0 32 12/04/18 08:56 100 Nasal Cannula 3.0 32 12/04/18 08:30 68 15 94/67 (76) 99 12/04/18 08:00 Nasal Cannula 3.0 12/04/18 08:00 69 18 97/58 (71) 99 12/04/18 08:00 71 12/04/18 07:30 70 12 97/61 (73) 100 12/04/18 07:00 72 9 96/59 (71) 98 12/04/18 07:00 96/59 12/04/18 06:30 80 11 132/68 (89) 99 12/04/18 06:00 132/68 12/04/18 06:00 99.4 81 9 124/65 (84) 98 12/04/18 05:06 99.5 12/04/18 05:00 81 13 130/75 (93) 97 12/04/18 05:00 96/79 12/04/18 04:00 Nasal Cannula 3.0 12/04/18 04:00 99.5 82 11 133/75 (94) 98 12/04/18 04:00 109/69 12/04/18 03:00 79 13 119/71 (87) 98 12/04/18 03:00 119/71 12/04/18 02:00 77 11 131/67 (88) 99 12/04/18 02:00 131/61 12/04/18 01:30 76 12 125/70 (88) 99 12/04/18 01:00 75 16 110/71 (84) 99 12/04/18 01:00 80 12/04/18 01:00 110/71 12/04/18 00:51 99.5 12/04/18 00:30 74 12 131/70 (90) 98 12/04/18 00:02 99.0 67 13 89/53 (65) 12/04/18 00:00 82 12/04/18 00:00 89/53 12/04/18 00:00 Nasal Cannula 3.0 12/03/18 23:30 68 12 92/55 (67) 99 12/03/18 23:00 69 12 96/56 (69) 100 12/03/18 23:00 96/56 12/03/18 22:00 71 12 99/65 (76) 100 12/03/18 22:00 99/65 12/03/18 21:30 73 11 108/62 (77) 97 12/03/18 21:00 75 106/62 12/03/18 21:00 97/56 12/03/18 21:00 74 13 97/56 (70) 98 12/03/18 20:30 75 13 106/62 (77) 98 12/03/18 20:12 99.5 12/03/18 20:12 99.5 12/03/18 20:00 Nasal Cannula 3.0 12/03/18 20:00 75 12/03/18 20:00 100.6 74 12 99/59 (72) 98 12/03/18 20:00 99/59 12/03/18 19:42 100.6 12/03/18 19:30 81 18 121/67 (85) 98 12/03/18 19:26 80 20 98 Nasal Cannula 3.0 32 12/03/18 19:21 98 Nasal Cannula 3.0 32 12/03/18 19:00 80 20 123/70 (87) 99 12/03/18 19:00 123/70 12/03/18 18:45 81 13 105/58 (74) 100 12/03/18 18:45 123/70 12/03/18 18:30 81 13 105/58 (74) 100 12/03/18 18:30 109/60 12/03/18 18:15 81 13 81/54 (63) 98 12/03/18 18:15 84/67 12/03/18 18:00 83 13 133/70 (91) 98 12/03/18 18:00 116/59 12/03/18 17:55 116/59 12/03/18 17:00 83 13 133/70 (91) 98 12/03/18 17:00 116/59 12/03/18 16:00 99.5 83 12 125/67 (86) 96 12/03/18 16:00 121/70 12/03/18 16:00 Nasal Cannula 3.0 12/03/18 16:00 81 12/03/18 15:00 119/64 12/03/18 15:00 81 11 127/70 (89) 98 12/03/18 14:45 127/70 12/03/18 14:00 84 23 145/102 (116) 96 12/03/18 14:00 118/70 I&O Intake and Output 12/03/18 12/04/18 19:00 07:00 Intake Total 1767.005 ml 1504.33 ml Output Total 1000 ml 0 ml Balance 767.005 ml 1504.33 ml Intake Oral 630 ml 400 ml IV Total 1137.005 ml 1104.33 ml Output Urine Total 0 ml 0 ml Hemodialysis UF 1000 ml Dressing: saturated Wound: other Drains: other Cardiovascular: RSR Respiratory: decreased breath sounds Abdomen: soft, present bowel sounds, non-distended Extremities: cyanosis, other Laboratory Tests Test 12/03/18 19:55 12/04/18 02:50 12/04/18 10:20 Activated Partial Thromboplast Time 99 SEC (23-33) H 56 SEC (23-33) H 102 SEC (23-33) H Troponin I 7.754 ng/mL (0.000-0.056) 7.033 ng/mL (0.000-0.056) Random Vancomycin Level 19.5 ug/mL White Blood Count 12.8 K/UL (4.8-10.8) H Red Blood Count 3.23 M/UL (4.70-6.10) L Hemoglobin 8.4 G/DL (14.2-18.0) L Hematocrit 27.0 % (42.0-52.0) L Mean Corpuscular Volume 84 FL (80-99) Mean Corpuscular Hemoglobin 25.9 PG (27.0-31.0) L Mean Corpuscular Hemoglobin Concent 31.0 G/DL (32.0-36.0) L Red Cell Distribution Width 14.0 % (11.6-14.8) Platelet Count 306 K/UL (150-450) Mean Platelet Volume 6.0 FL (6.5-10.1) L Neutrophils (%) (Auto) 75.6 % (45.0-75.0) H Lymphocytes (%) (Auto) 13.0 % (20.0-45.0) L Monocytes (%) (Auto) 8.3 % (1.0-10.0) Eosinophils (%) (Auto) 2.5 % (0.0-3.0) Basophils (%) (Auto) 0.6 % (0.0-2.0) Erythrocyte Sedimentation Rate 124 MM/HR (0-20) H Prothrombin Time 17.0 SEC (9.30-11.50) H Prothromb Time International Ratio 1.6 (0.9-1.1) H Sodium Level 135 MMOL/L (136-145) L Potassium Level 4.2 MMOL/L (3.5-5.1) Chloride Level 99 MMOL/L (98-107) Carbon Dioxide Level 26 MMOL/L (21-32) Anion Gap 10 mmol/L (5-15) Blood Urea Nitrogen 46 mg/dL (7-18) H Creatinine 7.1 MG/DL (0.55-1.30) H Estimat Glomerular Filtration Rate mL/min (>60) Glucose Level 194 MG/DL (74-106) H Calcium Level 9.1 MG/DL (8.5-10.1) Phosphorus Level 3.8 MG/DL (2.5-4.9) Magnesium Level 2.2 MG/DL (1.8-2.4) Total Bilirubin 0.7 MG/DL (0.2-1.0) Direct Bilirubin 0.3 MG/DL (0.0-0.3) Aspartate Amino Transf (AST/SGOT) 46 U/L (15-37) H Alanine Aminotransferase (ALT/SGPT) 20 U/L (12-78) Alkaline Phosphatase 247 U/L (46-116) H C-Reactive Protein, Quantitative 25.9 mg/dL (0.00-0.90) H Total Protein 7.0 G/DL (6.4-8.2) Albumin 2.2 G/DL (3.4-5.0) L Plan Problems: (1) Severe sepsis Assessment & Plan: This is a 73-year-old male who presents with severe sepsis, fevers, leukocytosis, abnormal labs, elevated troponins, abnormal lecture lites. On admission patient has a very foul-smelling left heel necrotic wound/ulcer. No purulent drainage no significant foot or leg cellulitis. Prior midfoot amputation. Very foul-smelling. Given patient's current medical condition status with his consent a wound expiration was done at the bedside to ensure no underlying pus, gas-forming infection, acute etiology of severe sepsis. Using a fresh #11 scalpel incision was made in the middle of the area of necrosis and followed down to healthy tissue which is not identified until bone was reached. Wound necrosis directly down to bone. No pus tunneling or gas-forming infectious and noted. We will continue with local wound care Appreciate podiatry input. Agree foot not salvageable and recommend BKA. We will proceed once cleared Given patient's current medical condition status will need resuscitation and clearance prior to any surgical intervention or podiatry intervention. Antibiotics as per infectious disease Cardiology clearance pending We will follow with recommendations thank you leukocytosis abnormal labs elevated troponin -abx as per ID -local wound care Appreciate cardiology input. Will plan for amputation in 1-2 days. moderate risk. okay for heparin gtt -will follow with recs thank you Noam Davenport Dec 04, 2018 13:27
--- NOTE | 2018-12-04 13:30 | NUR ---
NURSE NOTES: SEEN BY DR GOTTI WILL FOLLOW UP WITH NEW ORDERS
--- NOTE | 2018-12-04 13:34 | General Progress Note ---
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 - Complete traumatic amputation of unspecified midfoot, initial encounter SNOMED: 827744574 Status: unchanged Assessment/Plan: wound care abx pt diet cbc bmp am Subjective Constitutional: Reports: weakness Allergies: Coded Allergies: No Known Allergies (Unverified , 11/30/18) All Systems: reviewed and negative except above Subjective o2nc calm in icu Objective Last 24 Hour Vital Signs Date Time Temp Pulse Resp B/P (MAP) Pulse Ox O2 Delivery O2 Flow Rate FiO2 12/04/18 12:30 69 12 103/67 (79) 100 12/04/18 12:00 98.8 70 13 93/54 (67) 100 12/04/18 12:00 Nasal Cannula 3.0 12/04/18 11:30 69 18 110/66 (81) 99 12/04/18 11:00 69 13 103/69 (80) 93 12/04/18 10:30 69 10 108/65 (79) 98 12/04/18 10:19 68 15 94/67 (76) 99 12/04/18 10:00 69 10 111/59 (76) 100 12/04/18 09:00 98.5 81 9 124/65 (84) 98 12/04/18 09:00 71 97/72 12/04/18 08:56 71 20 100 Nasal Cannula 3.0 32 12/04/18 08:56 100 Nasal Cannula 3.0 32 12/04/18 08:30 68 15 94/67 (76) 99 12/04/18 08:00 Nasal Cannula 3.0 12/04/18 08:00 69 18 97/58 (71) 99 12/04/18 08:00 71 12/04/18 07:30 70 12 97/61 (73) 100 12/04/18 07:00 72 9 96/59 (71) 98 12/04/18 07:00 96/59 12/04/18 06:30 80 11 132/68 (89) 99 12/04/18 06:00 132/68 12/04/18 06:00 99.4 81 9 124/65 (84) 98 12/04/18 05:06 99.5 12/04/18 05:00 81 13 130/75 (93) 97 12/04/18 05:00 96/79 12/04/18 04:00 Nasal Cannula 3.0 12/04/18 04:00 99.5 82 11 133/75 (94) 98 12/04/18 04:00 109/69 12/04/18 03:00 79 13 119/71 (87) 98 12/04/18 03:00 119/71 12/04/18 02:00 77 11 131/67 (88) 99 12/04/18 02:00 131/61 12/04/18 01:30 76 12 125/70 (88) 99 12/04/18 01:00 75 16 110/71 (84) 99 12/04/18 01:00 80 12/04/18 01:00 110/71 12/04/18 00:51 99.5 12/04/18 00:30 74 12 131/70 (90) 98 12/04/18 00:02 99.0 67 13 89/53 (65) 12/04/18 00:00 82 12/04/18 00:00 89/53 12/04/18 00:00 Nasal Cannula 3.0 12/03/18 23:30 68 12 92/55 (67) 99 12/03/18 23:00 69 12 96/56 (69) 100 12/03/18 23:00 96/56 12/03/18 22:00 71 12 99/65 (76) 100 12/03/18 22:00 99/65 12/03/18 21:30 73 11 108/62 (77) 97 12/03/18 21:00 75 106/62 12/03/18 21:00 97/56 12/03/18 21:00 74 13 97/56 (70) 98 12/03/18 20:30 75 13 106/62 (77) 98 12/03/18 20:12 99.5 12/03/18 20:12 99.5 12/03/18 20:00 Nasal Cannula 3.0 12/03/18 20:00 75 12/03/18 20:00 100.6 74 12 99/59 (72) 98 12/03/18 20:00 99/59 12/03/18 19:42 100.6 12/03/18 19:30 81 18 121/67 (85) 98 12/03/18 19:26 80 20 98 Nasal Cannula 3.0 32 12/03/18 19:21 98 Nasal Cannula 3.0 32 12/03/18 19:00 80 20 123/70 (87) 99 12/03/18 19:00 123/70 12/03/18 18:45 81 13 105/58 (74) 100 12/03/18 18:45 123/70 12/03/18 18:30 81 13 105/58 (74) 100 12/03/18 18:30 109/60 12/03/18 18:15 81 13 81/54 (63) 98 12/03/18 18:15 84/67 12/03/18 18:00 83 13 133/70 (91) 98 12/03/18 18:00 116/59 12/03/18 17:55 116/59 12/03/18 17:00 83 13 133/70 (91) 98 12/03/18 17:00 116/59 12/03/18 16:00 99.5 83 12 125/67 (86) 96 12/03/18 16:00 121/70 12/03/18 16:00 Nasal Cannula 3.0 12/03/18 16:00 81 12/03/18 15:00 119/64 12/03/18 15:00 81 11 127/70 (89) 98 12/03/18 14:45 127/70 12/03/18 14:00 84 23 145/102 (116) 96 12/03/18 14:00 118/70 Intake and Output 12/03/18 12/04/18 19:00 07:00 Intake Total 1767.005 ml 1504.33 ml Output Total 1000 ml 0 ml Balance 767.005 ml 1504.33 ml Intake Oral 630 ml 400 ml IV Total 1137.005 ml 1104.33 ml Output Urine Total 0 ml 0 ml Hemodialysis UF 1000 ml Laboratory Tests 12/03/18 19:55: Activated Partial Thromboplast Time 99H, Troponin I 7.754H, Random Vancomycin Level 19.5 12/04/18 02:50: Activated Partial Thromboplast Time 56H, Troponin I 7.033H, White Blood Count 12.8H, Red Blood Count 3.23L, Hemoglobin 8.4L, Hematocrit 27.0L, Mean Corpuscular Volume 84, Mean Corpuscular Hemoglobin 25.9L, Mean Corpuscular Hemoglobin Concent 31.0L, Red Cell Distribution Width 14.0, Platelet Count 306, Mean Platelet Volume 6.0L, Neutrophils (%) (Auto) 75.6H, Lymphocytes (%) (Auto) 13.0L, Monocytes (%) (Auto) 8.3, Eosinophils (%) (Auto) 2.5, Basophils (%) (Auto ) 0.6, Erythrocyte Sedimentation Rate 124H, Prothrombin Time 17.0H, Prothromb Time International Ratio 1.6H, Sodium Level 135L, Potassium Level 4.2, Chloride Level 99, Carbon Dioxide Level 26, Anion Gap 10, Blood Urea Nitrogen 46H, Creatinine 7.1H, Estimat Glomerular Filtration Rate , Glucose Level 194H, Calcium Level 9.1, Phosphorus Level 3.8, Magnesium Level 2.2, Total Bilirubin 0.7, Direct Bilirubin 0.3, Aspartate Amino Transf (AST/SGOT) 46H, Alanine Aminotransferase (ALT/SGPT) 20, Alkaline Phosphatase 247H, C-Reactive Protein, Quantitative 25.9H, Total Protein 7.0, Albumin 2.2L 12/04/18 10:20: Activated Partial Thromboplast Time 102H Height (Feet): 5 Height (Inches): 1.00 Weight (Pounds): 169 General Appearance: lethargic EENT: normal ENT inspection Neck: normal alignment Cardiovascular: normal peripheral pulses, normal rate, regular rhythm Respiratory/Chest: chest wall non-tender, lungs clear, normal breath sounds Abdomen: normal bowel sounds, non tender, soft Extremities: normal inspection Edema: no edema noted Arm (L), no edema noted Arm (R), no edema noted Leg (L), no edema noted Leg (R), no edema noted Pedal (L), no edema noted Pedal (R), no edema noted Generalized Neurologic: motor weakness Skin: normal pigmentation, warm/dry Pravin Patton DO Dec 04, 2018 13:34
--- NOTE | 2018-12-04 14:18 | NUR ---
NURSE NOTES: Patient remains asleep , easily arousal to tactile stimuli and verbal stimuli.Family visitor at bedside and update given.Pt seen by Dr Orozco and as stated possible left foot amputation .Consent not received at this time , awaiting written order. Patient comfortable,call light within easy reach
--- NOTE | 2018-12-04 14:24 | Hematology/Onc Progress Note ---
Assessment/Plan Assessment/Plan Assessment/Plan: # Coagulation defect, multifactorial usually related to poor PO intake versus medications, versus cirrhosis, in this case, is likely related to sepsis and dic (on admission) and now on hep gtt --> administer Vitamin K if patient is bleeding or FFP if the INR is >10 --> hold off on ffp unless active procedure/bleeding, first begin with vit K 10 --> mixing study ordered and reviewed, likely has vit K deficiency --> hep and hiv ordered as well # Anemia of chronic disease, due to underlying chronic medical issues, multifactorial --> Anemia workup has been reviewed, is c/w acd --> No evidence of hemolysis is noted, peripheral smear has been reviewed --> Hgb goal >7. Transfuse prn. --> Epogen or iron at this time is not particularly indicated --> Medications have been reviewed --> low threshold for gi evaluation in case has occult + # Leukocytosis/elevated white blood cell count, unspecified likely related to underlying stress reaction with septic shock (with poss pna) --> have reviewed peripheral smear and bandemia/neutrophilia noted --> continue antibiotics if they have been started by ID team (clinda/indira/vanc) --> monitor for resolution # Acute NE --> is on heparin gtt --> with esrd --> as per cards recs --> TTe neg for vegetatons # Infected leg ulcer, probably gangrene --> Ulcer of heel and midfoot with necrosis to bone --> per podiatry and surg recs --> pending surgery shortly # PVD with amputation # End-stage renal disease - on hemodialysis --> per renal HD 12/03 # Electrolyte abnormalities # Diabetes mellitus with diabetic neuropathy # Dvt ppx scds/hep gtt The timing of this note does not necessarily reflect the time of the patient was seen. Greatly appreciate consultation. Subjective Constitutional: Denies: no symptoms, chills, fever, malaise, weakness, other HEENT: Denies: no symptoms, eye pain, blurred vision, tearing, double vision, ear pain, ear discharge, nose pain, nose congestion, throat pain, throat swelling, mouth pain, mouth swelling, other Cardiovascular: Denies: no symptoms, chest pain, edema, irregular heart rate, lightheadedness, palpitations, syncope, other Respiratory: Denies: no symptoms, cough, shortness of breath, SOB with excertion, SOB at rest, sputum, wheezing, other Gastrointestinal/Abdominal: Denies: no symptoms, abdomen distended, abdominal pain, black stools, tarry stools, blood in stool, constipated, diarrhea, difficulty swallowing, nausea, poor appetite, poor fluid intake, rectal bleeding , vomiting, other Genitourinary: Denies: no symptoms, burning, discharge, frequency, flank pain, hematuria, incontinence, pain, urgency, other Neurologic/Psychiatric: Denies: no symptoms, anxiety, depressed, emotional problems, headache, numbness, paresthesia, pre-existing deficit, seizure, tingling, tremors, weakness, other Endocrine: Denies: no symptoms, excessive sweating, flushing, intolerance to cold, intolerance to heat, increased hunger, increased thirst, increased urine, unexplained weight gain, unexplained weight loss, other Allergies: Coded Allergies: No Known Allergies (Unverified , 11/30/18) Subjective 12/03: no bleeding, no night sweats, on levo in icu, dw rn 12/04: remains on heparin, remains in icu, on pressor, pending surgery shortly Objective Objective Current Medications Medications (Trade) Dose Ordered Sig/Elva Route PRN Reason Start Time Stop Time Status Last Admin Dose Admin Acetaminophen (Tylenol) 650 mg Q4H PRN ORAL fever 11/30/18 14:45 12/30/18 14:44 12/03/18 19:42 Acetaminophen/ Hydrocodone Bitart ([place] 10/325) 1 tab EVERY 6 HOURS PRN ORAL Severe Pain (Pain Scale 7-10) 11/30/18 23:15 12/07/18 23:14 12/04/18 04:36 Acetaminophen/ Hydrocodone Bitart ([place] 5/325) 1 tab Q6H PRN ORAL Moderate Pain (Pain Scale 4-6) 11/30/18 23:15 12/07/18 23:14 12/03/18 14:26 Albuterol/ Ipratropium (Albuterol/ Ipratropium) 3 ml Q4H PRN HHN Shortness of Breath 11/30/18 14:45 12/05/18 14:44 12/01/18 03:50 Aspirin (ASA) 325 mg DAILY ORAL 12/03/18 10:00 01/02/19 09:59 12/04/18 08:55 Atorvastatin Calcium (Lipitor) 80 mg BEDTIME ORAL 11/30/18 21:00 12/30/18 20:59 12/03/18 21:24 Azithromycin (Zithromax) 500 mg DAILY ORAL 12/02/18 09:00 12/09/18 08:59 12/04/18 09:00 Chlorhexidine Gluconate (Keke-Hex 2%) 1 applic DAILY@2000 TOPIC 12/01/18 20:00 12/31/18 19:59 12/03/18 19:42 Clindamycin HCl/ Dextrose 50 ml @ 100 mls/hr Q8HR IV 12/01/18 22:00 12/08/18 21:59 12/04/18 13:34 Dextrose (Dextrose 50%) 25 ml Q30M PRN IV Hypoglycemia 12/04/18 08:15 01/03/19 08:14 Dextrose (Dextrose 50%) 50 ml Q30M PRN IV Hypoglycemia 12/04/18 08:15 01/03/19 08:14 Docusate Sodium (Colace) 100 mg THREE TIMES A DAY ORAL 12/02/18 13:00 01/01/19 12:59 12/04/18 12:09 Heparin Sodium/ Dextrose 500 ml @ 24.24 mls/ hr ADJUST PER PROTOCOL IV 12/04/18 11:24 01/03/19 11:23 12/04/18 11:48 Insulin Aspart (NovoLOG) BEFORE MEALS AND HS SUBQ 12/04/18 11:30 01/03/19 11:29 12/04/18 12:09 Metoprolol Tartrate (Lopressor) 12.5 mg Q12HR ORAL 11/30/18 21:00 12/30/18 20:59 Morphine Sulfate (Morphine Sulfate) 2 mg Q4H PRN IVP Severe Pain (Pain Scale 7-10) 11/30/18 14:45 12/07/18 14:44 12/04/18 13:26 Norepinephrine Bitartrate 4 mg/ Dextrose 254 ml @ 0 mls/hr Q24H IV 11/30/18 14:45 12/30/18 14:44 12/03/18 17:55 Ondansetron HCl (Zofran) 4 mg Q6H PRN IVP Nausea & Vomiting 11/30/18 14:45 12/30/18 14:44 Pantoprazole (Protonix) 40 mg Q12HR IVP 12/02/18 21:00 12/31/18 08:59 12/04/18 08:49 Piperacillin Sod/ Tazobactam Sod 2.25 gm/Dextrose 55 ml @ 110 mls/hr Q8HR IVPB 12/03/18 14:00 12/10/18 13:59 12/04/18 13:35 Polyethylene Glycol (Miralax) 17 gm DAILYPRN PRN ORAL Constipation 11/30/18 14:45 12/30/18 14:44 Sevelamer Carbonate (Renvela) 800 mg THREE TIMES A DAY ORAL 11/30/18 18:00 12/30/18 17:59 12/04/18 12:09 Sodium Chloride 1,000 ml @ 50 mls/hr Q20H IV 11/30/18 15:30 12/30/18 15:29 12/03/18 21:30 Vancomycin HCl (Vanco rx to dose) 1 ea DAILY PRN MISC Per rx protocol 11/30/18 14:00 12/30/18 13:59 Vitamin B Complex/ Vit C/Folic Acid (Nephrovite) 1 tab DAILY ORAL 12/01/18 09:00 12/31/18 08:59 12/04/18 08:56 Last 24 Hour Vital Signs Date Time Temp Pulse Resp B/P (MAP) Pulse Ox O2 Delivery O2 Flow Rate FiO2 12/04/18 12:30 69 12 103/67 (79) 100 12/04/18 12:00 98.8 70 13 93/54 (67) 100 12/04/18 12:00 Nasal Cannula 3.0 12/04/18 11:30 69 18 110/66 (81) 99 12/04/18 11:00 69 13 103/69 (80) 93 12/04/18 10:30 69 10 108/65 (79) 98 12/04/18 10:19 68 15 94/67 (76) 99 12/04/18 10:00 69 10 111/59 (76) 100 12/04/18 09:00 98.5 81 9 124/65 (84) 98 12/04/18 09:00 71 97/72 12/04/18 08:56 71 20 100 Nasal Cannula 3.0 32 12/04/18 08:56 100 Nasal Cannula 3.0 32 12/04/18 08:30 68 15 94/67 (76) 99 12/04/18 08:00 Nasal Cannula 3.0 12/04/18 08:00 69 18 97/58 (71) 99 12/04/18 08:00 71 12/04/18 07:30 70 12 97/61 (73) 100 12/04/18 07:00 72 9 96/59 (71) 98 12/04/18 07:00 96/59 12/04/18 06:30 80 11 132/68 (89) 99 12/04/18 06:00 132/68 12/04/18 06:00 99.4 81 9 124/65 (84) 98 12/04/18 05:06 99.5 12/04/18 05:00 81 13 130/75 (93) 97 12/04/18 05:00 96/79 12/04/18 04:00 Nasal Cannula 3.0 12/04/18 04:00 99.5 82 11 133/75 (94) 98 12/04/18 04:00 109/69 12/04/18 03:00 79 13 119/71 (87) 98 12/04/18 03:00 119/71 12/04/18 02:00 77 11 131/67 (88) 99 12/04/18 02:00 131/61 12/04/18 01:30 76 12 125/70 (88) 99 12/04/18 01:00 75 16 110/71 (84) 99 12/04/18 01:00 80 12/04/18 01:00 110/71 12/04/18 00:51 99.5 12/04/18 00:30 74 12 131/70 (90) 98 12/04/18 00:02 99.0 67 13 89/53 (65) 12/04/18 00:00 82 12/04/18 00:00 89/53 12/04/18 00:00 Nasal Cannula 3.0 12/03/18 23:30 68 12 92/55 (67) 99 12/03/18 23:00 69 12 96/56 (69) 100 12/03/18 23:00 96/56 12/03/18 22:00 71 12 99/65 (76) 100 12/03/18 22:00 99/65 12/03/18 21:30 73 11 108/62 (77) 97 12/03/18 21:00 75 106/62 12/03/18 21:00 97/56 12/03/18 21:00 74 13 97/56 (70) 98 12/03/18 20:30 75 13 106/62 (77) 98 12/03/18 20:12 99.5 12/03/18 20:12 99.5 12/03/18 20:00 Nasal Cannula 3.0 12/03/18 20:00 75 12/03/18 20:00 100.6 74 12 99/59 (72) 98 12/03/18 20:00 99/59 12/03/18 19:42 100.6 12/03/18 19:30 81 18 121/67 (85) 98 12/03/18 19:26 80 20 98 Nasal Cannula 3.0 32 12/03/18 19:21 98 Nasal Cannula 3.0 32 12/03/18 19:00 80 20 123/70 (87) 99 12/03/18 19:00 123/70 12/03/18 18:45 81 13 105/58 (74) 100 12/03/18 18:45 123/70 12/03/18 18:30 81 13 105/58 (74) 100 12/03/18 18:30 109/60 12/03/18 18:15 81 13 81/54 (63) 98 12/03/18 18:15 84/67 12/03/18 18:00 83 13 133/70 (91) 98 12/03/18 18:00 116/59 12/03/18 17:55 116/59 12/03/18 17:00 83 13 133/70 (91) 98 12/03/18 17:00 116/59 12/03/18 16:00 99.5 83 12 125/67 (86) 96 12/03/18 16:00 121/70 12/03/18 16:00 Nasal Cannula 3.0 12/03/18 16:00 81 12/03/18 15:00 119/64 12/03/18 15:00 81 11 127/70 (89) 98 12/03/18 14:45 127/70 12/03/18 14:00 84 23 145/102 (116) 96 12/03/18 14:00 118/70 12/03/18 13:00 78 16 132/69 (90) 100 12/03/18 13:00 124/73 12/03/18 12:00 98.7 80 16 120/90 (100) 100 12/03/18 12:00 133/74 12/03/18 12:00 Nasal Cannula 3.0 12/03/18 12:00 80 12/03/18 11:00 79 10 125/67 (86) 100 12/03/18 11:00 126/66 12/03/18 10:00 79 20 116/66 (83) 98 12/03/18 10:00 119/67 12/03/18 09:40 94 Nasal Cannula 3.0 32 12/03/18 09:00 77 11 102/61 (75) 97 12/03/18 09:00 79 111/67 12/03/18 09:00 111/67 12/03/18 08:30 77 10 102/62 (75) 98 12/03/18 08:30 102/61 12/03/18 08:00 78 12/03/18 08:00 99.0 78 22 107/64 (78) 98 12/03/18 08:00 102/62 12/03/18 08:00 Nasal Cannula 3.0 12/03/18 07:45 107/64 12/03/18 07:45 99.0 78 22 107/64 (78) 98 12/03/18 07:30 107/64 12/03/18 07:30 76 13 113/69 (84) 99 12/03/18 07:15 113/69 12/03/18 07:15 76 13 113/69 (84) 99 12/03/18 07:09 70 11 94/57 (69) 99 12/03/18 07:06 70 12 83/51 (62) 98 12/03/18 07:00 80/57 12/03/18 07:00 99.5 70 12 80/57 (65) 100 12/03/18 06:00 95/56 12/03/18 06:00 74 10 95/56 (69) 99 12/03/18 05:00 78 15 96/79 (85) 90 12/03/18 05:00 96/79 12/03/18 04:00 75 10/14/19 04:00 109/69 12/03/18 04:00 Nasal Cannula 3.0 12/03/18 04:00 99.9 77 12 109/69 (82) 99 12/03/18 03:00 109/69 12/03/18 03:00 77 12 109/69 (82) 99 12/03/18 02:00 118/68 12/03/18 02:00 78 21 118/68 (85) 100 12/03/18 01:30 75 16 102/68 (79) 100 12/03/18 01:00 105/60 12/03/18 01:00 74 20 105/60 (75) 100 12/03/18 00:30 75 21 111/69 (83) 100 12/03/18 00:00 99.0 73 11 102/62 (75) 88 12/03/18 00:00 102/62 12/03/18 00:00 Nasal Cannula 3.0 12/02/18 23:00 99/61 12/02/18 23:00 71 22 91/54 (66) 100 12/02/18 22:30 79 12 107/70 (82) 100 12/02/18 22:00 78 17 117/63 (81) 99 12/02/18 22:00 117/60 12/02/18 21:30 74 21 113/64 (80) 100 12/02/18 21:28 72 13 97/59 (72) 98 12/02/18 21:15 72 11 85/60 (68) 100 12/02/18 21:00 73 88/52 12/02/18 21:00 60/44 12/02/18 21:00 72 17 88/52 (64) 90 12/02/18 20:30 73 11 100/61 (74) 92 12/02/18 20:00 99.4 73 12 99/60 (73) 94 12/02/18 20:00 99/60 12/02/18 20:00 Nasal Cannula 3.0 12/02/18 20:00 73 12/02/18 19:18 94 Nasal Cannula 3.0 32 12/02/18 19:00 99/58 12/02/18 19:00 72 12 99/58 (72) 92 12/02/18 18:30 99.5 69 11 98/58 (71) 100 12/02/18 18:00 71 10 84/53 (63) 98 12/02/18 18:00 84/53 12/02/18 17:30 83 12 92/56 (68) 100 12/02/18 17:00 93/66 12/02/18 17:00 100.2 75 19 93/66 (75) 100 12/02/18 16:30 99.6 12 97/61 (73) 99 12/02/18 16:00 Nasal Cannula 3.0 12/02/18 16:00 109/57 12/02/18 16:00 83 13 92/54 (67) 100 12/02/18 15:37 71 12/02/18 15:30 86 14 95/56 (69) 96 12/02/18 15:00 84 13 84/57 (66) 100 12/02/18 15:00 99/52 12/02/18 14:30 84 12 101/52 (68) 99 Intake and Output 12/03/18 12/04/18 19:00 07:00 Intake Total 1767.005 ml 1504.33 ml Output Total 1000 ml 0 ml Balance 767.005 ml 1504.33 ml Intake Oral 630 ml 400 ml IV Total 1137.005 ml 1104.33 ml Output Urine Total 0 ml 0 ml Hemodialysis UF 1000 ml Labs Test 12/02/18 05:00 12/02/18 12:45 12/02/18 20:20 12/03/18 03:00 White Blood Count 20.7 K/UL (4.8-10.8) 18.4 K/UL (4.8-10.8) 15.3 K/UL (4.8-10.8) Red Blood Count 3.16 M/UL (4.70-6.10) 3.25 M/UL (4.70-6.10) 3.14 M/UL (4.70-6.10) Hemoglobin 8.4 G/DL (14.2-18.0) 8.4 G/DL (14.2-18.0) 8.2 G/DL (14.2-18.0) Hematocrit 26.8 % (42.0-52.0) 27.7 % (42.0-52.0) 26.4 % (42.0-52.0) Mean Corpuscular Volume 85 FL (80-99) 85 FL (80-99) 84 FL (80-99) Mean Corpuscular Hemoglobin 26.5 PG (27.0-31.0) 26.0 PG (27.0-31.0) 26.1 PG (27.0-31.0) Mean Corpuscular Hemoglobin Concent 31.2 G/DL (32.0-36.0) 30.5 G/DL (32.0-36.0) 31.0 G/DL (32.0-36.0) Red Cell Distribution Width 14.6 % (11.6-14.8) 14.2 % (11.6-14.8) 14.7 % (11.6-14.8) Platelet Count 350 K/UL (150-450) 312 K/UL (150-450) 309 K/UL (150-450) Mean Platelet Volume 6.2 FL (6.5-10.1) 5.9 FL (6.5-10.1) 6.2 FL (6.5-10.1) Neutrophils (%) (Auto) % (45.0-75.0) % (45.0-75.0) 83.9 % (45.0-75.0) Lymphocytes (%) (Auto) % (20.0-45.0) % (20.0-45.0) 7.6 % (20.0-45.0) Monocytes (%) (Auto) % (1.0-10.0) % (1.0-10.0) 7.3 % (1.0-10.0) Eosinophils (%) (Auto) % (0.0-3.0) % (0.0-3.0) 0.9 % (0.0-3.0) Basophils (%) (Auto) % (0.0-2.0) % (0.0-2.0) 0.3 % (0.0-2.0) Differential Total Cells Counted 100 100 Neutrophils % (Manual) 86 % (45-75) 92 % (45-75) Lymphocytes % (Manual) 9 % (20-45) 5 % (20-45) Monocytes % (Manual) 5 % (1-10) 1 % (1-10) Eosinophils % (Manual) 0 % (0-3) 1 % (0-3) Basophils % (Manual) 0 % (0-2) 0 % (0-2) Band Neutrophils 0 % (0-8) 1 % (0-8) Platelet Estimate Adequate Adequate Platelet Morphology Normal Normal Hypochromasia 2+ 2+ Anisocytosis 1+ 1+ Sodium Level 138 MMOL/L (136-145) 136 MMOL/L (136-145) Potassium Level 4.8 MMOL/L (3.5-5.1) 4.8 MMOL/L (3.5-5.1) Chloride Level 100 MMOL/L (98-107) 99 MMOL/L (98-107) Carbon Dioxide Level 23 MMOL/L (21-32) 23 MMOL/L (21-32) Anion Gap 16 mmol/L (5-15) 14 mmol/L (5-15) Blood Urea Nitrogen 54 mg/dL (7-18) 70 mg/dL (7-18) Creatinine 8.3 MG/DL (0.55-1.30) 9.3 MG/DL (0.55-1.30) Estimat Glomerular Filtration Rate mL/min (>60) mL/min (>60) Glucose Level 211 MG/DL (74-106) 238 MG/DL (74-106) Uric Acid 4.7 MG/DL (2.6-7.2) Calcium Level 9.3 MG/DL (8.5-10.1) 9.1 MG/DL (8.5-10.1) Phosphorus Level 6.1 MG/DL (2.5-4.9) 4.3 MG/DL (2.5-4.9) Magnesium Level 2.4 MG/DL (1.8-2.4) 2.4 MG/DL (1.8-2.4) Total Bilirubin 0.6 MG/DL (0.2-1.0) 0.6 MG/DL (0.2-1.0) Aspartate Amino Transf (AST/SGOT) 51 U/L (15-37) 35 U/L (15-37) Alanine Aminotransferase (ALT/SGPT) 16 U/L (12-78) 18 U/L (12-78) Alkaline Phosphatase 122 U/L (46-116) 186 U/L (46-116) Troponin I 13.986 ng/mL (0.000-0.056) 11.137 ng/mL (0.000-0.056) C-Reactive Protein, Quantitative > 70.0 mg/dL (0.00-0.90) 29.4 mg/dL (0.00-0.90) Pro-B-Type Natriuretic Peptide > 54357 pg/mL (0-125) > 62838 pg/mL (0-125) Total Protein 6.9 G/DL (6.4-8.2) 6.8 G/DL (6.4-8.2) Albumin 2.4 G/DL (3.4-5.0) 2.3 G/DL (3.4-5.0) Globulin 4.5 g/dL 4.5 g/dL Albumin/Globulin Ratio 0.5 (1.0-2.7) 0.5 (1.0-2.7) Random Vancomycin Level 18.2 ug/mL Prothrombin Time 18.4 SEC (9.30-11.50) 16.5 SEC (9.30-11.50) Prothromb Time International Ratio 1.8 (0.9-1.1) 1.6 (0.9-1.1) Activated Partial Thromboplast Time 46 SEC (23-33) 60 SEC (23-33) 55 SEC (23-33) Test 12/03/18 11:49 12/03/18 19:55 12/04/18 02:50 12/04/18 10:20 Activated Partial Thromboplast Time 54 SEC (23-33) 99 SEC (23-33) 56 SEC (23-33) 102 SEC (23-33) Troponin I 9.199 ng/mL (0.000-0.056) 7.754 ng/mL (0.000-0.056) 7.033 ng/mL (0.000-0.056) Random Vancomycin Level 19.5 ug/mL White Blood Count 12.8 K/UL (4.8-10.8) Red Blood Count 3.23 M/UL (4.70-6.10) Hemoglobin 8.4 G/DL (14.2-18.0) Hematocrit 27.0 % (42.0-52.0) Mean Corpuscular Volume 84 FL (80-99) Mean Corpuscular Hemoglobin 25.9 PG (27.0-31.0) Mean Corpuscular Hemoglobin Concent 31.0 G/DL (32.0-36.0) Red Cell Distribution Width 14.0 % (11.6-14.8) Platelet Count 306 K/UL (150-450) Mean Platelet Volume 6.0 FL (6.5-10.1) Neutrophils (%) (Auto) 75.6 % (45.0-75.0) Lymphocytes (%) (Auto) 13.0 % (20.0-45.0) Monocytes (%) (Auto) 8.3 % (1.0-10.0) Eosinophils (%) (Auto) 2.5 % (0.0-3.0) Basophils (%) (Auto) 0.6 % (0.0-2.0) Erythrocyte Sedimentation Rate 124 MM/HR (0-20) Prothrombin Time 17.0 SEC (9.30-11.50) Prothromb Time International Ratio 1.6 (0.9-1.1) Sodium Level 135 MMOL/L (136-145) Potassium Level 4.2 MMOL/L (3.5-5.1) Chloride Level 99 MMOL/L (98-107) Carbon Dioxide Level 26 MMOL/L (21-32) Anion Gap 10 mmol/L (5-15) Blood Urea Nitrogen 46 mg/dL (7-18) Creatinine 7.1 MG/DL (0.55-1.30) Estimat Glomerular Filtration Rate mL/min (>60) Glucose Level 194 MG/DL (74-106) Calcium Level 9.1 MG/DL (8.5-10.1) Phosphorus Level 3.8 MG/DL (2.5-4.9) Magnesium Level 2.2 MG/DL (1.8-2.4) Total Bilirubin 0.7 MG/DL (0.2-1.0) Direct Bilirubin 0.3 MG/DL (0.0-0.3) Aspartate Amino Transf (AST/SGOT) 46 U/L (15-37) Alanine Aminotransferase (ALT/SGPT) 20 U/L (12-78) Alkaline Phosphatase 247 U/L (46-116) C-Reactive Protein, Quantitative 25.9 mg/dL (0.00-0.90) Total Protein 7.0 G/DL (6.4-8.2) Albumin 2.2 G/DL (3.4-5.0) Height (Feet): 5 Height (Inches): 1.00 Weight (Pounds): 169 Objective Physical Exam: Vitals: reviewed General Appearance: NAD HEENT: normocephalic, atraumatic Neck: non-tender, normal alignment Respiratory/Chest: normal breath sounds bilaterally Cardiovascular/Chest: normal peripheral pulses, normal rate Abdomen: normal bowel sounds, soft, nontender Extremities: normal range of motion s/p midfoot amputation ; R midfoot SUB ACUTE CARE NURSE, L midfoot with dressing, femoral line ++ Musculoskeletal: atrophy - BLE, other - kat mid foot amputation Lloyd Dailey MD Dec 04, 2018 14:24
--- NOTE | 2018-12-04 16:12 | NUR ---
NURSE NOTES: ADLs turned and repositioned. Mouth care done.New order for dialysis by Dr Almaguer for tomorrow.[facility] called and spoke to Denise regarding the dialysis tomorrow.As stated she will notify the nurse, will continue same care plan.Remains on Levophed at 2mcg.
--- NOTE | 2018-12-04 17:29 | NUR ---
NURSE NOTES: Novolog held,refused to eat
--- NOTE | 2018-12-04 18:23 | NUR ---
NURSE NOTES: Patient asleep, no apparent acute distress, unable to wean from 2mcg Levophed.Turned and repositioned.Kept clean and dry.HOB elevated to prevent aspiration.Will continue to monitor
--- NOTE | 2018-12-04 19:24 | NUR ---
HAND-OFF: Report given to chato Koroma.
--- NOTE | 2018-12-04 19:40 | NUR ---
NURSE NOTES: PATIENT ALERT, ORIENTED X4, RESPIRATION REGULAR ON O2 3LPM VIA NC, DENIED SOB, ABDOMEN SOFT, NO N/V NOTED, AV SHUNT TO LEFT UPPER ARM, KEPT LEFT ARM PRECAUTION, TLC TO RIGHT FEMORAL AND PERIPHERAL LINE TO RIGHT AC, INTACT AND PATENT, ONGOING HEPARIN DRIP 16UNIT/KG/HR, LEVOPHED DRIP 2MCG/MIN AND NS AT 50ML/HR VIA TLC, RIGHT TOES AMPUTATED, LEFT TOES AMPUTATED WITH DRESSING STATUS, MADE LOWER BED POSITION AND BED ALARM, PROVIDED CALL LIGHT WITHIN REACH, WILL CONTINUE TO MONITOR.
[2018-12-04] MEDS: Dyna-Hex 2% Top Sol 2oz TOPIC SCH (19:52)
[2018-12-04] MEDS: HYDROcodone/Acetamin 5/325 tab ORAL PRN (20:29)
--- NOTE | 2018-12-04 20:29 | NUR ---
NURSE NOTES: GIVEN [place] 5/325MG BY PO FOR LEFT FOOT PAIN OF 6/10, WILL CONTINUE TO MONITOR.
[2018-12-04] MEDS: Atorvastatin 80mg tab ORAL SCH (20:57)
--- NOTE | 2018-12-04 21:20 | NUR ---
NURSE NOTES: PATIENT ASLEEP STATUS AT THIS TIME.
--- NOTE | 2018-12-04 22:25 | NUR ---
NURSE NOTES: PATIENT WANTED PAIN MED FOR HIS LEFT FOOT PAIN OF 10/10, GIVEN MORPHINE 2MG BY IVP SLOWLY PRN ORDER, WILL CONTINUE TO MONITOR.
--- NOTE | 2018-12-04 23:10 | NUR ---
NURSE NOTES: PATIENT CALM, NO PAIN NOTED, PROVIDED CALL LIGHT WITHIN REACH.
[2018-12-05] VITALS (27 sets, daily range): BP systolic 94–140; BP diastolic 51–93
--- NOTE | 2018-12-05 01:41 | NUR ---
NURSE NOTES: NO PAIN OR DISTRESS NOTED AT THIS TIME.
--- NOTE | 2018-12-05 01:58 | NUR ---
NURSE NOTES: PTT BLOOD DRAWN WA DONE.
[2018-12-05] MEDS: Morphine Sulfate 2mg/ml Inj(IV/IM USE ONLY) IVP PRN ×4 (02:01→22:35)
--- NOTE | 2018-12-05 02:01 | NUR ---
NURSE NOTES: PATIENT WANTED PAIN MED FOR HIS LEFT FOOT PAIN OF 8/10, GIVEN MORPHINE 2MG BY IVP SLOWLY PRN ORDER, WILL CONTINUE TO MONITOR.
--- NOTE | 2018-12-05 02:41 | NUR ---
NURSE NOTES: NOTED PTT 84. NO CHANGE HEPARIN RATE PER PROTOCOLS.
--- NOTE | 2018-12-05 03:10 | NUR ---
NURSE NOTES: PATIENT CALM, NO PAIN NOTED, ASLEEP STATUS.
[2018-12-05 04:57] LABS: HEMATOCRIT 24.9 % (42.0-52.0); HEMOGLOBIN 7.7 G/DL (14.2-18.0); MEAN CORPUSCULAR VOLUME 84 FL (80-99); PLATELET COUNT 297 K/UL (150-450); RED BLOOD COUNT 2.97 M/UL (4.70-6.10); RED CELL DISTRIBUTION WIDTH 14.5 % (11.6-14.8); WHITE BLOOD COUNT 10.8 K/UL (4.8-10.8)
--- NOTE | 2018-12-05 05:35 | NUR ---
NURSE NOTES: NO ACUTE DISTRESS NOTED AT THIS TIME.
[2018-12-05 05:39] LABS: ALANINE AMINOTRANSFERASE 15 U/L (12-78); ALBUMIN 2.2 G/DL (3.4-5.0); ALBUMIN/GLOBULIN RATIO 0.5 (1.0-2.7); ALKALINE PHOSPHATASE 183 U/L (46-116); ANION GAP 14 mmol/L (5-15); ASPARTATE AMINO TRANSFERASE 25 U/L (15-37); BILIRUBIN,TOTAL 0.5 MG/DL (0.2-1.0); BLOOD UREA NITROGEN 53 mg/dL (7-18); CALCIUM 9.2 MG/DL (8.5-10.1); CARBON DIOXIDE 23 MMOL/L (21-32); CHLORIDE 97 MMOL/L (98-107); POTASSIUM 4.7 MMOL/L (3.5-5.1); SODIUM 134 MMOL/L (136-145)
[2018-12-05 05:48] LABS: PHOSPHORUS 5.2 MG/DL (2.5-4.9)
[2018-12-05] MEDS: Clindamycin 600mg 50 ML IV SCH ×3 (05:59→22:24)
[2018-12-05] MEDS: Piperacillin/Tazobactam 2.25 GM in D5W 55 ML IVPB SCH ×3 (05:59→22:25)
[2018-12-05] MEDS: Heparin 25,000u/D5W 500ml 500 ML IV SCH ×2 (06:01→17:42)
[2018-12-05] MEDS: NovoLOG Insulin Flexpen SUBQ SCH ×4 (06:08→21:43)
--- NOTE | 2018-12-05 06:34 | NUR ---
NURSE NOTES: PATIENT WANTED PAIN MED FOR HIS LEFT FOOT PAIN OF 8/10, GIVEN MORPHINE 2MG BY IVP SLOWLY PRN ORDER, WILL CONTINUE TO MONITOR.
--- NOTE | 2018-12-05 07:05 | NUR ---
NURSE NOTES: PATIENT CALM, DENIED PAIN AT THIS TIME.
--- NOTE | 2018-12-05 07:15 | NUR ---
NURSE NOTES: Received report from IWONA Mendoza. Patient observed laying in bed, awake, alert, able to verbalize needs to staff. No pain or discomfort reported at this time. Received on oxygen 3L via N/C SpO2 99%. B/P: 106/62 HR: [address] monitor, T: 98.2. Lt foot ulcer dressing dry and intact, however, does have a foul smell. AV shunt on left upper arm with + bruit and thrill. Right AF #18g intact running NS @ 50mL/hr. Right femoral triple lumen catheter running Heparin @ 18 units/kg/hr. Levo currently off. Urinal at bedside. Instructed patient to use call light for assistance. HOB elevated, bed alarm on and in lowest position. Dialysis ordered for today. will resume plan of care.
--- NOTE | 2018-12-05 07:25 | NUR ---
HAND-OFF: Report given to IWONA JAIMES.
[2018-12-05] MEDS: Nephrovite tab (Rena-Vite) ORAL SCH (08:57)
[2018-12-05] MEDS: Renvela 800mg Pkt ORAL SCH ×3 (08:57→17:51)
[2018-12-05] MEDS: Pantoprazole Inj IVP SCH ×2 (08:57→21:28)
[2018-12-05] MEDS: Docusate 100mg cap ORAL SCH ×3 (08:58→17:51)
[2018-12-05] MEDS: Azithromycin 250mg tab ORAL SCH (08:58)
[2018-12-05] MEDS: Metoprolol Tartrate 12.5mg TAB ORAL SCH (09:00)
[2018-12-05] MEDS: HYDROcodone/Acetamin 5/325 tab ORAL PRN (09:01)
--- NOTE | 2018-12-05 09:01 | NUR ---
NURSE NOTES: Pt complained of left foot pain 6/10. Given [place] 5/325MG PO. Will reassess in 30 mins.
--- NOTE | 2018-12-05 09:31 | NUR ---
NURSE NOTES: Pt reports pain is better, 3/10, after receiving [place] 5/325MG PO. Pt repositioned. Blood collected for CBC, as ordered. Will continue to monitor.
--- NOTE | 2018-12-05 09:37 | General Progress Note ---
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, initial encounter SNOMED: 535783599 Status: unchanged Assessment/Plan: wound care abx pt diet cbc bmp am Subjective Constitutional: Reports: weakness Allergies: Coded Allergies: No Known Allergies (Unverified , 11/30/18) All Systems: reviewed and negative except above Subjective o2nc calm in icu Objective Last 24 Hour Vital Signs Date Time Temp Pulse Resp B/P (MAP) Pulse Ox O2 Delivery O2 Flow Rate FiO2 12/05/18 09:00 65 104/62 12/05/18 08:10 99 Nasal Cannula 3.0 32 12/05/18 08:10 72 18 100 Nasal Cannula 3.0 32 12/05/18 08:00 98.2 68 10 107/68 (81) 100 12/05/18 08:00 Nasal Cannula 3.0 12/05/18 07:25 70 12/05/18 07:00 72 10 99/51 (67) 99 12/05/18 06:30 71 9 125/74 (91) 99 12/05/18 06:00 71 12 128/79 (95) 98 12/05/18 05:30 73 10 127/80 (96) 100 12/05/18 05:00 72 18 128/77 (94) 100 12/05/18 05:00 128/77 12/05/18 04:30 73 15 111/64 (80) 98 12/05/18 04:00 125/76 12/05/18 04:00 Nasal Cannula 3.0 12/05/18 04:00 98.4 73 14 125/76 (92) 99 12/05/18 03:30 74 11 110/51 (70) 99 12/05/18 03:03 72 12/05/18 03:00 129/70 12/05/18 03:00 73 8 129/70 (89) 99 12/05/18 02:30 72 16 131/73 (92) 99 12/05/18 02:00 132/78 12/05/18 02:00 71 9 132/78 (96) 99 12/05/18 01:30 71 16 118/73 (88) 99 12/05/18 01:09 71 15 122/78 (93) 100 12/05/18 01:00 122/78 12/05/18 00:30 71 14 112/71 (85) 100 12/05/18 00:00 Nasal Cannula 3.0 12/05/18 00:00 119/61 12/05/18 00:00 98.4 71 14 119/69 (86) 100 12/04/18 23:30 70 12 121/73 (89) 100 12/04/18 23:13 71 12/04/18 23:00 71 12 110/65 (80) 100 12/04/18 23:00 110/65 12/04/18 22:30 71 16 109/66 (80) 100 12/04/18 22:00 118/69 12/04/18 22:00 70 9 118/69 (85) 99 12/04/18 21:30 71 11 114/67 (83) 100 12/04/18 21:00 123/67 12/04/18 21:00 72 17 123/67 (85) 100 12/04/18 20:57 75 126/68 12/04/18 20:30 72 19 126/68 (87) 100 12/04/18 20:00 98.6 72 10 123/65 (84) 100 12/04/18 20:00 123/65 12/04/18 20:00 Nasal Cannula 3.0 12/04/18 19:52 106/61 12/04/18 19:25 71 12/04/18 19:16 100 Nasal Cannula 3.0 32 12/04/18 19:16 74 19 100 Nasal Cannula 3.0 32 12/04/18 19:00 67 18 114/71 (85) 100 12/04/18 18:30 68 16 115/61 (79) 100 12/04/18 18:03 98.5 12/04/18 18:00 64 16 81/56 (64) 100 12/04/18 17:30 70 16 112/68 (83) 100 12/04/18 17:00 69 18 106/79 (88) 98 12/04/18 16:30 68 11 113/74 (87) 100 12/04/18 16:00 66 12/04/18 16:00 Nasal Cannula 3.0 12/04/18 16:00 98.6 69 11 97/70 (79) 100 12/04/18 15:30 67 18 106/64 (78) 12/04/18 15:00 69 15 99/59 (72) 99 12/04/18 14:30 67 9 84/55 (65) 100 12/04/18 14:00 66 9 99/60 (73) 100 12/04/18 13:30 67 9 102/57 (72) 100 12/04/18 13:00 69 10 103/67 (79) 100 12/04/18 12:30 69 12 103/67 (79) 100 12/04/18 12:00 98.8 70 13 93/54 (67) 100 12/04/18 12:00 Nasal Cannula 3.0 12/04/18 12:00 67 12/04/18 11:30 69 18 110/66 (81) 99 12/04/18 11:00 69 13 103/69 (80) 93 12/04/18 10:30 69 10 108/65 (79) 98 12/04/18 10:19 68 15 94/67 (76) 99 12/04/18 10:00 69 10 111/59 (76) 100 Intake and Output 12/04/18 12/05/18 18:59 06:59 Intake Total 1531.32 ml 1325.203 ml Output Total 0 ml Balance 1531.32 ml 1325.203 ml Intake Oral 340 ml 240 ml IV Total 1191.32 ml 1085.203 ml Output Urine Total 0 ml Laboratory Tests 12/04/18 10:20: Activated Partial Thromboplast Time 102H 12/04/18 18:30: Activated Partial Thromboplast Time 59H 12/05/18 01:50: Activated Partial Thromboplast Time 84H 12/05/18 04:00: White Blood Count 10.8, Red Blood Count 2.97L, Hemoglobin 7.7L, Hematocrit 24.9L , Mean Corpuscular Volume 84, Mean Corpuscular Hemoglobin 26.0L, Mean Corpuscular Hemoglobin Concent 31.0L, Red Cell Distribution Width 14.5, Platelet Count 297, Mean Platelet Volume 6.3L, Neutrophils (%) (Auto) , Lymphocytes (%) (Auto) , Monocytes (%) (Auto) , Eosinophils (%) (Auto) , Basophils (%) (Auto) , Differential Total Cells Counted 100, Neutrophils % ( Manual) 68, Lymphocytes % (Manual) 18L, Monocytes % (Manual) 9, Eosinophils % ( Manual) 5H, Basophils % (Manual) 0, Band Neutrophils 0, Platelet Estimate Adequate, Platelet Morphology Normal, Hypochromasia 3+, Anisocytosis 1+, Sodium Level 134L, Potassium Level 4.7, Chloride Level 97L, Carbon Dioxide Level 23, Anion Gap 14, Blood Urea Nitrogen 53H, Creatinine 8.0H, Estimat Glomerular Filtration Rate , Glucose Level 172H, Calcium Level 9.2, Phosphorus Level 5.2H, Magnesium Level 2.1, Total Bilirubin 0.5, Aspartate Amino Transf (AST/SGOT) 25, Alanine Aminotransferase (ALT/SGPT) 15, Alkaline Phosphatase 183H, Troponin I 4.653H, C-Reactive Protein, Quantitative 31.4H, Pro-B-Type Natriuretic Peptide > 29445U, Total Protein 6.7, Albumin 2.2L, Globulin 4.5, Albumin/Globulin Ratio 0.5L Height (Feet): 5 Height (Inches): 1.00 Weight (Pounds): 172 General Appearance: lethargic EENT: normal ENT inspection Neck: normal alignment Cardiovascular: normal peripheral pulses, normal rate, regular rhythm Respiratory/Chest: chest wall non-tender, lungs clear, normal breath sounds Abdomen: normal bowel sounds, non tender, soft Extremities: normal inspection Edema: no edema noted Arm (L), no edema noted Arm (R), no edema noted Leg (L), no edema noted Leg (R), no edema noted Pedal (L), no edema noted Pedal (R), no edema noted Generalized Neurologic: motor weakness Skin: normal pigmentation, warm/dry AbdiPravinjames Alanisg Dec 05, 2018 09:37
--- NOTE | 2018-12-05 09:50 | Pulmonolgy Critical Care Note ---
Critical Care - Asmt/Plan Problems: (1) Non-ST elevation (NSTEMI) myocardial infarction (2) Severe sepsis (3) Infection of amputation stump (4) ESRD (end stage renal disease) (5) HTN (hypertension) (6) Diabetes (7) Amputation at midfoot Respiratory: monitor respiratory rate, adjust FIO2, CXR Cardiac: continue to monitor HR/BP Renal: F/U I&O Infectious Disease: check cultures, continue antibiotics, other - wbc decreasing Gastrointestinal: adjust feedings Endocrine: monitor blood sugar, continue sliding scale insulin Hematologic: monitor H/H, transfuse if hgb<8.5 Neurologic: PRN Ativan, keep patient comfortable Affect: PRN ativan Prophylaxis: Protonix, Heparin Disposition: transfer to Time Spent (Minutes): 40 Notes Reviewed: composite laminator, cardio, renal Discussed with: nurses, consultants, registered nurse hh case managercafe manager - Objective Last 24 Hour Vital Signs Date Time Temp Pulse Resp B/P (MAP) Pulse Ox O2 Delivery O2 Flow Rate FiO2 12/05/18 09:00 65 104/62 12/05/18 09:00 65 10 104/62 (76) 99 12/05/18 08:10 99 Nasal Cannula 3.0 32 12/05/18 08:10 72 18 100 Nasal Cannula 3.0 32 12/05/18 08:00 98.2 68 10 107/68 (81) 100 12/05/18 08:00 Nasal Cannula 3.0 12/05/18 07:25 70 12/05/18 07:00 72 10 99/51 (67) 99 12/05/18 06:30 71 9 125/74 (91) 99 12/05/18 06:00 71 12 128/79 (95) 98 12/05/18 05:30 73 10 127/80 (96) 100 12/05/18 05:00 72 18 128/77 (94) 100 12/05/18 05:00 128/77 12/05/18 04:30 73 15 111/64 (80) 98 12/05/18 04:00 125/76 12/05/18 04:00 Nasal Cannula 3.0 12/05/18 04:00 98.4 73 14 125/76 (92) 99 12/05/18 03:30 74 11 110/51 (70) 99 12/05/18 03:03 72 12/05/18 03:00 129/70 12/05/18 03:00 73 8 129/70 (89) 99 12/05/18 02:30 72 16 131/73 (92) 99 12/05/18 02:00 132/78 12/05/18 02:00 71 9 132/78 (96) 99 12/05/18 01:30 71 16 118/73 (88) 99 12/05/18 01:09 71 15 122/78 (93) 100 12/05/18 01:00 122/78 12/05/18 00:30 71 14 112/71 (85) 100 12/05/18 00:00 Nasal Cannula 3.0 12/05/18 00:00 119/61 12/05/18 00:00 98.4 71 14 119/69 (86) 100 12/04/18 23:30 70 12 121/73 (89) 100 12/04/18 23:13 71 12/04/18 23:00 71 12 110/65 (80) 100 12/04/18 23:00 110/65 12/04/18 22:30 71 16 109/66 (80) 100 12/04/18 22:00 118/69 12/04/18 22:00 70 9 118/69 (85) 99 12/04/18 21:30 71 11 114/67 (83) 100 12/04/18 21:00 123/67 12/04/18 21:00 72 17 123/67 (85) 100 12/04/18 20:57 75 126/68 12/04/18 20:30 72 19 126/68 (87) 100 12/04/18 20:00 98.6 72 10 123/65 (84) 100 12/04/18 20:00 123/65 12/04/18 20:00 Nasal Cannula 3.0 12/04/18 19:52 106/61 12/04/18 19:25 71 12/04/18 19:16 100 Nasal Cannula 3.0 32 12/04/18 19:16 74 19 100 Nasal Cannula 3.0 32 12/04/18 19:00 67 18 114/71 (85) 100 12/04/18 18:30 68 16 115/61 (79) 100 12/04/18 18:03 98.5 12/04/18 18:00 64 16 81/56 (64) 100 12/04/18 17:30 70 16 112/68 (83) 100 12/04/18 17:00 69 18 106/79 (88) 98 12/04/18 16:30 68 11 113/74 (87) 100 12/04/18 16:00 66 12/04/18 16:00 Nasal Cannula 3.0 12/04/18 16:00 98.6 69 11 97/70 (79) 100 12/04/18 15:30 67 18 106/64 (78) 12/04/18 15:00 69 15 99/59 (72) 99 12/04/18 14:30 67 9 84/55 (65) 100 12/04/18 14:00 66 9 99/60 (73) 100 12/04/18 13:30 67 9 102/57 (72) 100 12/04/18 13:00 69 10 103/67 (79) 100 12/04/18 12:30 69 12 103/67 (79) 100 12/04/18 12:00 98.8 70 13 93/54 (67) 100 12/04/18 12:00 Nasal Cannula 3.0 12/04/18 12:00 67 12/04/18 11:30 69 18 110/66 (81) 99 12/04/18 11:00 69 13 103/69 (80) 93 12/04/18 10:30 69 10 108/65 (79) 98 12/04/18 10:19 68 15 94/67 (76) 99 12/04/18 10:00 69 10 111/59 (76) 100 Status: awake Condition: critical HEENT: atraumatic, normocephalic Neck: full ROM Lungs: clear Heart: HR/BP stable Abdomen: soft, active bowel sounds Decubiti: stage - 4 Accucheck: 150 Critical Care - Subjective ROS Limited/Unobtainable: Yes Condition: critical EKG Rhythm: Sinus Rhythm FI02: 32 Sputum Amount: None I&O: Intake and Output 12/04/18 12/05/18 18:59 06:59 Intake Total 1531.32 ml 1325.203 ml Output Total 0 ml Balance 1531.32 ml 1325.203 ml Intake Oral 340 ml 240 ml IV Total 1191.32 ml 1085.203 ml Output Urine Total 0 ml CXR: JANICE Labs: Laboratory Tests Test 12/04/18 10:20 12/04/18 18:30 12/05/18 01:50 12/05/18 04:00 Activated Partial Thromboplast Time 102 SEC (23-33) H 59 SEC (23-33) H 84 SEC (23-33) H White Blood Count 10.8 K/UL (4.8-10.8) Red Blood Count 2.97 M/UL (4.70-6.10) L Hemoglobin 7.7 G/DL (14.2-18.0) L Hematocrit 24.9 % (42.0-52.0) L Mean Corpuscular Volume 84 FL (80-99) Mean Corpuscular Hemoglobin 26.0 PG (27.0-31.0) L Mean Corpuscular Hemoglobin Concent 31.0 G/DL (32.0-36.0) L Red Cell Distribution Width 14.5 % (11.6-14.8) Platelet Count 297 K/UL (150-450) Mean Platelet Volume 6.3 FL (6.5-10.1) L Neutrophils (%) (Auto) % (45.0-75.0) Lymphocytes (%) (Auto) % (20.0-45.0) Monocytes (%) (Auto) % (1.0-10.0) Eosinophils (%) (Auto) % (0.0-3.0) Basophils (%) (Auto) % (0.0-2.0) Differential Total Cells Counted 100 Neutrophils % (Manual) 68 % (45-75) Lymphocytes % (Manual) 18 % (20-45) L Monocytes % (Manual) 9 % (1-10) Eosinophils % (Manual) 5 % (0-3) H Basophils % (Manual) 0 % (0-2) Band Neutrophils 0 % (0-8) Platelet Estimate Adequate Platelet Morphology Normal Hypochromasia 3+ Anisocytosis 1+ Sodium Level 134 MMOL/L (136-145) L Potassium Level 4.7 MMOL/L (3.5-5.1) Chloride Level 97 MMOL/L (98-107) L Carbon Dioxide Level 23 MMOL/L (21-32) Anion Gap 14 mmol/L (5-15) Blood Urea Nitrogen 53 mg/dL (7-18) H Creatinine 8.0 MG/DL (0.55-1.30) H Estimat Glomerular Filtration Rate mL/min (>60) Glucose Level 172 MG/DL (74-106) H Calcium Level 9.2 MG/DL (8.5-10.1) Phosphorus Level 5.2 MG/DL (2.5-4.9) H Magnesium Level 2.1 MG/DL (1.8-2.4) Total Bilirubin 0.5 MG/DL (0.2-1.0) Aspartate Amino Transf (AST/SGOT) 25 U/L (15-37) Alanine Aminotransferase (ALT/SGPT) 15 U/L (12-78) Alkaline Phosphatase 183 U/L (46-116) H Troponin I 4.653 ng/mL (0.000-0.056) C-Reactive Protein, Quantitative 31.4 mg/dL (0.00-0.90) H Pro-B-Type Natriuretic Peptide > 47367 pg/mL (0-125) H Total Protein 6.7 G/DL (6.4-8.2) Albumin 2.2 G/DL (3.4-5.0) L Globulin 4.5 g/dL Albumin/Globulin Ratio 0.5 (1.0-2.7) L Rebekah Arora MD Dec 05, 2018 09:50
--- NOTE | 2018-12-05 10:20 | NUR ---
NURSE NOTES: tax preparerJessica, at bedside, connected pt to machine and started dialysis. Patient tolerating well. B/P:107/54, HR:63, RR:11, SpO2:99%.
[2018-12-05 10:23] LABS: HEMATOCRIT 23.8 % (42.0-52.0); HEMOGLOBIN 7.4 G/DL (14.2-18.0); MEAN CORPUSCULAR VOLUME 83 FL (80-99); PLATELET COUNT 279 K/UL (150-450); RED BLOOD COUNT 2.85 M/UL (4.70-6.10); RED CELL DISTRIBUTION WIDTH 14.6 % (11.6-14.8); WHITE BLOOD COUNT 10.7 K/UL (4.8-10.8)
--- NOTE | 2018-12-05 10:53 | Hematology/Onc Progress Note ---
Assessment/Plan Assessment/Plan Assessment/Plan: # Coagulation defect, multifactorial usually related to poor PO intake versus medications, versus cirrhosis, in this case, is likely related to sepsis and dic (on admission) and now on hep gtt --> administer Vitamin K if patient is bleeding or FFP if the INR is >10 --> hold off on ffp unless active procedure/bleeding, first begin with vit K 10 --> mixing study ordered and reviewed, likely has vit K deficiency --> hep and hiv are negative --> us of the abdomen shows potential cirrhosis/undefined # Anemia of chronic disease, due to underlying chronic medical issues, multifactorial --> Anemia workup has been reviewed, is c/w acd --> No evidence of hemolysis is noted, peripheral smear has been reviewed --> Hgb goal >7. Transfuse prn. --> Epogen or iron at this time is not particularly indicated --> Medications have been reviewed --> low threshold for gi evaluation in case has occult + --> hgb 8.4-->7.7-->7.4 # Leukocytosis/elevated white blood cell count, unspecified likely related to underlying stress reaction with septic shock (with poss pna) --> have reviewed peripheral smear and bandemia/neutrophilia noted --> continue antibiotics if they have been started by ID team (clinda/indira/vanc) --> monitor for resolution # Acute LA --> is on heparin gtt --> with esrd --> as per cards recs --> TTe neg for vegetatons # Infected leg ulcer, probably gangrene --> Ulcer of heel and midfoot with necrosis to bone --> per podiatry and surg recs --> pending surgery shortly # PVD with amputation # End-stage renal disease - on hemodialysis --> per renal HD 12/03 # Electrolyte abnormalities # Diabetes mellitus with diabetic neuropathy # Dvt ppx scds/hep gtt The timing of this note does not necessarily reflect the time of the patient was seen. Greatly appreciate consultation. Subjective Constitutional: Denies: no symptoms, chills, fever, malaise, weakness, other HEENT: Denies: no symptoms, eye pain, blurred vision, tearing, double vision, ear pain, ear discharge, nose pain, nose congestion, throat pain, throat swelling, mouth pain, mouth swelling, other Respiratory: Denies: no symptoms, cough, shortness of breath, SOB with excertion, SOB at rest, sputum, wheezing, other Neurologic/Psychiatric: Denies: no symptoms, anxiety, depressed, emotional problems, headache, numbness, paresthesia, pre-existing deficit, seizure, tingling, tremors, weakness, other Endocrine: Denies: no symptoms, excessive sweating, flushing, intolerance to cold, intolerance to heat, increased hunger, increased thirst, increased urine, unexplained weight gain, unexplained weight loss, other Hematologic/Lymphatic: Denies: no symptoms, anemia, easy bleeding, easy bruising, adenopathy, other Allergies: Coded Allergies: No Known Allergies (Unverified , 11/30/18) Subjective 12/03: no bleeding, no night sweats, on levo in icu, dw rn 12/04: remains on heparin, remains in icu, on pressor, pending surgery shortly 12/05: hd today, given norco, on hep gtt Objective Objective Current Medications Medications (Trade) Dose Ordered Sig/Elva Route PRN Reason Start Time Stop Time Status Last Admin Dose Admin Acetaminophen (Tylenol) 650 mg Q4H PRN ORAL fever 11/30/18 14:45 12/30/18 14:44 12/03/18 19:42 Acetaminophen/ Hydrocodone Bitart ([place] 10/325) 1 tab EVERY 6 HOURS PRN ORAL Severe Pain (Pain Scale 7-10) 11/30/18 23:15 12/07/18 23:14 12/04/18 04:36 Acetaminophen/ Hydrocodone Bitart ([place] 5/325) 1 tab Q6H PRN ORAL Moderate Pain (Pain Scale 4-6) 11/30/18 23:15 12/07/18 23:14 12/05/18 09:01 Albuterol/ Ipratropium (Albuterol/ Ipratropium) 3 ml Q4H PRN HHN Shortness of Breath 11/30/18 14:45 12/05/18 14:44 12/01/18 03:50 Aspirin (ASA) 325 mg DAILY ORAL 12/03/18 10:00 01/02/19 09:59 12/05/18 08:57 Atorvastatin Calcium (Lipitor) 80 mg BEDTIME ORAL 11/30/18 21:00 12/30/18 20:59 12/04/18 20:57 Azithromycin (Zithromax) 500 mg DAILY ORAL 12/02/18 09:00 12/09/18 08:59 12/05/18 08:58 Chlorhexidine Gluconate (Keke-Hex 2%) 1 applic DAILY@2000 TOPIC 12/01/18 20:00 12/31/18 19:59 12/04/18 19:52 Clindamycin HCl/ Dextrose 50 ml @ 100 mls/hr Q8HR IV 12/01/18 22:00 12/08/18 21:59 12/05/18 05:59 Dextrose (Dextrose 50%) 25 ml Q30M PRN IV Hypoglycemia 12/04/18 08:15 01/03/19 08:14 Dextrose (Dextrose 50%) 50 ml Q30M PRN IV Hypoglycemia 12/04/18 08:15 01/03/19 08:14 Docusate Sodium (Colace) 100 mg THREE TIMES A DAY ORAL 12/02/18 13:00 01/01/19 12:59 12/05/18 08:58 Heparin Sodium/ Dextrose 500 ml @ 27.597 mls/ hr ADJUST PER PROTOCOL IV 12/04/18 19:15 01/03/19 19:14 12/05/18 06:01 Insulin Aspart (NovoLOG) BEFORE MEALS AND HS SUBQ 12/04/18 11:30 01/03/19 11:29 12/05/18 06:08 Metoprolol Tartrate (Lopressor) 12.5 mg Q12HR ORAL 11/30/18 21:00 12/30/18 20:59 Morphine Sulfate (Morphine Sulfate) 2 mg Q4H PRN IVP Severe Pain (Pain Scale 7-10) 11/30/18 14:45 12/07/18 14:44 12/05/18 06:34 Norepinephrine Bitartrate 4 mg/ Dextrose 254 ml @ 0 mls/hr Q24H IV 11/30/18 14:45 12/30/18 14:44 12/04/18 19:52 Ondansetron HCl (Zofran) 4 mg Q6H PRN IVP Nausea & Vomiting 11/30/18 14:45 12/30/18 14:44 Pantoprazole (Protonix) 40 mg Q12HR IVP 12/02/18 21:00 12/31/18 08:59 12/05/18 08:57 Piperacillin Sod/ Tazobactam Sod 2.25 gm/Dextrose 55 ml @ 110 mls/hr Q8HR IVPB 12/03/18 14:00 12/10/18 13:59 12/05/18 05:59 Polyethylene Glycol (Miralax) 17 gm DAILYPRN PRN ORAL Constipation 11/30/18 14:45 12/30/18 14:44 Sevelamer Carbonate (Renvela) 800 mg THREE TIMES A DAY ORAL 11/30/18 18:00 12/30/18 17:59 12/05/18 08:57 Sodium Chloride 1,000 ml @ 50 mls/hr Q20H IV 11/30/18 15:30 12/30/18 15:29 12/04/18 14:45 Vancomycin HCl (Vanco rx to dose) 1 ea DAILY PRN MISC Per rx protocol 11/30/18 14:00 12/30/18 13:59 Vitamin B Complex/ Vit C/Folic Acid (Nephrovite) 1 tab DAILY ORAL 12/01/18 09:00 12/31/18 08:59 12/05/18 08:57 Last 24 Hour Vital Signs Date Time Temp Pulse Resp B/P (MAP) Pulse Ox O2 Delivery O2 Flow Rate FiO2 12/05/18 10:00 64 15 101/56 (71) 99 12/05/18 09:00 65 104/62 12/05/18 09:00 65 10 104/62 (76) 99 12/05/18 08:10 99 Nasal Cannula 3.0 32 12/05/18 08:10 72 18 100 Nasal Cannula 3.0 32 12/05/18 08:00 98.2 68 10 107/68 (81) 100 12/05/18 08:00 Nasal Cannula 3.0 12/05/18 07:25 70 12/05/18 07:00 72 10 99/51 (67) 99 12/05/18 06:30 71 9 125/74 (91) 99 12/05/18 06:00 71 12 128/79 (95) 98 12/05/18 05:30 73 10 127/80 (96) 100 12/05/18 05:00 72 18 128/77 (94) 100 12/05/18 05:00 128/77 12/05/18 04:30 73 15 111/64 (80) 98 12/05/18 04:00 125/76 12/05/18 04:00 Nasal Cannula 3.0 12/05/18 04:00 98.4 73 14 125/76 (92) 99 12/05/18 03:30 74 11 110/51 (70) 99 12/05/18 03:03 72 12/05/18 03:00 129/70 12/05/18 03:00 73 8 129/70 (89) 99 12/05/18 02:30 72 16 131/73 (92) 99 12/05/18 02:00 132/78 12/05/18 02:00 71 9 132/78 (96) 99 12/05/18 01:30 71 16 118/73 (88) 99 12/05/18 01:09 71 15 122/78 (93) 100 12/05/18 01:00 122/78 12/05/18 00:30 71 14 112/71 (85) 100 12/05/18 00:00 Nasal Cannula 3.0 12/05/18 00:00 119/61 12/05/18 00:00 98.4 71 14 119/69 (86) 100 12/04/18 23:30 70 12 121/73 (89) 100 12/04/18 23:13 71 12/04/18 23:00 71 12 110/65 (80) 100 12/04/18 23:00 110/65 12/04/18 22:30 71 16 109/66 (80) 100 12/04/18 22:00 118/69 12/04/18 22:00 70 9 118/69 (85) 99 12/04/18 21:30 71 11 114/67 (83) 100 12/04/18 21:00 123/67 12/04/18 21:00 72 17 123/67 (85) 100 12/04/18 20:57 75 126/68 12/04/18 20:30 72 19 126/68 (87) 100 12/04/18 20:00 98.6 72 10 123/65 (84) 100 12/04/18 20:00 123/65 12/04/18 20:00 Nasal Cannula 3.0 12/04/18 19:52 106/61 12/04/18 19:25 71 10/15/19 19:16 100 Nasal Cannula 3.0 32 12/04/18 19:16 74 19 100 Nasal Cannula 3.0 32 12/04/18 19:00 67 18 114/71 (85) 100 12/04/18 18:30 68 16 115/61 (79) 100 12/04/18 18:03 98.5 12/04/18 18:00 64 16 81/56 (64) 100 12/04/18 17:30 70 16 112/68 (83) 100 12/04/18 17:00 69 18 106/79 (88) 98 12/04/18 16:30 68 11 113/74 (87) 100 12/04/18 16:00 66 12/04/18 16:00 Nasal Cannula 3.0 12/04/18 16:00 98.6 69 11 97/70 (79) 100 12/04/18 15:30 67 18 106/64 (78) 12/04/18 15:00 69 15 99/59 (72) 99 12/04/18 14:30 67 9 84/55 (65) 100 12/04/18 14:00 66 9 99/60 (73) 100 12/04/18 13:30 67 9 102/57 (72) 100 12/04/18 13:00 69 10 103/67 (79) 100 12/04/18 12:30 69 12 103/67 (79) 100 12/04/18 12:00 98.8 70 13 93/54 (67) 100 12/04/18 12:00 Nasal Cannula 3.0 12/04/18 12:00 67 12/04/18 11:30 69 18 110/66 (81) 99 12/04/18 11:00 69 13 103/69 (80) 93 12/04/18 10:30 69 10 108/65 (79) 98 12/04/18 10:19 68 15 94/67 (76) 99 12/04/18 10:00 69 10 111/59 (76) 100 12/04/18 09:00 98.5 81 9 124/65 (84) 98 12/04/18 09:00 71 97/72 12/04/18 08:56 71 20 100 Nasal Cannula 3.0 32 12/04/18 08:56 100 Nasal Cannula 3.0 32 12/04/18 08:30 68 15 94/67 (76) 99 10/15/19 08:00 Nasal Cannula 3.0 12/04/18 08:00 69 18 97/58 (71) 99 12/04/18 08:00 71 12/04/18 07:30 70 12 97/61 (73) 100 12/04/18 07:00 72 9 96/59 (71) 98 12/04/18 07:00 96/59 12/04/18 06:30 80 11 132/68 (89) 99 12/04/18 06:00 132/68 12/04/18 06:00 99.4 81 9 124/65 (84) 98 12/04/18 05:06 99.5 12/04/18 05:00 81 13 130/75 (93) 97 12/04/18 05:00 96/79 12/04/18 04:00 Nasal Cannula 3.0 12/04/18 04:00 99.5 82 11 133/75 (94) 98 12/04/18 04:00 109/69 12/04/18 03:00 79 13 119/71 (87) 98 12/04/18 03:00 119/71 12/04/18 02:00 77 11 131/67 (88) 99 12/04/18 02:00 131/61 12/04/18 01:30 76 12 125/70 (88) 99 12/04/18 01:00 75 16 110/71 (84) 99 12/04/18 01:00 80 12/04/18 01:00 110/71 12/04/18 00:30 74 12 131/70 (90) 98 12/04/18 00:02 99.0 67 13 89/53 (65) 12/04/18 00:00 82 12/04/18 00:00 89/53 12/04/18 00:00 Nasal Cannula 3.0 12/03/18 23:30 68 12 92/55 (67) 99 12/03/18 23:00 69 12 96/56 (69) 100 12/03/18 23:00 96/56 12/03/18 22:00 71 12 99/65 (76) 100 12/03/18 22:00 99/65 12/03/18 21:30 73 11 108/62 (77) 97 12/03/18 21:00 75 106/62 12/03/18 21:00 97/56 12/03/18 21:00 74 13 97/56 (70) 98 12/03/18 20:30 75 13 106/62 (77) 98 12/03/18 20:12 99.5 12/03/18 20:12 99.5 12/03/18 20:00 Nasal Cannula 3.0 12/03/18 20:00 75 12/03/18 20:00 100.6 74 12 99/59 (72) 98 12/03/18 20:00 99/59 12/03/18 19:42 100.6 12/03/18 19:30 81 18 121/67 (85) 98 12/03/18 19:26 80 20 98 Nasal Cannula 3.0 32 12/03/18 19:21 98 Nasal Cannula 3.0 32 12/03/18 19:00 80 20 123/70 (87) 99 12/03/18 19:00 123/70 12/03/18 18:45 81 13 105/58 (74) 100 12/03/18 18:45 123/70 12/03/18 18:30 81 13 105/58 (74) 100 12/03/18 18:30 109/60 12/03/18 18:15 81 13 81/54 (63) 98 12/03/18 18:15 84/67 12/03/18 18:00 83 13 133/70 (91) 98 12/03/18 18:00 116/59 12/03/18 17:55 116/59 12/03/18 17:00 83 13 133/70 (91) 98 12/03/18 17:00 116/59 12/03/18 16:00 99.5 83 12 125/67 (86) 96 12/03/18 16:00 121/70 12/03/18 16:00 Nasal Cannula 3.0 12/03/18 16:00 81 12/03/18 15:00 119/64 12/03/18 15:00 81 11 127/70 (89) 98 12/03/18 14:45 127/70 12/03/18 14:00 84 23 145/102 (116) 96 12/03/18 14:00 118/70 12/03/18 13:00 78 16 132/69 (90) 100 12/03/18 13:00 124/73 12/03/18 12:00 98.7 80 16 120/90 (100) 100 12/03/18 12:00 133/74 12/03/18 12:00 Nasal Cannula 3.0 12/03/18 12:00 80 12/03/18 11:00 79 10 125/67 (86) 100 12/03/18 11:00 126/66 Intake and Output 12/04/18 12/05/18 18:59 06:59 Intake Total 1531.32 ml 1325.203 ml Output Total 0 ml Balance 1531.32 ml 1325.203 ml Intake Oral 340 ml 240 ml IV Total 1191.32 ml 1085.203 ml Output Urine Total 0 ml Labs Test 12/02/18 12:45 12/02/18 20:20 12/03/18 03:00 12/03/18 11:49 White Blood Count 18.4 K/UL (4.8-10.8) 15.3 K/UL (4.8-10.8) Red Blood Count 3.25 M/UL (4.70-6.10) 3.14 M/UL (4.70-6.10) Hemoglobin 8.4 G/DL (14.2-18.0) 8.2 G/DL (14.2-18.0) Hematocrit 27.7 % (42.0-52.0) 26.4 % (42.0-52.0) Mean Corpuscular Volume 85 FL (80-99) 84 FL (80-99) Mean Corpuscular Hemoglobin 26.0 PG (27.0-31.0) 26.1 PG (27.0-31.0) Mean Corpuscular Hemoglobin Concent 30.5 G/DL (32.0-36.0) 31.0 G/DL (32.0-36.0) Red Cell Distribution Width 14.2 % (11.6-14.8) 14.7 % (11.6-14.8) Platelet Count 312 K/UL (150-450) 309 K/UL (150-450) Mean Platelet Volume 5.9 FL (6.5-10.1) 6.2 FL (6.5-10.1) Neutrophils (%) (Auto) % (45.0-75.0) 83.9 % (45.0-75.0) Lymphocytes (%) (Auto) % (20.0-45.0) 7.6 % (20.0-45.0) Monocytes (%) (Auto) % (1.0-10.0) 7.3 % (1.0-10.0) Eosinophils (%) (Auto) % (0.0-3.0) 0.9 % (0.0-3.0) Basophils (%) (Auto) % (0.0-2.0) 0.3 % (0.0-2.0) Differential Total Cells Counted 100 Neutrophils % (Manual) 92 % (45-75) Lymphocytes % (Manual) 5 % (20-45) Monocytes % (Manual) 1 % (1-10) Eosinophils % (Manual) 1 % (0-3) Basophils % (Manual) 0 % (0-2) Band Neutrophils 1 % (0-8) Platelet Estimate Adequate Platelet Morphology Normal Hypochromasia 2+ Anisocytosis 1+ Prothrombin Time 18.4 SEC (9.30-11.50) 16.5 SEC (9.30-11.50) Prothromb Time International Ratio 1.8 (0.9-1.1) 1.6 (0.9-1.1) Activated Partial Thromboplast Time 46 SEC (23-33) 60 SEC (23-33) 55 SEC (23-33) 54 SEC (23-33) Sodium Level 136 MMOL/L (136-145) Potassium Level 4.8 MMOL/L (3.5-5.1) Chloride Level 99 MMOL/L (98-107) Carbon Dioxide Level 23 MMOL/L (21-32) Anion Gap 14 mmol/L (5-15) Blood Urea Nitrogen 70 mg/dL (7-18) Creatinine 9.3 MG/DL (0.55-1.30) Estimat Glomerular Filtration Rate mL/min (>60) Glucose Level 238 MG/DL (74-106) Calcium Level 9.1 MG/DL (8.5-10.1) Phosphorus Level 4.3 MG/DL (2.5-4.9) Magnesium Level 2.4 MG/DL (1.8-2.4) Total Bilirubin 0.6 MG/DL (0.2-1.0) Aspartate Amino Transf (AST/SGOT) 35 U/L (15-37) Alanine Aminotransferase (ALT/SGPT) 18 U/L (12-78) Alkaline Phosphatase 186 U/L (46-116) Troponin I 11.137 ng/mL (0.000-0.056) 9.199 ng/mL (0.000-0.056) C-Reactive Protein, Quantitative 29.4 mg/dL (0.00-0.90) Pro-B-Type Natriuretic Peptide > 00289 pg/mL (0-125) Total Protein 6.8 G/DL (6.4-8.2) Albumin 2.3 G/DL (3.4-5.0) Globulin 4.5 g/dL Albumin/Globulin Ratio 0.5 (1.0-2.7) Test 12/03/18 19:55 12/04/18 02:50 12/04/18 10:20 12/04/18 18:30 Activated Partial Thromboplast Time 99 SEC (23-33) 56 SEC (23-33) 102 SEC (23-33) 59 SEC (23-33) Troponin I 7.754 ng/mL (0.000-0.056) 7.033 ng/mL (0.000-0.056) Random Vancomycin Level 19.5 ug/mL White Blood Count 12.8 K/UL (4.8-10.8) Red Blood Count 3.23 M/UL (4.70-6.10) Hemoglobin 8.4 G/DL (14.2-18.0) Hematocrit 27.0 % (42.0-52.0) Mean Corpuscular Volume 84 FL (80-99) Mean Corpuscular Hemoglobin 25.9 PG (27.0-31.0) Mean Corpuscular Hemoglobin Concent 31.0 G/DL (32.0-36.0) Red Cell Distribution Width 14.0 % (11.6-14.8) Platelet Count 306 K/UL (150-450) Mean Platelet Volume 6.0 FL (6.5-10.1) Neutrophils (%) (Auto) 75.6 % (45.0-75.0) Lymphocytes (%) (Auto) 13.0 % (20.0-45.0) Monocytes (%) (Auto) 8.3 % (1.0-10.0) Eosinophils (%) (Auto) 2.5 % (0.0-3.0) Basophils (%) (Auto) 0.6 % (0.0-2.0) Erythrocyte Sedimentation Rate 124 MM/HR (0-20) Prothrombin Time 17.0 SEC (9.30-11.50) Prothromb Time International Ratio 1.6 (0.9-1.1) Sodium Level 135 MMOL/L (136-145) Potassium Level 4.2 MMOL/L (3.5-5.1) Chloride Level 99 MMOL/L (98-107) Carbon Dioxide Level 26 MMOL/L (21-32) Anion Gap 10 mmol/L (5-15) Blood Urea Nitrogen 46 mg/dL (7-18) Creatinine 7.1 MG/DL (0.55-1.30) Estimat Glomerular Filtration Rate mL/min (>60) Glucose Level 194 MG/DL (74-106) Calcium Level 9.1 MG/DL (8.5-10.1) Phosphorus Level 3.8 MG/DL (2.5-4.9) Magnesium Level 2.2 MG/DL (1.8-2.4) Total Bilirubin 0.7 MG/DL (0.2-1.0) Direct Bilirubin 0.3 MG/DL (0.0-0.3) Aspartate Amino Transf (AST/SGOT) 46 U/L (15-37) Alanine Aminotransferase (ALT/SGPT) 20 U/L (12-78) Alkaline Phosphatase 247 U/L (46-116) C-Reactive Protein, Quantitative 25.9 mg/dL (0.00-0.90) Total Protein 7.0 G/DL (6.4-8.2) Albumin 2.2 G/DL (3.4-5.0) HIV (1&2) Antibody Rapid Negative (NEGATIVE) Test 12/05/18 01:50 12/05/18 04:00 12/05/18 09:30 Activated Partial Thromboplast Time 84 SEC (23-33) White Blood Count 10.8 K/UL (4.8-10.8) 10.7 K/UL (4.8-10.8) Red Blood Count 2.97 M/UL (4.70-6.10) 2.85 M/UL (4.70-6.10) Hemoglobin 7.7 G/DL (14.2-18.0) 7.4 G/DL (14.2-18.0) Hematocrit 24.9 % (42.0-52.0) 23.8 % (42.0-52.0) Mean Corpuscular Volume 84 FL (80-99) 83 FL (80-99) Mean Corpuscular Hemoglobin 26.0 PG (27.0-31.0) 25.8 PG (27.0-31.0) Mean Corpuscular Hemoglobin Concent 31.0 G/DL (32.0-36.0) 31.0 G/DL (32.0-36.0) Red Cell Distribution Width 14.5 % (11.6-14.8) 14.6 % (11.6-14.8) Platelet Count 297 K/UL (150-450) 279 K/UL (150-450) Mean Platelet Volume 6.3 FL (6.5-10.1) 6.6 FL (6.5-10.1) Neutrophils (%) (Auto) % (45.0-75.0) % (45.0-75.0) Lymphocytes (%) (Auto) % (20.0-45.0) % (20.0-45.0) Monocytes (%) (Auto) % (1.0-10.0) % (1.0-10.0) Eosinophils (%) (Auto) % (0.0-3.0) % (0.0-3.0) Basophils (%) (Auto) % (0.0-2.0) % (0.0-2.0) Differential Total Cells Counted 100 Neutrophils % (Manual) 68 % (45-75) Lymphocytes % (Manual) 18 % (20-45) Monocytes % (Manual) 9 % (1-10) Eosinophils % (Manual) 5 % (0-3) Basophils % (Manual) 0 % (0-2) Band Neutrophils 0 % (0-8) Platelet Estimate Adequate Platelet Morphology Normal Hypochromasia 3+ Anisocytosis 1+ Sodium Level 134 MMOL/L (136-145) Potassium Level 4.7 MMOL/L (3.5-5.1) Chloride Level 97 MMOL/L (98-107) Carbon Dioxide Level 23 MMOL/L (21-32) Anion Gap 14 mmol/L (5-15) Blood Urea Nitrogen 53 mg/dL (7-18) Creatinine 8.0 MG/DL (0.55-1.30) Estimat Glomerular Filtration Rate mL/min (>60) Glucose Level 172 MG/DL (74-106) Calcium Level 9.2 MG/DL (8.5-10.1) Phosphorus Level 5.2 MG/DL (2.5-4.9) Magnesium Level 2.1 MG/DL (1.8-2.4) Total Bilirubin 0.5 MG/DL (0.2-1.0) Aspartate Amino Transf (AST/SGOT) 25 U/L (15-37) Alanine Aminotransferase (ALT/SGPT) 15 U/L (12-78) Alkaline Phosphatase 183 U/L (46-116) Troponin I 4.653 ng/mL (0.000-0.056) C-Reactive Protein, Quantitative 31.4 mg/dL (0.00-0.90) Pro-B-Type Natriuretic Peptide > 64334 pg/mL (0-125) Total Protein 6.7 G/DL (6.4-8.2) Albumin 2.2 G/DL (3.4-5.0) Globulin 4.5 g/dL Albumin/Globulin Ratio 0.5 (1.0-2.7) Height (Feet): 5 Height (Inches): 1.00 Weight (Pounds): 172 Objective Physical Exam: Vitals: reviewed General Appearance: NAD HEENT: normocephalic, atraumatic Neck: non-tender, normal alignment Respiratory/Chest: normal breath sounds bilaterally Cardiovascular/Chest: normal peripheral pulses, normal rate Abdomen: normal bowel sounds, soft, nontender Extremities: normal range of motion s/p midfoot amputation ; R midfoot SCALEMAN, L midfoot with dressing, femoral line ++ Musculoskeletal: atrophy - BLE, other - kat mid foot amputation Lloyd Dailey MD Dec 05, 2018 10:53
--- NOTE | 2018-12-05 11:48 | Infectious Diseases Prog Note ---
Assessment/Plan Assessment/Plan Assessment: Septic shock-2ry to PNA and wet gangrene -12/01 CXR: . Interval development of patchy consolidation throughout the right lung, concerning for pneumonia. Consolidations related to pulmonary edema are less likely since it is predominantly on the right side. Persistent pulmonary vascular congestion. -CXR: Pulmonary vascularity and interstitium are prominent. -influenza sc neg -sp cx normal resp ingris - BCx NTD L heel wet gangrene -wound cx GNR #1, #2, GPC -xray L tibia/fibula: No acute injury identified. Diffuse osteopenia. Fever ; improving Hyperleukocytosis; SP ESRD on HD MWF anemia polyneuropathy GERD NH resident Plan: -Continue ZOsyn #3 (abx d #6) -COntinue empiric IV Vancomycin #6, Clindamycin #5 -Azithromycin #5/5 -12/03 SP Meropenem #4 -11/30 SP Cefepime #1, Flagyl #1 -f/u cx (Sp, BL) -Monitor CBC/CMP, temperatures -ICU care -aspiration precautions -podiatry, surgery f/u- plan for L foot amputation Thank you for this consultation. Will continue to follow along with you. Discussed with RN Subjective Allergies: Coded Allergies: No Known Allergies (Unverified , 11/30/18) Subjective afebrile >36hrs leukocytosis resolevd off levophed Objective Vital Signs Last 24 Hour Vital Signs Date Time Temp Pulse Resp B/P (MAP) Pulse Ox O2 Delivery O2 Flow Rate FiO2 12/05/18 11:00 65 13 94/56 (69) 100 12/05/18 10:00 64 15 101/56 (71) 99 12/05/18 09:00 65 104/62 12/05/18 09:00 65 10 104/62 (76) 99 12/05/18 08:10 99 Nasal Cannula 3.0 32 12/05/18 08:10 72 18 100 Nasal Cannula 3.0 32 12/05/18 08:00 98.2 68 10 107/68 (81) 100 12/05/18 08:00 Nasal Cannula 3.0 12/05/18 07:25 70 12/05/18 07:00 72 10 99/51 (67) 99 12/05/18 06:30 71 9 125/74 (91) 99 12/05/18 06:00 71 12 128/79 (95) 98 12/05/18 05:30 73 10 127/80 (96) 100 12/05/18 05:00 72 18 128/77 (94) 100 12/05/18 05:00 128/77 12/05/18 04:30 73 15 111/64 (80) 98 12/05/18 04:00 125/76 12/05/18 04:00 Nasal Cannula 3.0 12/05/18 04:00 98.4 73 14 125/76 (92) 99 12/05/18 03:30 74 11 110/51 (70) 99 12/05/18 03:03 72 12/05/18 03:00 129/70 12/05/18 03:00 73 8 129/70 (89) 99 12/05/18 02:30 72 16 131/73 (92) 99 12/05/18 02:00 132/78 12/05/18 02:00 71 9 132/78 (96) 99 12/05/18 01:30 71 16 118/73 (88) 99 12/05/18 01:09 71 15 122/78 (93) 100 12/05/18 01:00 122/78 12/05/18 00:30 71 14 112/71 (85) 100 12/05/18 00:00 Nasal Cannula 3.0 12/05/18 00:00 119/61 12/05/18 00:00 98.4 71 14 119/69 (86) 100 12/04/18 23:30 70 12 121/73 (89) 100 12/04/18 23:13 71 12/04/18 23:00 71 12 110/65 (80) 100 12/04/18 23:00 110/65 12/04/18 22:30 71 16 109/66 (80) 100 12/04/18 22:00 118/69 12/04/18 22:00 70 9 118/69 (85) 99 12/04/18 21:30 71 11 114/67 (83) 100 12/04/18 21:00 123/67 12/04/18 21:00 72 17 123/67 (85) 100 12/04/18 20:57 75 126/68 12/04/18 20:30 72 19 126/68 (87) 100 12/04/18 20:00 98.6 72 10 123/65 (84) 100 12/04/18 20:00 123/65 12/04/18 20:00 Nasal Cannula 3.0 12/04/18 19:52 106/61 12/04/18 19:25 71 12/04/18 19:16 100 Nasal Cannula 3.0 32 12/04/18 19:16 74 19 100 Nasal Cannula 3.0 32 12/04/18 19:00 67 18 114/71 (85) 100 12/04/18 18:30 68 16 115/61 (79) 100 12/04/18 18:03 98.5 12/04/18 18:00 64 16 81/56 (64) 100 12/04/18 17:30 70 16 112/68 (83) 100 12/04/18 17:00 69 18 106/79 (88) 98 12/04/18 16:30 68 11 113/74 (87) 100 12/04/18 16:00 66 12/04/18 16:00 Nasal Cannula 3.0 12/04/18 16:00 98.6 69 11 97/70 (79) 100 12/04/18 15:30 67 18 106/64 (78) 12/04/18 15:00 69 15 99/59 (72) 99 12/04/18 14:30 67 9 84/55 (65) 100 12/04/18 14:00 66 9 99/60 (73) 100 12/04/18 13:30 67 9 102/57 (72) 100 12/04/18 13:00 69 10 103/67 (79) 100 12/04/18 12:30 69 12 103/67 (79) 100 12/04/18 12:00 98.8 70 13 93/54 (67) 100 12/04/18 12:00 Nasal Cannula 3.0 12/04/18 12:00 67 Height (Feet): 5 Height (Inches): 1.00 Weight (Pounds): 172 Laboratory Tests Test 12/04/18 18:30 12/05/18 01:50 12/05/18 04:00 12/05/18 09:30 Activated Partial Thromboplast Time 59 SEC (23-33) H 84 SEC (23-33) H White Blood Count 10.8 K/UL (4.8-10.8) 10.7 K/UL (4.8-10.8) Red Blood Count 2.97 M/UL (4.70-6.10) L 2.85 M/UL (4.70-6.10) L Hemoglobin 7.7 G/DL (14.2-18.0) L 7.4 G/DL (14.2-18.0) L Hematocrit 24.9 % (42.0-52.0) L 23.8 % (42.0-52.0) L Mean Corpuscular Volume 84 FL (80-99) 83 FL (80-99) Mean Corpuscular Hemoglobin 26.0 PG (27.0-31.0) L 25.8 PG (27.0-31.0) L Mean Corpuscular Hemoglobin Concent 31.0 G/DL (32.0-36.0) L 31.0 G/DL (32.0-36.0) L Red Cell Distribution Width 14.5 % (11.6-14.8) 14.6 % (11.6-14.8) Platelet Count 297 K/UL (150-450) 279 K/UL (150-450) Mean Platelet Volume 6.3 FL (6.5-10.1) L 6.6 FL (6.5-10.1) Neutrophils (%) (Auto) % (45.0-75.0) % (45.0-75.0) Lymphocytes (%) (Auto) % (20.0-45.0) % (20.0-45.0) Monocytes (%) (Auto) % (1.0-10.0) % (1.0-10.0) Eosinophils (%) (Auto) % (0.0-3.0) % (0.0-3.0) Basophils (%) (Auto) % (0.0-2.0) % (0.0-2.0) Differential Total Cells Counted 100 100 Neutrophils % (Manual) 68 % (45-75) 70 % (45-75) Lymphocytes % (Manual) 18 % (20-45) L 14 % (20-45) L Monocytes % (Manual) 9 % (1-10) 12 % (1-10) H Eosinophils % (Manual) 5 % (0-3) H 4 % (0-3) H Basophils % (Manual) 0 % (0-2) 0 % (0-2) Band Neutrophils 0 % (0-8) 0 % (0-8) Platelet Estimate Adequate Adequate Platelet Morphology Normal Normal Hypochromasia 3+ 3+ Anisocytosis 1+ 1+ Sodium Level 134 MMOL/L (136-145) L Potassium Level 4.7 MMOL/L (3.5-5.1) Chloride Level 97 MMOL/L (98-107) L Carbon Dioxide Level 23 MMOL/L (21-32) Anion Gap 14 mmol/L (5-15) Blood Urea Nitrogen 53 mg/dL (7-18) H Creatinine 8.0 MG/DL (0.55-1.30) H Estimat Glomerular Filtration Rate mL/min (>60) Glucose Level 172 MG/DL (74-106) H Calcium Level 9.2 MG/DL (8.5-10.1) Phosphorus Level 5.2 MG/DL (2.5-4.9) H Magnesium Level 2.1 MG/DL (1.8-2.4) Total Bilirubin 0.5 MG/DL (0.2-1.0) Aspartate Amino Transf (AST/SGOT) 25 U/L (15-37) Alanine Aminotransferase (ALT/SGPT) 15 U/L (12-78) Alkaline Phosphatase 183 U/L (46-116) H Troponin I 4.653 ng/mL (0.000-0.056) C-Reactive Protein, Quantitative 31.4 mg/dL (0.00-0.90) H Pro-B-Type Natriuretic Peptide > 31696 pg/mL (0-125) H Total Protein 6.7 G/DL (6.4-8.2) Albumin 2.2 G/DL (3.4-5.0) L Globulin 4.5 g/dL Albumin/Globulin Ratio 0.5 (1.0-2.7) L Current Medications Medications (Trade) Dose Ordered Sig/Elva Route PRN Reason Start Time Stop Time Status Last Admin Dose Admin Acetaminophen (Tylenol) 650 mg Q4H PRN ORAL fever 11/30/18 14:45 12/30/18 14:44 12/03/18 19:42 Acetaminophen/ Hydrocodone Bitart (Brandon 10/325) 1 tab EVERY 6 HOURS PRN ORAL Severe Pain (Pain Scale 7-10) 11/30/18 23:15 12/07/18 23:14 12/04/18 04:36 Acetaminophen/ Hydrocodone Bitart (Brandon 5/325) 1 tab Q6H PRN ORAL Moderate Pain (Pain Scale 4-6) 11/30/18 23:15 12/07/18 23:14 12/05/18 09:01 Albuterol/ Ipratropium (Albuterol/ Ipratropium) 3 ml Q4H PRN HHN Shortness of Breath 11/30/18 14:45 12/05/18 14:44 12/01/18 03:50 Aspirin (ASA) 325 mg DAILY ORAL 12/03/18 10:00 01/02/19 09:59 12/05/18 08:57 Atorvastatin Calcium (Lipitor) 80 mg BEDTIME ORAL 11/30/18 21:00 12/30/18 20:59 12/04/18 20:57 Azithromycin (Zithromax) 500 mg DAILY ORAL 12/02/18 09:00 12/09/18 08:59 12/05/18 08:58 Chlorhexidine Gluconate (Keke-Hex 2%) 1 applic DAILY@2000 TOPIC 12/01/18 20:00 12/31/18 19:59 12/04/18 19:52 Clindamycin HCl/ Dextrose 50 ml @ 100 mls/hr Q8HR IV 12/01/18 22:00 12/08/18 21:59 12/05/18 05:59 Dextrose (Dextrose 50%) 25 ml Q30M PRN IV Hypoglycemia 12/04/18 08:15 01/03/19 08:14 Dextrose (Dextrose 50%) 50 ml Q30M PRN IV Hypoglycemia 12/04/18 08:15 01/03/19 08:14 Docusate Sodium (Colace) 100 mg THREE TIMES A DAY ORAL 12/02/18 13:00 01/01/19 12:59 12/05/18 08:58 Heparin Sodium/ Dextrose 500 ml @ 27.597 mls/ hr ADJUST PER PROTOCOL IV 12/04/18 19:15 01/03/19 19:14 12/05/18 06:01 Insulin Aspart (NovoLOG) BEFORE MEALS AND HS SUBQ 12/04/18 11:30 01/03/19 11:29 12/05/18 11:33 Metoprolol Tartrate (Lopressor) 12.5 mg Q12HR ORAL 11/30/18 21:00 12/30/18 20:59 Morphine Sulfate (Morphine Sulfate) 2 mg Q4H PRN IVP Severe Pain (Pain Scale 7-10) 11/30/18 14:45 12/07/18 14:44 12/05/18 06:34 Norepinephrine Bitartrate 4 mg/ Dextrose 254 ml @ 0 mls/hr Q24H IV 11/30/18 14:45 12/30/18 14:44 12/04/18 19:52 Ondansetron HCl (Zofran) 4 mg Q6H PRN IVP Nausea & Vomiting 11/30/18 14:45 12/30/18 14:44 Pantoprazole (Protonix) 40 mg Q12HR IVP 12/02/18 21:00 12/31/18 08:59 12/05/18 08:57 Piperacillin Sod/ Tazobactam Sod 2.25 gm/Dextrose 55 ml @ 110 mls/hr Q8HR IVPB 12/03/18 14:00 12/10/18 13:59 12/05/18 05:59 Polyethylene Glycol (Miralax) 17 gm DAILYPRN PRN ORAL Constipation 11/30/18 14:45 12/30/18 14:44 Sevelamer Carbonate (Renvela) 800 mg THREE TIMES A DAY ORAL 11/30/18 18:00 12/30/18 17:59 12/05/18 08:57 Sodium Chloride 1,000 ml @ 50 mls/hr Q20H IV 11/30/18 15:30 12/30/18 15:29 12/05/18 11:16 Vancomycin HCl (Vanco rx to dose) 1 ea DAILY PRN MISC Per rx protocol 11/30/18 14:00 12/30/18 13:59 Vitamin B Complex/ Vit C/Folic Acid (Nephrovite) 1 tab DAILY ORAL 12/01/18 09:00 12/31/18 08:59 12/05/18 08:57 Aparna Ramirez M.D. Dec 05, 2018 11:48
--- NOTE | 2018-12-05 12:00 | NUR ---
NURSE NOTES: Dr. Almaguer and Dr. Parker on the unit assessing the pt. Gave updates on pt's current condition. Both ordered 1 unit PRBC, totaling 2 units to be administered today. Awaiting type and cross results.
--- NOTE | 2018-12-05 12:04 | Diagnostic Imaging Report ---
Indication: Shortness of breath Technique: One view of the chest Comparison: 12/03/2018 Findings: The heart is borderline enlarged. Previously demonstrated right infrahilar infiltrate is no longer evident. Lungs and pleural spaces are currently clear. Impression: No acute process Interim resolution of previously demonstrated right infrahilar infiltrates Cardiomegaly
--- NOTE | 2018-12-05 12:08 | Anethesia Preoperative Eval ---
Anesthesia Pre-op PMH/ROS General Date of Evaluation: Dec 05, 2018 Time of Evaluation: 11:49 Anesthesiologist: Elena ASA Score: ASA 4 Mallampati Score Class I : Soft palate, uvula, fauces, pillars visible Class II: Soft palate, uvula, fauces visible Class III: Soft palate, base of uvula visible Class IV: Only hard plate visible Mallampati Classification: Class III Surgeon: Kelsey Diagnosis: L foot gangreen Sepsis Surgical Procedure: L BKA Anesthesia History: none Family History: no anesthesia problems Allergies: Coded Allergies: No Known Allergies (Unverified , 11/30/18) Medications: see eMAR Patient NPO?: Yes NPO Date: Dec 05, 2018 Past Medical History Cardiovascular: Reports: HTN, CAD, IA - Recent IA with troponin elevation, other - severe PVD Pulmonary: Reports: CURTIS; Denies: asthma, COPD, other Gastrointestinal/Genitourinary: Reports: GERD, ESRD - ESRD on dialysis currently being dialysed; Denies: CRI, other Neurologic/Psychiatric: Reports: depression/anxiety; Denies: dementia, CVA, TIA, other Endocrine: Reports: DM - on insulin long h/o, hypothyroidism; Denies: steroids, other HEENT: Denies: cataract (L), cataract (R), glaucoma, [place] (L), [place] (R), other Hematology/Immune: Reports: anemia - severe anemia of chronic d-s last Hb 7.4; Denies: DVT, bleeding disorder, other Musculoskeletal/Integumentary: Reports: other - bilateral transmetarsal amputation; Denies: OA, RA, DJD, DDD, edema Other: obesity PMH Narrative: as above PSxH Narrative: see H&P Anesthesia Pre-op Phys. Exam Physician Exam Last Vital Signs Date Time Temp Pulse Resp B/P (MAP) Pulse Ox O2 Delivery O2 Flow Rate FiO2 12/05/18 11:00 65 13 94/56 (69) 100 12/05/18 08:10 Nasal Cannula 3.0 32 12/05/18 08:00 98.2 Constitutional: NAD Neurologic: other - unable to obtaine Cardiovascular: RRR, no M/R/G Respiratory: other - diminished breath sounds bilaterally R>L Gastrointestinal: S/NT/ND Airway Exam Mallampati Score: Class III MO: limited Neck: short ROM: limited Teeth: missing Dentures: no upper, no lower Anesthesia Pre-op A/P Labs Hematology Test 12/05/18 04:00 12/05/18 09:30 White Blood Count 10.8 K/UL (4.8-10.8) 10.7 K/UL (4.8-10.8) Red Blood Count 2.97 M/UL (4.70-6.10) L 2.85 M/UL (4.70-6.10) L Hemoglobin 7.7 G/DL (14.2-18.0) L 7.4 G/DL (14.2-18.0) L Hematocrit 24.9 % (42.0-52.0) L 23.8 % (42.0-52.0) L Mean Corpuscular Volume 84 FL (80-99) 83 FL (80-99) Mean Corpuscular Hemoglobin 26.0 PG (27.0-31.0) L 25.8 PG (27.0-31.0) L Mean Corpuscular Hemoglobin Concent 31.0 G/DL (32.0-36.0) L 31.0 G/DL (32.0-36.0) L Red Cell Distribution Width 14.5 % (11.6-14.8) 14.6 % (11.6-14.8) Platelet Count 297 K/UL (150-450) 279 K/UL (150-450) Mean Platelet Volume 6.3 FL (6.5-10.1) L 6.6 FL (6.5-10.1) Neutrophils (%) (Auto) % (45.0-75.0) % (45.0-75.0) Lymphocytes (%) (Auto) % (20.0-45.0) % (20.0-45.0) Monocytes (%) (Auto) % (1.0-10.0) % (1.0-10.0) Eosinophils (%) (Auto) % (0.0-3.0) % (0.0-3.0) Basophils (%) (Auto) % (0.0-2.0) % (0.0-2.0) Differential Total Cells Counted 100 100 Neutrophils % (Manual) 68 % (45-75) 70 % (45-75) Lymphocytes % (Manual) 18 % (20-45) L 14 % (20-45) L Monocytes % (Manual) 9 % (1-10) 12 % (1-10) H Eosinophils % (Manual) 5 % (0-3) H 4 % (0-3) H Basophils % (Manual) 0 % (0-2) 0 % (0-2) Band Neutrophils 0 % (0-8) 0 % (0-8) Platelet Estimate Adequate Adequate Platelet Morphology Normal Normal Hypochromasia 3+ 3+ Anisocytosis 1+ 1+ Coagulation Test 12/04/18 18:30 12/05/18 01:50 Activated Partial Thromboplast Time 59 SEC (23-33) H 84 SEC (23-33) H Chemistry Test 12/05/18 04:00 Sodium Level 134 MMOL/L (136-145) L Potassium Level 4.7 MMOL/L (3.5-5.1) Chloride Level 97 MMOL/L (98-107) L Carbon Dioxide Level 23 MMOL/L (21-32) Anion Gap 14 mmol/L (5-15) Blood Urea Nitrogen 53 mg/dL (7-18) H Creatinine 8.0 MG/DL (0.55-1.30) H Estimat Glomerular Filtration Rate mL/min (>60) Glucose Level 172 MG/DL (74-106) H Calcium Level 9.2 MG/DL (8.5-10.1) Phosphorus Level 5.2 MG/DL (2.5-4.9) H Magnesium Level 2.1 MG/DL (1.8-2.4) Total Bilirubin 0.5 MG/DL (0.2-1.0) Aspartate Amino Transf (AST/SGOT) 25 U/L (15-37) Alanine Aminotransferase (ALT/SGPT) 15 U/L (12-78) Alkaline Phosphatase 183 U/L (46-116) H Troponin I 4.653 ng/mL (0.000-0.056) C-Reactive Protein, Quantitative 31.4 mg/dL (0.00-0.90) H Pro-B-Type Natriuretic Peptide > 90626 pg/mL (0-125) H Total Protein 6.7 G/DL (6.4-8.2) Albumin 2.2 G/DL (3.4-5.0) L Globulin 4.5 g/dL Albumin/Globulin Ratio 0.5 (1.0-2.7) L Studies Pre-op Studies: echo - EF 50% Risk Assessment & Plan Assessment: ASA 4 Severe preexisting conditions, aggravated by acute sepsis secondary to foot gangrene and most likely recent IA as demonstrated by elevated troponin, planned surgical procedure L BKA should be done as a life saving measure, but carries very significant risk of perioperative mortality. Comfort care is an alternative option, was unable to speak to family to provide them with information. Plan: GA with ETT Postoperative care in ICU with high chances of respiratory support, patient will be transfused with one unit of PRBC today and possible intraoperative blood transfusion, Jeremías Parker MD Dec 05, 2018 12:08
--- NOTE | 2018-12-05 12:30 | NUR ---
NURSE NOTES: Consent for blood transfusion obtained and put in pt's chart.
--- NOTE | 2018-12-05 13:00 | NUR ---
NURSE NOTES: Pt completed dialysis at this time. 800mL out. B/P:125/67, HR; 69, RR:11, T:97.8.
--- NOTE | 2018-12-05 14:14 | Surgery Progress Note ---
Surgery Progress Note Subjective Additional Comments leukocytosis resolved labs noted crp elevated plan for surgery tomorrow hold heparin gtt at 06AM labs ordered consent Objective Last 24 Hour Vital Signs Date Time Temp Pulse Resp B/P (MAP) Pulse Ox O2 Delivery O2 Flow Rate FiO2 12/05/18 13:00 97.8 70 10 125/67 (86) 100 12/05/18 12:30 68 12 129/59 (82) 97 12/05/18 12:00 65 11 102/54 (70) 100 12/05/18 12:00 Nasal Cannula 3.0 12/05/18 11:22 65 12/05/18 11:00 65 13 94/56 (69) 100 12/05/18 10:00 64 15 101/56 (71) 99 12/05/18 09:00 65 104/62 12/05/18 09:00 65 10 104/62 (76) 99 12/05/18 08:10 99 Nasal Cannula 3.0 32 12/05/18 08:10 72 18 100 Nasal Cannula 3.0 32 12/05/18 08:00 98.2 68 10 107/68 (81) 100 12/05/18 08:00 Nasal Cannula 3.0 12/05/18 07:25 70 12/05/18 07:00 72 10 99/51 (67) 99 12/05/18 06:30 71 9 125/74 (91) 99 12/05/18 06:00 71 12 128/79 (95) 98 12/05/18 05:30 73 10 127/80 (96) 100 12/05/18 05:00 72 18 128/77 (94) 100 12/05/18 05:00 128/77 12/05/18 04:30 73 15 111/64 (80) 98 12/05/18 04:00 125/76 12/05/18 04:00 Nasal Cannula 3.0 12/05/18 04:00 98.4 73 14 125/76 (92) 99 12/05/18 03:30 74 11 110/51 (70) 99 12/05/18 03:03 72 12/05/18 03:00 129/70 12/05/18 03:00 73 8 129/70 (89) 99 12/05/18 02:30 72 16 131/73 (92) 99 12/05/18 02:00 132/78 12/05/18 02:00 71 9 132/78 (96) 99 12/05/18 01:30 71 16 118/73 (88) 99 12/05/18 01:09 71 15 122/78 (93) 100 12/05/18 01:00 122/78 12/05/18 00:30 71 14 112/71 (85) 100 12/05/18 00:00 Nasal Cannula 3.0 12/05/18 00:00 119/61 12/05/18 00:00 98.4 71 14 119/69 (86) 100 12/04/18 23:30 70 12 121/73 (89) 100 12/04/18 23:13 71 12/04/18 23:00 71 12 110/65 (80) 100 12/04/18 23:00 110/65 12/04/18 22:30 71 16 109/66 (80) 100 12/04/18 22:00 118/69 12/04/18 22:00 70 9 118/69 (85) 99 12/04/18 21:30 71 11 114/67 (83) 100 12/04/18 21:00 123/67 12/04/18 21:00 72 17 123/67 (85) 100 12/04/18 20:57 75 126/68 12/04/18 20:30 72 19 126/68 (87) 100 12/04/18 20:00 98.6 72 10 123/65 (84) 100 12/04/18 20:00 123/65 12/04/18 20:00 Nasal Cannula 3.0 12/04/18 19:52 106/61 12/04/18 19:25 71 12/04/18 19:16 100 Nasal Cannula 3.0 32 12/04/18 19:16 74 19 100 Nasal Cannula 3.0 32 12/04/18 19:00 67 18 114/71 (85) 100 12/04/18 18:30 68 16 115/61 (79) 100 12/04/18 18:03 98.5 12/04/18 18:00 64 16 81/56 (64) 100 12/04/18 17:30 70 16 112/68 (83) 100 12/04/18 17:00 69 18 106/79 (88) 98 12/04/18 16:30 68 11 113/74 (87) 100 12/04/18 16:00 66 12/04/18 16:00 Nasal Cannula 3.0 12/04/18 16:00 98.6 69 11 97/70 (79) 100 12/04/18 15:30 67 18 106/64 (78) 12/04/18 15:00 69 15 99/59 (72) 99 12/04/18 14:30 67 9 84/55 (65) 100 I&O Intake and Output 12/04/18 12/05/18 19:00 07:00 Intake Total 1537.14 ml 1546.360 ml Balance 1537.14 ml 1546.360 ml Intake Oral 340 ml 360 ml IV Total 1197.14 ml 1186.360 ml Dressing: saturated Wound: other Cardiovascular: RSR Respiratory: clear Abdomen: soft, non-tender, present bowel sounds Extremities: edema, cyanosis Laboratory Tests Test 12/04/18 18:30 12/05/18 01:50 12/05/18 04:00 12/05/18 09:30 Activated Partial Thromboplast Time 59 SEC (23-33) H 84 SEC (23-33) H White Blood Count 10.8 K/UL (4.8-10.8) 10.7 K/UL (4.8-10.8) Red Blood Count 2.97 M/UL (4.70-6.10) L 2.85 M/UL (4.70-6.10) L Hemoglobin 7.7 G/DL (14.2-18.0) L 7.4 G/DL (14.2-18.0) L Hematocrit 24.9 % (42.0-52.0) L 23.8 % (42.0-52.0) L Mean Corpuscular Volume 84 FL (80-99) 83 FL (80-99) Mean Corpuscular Hemoglobin 26.0 PG (27.0-31.0) L 25.8 PG (27.0-31.0) L Mean Corpuscular Hemoglobin Concent 31.0 G/DL (32.0-36.0) L 31.0 G/DL (32.0-36.0) L Red Cell Distribution Width 14.5 % (11.6-14.8) 14.6 % (11.6-14.8) Platelet Count 297 K/UL (150-450) 279 K/UL (150-450) Mean Platelet Volume 6.3 FL (6.5-10.1) L 6.6 FL (6.5-10.1) Neutrophils (%) (Auto) % (45.0-75.0) % (45.0-75.0) Lymphocytes (%) (Auto) % (20.0-45.0) % (20.0-45.0) Monocytes (%) (Auto) % (1.0-10.0) % (1.0-10.0) Eosinophils (%) (Auto) % (0.0-3.0) % (0.0-3.0) Basophils (%) (Auto) % (0.0-2.0) % (0.0-2.0) Differential Total Cells Counted 100 100 Neutrophils % (Manual) 68 % (45-75) 70 % (45-75) Lymphocytes % (Manual) 18 % (20-45) L 14 % (20-45) L Monocytes % (Manual) 9 % (1-10) 12 % (1-10) H Eosinophils % (Manual) 5 % (0-3) H 4 % (0-3) H Basophils % (Manual) 0 % (0-2) 0 % (0-2) Band Neutrophils 0 % (0-8) 0 % (0-8) Platelet Estimate Adequate Adequate Platelet Morphology Normal Normal Hypochromasia 3+ 3+ Anisocytosis 1+ 1+ Sodium Level 134 MMOL/L (136-145) L Potassium Level 4.7 MMOL/L (3.5-5.1) Chloride Level 97 MMOL/L (98-107) L Carbon Dioxide Level 23 MMOL/L (21-32) Anion Gap 14 mmol/L (5-15) Blood Urea Nitrogen 53 mg/dL (7-18) H Creatinine 8.0 MG/DL (0.55-1.30) H Estimat Glomerular Filtration Rate mL/min (>60) Glucose Level 172 MG/DL (74-106) H Calcium Level 9.2 MG/DL (8.5-10.1) Phosphorus Level 5.2 MG/DL (2.5-4.9) H Magnesium Level 2.1 MG/DL (1.8-2.4) Total Bilirubin 0.5 MG/DL (0.2-1.0) Aspartate Amino Transf (AST/SGOT) 25 U/L (15-37) Alanine Aminotransferase (ALT/SGPT) 15 U/L (12-78) Alkaline Phosphatase 183 U/L (46-116) H Troponin I 4.653 ng/mL (0.000-0.056) C-Reactive Protein, Quantitative 31.4 mg/dL (0.00-0.90) H Pro-B-Type Natriuretic Peptide > 90767 pg/mL (0-125) H Total Protein 6.7 G/DL (6.4-8.2) Albumin 2.2 G/DL (3.4-5.0) L Globulin 4.5 g/dL Albumin/Globulin Ratio 0.5 (1.0-2.7) L Plan Problems: (1) Severe sepsis Assessment & Plan: This is a 73-year-old male who presents with severe sepsis, fevers, leukocytosis, abnormal labs, elevated troponins, abnormal lecture lites. On admission patient has a very foul-smelling left heel necrotic wound/ulcer. No purulent drainage no significant foot or leg cellulitis. Prior midfoot amputation. Very foul-smelling. Given patient's current medical condition status with his consent a wound expiration was done at the bedside to ensure no underlying pus, gas-forming infection, acute etiology of severe sepsis. Using a fresh #11 scalpel incision was made in the middle of the area of necrosis and followed down to healthy tissue which is not identified until bone was reached. Wound necrosis directly down to bone. No pus tunneling or gas-forming infectious and noted. We will continue with local wound care Appreciate podiatry input. Agree foot not salvageable and recommend BKA. We will proceed once cleared Given patient's current medical condition status will need resuscitation and clearance prior to any surgical intervention or podiatry intervention. Antibiotics as per infectious disease Cardiology clearance pending We will follow with recommendations thank you leukocytosis abnormal labs elevated troponin -abx as per ID -local wound care Appreciate cardiology input. Will plan for amputation in 1-2 days. moderate risk. okay for heparin gtt -will follow with recs thank you Noam Davenport Dec 05, 2018 14:14
--- NOTE | 2018-12-05 14:52 | NUR ---
NURSE NOTES: Blood Transfusion started at this time. T: 98.2, B/P:124/75, HR: 72. Will reassess pt in 15 mins.
--- NOTE | 2018-12-05 15:04 | Pre-Procedure Note/Attestation ---
Pre-Procedure Note/Attestation Complete Prior to Procedure Planned Procedure: left Procedure Narrative: below knee amputation Indications for Procedure Pre-Operative Diagnosis: gangrene / necrosis of left heel/midfoot Attestation I attest that I discussed the nature of the procedure; its benefits; risks and complications; and alternatives (and the risks and benefits of such alternatives ), prior to the procedure, with the patient (or the patient's legal retention representative). I attest that, if there was a reasonable possibility of needing a blood transfusion, the patient (or the patient's legal retention representative) was given the [facility] standardized written summary, pursuant to the [employer] [place] Blood Safety Act ([place] Health and Safety Code # 1645, as amended). I attest that I re-evaluated the patient just prior to the surgery and that there has been no change in the patient's H&P, except as documented below: Noam Davenport Dec 05, 2018 15:04
--- NOTE | 2018-12-05 15:07 | NUR ---
NURSE NOTES: 15 minute post start of blood transfusion. B/P:131/75 HR:71 T:97.8. Pt tolerating transfusion well, no complaints. Will continue to monitor.
--- NOTE | 2018-12-05 15:19 | NUR ---
RD ASSESSMENT & RECOMMENDATIONS SEE CARE ACTIVITY FOR COMPLETE ASSESSMENT DAILY ESTIMATED NEEDS: Needs based on Wound, sepsis, ESRD w/ HD, 65kg abw 25-35 kcals/kg 2635-7819 total kcals 1.25-2 g protein/kg 81-130 g total protein 20-22 mL/kg 0318-9262 total fluid mLs NUTRITION DIAGNOSIS: Increased kcal/prot needs R/T sepsis, ESRD dx, wound healing as evidenced by critically elev wbc (30.5* -> now wnl), elev CRP, currently afebrile, hypotensive, pressor support held at this time, elev HR upon adm, pt HD dependent, admitted w/ lt heel gangrene,w/ necrosis directly down to bone per MD, pending amputation. CURRENT DIET:RENAL, nectar thick PO DIET RECOMMENDATIONS: RENAL, CCHO MED/ texture per MANAGER CONTINUOUS IMPROVEMENT ADDITIONAL RECOMMENDATIONS: * MANAGER CONTINUOUS IMPROVEMENT evaluation for appropriate texture * Monitor PO intake closely - minimal intake at this time -> Rec Nepro TID w/ meals * Wound healing: Continue Nephrovite x 1, add ZnSO4 220mg QD x 10 days : Paul 1pkt BID * Calibrated bedscale wt, obtain dry wt post HD -> on bed w/ P200 mattress
--- NOTE | 2018-12-05 15:59 | Nephrology Progress Note ---
Assessment/Plan Problem List: (1) ESRD (end stage renal disease) (2) Severe sepsis (3) Non-ST elevation (NSTEMI) myocardial infarction (4) Diabetes Assessment ESRD on HD M W Fr Sepsis / Leukocytosuis ( Pneumonia, Infected foot ulcer) Hypotension / Shock Anemia GERD ECF resident DM OOC Elevated Troponin over 5 Plan HD in process now Transfuse asa , beta blockers on low dose pressors Antibiotics Fluid challenge / Watch for CHF Dialysis 12/03 next per orders per consultants on IV heparin Subjective ROS Limited/Unobtainable: No Constitutional: Reports: malaise, weakness Objective Objective Last 24 Hour Vital Signs Date Time Temp Pulse Resp B/P (MAP) Pulse Ox O2 Delivery O2 Flow Rate FiO2 12/05/18 15:03 131/75 12/05/18 15:00 71 10 131/75 (93) 99 12/05/18 15:00 97.8 71 10 131/75 (93) 99 12/05/18 14:52 98.2 72 12 124/75 (91) 100 12/05/18 14:00 66 14 95/65 (75) 99 12/05/18 13:00 97.8 70 10 125/67 (86) 100 12/05/18 12:30 68 12 129/59 (82) 97 12/05/18 12:00 65 11 102/54 (70) 100 12/05/18 12:00 Nasal Cannula 3.0 12/05/18 11:22 65 12/05/18 11:00 65 13 94/56 (69) 100 12/05/18 10:00 64 15 101/56 (71) 99 12/05/18 09:00 65 104/62 12/05/18 09:00 65 10 104/62 (76) 99 12/05/18 08:10 99 Nasal Cannula 3.0 32 12/05/18 08:10 72 18 100 Nasal Cannula 3.0 32 12/05/18 08:00 98.2 68 10 107/68 (81) 100 12/05/18 08:00 Nasal Cannula 3.0 12/05/18 07:25 70 12/05/18 07:00 72 10 99/51 (67) 99 12/05/18 06:30 71 9 125/74 (91) 99 12/05/18 06:00 71 12 128/79 (95) 98 10/16/19 05:30 73 10 127/80 (96) 100 12/05/18 05:00 72 18 128/77 (94) 100 12/05/18 05:00 128/77 12/05/18 04:30 73 15 111/64 (80) 98 12/05/18 04:00 125/76 12/05/18 04:00 Nasal Cannula 3.0 12/05/18 04:00 98.4 73 14 125/76 (92) 99 12/05/18 03:30 74 11 110/51 (70) 99 12/05/18 03:03 72 12/05/18 03:00 129/70 12/05/18 03:00 73 8 129/70 (89) 99 12/05/18 02:30 72 16 131/73 (92) 99 12/05/18 02:00 132/78 12/05/18 02:00 71 9 132/78 (96) 99 12/05/18 01:30 71 16 118/73 (88) 99 12/05/18 01:09 71 15 122/78 (93) 100 12/05/18 01:00 122/78 12/05/18 00:30 71 14 112/71 (85) 100 12/05/18 00:00 Nasal Cannula 3.0 12/05/18 00:00 119/61 12/05/18 00:00 98.4 71 14 119/69 (86) 100 12/04/18 23:30 70 12 121/73 (89) 100 12/04/18 23:13 71 12/04/18 23:00 71 12 110/65 (80) 100 12/04/18 23:00 110/65 12/04/18 22:30 71 16 109/66 (80) 100 12/04/18 22:00 118/69 12/04/18 22:00 70 9 118/69 (85) 99 12/04/18 21:30 71 11 114/67 (83) 100 12/04/18 21:00 123/67 12/04/18 21:00 72 17 123/67 (85) 100 12/04/18 20:57 75 126/68 12/04/18 20:30 72 19 126/68 (87) 100 12/04/18 20:00 98.6 72 10 123/65 (84) 100 12/04/18 20:00 123/65 12/04/18 20:00 Nasal Cannula 3.0 12/04/18 19:52 106/61 12/04/18 19:25 71 12/04/18 19:16 100 Nasal Cannula 3.0 32 12/04/18 19:16 74 19 100 Nasal Cannula 3.0 32 12/04/18 19:00 67 18 114/71 (85) 100 12/04/18 18:30 68 16 115/61 (79) 100 12/04/18 18:03 98.5 12/04/18 18:00 64 16 81/56 (64) 100 12/04/18 17:30 70 16 112/68 (83) 100 12/04/18 17:00 69 18 106/79 (88) 98 12/04/18 16:30 68 11 113/74 (87) 100 12/04/18 16:00 66 12/04/18 16:00 Nasal Cannula 3.0 12/04/18 16:00 98.6 69 11 97/70 (79) 100 Intake and Output 12/04/18 12/05/18 19:00 07:00 Intake Total 1537.14 ml 1546.360 ml Balance 1537.14 ml 1546.360 ml Intake Oral 340 ml 360 ml IV Total 1197.14 ml 1186.360 ml Laboratory Tests 12/04/18 18:30: Activated Partial Thromboplast Time 59H 12/05/18 01:50: Activated Partial Thromboplast Time 84H 12/05/18 04:00: White Blood Count 10.8, Red Blood Count 2.97L, Hemoglobin 7.7L, Hematocrit 24.9L , Mean Corpuscular Volume 84, Mean Corpuscular Hemoglobin 26.0L, Mean Corpuscular Hemoglobin Concent 31.0L, Red Cell Distribution Width 14.5, Platelet Count 297, Mean Platelet Volume 6.3L, Neutrophils (%) (Auto) , Lymphocytes (%) (Auto) , Monocytes (%) (Auto) , Eosinophils (%) (Auto) , Basophils (%) (Auto) , Differential Total Cells Counted 100, Neutrophils % ( Manual) 68, Lymphocytes % (Manual) 18L, Monocytes % (Manual) 9, Eosinophils % ( Manual) 5H, Basophils % (Manual) 0, Band Neutrophils 0, Platelet Estimate Adequate, Platelet Morphology Normal, Hypochromasia 3+, Anisocytosis 1+, Sodium Level 134L, Potassium Level 4.7, Chloride Level 97L, Carbon Dioxide Level 23, Anion Gap 14, Blood Urea Nitrogen 53H, Creatinine 8.0H, Estimat Glomerular Filtration Rate , Glucose Level 172H, Calcium Level 9.2, Phosphorus Level 5.2H, Magnesium Level 2.1, Total Bilirubin 0.5, Aspartate Amino Transf (AST/SGOT) 25, Alanine Aminotransferase (ALT/SGPT) 15, Alkaline Phosphatase 183H, Troponin I 4.653H, C-Reactive Protein, Quantitative 31.4H, Pro-B-Type Natriuretic Peptide > 99893Q, Total Protein 6.7, Albumin 2.2L, Globulin 4.5, Albumin/Globulin Ratio 0.5L 12/05/18 09:30: White Blood Count 10.7, Red Blood Count 2.85L, Hemoglobin 7.4L, Hematocrit 23.8L , Mean Corpuscular Volume 83, Mean Corpuscular Hemoglobin 25.8L, Mean Corpuscular Hemoglobin Concent 31.0L, Red Cell Distribution Width 14.6, Platelet Count 279, Mean Platelet Volume 6.6, Neutrophils (%) (Auto) , Lymphocytes (%) (Auto) , Monocytes (%) (Auto) , Eosinophils (%) (Auto) , Basophils (%) (Auto) , Differential Total Cells Counted 100, Neutrophils % ( Manual) 70, Lymphocytes % (Manual) 14L, Monocytes % (Manual) 12H, Eosinophils % (Manual) 4H, Basophils % (Manual) 0, Band Neutrophils 0, Platelet Estimate Adequate, Platelet Morphology Normal, Hypochromasia 3+, Anisocytosis 1+ Height (Feet): 5 Height (Inches): 1.00 Weight (Pounds): 172 General Appearance: no apparent distress Objective no change Sincere Almaguer MD Dec 05, 2018 15:59
--- NOTE | 2018-12-05 16:15 | NUR ---
TRANSFER TO FLOOR: Patient transferred to SDU room 243-1, per Dr. Arora. Report given to IWONA Ruiz. Belongings and medications given to IWONA Ruiz. Family and or S/O informed of transfer. Pt c/o nausea when transferred. Was given Zofran 4MG IV.
[2018-12-05] MEDS ORDERED: HYDROcodone/Acetamin 5/325 tab ORAL PRN (16:30)
[2018-12-05] MEDS ORDERED: Miralax 17gm pkt ORAL PRN (16:30)
[2018-12-05] MEDS ORDERED: HYDROcodone/Acetamin 10/325 tab ORAL PRN (16:30)
--- NOTE | 2018-12-05 16:30 | NUR ---
NURSE NOTES: pt transferred from ICU, awake, alert, oriented, vital signs stable, no SOB, pt on HePARIN DRIP, 18u/kg/h, on blood transfusion, tolerate well, dressing on left foot dry and intact.
--- NOTE | 2018-12-05 19:53 | NUR ---
HAND-OFF: Report given to SASHA BUSTILLO, first unit of blood completed..
[2018-12-05] MEDS: Dyna-Hex 2% Top Sol 2oz TOPIC SCH (20:24)
--- NOTE | 2018-12-05 20:41 | Cardiology Progress Note ---
Assessment/Plan Assessment/Plan sepsis hypotension mi esrd dm gangrene oxygen sats are ok repeat cardiac enzyme show a down trend will expect a slow down trend due to renal isuf echo note borderline global hypo with ef 50% on ecotrin and heparin and statin and bb still he deneis any cp ekg form a few day ago showed st depression pers reviewed orderd noath for this evening wbc improved but still elevated will increase bb improved surgery planned for tomorrow moderate risk of perioopperative cardiac morbidity but not treating the gangrren will likely pose more of health risk to the pt to proceed with surgery as planned ekg i Subjective Cardiovascular: Denies: chest pain, lightheadedness, palpitations Respiratory: Denies: shortness of breath Gastrointestinal/Abdominal: Denies: abdominal pain Objective Last 24 Hour Vital Signs Date Time Temp Pulse Resp B/P (MAP) Pulse Ox O2 Delivery O2 Flow Rate FiO2 12/05/18 19:00 98.5 12/05/18 16:30 77 12/05/18 16:00 Nasal Cannula 3.0 12/05/18 16:00 98.5 77 22 140/93 (109) 97 12/05/18 16:00 69 13 118/74 (89) 99 12/05/18 15:03 131/75 12/05/18 15:00 71 10 131/75 (93) 99 12/05/18 15:00 97.8 71 10 131/75 (93) 99 12/05/18 14:52 98.2 72 12 124/75 (91) 100 12/05/18 14:00 66 14 95/65 (75) 99 12/05/18 13:00 97.8 70 10 125/67 (86) 100 12/05/18 12:30 68 12 129/59 (82) 97 12/05/18 12:00 65 11 102/54 (70) 100 12/05/18 12:00 Nasal Cannula 3.0 12/05/18 11:22 65 12/05/18 11:00 65 13 94/56 (69) 100 12/05/18 10:00 64 15 101/56 (71) 99 12/05/18 09:00 65 104/62 12/05/18 09:00 65 10 104/62 (76) 99 12/05/18 08:10 99 Nasal Cannula 3.0 32 12/05/18 08:10 72 18 100 Nasal Cannula 3.0 32 12/05/18 08:00 98.2 68 10 107/68 (81) 100 12/05/18 08:00 Nasal Cannula 3.0 12/05/18 07:25 70 12/05/18 07:00 72 10 99/51 (67) 99 12/05/18 06:30 71 9 125/74 (91) 99 12/05/18 06:00 71 12 128/79 (95) 98 12/05/18 05:30 73 10 127/80 (96) 100 12/05/18 05:00 72 18 128/77 (94) 100 12/05/18 05:00 128/77 12/05/18 04:30 73 15 111/64 (80) 98 12/05/18 04:00 125/76 12/05/18 04:00 Nasal Cannula 3.0 12/05/18 04:00 98.4 73 14 125/76 (92) 99 12/05/18 03:30 74 11 110/51 (70) 99 12/05/18 03:03 72 12/05/18 03:00 129/70 12/05/18 03:00 73 8 129/70 (89) 99 12/05/18 02:30 72 16 131/73 (92) 99 12/05/18 02:00 132/78 12/05/18 02:00 71 9 132/78 (96) 99 12/05/18 01:30 71 16 118/73 (88) 99 12/05/18 01:09 71 15 122/78 (93) 100 12/05/18 01:00 122/78 12/05/18 00:30 71 14 112/71 (85) 100 12/05/18 00:00 Nasal Cannula 3.0 12/05/18 00:00 119/61 12/05/18 00:00 98.4 71 14 119/69 (86) 100 12/04/18 23:30 70 12 121/73 (89) 100 12/04/18 23:13 71 12/04/18 23:00 71 12 110/65 (80) 100 12/04/18 23:00 110/65 12/04/18 22:30 71 16 109/66 (80) 100 12/04/18 22:00 118/69 12/04/18 22:00 70 9 118/69 (85) 99 12/04/18 21:30 71 11 114/67 (83) 100 12/04/18 21:00 123/67 12/04/18 21:00 72 17 123/67 (85) 100 12/04/18 20:57 75 126/68 General Appearance: no apparent distress, alert Neck: supple Respiratory/Chest: lungs clear Abdomen: normal bowel sounds, non tender, soft Extremities: no swelling Intake and Output 12/04/18 12/05/18 19:00 07:00 Intake Total 1537.14 ml 1546.360 ml Balance 1537.14 ml 1546.360 ml Intake Oral 340 ml 360 ml IV Total 1197.14 ml 1186.360 ml Laboratory Tests Test 12/05/18 01:50 12/05/18 04:00 12/05/18 09:30 12/05/18 18:55 Activated Partial Thromboplast Time 84 SEC (23-33) H White Blood Count 10.8 K/UL (4.8-10.8) 10.7 K/UL (4.8-10.8) Red Blood Count 2.97 M/UL (4.70-6.10) L 2.85 M/UL (4.70-6.10) L Hemoglobin 7.7 G/DL (14.2-18.0) L 7.4 G/DL (14.2-18.0) L Hematocrit 24.9 % (42.0-52.0) L 23.8 % (42.0-52.0) L Mean Corpuscular Volume 84 FL (80-99) 83 FL (80-99) Mean Corpuscular Hemoglobin 26.0 PG (27.0-31.0) L 25.8 PG (27.0-31.0) L Mean Corpuscular Hemoglobin Concent 31.0 G/DL (32.0-36.0) L 31.0 G/DL (32.0-36.0) L Red Cell Distribution Width 14.5 % (11.6-14.8) 14.6 % (11.6-14.8) Platelet Count 297 K/UL (150-450) 279 K/UL (150-450) Mean Platelet Volume 6.3 FL (6.5-10.1) L 6.6 FL (6.5-10.1) Neutrophils (%) (Auto) % (45.0-75.0) % (45.0-75.0) Lymphocytes (%) (Auto) % (20.0-45.0) % (20.0-45.0) Monocytes (%) (Auto) % (1.0-10.0) % (1.0-10.0) Eosinophils (%) (Auto) % (0.0-3.0) % (0.0-3.0) Basophils (%) (Auto) % (0.0-2.0) % (0.0-2.0) Differential Total Cells Counted 100 100 Neutrophils % (Manual) 68 % (45-75) 70 % (45-75) Lymphocytes % (Manual) 18 % (20-45) L 14 % (20-45) L Monocytes % (Manual) 9 % (1-10) 12 % (1-10) H Eosinophils % (Manual) 5 % (0-3) H 4 % (0-3) H Basophils % (Manual) 0 % (0-2) 0 % (0-2) Band Neutrophils 0 % (0-8) 0 % (0-8) Platelet Estimate Adequate Adequate Platelet Morphology Normal Normal Hypochromasia 3+ 3+ Anisocytosis 1+ 1+ Sodium Level 134 MMOL/L (136-145) L Potassium Level 4.7 MMOL/L (3.5-5.1) Chloride Level 97 MMOL/L (98-107) L Carbon Dioxide Level 23 MMOL/L (21-32) Anion Gap 14 mmol/L (5-15) Blood Urea Nitrogen 53 mg/dL (7-18) H Creatinine 8.0 MG/DL (0.55-1.30) H Estimat Glomerular Filtration Rate mL/min (>60) Glucose Level 172 MG/DL (74-106) H Calcium Level 9.2 MG/DL (8.5-10.1) Phosphorus Level 5.2 MG/DL (2.5-4.9) H Magnesium Level 2.1 MG/DL (1.8-2.4) Total Bilirubin 0.5 MG/DL (0.2-1.0) Aspartate Amino Transf (AST/SGOT) 25 U/L (15-37) Alanine Aminotransferase (ALT/SGPT) 15 U/L (12-78) Alkaline Phosphatase 183 U/L (46-116) H Troponin I 4.653 ng/mL (0.000-0.056) C-Reactive Protein, Quantitative 31.4 mg/dL (0.00-0.90) H Pro-B-Type Natriuretic Peptide > 40688 pg/mL (0-125) H Total Protein 6.7 G/DL (6.4-8.2) Albumin 2.2 G/DL (3.4-5.0) L Globulin 4.5 g/dL Albumin/Globulin Ratio 0.5 (1.0-2.7) L Random Vancomycin Level 18.7 ug/mL Milton Mary MD Dec 05, 2018 20:41
[2018-12-05] MEDS ORDERED: Metoprolol Tartrate 12.5mg TAB ORAL SCH ×2 (20:45→21:00)
[2018-12-05] MEDS: Atorvastatin 80mg tab ORAL SCH (21:28)
[2018-12-05] MEDS: Metoprolol 25mg tab ORAL SCH (21:29)
[2018-12-05] MEDS ORDERED: Vancomycin 500mg/D5W 110ml IVPB ONE ×2 (22:00)
--- NOTE | 2018-12-05 22:36 | NUR ---
NURSE NOTES: Morphine 2mg ivp for pain scale
--- NOTE | 2018-12-05 22:37 | NUR ---
NURSE NOTES: [id number] ivp given for pain scale of 10
--- NOTE | 2018-12-05 23:40 | NUR ---
NURSE NOTES: Started second unit PRBC unit no. [id number] +. monitor vital signs q15min. Watch for any blood transfusion reaction
[2018-12-06] VITALS (12 sets, daily range): BP systolic 105–137; BP diastolic 46–78
[2018-12-06] MEDS: Heparin 25,000u/D5W 500ml 500 ML IV SCH (01:52)
--- NOTE | 2018-12-06 03:10 | NUR ---
NURSE NOTES: Pt C/O generalzed body pain. Scale of 10. morphine 2mg ivp was given.
[2018-12-06] MEDS: Morphine Sulfate 2mg/ml Inj(IV/IM USE ONLY) IVP PRN ×2 (03:20→07:40)
--- NOTE | 2018-12-06 03:25 | NUR ---
NURSE NOTES: Second unit PRBC was finished , no reactions noted.
[2018-12-06 05:11] LABS: BASOPHILS % (AUTO) 0.4 % (0.0-2.0); HEMATOCRIT 28.6 % (42.0-52.0); HEMOGLOBIN 9.1 G/DL (14.2-18.0); LYMPHOCYTES % (AUTO) 9.4 % (20.0-45.0); MEAN CORPUSCULAR VOLUME 84 FL (80-99); NEUTROPHILS % (AUTO) 82.2 % (45.0-75.0); PLATELET COUNT 293 K/UL (150-450); RED CELL DISTRIBUTION WIDTH 14.4 % (11.6-14.8); WHITE BLOOD COUNT 12.2 K/UL (4.8-10.8)
[2018-12-06 05:27] LABS: ALANINE AMINOTRANSFERASE 16 U/L (12-78); ALBUMIN 2.3 G/DL (3.4-5.0); ALBUMIN/GLOBULIN RATIO 0.5 (1.0-2.7); ALKALINE PHOSPHATASE 179 U/L (46-116); ANION GAP 12 mmol/L (5-15); ASPARTATE AMINO TRANSFERASE 22 U/L (15-37); BILIRUBIN,TOTAL 0.9 MG/DL (0.2-1.0); BLOOD UREA NITROGEN 36 mg/dL (7-18); CALCIUM 9.1 MG/DL (8.5-10.1); CARBON DIOXIDE 26 MMOL/L (21-32); CHLORIDE 98 MMOL/L (98-107); PHOSPHORUS 5.4 MG/DL (2.5-4.9); POTASSIUM 4.3 MMOL/L (3.5-5.1); SODIUM 135 MMOL/L (136-145)
[2018-12-06 05:28] LABS: INR 2.8 (0.9-1.1)
--- NOTE | 2018-12-06 06:00 | NUR ---
NURSE NOTES: Heparin drip stopped per Dr Davenport
[2018-12-06] MEDS: Piperacillin/Tazobactam 2.25 GM in D5W 55 ML IVPB SCH ×3 (06:04→21:19)
[2018-12-06] MEDS: Clindamycin 600mg 50 ML IV SCH (06:04)
[2018-12-06] MEDS: NovoLOG Insulin Flexpen SUBQ SCH ×4 (06:10→20:41)
[2018-12-06] MEDS ORDERED: Glycopyrrolate 0.2mg/ml 1ml Vial ONE (07:00)
[2018-12-06] MEDS ORDERED: Rocuronium Bromide 50mg/5ml Inj IV ONE ×2 (07:00→08:12)
[2018-12-06] MEDS ORDERED: NS Irrig 1000ml ONE (07:00)
[2018-12-06] MEDS ORDERED: LR 1000ml ONE (07:00)
[2018-12-06] MEDS ORDERED: Propofol 1,000mg/ 100ml btl IV ONE (07:00)
[2018-12-06] MEDS ORDERED: Neostigmine 1mg/ml 10ml Inj ONE ×2 (07:00)
[2018-12-06] MEDS ORDERED: Sterile Water Irrig 1000ml IRRIG ONE (07:00)
[2018-12-06] MEDS ORDERED: Phenylephrine 10mg/ml Vial ONE (07:35)
--- NOTE | 2018-12-06 07:40 | NUR ---
HAND-OFF: Report given to Alexandra Sethi RN.
--- NOTE | 2018-12-06 07:41 | NUR ---
NURSE NOTES: Received patient from IWONA Daily. Patient drowsy at this time. Patient complaining of 10/10 pain in his feet. Patient given morphine 2mg per PRN order at this time. Patient alert and oriented but greenlandic speaking. Patient blood pressure 137/75, HR 70, SpO2 97%, RR 21, and temp 98.7. Patient is NPO at this time. Patient states that he is hungry and I had the MOTORCYCLE SUBASSEMBLY REPAIRER assist in telling him in greenlandic that he cannot eat at this time because he is scheduled for surgery this morning for amputation of left leg below the knee. Surgery scheduled for 0900. Patient remains anuric at this time. Patient has right antecubital 20 gauge peripheral IV and right femoral triple lumen catheter that are both patent, asymptomatic, and intact dressing. IV fluid of NS at 50mL/hr running at this time. Patient Hgb is 9.1 at this time after 2 PRBC given yesterday. Patient was on heparin drip until [address] Davenport. Patient troponin still elevated at 2.326 this morning and trending down. Patient bed in low position with bed alarm craft demonstrator light in reach at this time. Will continue to monitor and follow up with surgery. Addendum: 12/06/18 at 1046 by Alexandra Sethi RN Patient on 2L NC with saturation of 97%.
[2018-12-06] MEDS ORDERED: fentaNYL 100 mcg/2 mL IV ONE (08:15)
[2018-12-06] MEDS ORDERED: Propofol 200mg/20ml IV ONE (08:16)
[2018-12-06] MEDS ORDERED: Lidocaine 1% MPF 10mg/ml 5ml ONE (08:17)
[2018-12-06] MEDS: Docusate 100mg cap ORAL SCH ×3 (08:25→17:42)
[2018-12-06] MEDS: Pantoprazole Inj IVP SCH ×2 (08:25→20:39)
[2018-12-06] MEDS: Metoprolol 25mg tab ORAL SCH ×2 (08:26→20:40)
[2018-12-06] MEDS: Nephrovite tab (Rena-Vite) ORAL SCH (08:26)
[2018-12-06] MEDS: Renvela 800mg Pkt ORAL SCH ×3 (08:26→17:42)
--- NOTE | 2018-12-06 08:30 | NUR ---
NURSE NOTES: Called Dr Davenport and asked if patient can have Metoprolol 25mg PO and Aspirin 325mg PO this morning. Patient has surgery scheduled for this morning at 0900. He reported that the patient can receive Metoprolol and hold aspirin. Will follow MD instruction at this time and hold aspirin.
[2018-12-06] MEDS ORDERED: Bacitracin 50000 Units Vial ONE (08:34)
--- NOTE | 2018-12-06 09:00 | NUR ---
NURSE NOTES: Patient transported to surgery on threat monitoring analyst and 2L NC. Patient denies acute distress. Report given to IWONA De La Cruz. Reported to Jono that patient requested to speak with the surgeon prior to surgery.
[2018-12-06] MEDS ORDERED: DiphenhydrAMINE 50mg/ml Inj IVP PRN (11:00)
[2018-12-06] MEDS ORDERED: fentaNYL 100 mcg/2 mL IV PRN (11:00)
--- NOTE | 2018-12-06 11:11 | Brief Operative Note ---
Immediate Post Operative Note Operative Note Pre-op Diagnosis: gangrene / necrosis of left heel/midfoot Procedure: left below knee amputation Post-op Diagnosis: same as pre-op Surgeon: antoni Anesthesiologist: thompson Anesthesia: general Specimen: yes Complications: none Condition: stable Fluids: see records Estimated Blood Loss: volume - 75 Drains: none Implant(s) used?: No Noam Davenport Dec 06, 2018 11:11
--- NOTE | 2018-12-06 11:14 | Immediate Post-Op Evaluation ---
Immediate Post-Op Evalulation Immediate Post-Op Evalulation Procedure: Jean Carlos MCGREGORA Date of Evaluation: Dec 06, 2018 Time of Evaluation: 11:13 IV Fluids: 350 Blood Products: none Estimated Blood Loss: 150 Urinary Output: none Blood Pressure Systolic: 109 Blood Pressure Diastolic: 56 Pulse Rate: 58 Respiratory Rate: 18 O2 Sat by Pulse Oximetry: 96 Temperature (Fahrenheit): 98.5 Pain Score (1-10): 1 Nausea: No Vomiting: No Complications none Patient Status: reacts, patent, extubated, none Hydration Status: adequate Jeremías Parker MD Dec 06, 2018 11:14
--- NOTE | 2018-12-06 11:45 | NUR ---
NURSE NOTES: Received patient from PACU nurse. It was reported that patient had estimated 150mL blood loss. 2 FFP ordered to be given. Will follow up. Patient complaining of pain. Fentanyl 25mcg given st 1130 prior to bringing the patient to the floor. Patient alert to name but confused to place, time, and purpose. patient denies acute distress. Patient pleasant and smiling at this time. Vital signs stable. Blood pressure 115/65, HR 61, SpO2 96%, RR 12 on 3L NC and temp 97.2. Patient straightened in bed. Will continue to monitor.
--- NOTE | 2018-12-06 11:46 | General Progress Note ---
Assessment/Plan Problem List: (1) HTN (hypertension) ICD Codes: I10 - Essential (primary) hypertension SNOMED: 28320999 (2) Diabetes ICD Codes: E11.9 - Type 2 diabetes mellitus without complications SNOMED: 07640461 (3) ESRD (end stage renal disease) ICD Codes: N18.6 - End stage renal disease SNOMED: 60887710 (4) Severe sepsis ICD Codes: A41.9 - Sepsis, unspecified organism; R65.20 - Severe sepsis without septic shock SNOMED: 83397718 (5) Amputation at midfoot ICD Codes: S98.319A - Complete traumatic amputation of unspecified midfoot, initial encounter SNOMED: 648813726 Status: unchanged Assessment/Plan: wound care abx pt diet cbc bmp am Subjective Constitutional: Reports: weakness Allergies: Coded Allergies: No Known Allergies (Unverified , 11/30/18) All Systems: reviewed and negative except above Subjective o2nc pending bka Objective Last 24 Hour Vital Signs Date Time Temp Pulse Resp B/P (MAP) Pulse Ox O2 Delivery O2 Flow Rate FiO2 12/06/18 11:14 58 18 96 12/06/18 08:26 70 137/75 12/06/18 07:39 70 16 100 Nasal Cannula 3.0 32 12/06/18 07:39 99 Nasal Cannula 3.0 32 12/06/18 04:02 71 12/06/18 04:00 Nasal Cannula 3.0 12/06/18 04:00 97.7 71 16 112/78 (89) 99 76 12/06/18 00:00 Nasal Cannula 3.0 12/06/18 00:00 97.9 72 16 116/72 (87) 99 76 12/06/18 00:00 62 12/05/18 21:29 99 123/78 12/05/18 20:00 97.7 76 16 123/78 (93) 99 76 12/05/18 20:00 73 12/05/18 20:00 Nasal Cannula 3.0 12/05/18 19:00 98.5 12/05/18 16:30 77 12/05/18 16:00 Nasal Cannula 3.0 12/05/18 16:00 98.5 77 22 140/93 (109) 97 12/05/18 16:00 69 13 118/74 (89) 99 12/05/18 15:03 131/75 12/05/18 15:00 71 10 131/75 (93) 99 12/05/18 15:00 97.8 71 10 131/75 (93) 99 12/05/18 14:52 98.2 72 12 124/75 (91) 100 12/05/18 14:00 66 14 95/65 (75) 99 12/05/18 13:00 97.8 70 10 125/67 (86) 100 12/05/18 12:30 68 12 129/59 (82) 97 12/05/18 12:00 65 11 102/54 (70) 100 12/05/18 12:00 Nasal Cannula 3.0 Intake and Output 12/05/18 12/06/18 18:59 06:59 Intake Total 1295.970 ml 833.237 ml Output Total 800 ml Balance 495.970 ml 833.237 ml Intake Oral 360 ml 30 ml IV Total 935.970 ml 803.237 ml Hemodialysis UF 800 ml Laboratory Tests 12/05/18 18:55: Random Vancomycin Level 18.7 12/06/18 04:10: White Blood Count 12.2H, Red Blood Count 3.40L, Hemoglobin 9.1L, Hematocrit 28.6L, Mean Corpuscular Volume 84, Mean Corpuscular Hemoglobin 26.8L, Mean Corpuscular Hemoglobin Concent 31.9L, Red Cell Distribution Width 14.4, Platelet Count 293, Mean Platelet Volume 6.3L, Neutrophils (%) (Auto) 82.2H, Lymphocytes (%) (Auto) 9.4L, Monocytes (%) (Auto) 6.0, Eosinophils (%) (Auto) 2.0, Basophils (%) (Auto) 0.4, Erythrocyte Sedimentation Rate 110H, Prothrombin Time 28.2H, Prothromb Time International Ratio 2.8H, Activated Partial Thromboplast Time 98H, Sodium Level 135L, Potassium Level 4.3, Chloride Level 98 , Carbon Dioxide Level 26, Anion Gap 12, Blood Urea Nitrogen 36H, Creatinine 6.0H, Estimat Glomerular Filtration Rate , Glucose Level 175H, Calcium Level 9.1 , Phosphorus Level 5.4H, Magnesium Level 2.0, Total Bilirubin 0.9, Aspartate Amino Transf (AST/SGOT) 22, Alanine Aminotransferase (ALT/SGPT) 16, Alkaline Phosphatase 179H, Troponin I 2.326H, C-Reactive Protein, Quantitative 23.2H, Total Protein 6.9, Albumin 2.3L, Globulin 4.6, Albumin/Globulin Ratio 0.5L Height (Feet): 5 Height (Inches): 1.00 Weight (Pounds): 170 General Appearance: lethargic EENT: normal ENT inspection Neck: normal alignment Cardiovascular: normal peripheral pulses, normal rate, regular rhythm Respiratory/Chest: chest wall non-tender, lungs clear, normal breath sounds Abdomen: normal bowel sounds, non tender, soft Extremities: normal inspection Edema: no edema noted Arm (L), no edema noted Arm (R), no edema noted Leg (L), no edema noted Leg (R), no edema noted Pedal (L), no edema noted Pedal (R), no edema noted Generalized Neurologic: motor weakness Skin: normal pigmentation, warm/dry Pravin Patton DO Dec 06, 2018 11:46
--- NOTE | 2018-12-06 12:30 | NUR ---
NURSE NOTES: Restraints applied. Patient removed surgical dressing twice after being told multiple times in portuguese and chinese that he can not remove the dressing or he will bleed out and possibly get an infection. Patient confused at this time and attempting to swing his legs off of the bed. Patient unable to be calmed down despite multiple efforts to assist him back into bed and reorient him. Patient placed on restraint for safety and limit setting as he is not following commands at this time. Will continue to monitor and remove restraint when possible.
[2018-12-06] MEDS: Morphine Sulfate 4mg/ml Inj (IV USE ONLY) IVP PRN ×3 (12:50→21:17)
--- NOTE | 2018-12-06 12:51 | Pulmonology Progress Note ---
Assessment/Plan Problems: (1) Severe sepsis (2) Above knee amputation of right lower extremity (3) Non-ST elevation (NSTEMI) myocardial infarction (4) Infection of amputation stump (5) ESRD (end stage renal disease) (6) Diabetes (7) HTN (hypertension) Assessment/Plan tolerated surgery very well wound care iv abx sliding scale diabetid diet pain management f/u surgery recommendations. Subjective ROS Limited/Unobtainable: Yes Interval Events: had amputation Allergies: Coded Allergies: No Known Allergies (Unverified , 11/30/18) Objective Last 24 Hour Vital Signs Date Time Temp Pulse Resp B/P (MAP) Pulse Ox O2 Delivery O2 Flow Rate FiO2 12/06/18 12:00 Nasal Cannula 3.0 12/06/18 11:50 97.2 12/06/18 11:40 97.2 61 12 115/65 96 Nasal Cannula 3 12/06/18 11:30 61 16 112/56 100 Simple Mask 6 12/06/18 11:20 55 16 110/50 100 Simple Mask 6 12/06/18 11:15 54 18 105/54 100 Simple Mask 6 12/06/18 11:14 58 18 96 12/06/18 11:09 98.6 58 12 109/46 100 Simple Mask 6 12/06/18 08:26 70 137/75 12/06/18 08:00 Nasal Cannula 3.0 12/06/18 08:00 62 12/06/18 07:39 70 16 100 Nasal Cannula 3.0 32 12/06/18 07:39 99 Nasal Cannula 3.0 32 12/06/18 04:02 71 12/06/18 04:00 Nasal Cannula 3.0 12/06/18 04:00 97.7 71 16 112/78 (89) 99 76 12/06/18 00:00 Nasal Cannula 3.0 12/06/18 00:00 97.9 72 16 116/72 (87) 99 76 12/06/18 00:00 62 12/05/18 21:29 99 123/78 12/05/18 20:00 97.7 76 16 123/78 (93) 99 76 12/05/18 20:00 73 12/05/18 20:00 Nasal Cannula 3.0 12/05/18 19:00 98.5 12/05/18 16:30 77 12/05/18 16:00 Nasal Cannula 3.0 12/05/18 16:00 98.5 77 22 140/93 (109) 97 12/05/18 16:00 69 13 118/74 (89) 99 12/05/18 15:03 131/75 12/05/18 15:00 71 10 131/75 (93) 99 12/05/18 15:00 97.8 71 10 131/75 (93) 99 12/05/18 14:52 98.2 72 12 124/75 (91) 100 12/05/18 14:00 66 14 95/65 (75) 99 12/05/18 13:00 97.8 70 10 125/67 (86) 100 Intake and Output 12/05/18 12/06/18 18:59 06:59 Intake Total 1295.970 ml 833.237 ml Output Total 800 ml Balance 495.970 ml 833.237 ml Intake Oral 360 ml 30 ml IV Total 935.970 ml 803.237 ml Hemodialysis UF 800 ml General Appearance: WD/WN HEENT: normocephalic, atraumatic Respiratory/Chest: chest wall non-tender, lungs clear Cardiovascular: normal peripheral pulses, regular rhythm, no JVD Abdomen: soft, non tender, non distended Genitourinary: normal external genitalia Extremities: no cyanosis Laboratory Tests 12/05/18 18:55: Random Vancomycin Level 18.7 12/06/18 04:10: White Blood Count 12.2H, Red Blood Count 3.40L, Hemoglobin 9.1L, Hematocrit 28.6L, Mean Corpuscular Volume 84, Mean Corpuscular Hemoglobin 26.8L, Mean Corpuscular Hemoglobin Concent 31.9L, Red Cell Distribution Width 14.4, Platelet Count 293, Mean Platelet Volume 6.3L, Neutrophils (%) (Auto) 82.2H, Lymphocytes (%) (Auto) 9.4L, Monocytes (%) (Auto) 6.0, Eosinophils (%) (Auto) 2.0, Basophils (%) (Auto) 0.4, Erythrocyte Sedimentation Rate 110H, Prothrombin Time 28.2H, Prothromb Time International Ratio 2.8H, Activated Partial Thromboplast Time 98H, Sodium Level 135L, Potassium Level 4.3, Chloride Level 98 , Carbon Dioxide Level 26, Anion Gap 12, Blood Urea Nitrogen 36H, Creatinine 6.0H, Estimat Glomerular Filtration Rate , Glucose Level 175H, Calcium Level 9.1 , Phosphorus Level 5.4H, Magnesium Level 2.0, Total Bilirubin 0.9, Aspartate Amino Transf (AST/SGOT) 22, Alanine Aminotransferase (ALT/SGPT) 16, Alkaline Phosphatase 179H, Troponin I 2.326H, C-Reactive Protein, Quantitative 23.2H, Total Protein 6.9, Albumin 2.3L, Globulin 4.6, Albumin/Globulin Ratio 0.5L Current Medications Medications (Trade) Dose Ordered Sig/Elva Route PRN Reason Start Time Stop Time Status Last Admin Dose Admin Acetaminophen (Tylenol) 650 mg Q4H PRN ORAL fever 12/05/18 16:30 12/30/18 16:29 Aspirin (ASA) 325 mg DAILY ORAL 12/06/18 09:00 01/02/19 09:59 Atorvastatin Calcium (Lipitor) 80 mg BEDTIME ORAL 12/05/18 21:00 12/30/18 20:59 12/05/18 21:28 Chlorhexidine Gluconate (Keke-Hex 2%) 1 applic DAILY@2000 TOPIC 12/05/18 20:00 12/31/18 19:59 12/05/18 20:24 Clindamycin/ Sodium Chloride 50 ml @ 100 mls/hr Q8HR IV 12/05/18 22:00 12/08/18 21:59 12/06/18 06:04 Dextrose (Dextrose 50%) 25 ml Q30M PRN IV Hypoglycemia 12/05/18 16:45 01/03/19 08:14 Dextrose (Dextrose 50%) 50 ml Q30M PRN IV Hypoglycemia 12/05/18 16:45 01/03/19 08:14 Docusate Sodium (Colace) 100 mg THREE TIMES A DAY ORAL 12/05/18 18:00 01/01/19 12:59 12/06/18 08:25 Insulin Aspart (NovoLOG) BEFORE MEALS AND HS SUBQ 12/05/18 16:30 01/03/19 11:29 12/05/18 21:43 Metoprolol Tartrate (Lopressor) 25 mg Q12HR ORAL 12/05/18 21:00 01/04/19 20:59 12/06/18 08:26 Morphine Sulfate (Morphine Sulfate) 1 mg Q4H PRN IVP Mild Pain (Pain Scale 1-3) 12/06/18 13:00 12/13/18 12:59 Morphine Sulfate (Morphine Sulfate) 2 mg Q4H PRN IVP Moderate Pain (Pain Scale 4-6) 12/06/18 13:00 12/13/18 12:59 Morphine Sulfate (Morphine Sulfate) 4 mg Q4H PRN IVP Severe Pain (Pain Scale 7-10) 12/06/18 13:00 12/13/18 12:59 Ondansetron HCl (Zofran) 4 mg Q6H PRN IVP Nausea & Vomiting 12/05/18 16:30 12/30/18 16:29 12/05/18 16:48 Pantoprazole (Protonix) 40 mg Q12HR IVP 12/05/18 21:00 12/31/18 08:59 12/06/18 08:25 Piperacillin Sod/ Tazobactam Sod 2.25 gm/Dextrose 55 ml @ 110 mls/hr Q8HR IVPB 12/05/18 22:00 12/10/18 13:59 12/06/18 06:04 Polyethylene Glycol (Miralax) 17 gm DAILYPRN PRN ORAL Constipation 12/05/18 16:30 01/04/19 16:29 Sevelamer Carbonate (Renvela) 800 mg THREE TIMES A DAY ORAL 12/05/18 18:00 12/30/18 17:59 12/06/18 08:26 Sodium Chloride 1,000 ml @ 50 mls/hr Q20H IV 12/05/18 16:30 12/30/18 15:29 12/06/18 06:29 Vancomycin HCl (Vanco rx to dose) 1 ea DAILY PRN MISC Per rx protocol 12/06/18 09:00 12/30/18 13:59 Vitamin B Complex/ Vit C/Folic Acid (Nephrovite) 1 tab DAILY ORAL 12/06/18 09:00 12/31/18 08:59 12/06/18 08:26 Rebekah Arora MD Dec 06, 2018 12:51
[2018-12-06] MEDS ORDERED: Morphine Sulfate 2mg/ml Inj(IV/IM USE ONLY) IVP PRN ×2 (13:00)
--- NOTE | 2018-12-06 13:07 | Infectious Diseases Prog Note ---
Assessment/Plan Assessment/Plan Assessment: Septic shock, sp-2ry to PNA and wet gangrene -12/01 CXR: . Interval development of patchy consolidation throughout the right lung, concerning for pneumonia. Consolidations related to pulmonary edema are less likely since it is predominantly on the right side. Persistent pulmonary vascular congestion. -CXR: Pulmonary vascularity and interstitium are prominent. 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 ratgerri (S ceftriaxone), P. mirabilis (teran S), E. fecalis (S Amp, vanco) -xray L tibia/fibula: No acute injury identified. Diffuse osteopenia. Fever ; improving Hyperleukocytosis; SP- now mild leukocytosis- ESRD on HD MWF anemia polyneuropathy GERD MD resident Plan: -Continue ZOsyn #4/7 (abx d #08/29) -D/c empiric IV Vancomycin #7, Clindamycin #6 -12/05 SP Azithromycin #5 -12/03 SP Meropenem #4 -11/30 SP Cefepime #1, Flagyl #1 -Monitor CBC/CMP, temperatures -aspiration precautions -podiatry, surgery f/u -wound care per surgical team Thank you for this consultation. Will continue to follow along with you. Discussed with RN Subjective Allergies: Coded Allergies: No Known Allergies (Unverified , 11/30/18) Subjective afebrile >48hrs out ICU and transferred to SDU mild leukcoytosis Bcx Neg Objective Vital Signs Last 24 Hour Vital Signs Date Time Temp Pulse Resp B/P (MAP) Pulse Ox O2 Delivery O2 Flow Rate FiO2 12/06/18 12:00 Nasal Cannula 3.0 12/06/18 11:50 97.2 12/06/18 11:40 97.2 61 12 115/65 96 Nasal Cannula 3 12/06/18 11:30 61 16 112/56 100 Simple Mask 6 12/06/18 11:20 55 16 110/50 100 Simple Mask 6 12/06/18 11:15 54 18 105/54 100 Simple Mask 6 12/06/18 11:14 58 18 96 12/06/18 11:09 98.6 58 12 109/46 100 Simple Mask 6 12/06/18 08:26 70 137/75 12/06/18 08:00 Nasal Cannula 3.0 12/06/18 08:00 62 12/06/18 07:39 70 16 100 Nasal Cannula 3.0 32 12/06/18 07:39 99 Nasal Cannula 3.0 32 12/06/18 04:02 71 12/06/18 04:00 Nasal Cannula 3.0 12/06/18 04:00 97.7 71 16 112/78 (89) 99 76 12/06/18 00:00 Nasal Cannula 3.0 12/06/18 00:00 97.9 72 16 116/72 (87) 99 76 12/06/18 00:00 62 12/05/18 21:29 99 123/78 12/05/18 20:00 97.7 76 16 123/78 (93) 99 76 12/05/18 20:00 73 12/05/18 20:00 Nasal Cannula 3.0 12/05/18 19:00 98.5 12/05/18 16:30 77 12/05/18 16:00 Nasal Cannula 3.0 12/05/18 16:00 98.5 77 22 140/93 (109) 97 12/05/18 16:00 69 13 118/74 (89) 99 12/05/18 15:03 131/75 12/05/18 15:00 71 10 131/75 (93) 99 12/05/18 15:00 97.8 71 10 131/75 (93) 99 12/05/18 14:52 98.2 72 12 124/75 (91) 100 12/05/18 14:00 66 14 95/65 (75) 99 Height (Feet): 5 Height (Inches): 1.00 Weight (Pounds): 170 Laboratory Tests Test 12/05/18 18:55 12/06/18 04:10 Random Vancomycin Level 18.7 ug/mL White Blood Count 12.2 K/UL (4.8-10.8) H Red Blood Count 3.40 M/UL (4.70-6.10) L Hemoglobin 9.1 G/DL (14.2-18.0) L Hematocrit 28.6 % (42.0-52.0) L Mean Corpuscular Volume 84 FL (80-99) Mean Corpuscular Hemoglobin 26.8 PG (27.0-31.0) L Mean Corpuscular Hemoglobin Concent 31.9 G/DL (32.0-36.0) L Red Cell Distribution Width 14.4 % (11.6-14.8) Platelet Count 293 K/UL (150-450) Mean Platelet Volume 6.3 FL (6.5-10.1) L Neutrophils (%) (Auto) 82.2 % (45.0-75.0) H Lymphocytes (%) (Auto) 9.4 % (20.0-45.0) L Monocytes (%) (Auto) 6.0 % (1.0-10.0) Eosinophils (%) (Auto) 2.0 % (0.0-3.0) Basophils (%) (Auto) 0.4 % (0.0-2.0) Erythrocyte Sedimentation Rate 110 MM/HR (0-20) H Prothrombin Time 28.2 SEC (9.30-11.50) H Prothromb Time International Ratio 2.8 (0.9-1.1) H Activated Partial Thromboplast Time 98 SEC (23-33) H Sodium Level 135 MMOL/L (136-145) L Potassium Level 4.3 MMOL/L (3.5-5.1) Chloride Level 98 MMOL/L (98-107) Carbon Dioxide Level 26 MMOL/L (21-32) Anion Gap 12 mmol/L (5-15) Blood Urea Nitrogen 36 mg/dL (7-18) H Creatinine 6.0 MG/DL (0.55-1.30) H Estimat Glomerular Filtration Rate mL/min (>60) Glucose Level 175 MG/DL (74-106) H Calcium Level 9.1 MG/DL (8.5-10.1) Phosphorus Level 5.4 MG/DL (2.5-4.9) H Magnesium Level 2.0 MG/DL (1.8-2.4) Total Bilirubin 0.9 MG/DL (0.2-1.0) Aspartate Amino Transf (AST/SGOT) 22 U/L (15-37) Alanine Aminotransferase (ALT/SGPT) 16 U/L (12-78) Alkaline Phosphatase 179 U/L (46-116) H Troponin I 2.326 ng/mL (0.000-0.056) C-Reactive Protein, Quantitative 23.2 mg/dL (0.00-0.90) H Total Protein 6.9 G/DL (6.4-8.2) Albumin 2.3 G/DL (3.4-5.0) L Globulin 4.6 g/dL Albumin/Globulin Ratio 0.5 (1.0-2.7) L Current Medications Medications (Trade) Dose Ordered Sig/Elva Route PRN Reason Start Time Stop Time Status Last Admin Dose Admin Acetaminophen (Tylenol) 650 mg Q4H PRN ORAL fever 12/05/18 16:30 12/30/18 16:29 Aspirin (ASA) 325 mg DAILY ORAL 12/06/18 09:00 01/02/19 09:59 Atorvastatin Calcium (Lipitor) 80 mg BEDTIME ORAL 12/05/18 21:00 12/30/18 20:59 12/05/18 21:28 Chlorhexidine Gluconate (Keke-Hex 2%) 1 applic DAILY@2000 TOPIC 12/05/18 20:00 12/31/18 19:59 12/05/18 20:24 Clindamycin/ Sodium Chloride 50 ml @ 100 mls/hr Q8HR IV 12/05/18 22:00 12/08/18 21:59 12/06/18 06:04 Dextrose (Dextrose 50%) 25 ml Q30M PRN IV Hypoglycemia 12/05/18 16:45 01/03/19 08:14 Dextrose (Dextrose 50%) 50 ml Q30M PRN IV Hypoglycemia 12/05/18 16:45 01/03/19 08:14 Docusate Sodium (Colace) 100 mg THREE TIMES A DAY ORAL 12/05/18 18:00 01/01/19 12:59 12/06/18 08:25 Insulin Aspart (NovoLOG) BEFORE MEALS AND HS SUBQ 12/05/18 16:30 01/03/19 11:29 12/05/18 21:43 Metoprolol Tartrate (Lopressor) 25 mg Q12HR ORAL 12/05/18 21:00 01/04/19 20:59 12/06/18 08:26 Morphine Sulfate (Morphine Sulfate) 1 mg Q4H PRN IVP Mild Pain (Pain Scale 1-3) 12/06/18 13:00 12/13/18 12:59 Morphine Sulfate (Morphine Sulfate) 2 mg Q4H PRN IVP Moderate Pain (Pain Scale 4-6) 12/06/18 13:00 12/13/18 12:59 Morphine Sulfate (Morphine Sulfate) 4 mg Q4H PRN IVP Severe Pain (Pain Scale 7-10) 12/06/18 13:00 12/13/18 12:59 12/06/18 12:50 Ondansetron HCl (Zofran) 4 mg Q6H PRN IVP Nausea & Vomiting 12/05/18 16:30 12/30/18 16:29 12/05/18 16:48 Pantoprazole (Protonix) 40 mg Q12HR IVP 12/05/18 21:00 12/31/18 08:59 12/06/18 08:25 Piperacillin Sod/ Tazobactam Sod 2.25 gm/Dextrose 55 ml @ 110 mls/hr Q8HR IVPB 12/05/18 22:00 12/10/18 13:59 12/06/18 06:04 Polyethylene Glycol (Miralax) 17 gm DAILYPRN PRN ORAL Constipation 12/05/18 16:30 01/04/19 16:29 Sevelamer Carbonate (Renvela) 800 mg THREE TIMES A DAY ORAL 12/05/18 18:00 12/30/18 17:59 12/06/18 08:26 Sodium Chloride 1,000 ml @ 50 mls/hr Q20H IV 12/05/18 16:30 12/30/18 15:29 12/06/18 06:29 Vancomycin HCl (Vanco rx to dose) 1 ea DAILY PRN MISC Per rx protocol 12/06/18 09:00 12/30/18 13:59 Vitamin B Complex/ Vit C/Folic Acid (Nephrovite) 1 tab DAILY ORAL 12/06/18 09:00 12/31/18 08:59 12/06/18 08:26 Aparna Ramirez M.D. Dec 06, 2018 13:07
--- NOTE | 2018-12-06 14:00 | NUR ---
NURSE NOTES: Patient family at the bedside. patient now able to follow commands and no longer attempting to slide out of bed or remove dressing on surgical site. patient alert and oriented at this time and conversing with family. Patient's son Shailesh Baltazar Jr was updated on his father's condition.
--- NOTE | 2018-12-06 15:01 | Hematology/Onc Progress Note ---
Assessment/Plan Assessment/Plan Assessment/Plan: # Coagulation defect, multifactorial usually related to poor PO intake versus medications, versus cirrhosis, in this case, is likely related to sepsis and dic (on admission) and now off hep gtt --> administer Vitamin K if patient is bleeding or FFP if the INR is >10 --> hold off on ffp unless active procedure/bleeding, first begin with vit K 10 --> mixing study ordered and reviewed, likely has vit K deficiency --> hep and hiv are negative --> us of the abdomen shows potential cirrhosis/undefined # Anemia of chronic disease, due to underlying chronic medical issues, multifactorial --> Anemia workup has been reviewed, is c/w acd --> No evidence of hemolysis is noted, peripheral smear has been reviewed --> Hgb goal >7. Transfuse prn. --> Epogen or iron at this time is not particularly indicated --> Medications have been reviewed --> low threshold for gi evaluation in case has occult + --> hgb 8.4-->7.7-->7.4->9.1 # Leukocytosis/elevated white blood cell count, unspecified likely related to underlying stress reaction with septic shock (with poss pna) --> have reviewed peripheral smear and bandemia/neutrophilia noted --> continue antibiotics if they have been started by ID team (clinda/indira/vanc) --> monitor for resolution # Acute WA --> off hep gtt --> with esrd --> as per cards recs --> TTe neg for vegetatons # Infected leg ulcer, probably gangrene --> s/p L bka --> as per surg recs # PVD with amputation # End-stage renal disease - on hemodialysis --> per renal HD 12/03 # Electrolyte abnormalities # Diabetes mellitus with diabetic neuropathy # Dvt ppx scds The timing of this note does not necessarily reflect the time of the patient was seen. Greatly appreciate consultation. Subjective Constitutional: Denies: no symptoms, chills, fever, malaise, weakness, other HEENT: Denies: no symptoms, eye pain, blurred vision, tearing, double vision, ear pain, ear discharge, nose pain, nose congestion, throat pain, throat swelling, mouth pain, mouth swelling, other Respiratory: Denies: no symptoms, cough, shortness of breath, SOB with excertion, SOB at rest, sputum, wheezing, other Gastrointestinal/Abdominal: Denies: no symptoms, abdomen distended, abdominal pain, black stools, tarry stools, blood in stool, constipated, diarrhea, difficulty swallowing, nausea, poor appetite, poor fluid intake, rectal bleeding , vomiting, other Genitourinary: Denies: no symptoms, burning, discharge, frequency, flank pain, hematuria, incontinence, pain, urgency, other Neurologic/Psychiatric: Denies: no symptoms, anxiety, depressed, emotional problems, headache, numbness, paresthesia, pre-existing deficit, seizure, tingling, tremors, weakness, other Hematologic/Lymphatic: Denies: no symptoms, anemia, easy bleeding, easy bruising, adenopathy, other Allergies: Coded Allergies: No Known Allergies (Unverified , 11/30/18) Subjective 12/03: no bleeding, no night sweats, on levo in icu, dw rn 12/04: remains on heparin, remains in icu, on pressor, pending surgery shortly 12/05: hd today, given norco, on hep gtt 12/06:or l bka. no bleeding, no night sweats noted Objective Objective Current Medications Medications (Trade) Dose Ordered Sig/Elva Route PRN Reason Start Time Stop Time Status Last Admin Dose Admin Acetaminophen (Tylenol) 650 mg Q4H PRN ORAL fever 12/05/18 16:30 12/30/18 16:29 Aspirin (ASA) 325 mg DAILY ORAL 12/06/18 09:00 01/02/19 09:59 Atorvastatin Calcium (Lipitor) 80 mg BEDTIME ORAL 12/05/18 21:00 12/30/18 20:59 12/05/18 21:28 Chlorhexidine Gluconate (Keke-Hex 2%) 1 applic DAILY@1999 TOPIC 12/05/18 20:00 12/31/18 19:59 12/05/18 20:24 Dextrose (Dextrose 50%) 25 ml Q30M PRN IV Hypoglycemia 12/05/18 16:45 01/03/19 08:14 Dextrose (Dextrose 50%) 50 ml Q30M PRN IV Hypoglycemia 12/05/18 16:45 01/03/19 08:14 Docusate Sodium (Colace) 100 mg THREE TIMES A DAY ORAL 12/05/18 18:00 01/01/19 12:59 12/06/18 08:25 Insulin Aspart (NovoLOG) BEFORE MEALS AND HS SUBQ 12/05/18 16:30 01/03/19 11:29 12/05/18 21:43 Metoprolol Tartrate (Lopressor) 25 mg Q12HR ORAL 12/05/18 21:00 01/04/19 20:59 12/06/18 08:26 Morphine Sulfate (Morphine Sulfate) 1 mg Q4H PRN IVP Mild Pain (Pain Scale 1-3) 12/06/18 13:00 12/13/18 12:59 Morphine Sulfate (Morphine Sulfate) 2 mg Q4H PRN IVP Moderate Pain (Pain Scale 4-6) 12/06/18 13:00 12/13/18 12:59 Morphine Sulfate (Morphine Sulfate) 4 mg Q4H PRN IVP Severe Pain (Pain Scale 7-10) 12/06/18 13:00 12/13/18 12:59 12/06/18 12:50 Ondansetron HCl (Zofran) 4 mg Q6H PRN IVP Nausea & Vomiting 12/05/18 16:30 12/30/18 16:29 12/05/18 16:48 Pantoprazole (Protonix) 40 mg Q12HR IVP 12/05/18 21:00 12/31/18 08:59 12/06/18 08:25 Piperacillin Sod/ Tazobactam Sod 2.25 gm/Dextrose 55 ml @ 110 mls/hr Q8HR IVPB 12/05/18 22:00 12/10/18 13:59 12/06/18 14:11 Polyethylene Glycol (Miralax) 17 gm DAILYPRN PRN ORAL Constipation 12/05/18 16:30 01/04/19 16:29 Sevelamer Carbonate (Renvela) 800 mg THREE TIMES A DAY ORAL 12/05/18 18:00 12/30/18 17:59 12/06/18 08:26 Sodium Chloride 1,000 ml @ 50 mls/hr Q20H IV 12/05/18 16:30 12/30/18 15:29 12/06/18 06:29 Vitamin B Complex/ Vit C/Folic Acid (Nephrovite) 1 tab DAILY ORAL 12/06/18 09:00 12/31/18 08:59 12/06/18 08:26 Last 24 Hour Vital Signs Date Time Temp Pulse Resp B/P (MAP) Pulse Ox O2 Delivery O2 Flow Rate FiO2 12/06/18 12:00 Nasal Cannula 3.0 12/06/18 11:50 97.2 12/06/18 11:40 97.2 61 12 115/65 96 Nasal Cannula 3 12/06/18 11:30 61 16 112/56 100 Simple Mask 6 12/06/18 11:20 55 16 110/50 100 Simple Mask 6 12/06/18 11:15 54 18 105/54 100 Simple Mask 6 12/06/18 11:14 58 18 96 12/06/18 11:09 98.6 58 12 109/46 100 Simple Mask 6 12/06/18 08:26 70 137/75 12/06/18 08:00 Nasal Cannula 3.0 12/06/18 08:00 62 12/06/18 07:39 70 16 100 Nasal Cannula 3.0 32 12/06/18 07:39 99 Nasal Cannula 3.0 32 12/06/18 04:02 71 12/06/18 04:00 Nasal Cannula 3.0 12/06/18 04:00 97.7 71 16 112/78 (89) 99 76 12/06/18 00:00 Nasal Cannula 3.0 12/06/18 00:00 97.9 72 16 116/72 (87) 99 76 12/06/18 00:00 62 12/05/18 21:29 99 123/78 12/05/18 20:00 97.7 76 16 123/78 (93) 99 76 12/05/18 20:00 73 12/05/18 20:00 Nasal Cannula 3.0 12/05/18 19:00 98.5 12/05/18 16:30 77 12/05/18 16:00 Nasal Cannula 3.0 12/05/18 16:00 98.5 77 22 140/93 (109) 97 12/05/18 16:00 69 13 118/74 (89) 99 12/05/18 15:03 131/75 12/05/18 15:00 71 10 131/75 (93) 99 12/05/18 15:00 97.8 71 10 131/75 (93) 99 12/05/18 14:52 98.2 72 12 124/75 (91) 100 12/05/18 14:00 66 14 95/65 (75) 99 12/05/18 13:00 97.8 70 10 125/67 (86) 100 12/05/18 12:30 68 12 129/59 (82) 97 12/05/18 12:00 65 11 102/54 (70) 100 12/05/18 12:00 Nasal Cannula 3.0 12/05/18 11:22 65 12/05/18 11:00 65 13 94/56 (69) 100 12/05/18 10:00 64 15 101/56 (71) 99 12/05/18 09:00 65 104/62 12/05/18 09:00 65 10 104/62 (76) 99 12/05/18 08:10 99 Nasal Cannula 3.0 32 12/05/18 08:10 72 18 100 Nasal Cannula 3.0 32 12/05/18 08:00 98.2 68 10 107/68 (81) 100 12/05/18 08:00 Nasal Cannula 3.0 12/05/18 07:25 70 12/05/18 07:00 72 10 99/51 (67) 99 12/05/18 06:30 71 9 125/74 (91) 99 12/05/18 06:00 71 12 128/79 (95) 98 12/05/18 05:30 73 10 127/80 (96) 100 12/05/18 05:00 72 18 128/77 (94) 100 12/05/18 05:00 128/77 12/05/18 04:30 73 15 111/64 (80) 98 12/05/18 04:00 125/76 12/05/18 04:00 Nasal Cannula 3.0 12/05/18 04:00 98.4 73 14 125/76 (92) 99 12/05/18 03:30 74 11 110/51 (70) 99 12/05/18 03:03 72 12/05/18 03:00 129/70 12/05/18 03:00 73 8 129/70 (89) 99 12/05/18 02:30 72 16 131/73 (92) 99 12/05/18 02:00 132/78 12/05/18 02:00 71 9 132/78 (96) 99 12/05/18 01:30 71 16 118/73 (88) 99 10/16/19 01:09 71 15 122/78 (93) 100 12/05/18 01:00 122/78 12/05/18 00:30 71 14 112/71 (85) 100 12/05/18 00:00 Nasal Cannula 3.0 12/05/18 00:00 119/61 12/05/18 00:00 98.4 71 14 119/69 (86) 100 12/04/18 23:30 70 12 121/73 (89) 100 12/04/18 23:13 71 12/04/18 23:00 71 12 110/65 (80) 100 12/04/18 23:00 110/65 12/04/18 22:30 71 16 109/66 (80) 100 12/04/18 22:00 118/69 12/04/18 22:00 70 9 118/69 (85) 99 12/04/18 21:30 71 11 114/67 (83) 100 12/04/18 21:00 123/67 12/04/18 21:00 72 17 123/67 (85) 100 12/04/18 20:57 75 126/68 12/04/18 20:30 72 19 126/68 (87) 100 12/04/18 20:00 98.6 72 10 123/65 (84) 100 12/04/18 20:00 123/65 12/04/18 20:00 Nasal Cannula 3.0 12/04/18 19:52 106/61 12/04/18 19:25 71 12/04/18 19:16 100 Nasal Cannula 3.0 32 12/04/18 19:16 74 19 100 Nasal Cannula 3.0 32 12/04/18 19:00 67 18 114/71 (85) 100 12/04/18 18:30 68 16 115/61 (79) 100 12/04/18 18:03 98.5 12/04/18 18:00 64 16 81/56 (64) 100 12/04/18 17:30 70 16 112/68 (83) 100 12/04/18 17:00 69 18 106/79 (88) 98 12/04/18 16:30 68 11 113/74 (87) 100 12/04/18 16:00 66 12/04/18 16:00 Nasal Cannula 3.0 12/04/18 16:00 98.6 69 11 97/70 (79) 100 12/04/18 15:30 67 18 106/64 (78) 12/04/18 15:00 69 15 99/59 (72) 99 Intake and Output 12/05/18 12/06/18 18:59 06:59 Intake Total 1295.970 ml 833.237 ml Output Total 800 ml Balance 495.970 ml 833.237 ml Intake Oral 360 ml 30 ml IV Total 935.970 ml 803.237 ml Hemodialysis UF 800 ml Labs Test 12/03/18 19:55 12/04/18 02:50 12/04/18 10:20 12/04/18 18:30 Activated Partial Thromboplast Time 99 SEC (23-33) 56 SEC (23-33) 102 SEC (23-33) 59 SEC (23-33) Troponin I 7.754 ng/mL (0.000-0.056) 7.033 ng/mL (0.000-0.056) Random Vancomycin Level 19.5 ug/mL White Blood Count 12.8 K/UL (4.8-10.8) Red Blood Count 3.23 M/UL (4.70-6.10) Hemoglobin 8.4 G/DL (14.2-18.0) Hematocrit 27.0 % (42.0-52.0) Mean Corpuscular Volume 84 FL (80-99) Mean Corpuscular Hemoglobin 25.9 PG (27.0-31.0) Mean Corpuscular Hemoglobin Concent 31.0 G/DL (32.0-36.0) Red Cell Distribution Width 14.0 % (11.6-14.8) Platelet Count 306 K/UL (150-450) Mean Platelet Volume 6.0 FL (6.5-10.1) Neutrophils (%) (Auto) 75.6 % (45.0-75.0) Lymphocytes (%) (Auto) 13.0 % (20.0-45.0) Monocytes (%) (Auto) 8.3 % (1.0-10.0) Eosinophils (%) (Auto) 2.5 % (0.0-3.0) Basophils (%) (Auto) 0.6 % (0.0-2.0) Erythrocyte Sedimentation Rate 124 MM/HR (0-20) Prothrombin Time 17.0 SEC (9.30-11.50) Prothromb Time International Ratio 1.6 (0.9-1.1) Sodium Level 135 MMOL/L (136-145) Potassium Level 4.2 MMOL/L (3.5-5.1) Chloride Level 99 MMOL/L (98-107) Carbon Dioxide Level 26 MMOL/L (21-32) Anion Gap 10 mmol/L (5-15) Blood Urea Nitrogen 46 mg/dL (7-18) Creatinine 7.1 MG/DL (0.55-1.30) Estimat Glomerular Filtration Rate mL/min (>60) Glucose Level 194 MG/DL (74-106) Calcium Level 9.1 MG/DL (8.5-10.1) Phosphorus Level 3.8 MG/DL (2.5-4.9) Magnesium Level 2.2 MG/DL (1.8-2.4) Total Bilirubin 0.7 MG/DL (0.2-1.0) Direct Bilirubin 0.3 MG/DL (0.0-0.3) Aspartate Amino Transf (AST/SGOT) 46 U/L (15-37) Alanine Aminotransferase (ALT/SGPT) 20 U/L (12-78) Alkaline Phosphatase 247 U/L (46-116) C-Reactive Protein, Quantitative 25.9 mg/dL (0.00-0.90) Total Protein 7.0 G/DL (6.4-8.2) Albumin 2.2 G/DL (3.4-5.0) Hepatitis A IgM Antibody Negative (Negative) Hepatitis B Surface Antigen Negative (Negative) Hepatitis B Core IgM Antibody Negative (Negative) Hepatitis C Antibody <0.1 s/co ratio HIV (1&2) Antibody Rapid Negative (NEGATIVE) Test 12/05/18 01:50 12/05/18 04:00 12/05/18 09:30 12/05/18 18:55 Activated Partial Thromboplast Time 84 SEC (23-33) White Blood Count 10.8 K/UL (4.8-10.8) 10.7 K/UL (4.8-10.8) Red Blood Count 2.97 M/UL (4.70-6.10) 2.85 M/UL (4.70-6.10) Hemoglobin 7.7 G/DL (14.2-18.0) 7.4 G/DL (14.2-18.0) Hematocrit 24.9 % (42.0-52.0) 23.8 % (42.0-52.0) Mean Corpuscular Volume 84 FL (80-99) 83 FL (80-99) Mean Corpuscular Hemoglobin 26.0 PG (27.0-31.0) 25.8 PG (27.0-31.0) Mean Corpuscular Hemoglobin Concent 31.0 G/DL (32.0-36.0) 31.0 G/DL (32.0-36.0) Red Cell Distribution Width 14.5 % (11.6-14.8) 14.6 % (11.6-14.8) Platelet Count 297 K/UL (150-450) 279 K/UL (150-450) Mean Platelet Volume 6.3 FL (6.5-10.1) 6.6 FL (6.5-10.1) Neutrophils (%) (Auto) % (45.0-75.0) % (45.0-75.0) Lymphocytes (%) (Auto) % (20.0-45.0) % (20.0-45.0) Monocytes (%) (Auto) % (1.0-10.0) % (1.0-10.0) Eosinophils (%) (Auto) % (0.0-3.0) % (0.0-3.0) Basophils (%) (Auto) % (0.0-2.0) % (0.0-2.0) Differential Total Cells Counted 100 100 Neutrophils % (Manual) 68 % (45-75) 70 % (45-75) Lymphocytes % (Manual) 18 % (20-45) 14 % (20-45) Monocytes % (Manual) 9 % (1-10) 12 % (1-10) Eosinophils % (Manual) 5 % (0-3) 4 % (0-3) Basophils % (Manual) 0 % (0-2) 0 % (0-2) Band Neutrophils 0 % (0-8) 0 % (0-8) Platelet Estimate Adequate Adequate Platelet Morphology Normal Normal Hypochromasia 3+ 3+ Anisocytosis 1+ 1+ Sodium Level 134 MMOL/L (136-145) Potassium Level 4.7 MMOL/L (3.5-5.1) Chloride Level 97 MMOL/L (98-107) Carbon Dioxide Level 23 MMOL/L (21-32) Anion Gap 14 mmol/L (5-15) Blood Urea Nitrogen 53 mg/dL (7-18) Creatinine 8.0 MG/DL (0.55-1.30) Estimat Glomerular Filtration Rate mL/min (>60) Glucose Level 172 MG/DL (74-106) Calcium Level 9.2 MG/DL (8.5-10.1) Phosphorus Level 5.2 MG/DL (2.5-4.9) Magnesium Level 2.1 MG/DL (1.8-2.4) Total Bilirubin 0.5 MG/DL (0.2-1.0) Aspartate Amino Transf (AST/SGOT) 25 U/L (15-37) Alanine Aminotransferase (ALT/SGPT) 15 U/L (12-78) Alkaline Phosphatase 183 U/L (46-116) Troponin I 4.653 ng/mL (0.000-0.056) C-Reactive Protein, Quantitative 31.4 mg/dL (0.00-0.90) Pro-B-Type Natriuretic Peptide > 06259 pg/mL (0-125) Total Protein 6.7 G/DL (6.4-8.2) Albumin 2.2 G/DL (3.4-5.0) Globulin 4.5 g/dL Albumin/Globulin Ratio 0.5 (1.0-2.7) Random Vancomycin Level 18.7 ug/mL Test 12/06/18 04:10 White Blood Count 12.2 K/UL (4.8-10.8) Red Blood Count 3.40 M/UL (4.70-6.10) Hemoglobin 9.1 G/DL (14.2-18.0) Hematocrit 28.6 % (42.0-52.0) Mean Corpuscular Volume 84 FL (80-99) Mean Corpuscular Hemoglobin 26.8 PG (27.0-31.0) Mean Corpuscular Hemoglobin Concent 31.9 G/DL (32.0-36.0) Red Cell Distribution Width 14.4 % (11.6-14.8) Platelet Count 293 K/UL (150-450) Mean Platelet Volume 6.3 FL (6.5-10.1) Neutrophils (%) (Auto) 82.2 % (45.0-75.0) Lymphocytes (%) (Auto) 9.4 % (20.0-45.0) Monocytes (%) (Auto) 6.0 % (1.0-10.0) Eosinophils (%) (Auto) 2.0 % (0.0-3.0) Basophils (%) (Auto) 0.4 % (0.0-2.0) Erythrocyte Sedimentation Rate 110 MM/HR (0-20) Prothrombin Time 28.2 SEC (9.30-11.50) Prothromb Time International Ratio 2.8 (0.9-1.1) Activated Partial Thromboplast Time 98 SEC (23-33) Sodium Level 135 MMOL/L (136-145) Potassium Level 4.3 MMOL/L (3.5-5.1) Chloride Level 98 MMOL/L (98-107) Carbon Dioxide Level 26 MMOL/L (21-32) Anion Gap 12 mmol/L (5-15) Blood Urea Nitrogen 36 mg/dL (7-18) Creatinine 6.0 MG/DL (0.55-1.30) Estimat Glomerular Filtration Rate mL/min (>60) Glucose Level 175 MG/DL (74-106) Calcium Level 9.1 MG/DL (8.5-10.1) Phosphorus Level 5.4 MG/DL (2.5-4.9) Magnesium Level 2.0 MG/DL (1.8-2.4) Total Bilirubin 0.9 MG/DL (0.2-1.0) Aspartate Amino Transf (AST/SGOT) 22 U/L (15-37) Alanine Aminotransferase (ALT/SGPT) 16 U/L (12-78) Alkaline Phosphatase 179 U/L (46-116) Troponin I 2.326 ng/mL (0.000-0.056) C-Reactive Protein, Quantitative 23.2 mg/dL (0.00-0.90) Total Protein 6.9 G/DL (6.4-8.2) Albumin 2.3 G/DL (3.4-5.0) Globulin 4.6 g/dL Albumin/Globulin Ratio 0.5 (1.0-2.7) Height (Feet): 5 Height (Inches): 1.00 Weight (Pounds): 170 Objective Physical Exam: Vitals: reviewed General Appearance: NAD HEENT: normocephalic, atraumatic Neck: non-tender, normal alignment Respiratory/Chest: normal breath sounds bilaterally Cardiovascular/Chest: normal peripheral pulses, normal rate Abdomen: normal bowel sounds, soft, nontender Extremities: normal range of motion s/p midfoot amputation ; R midfoot Jean Carlos CORTEZ BKA++ Lloyd Dailey MD Dec 06, 2018 15:01
[2018-12-06] MEDS ORDERED: Tubing IV Secondary IV ONE (15:07)
[2018-12-06] MEDS ORDERED: NS 275ml ONE (15:07)
--- NOTE | 2018-12-06 15:36 | Nephrology Progress Note ---
Assessment/Plan Problem List: (1) ESRD (end stage renal disease) (2) Severe sepsis (3) Non-ST elevation (NSTEMI) myocardial infarction (4) Diabetes (5) Amputation below knee Assessment ESRD on HD M W Fr Sepsis / Leukocytosuis ( Pneumonia, Infected foot ulcer) Hypotension / Shock Anemia GERD ECF resident DM OOC Elevated Troponin over 5 Plan left BKA today done 12/06 HD in am Transfused 12/05 asa , beta blockers on low dose pressors Antibiotics Fluid challenge / Watch for CHF Dialysis 12/03 next per orders per consultants Subjective ROS Limited/Unobtainable: No Constitutional: Reports: malaise Objective Objective Last 24 Hour Vital Signs Date Time Temp Pulse Resp B/P (MAP) Pulse Ox O2 Delivery O2 Flow Rate FiO2 12/06/18 14:25 66 12/06/18 12:00 Nasal Cannula 3.0 12/06/18 11:50 97.2 12/06/18 11:40 97.2 61 12 115/65 96 Nasal Cannula 3 12/06/18 11:30 61 16 112/56 100 Simple Mask 6 12/06/18 11:20 55 16 110/50 100 Simple Mask 6 12/06/18 11:15 54 18 105/54 100 Simple Mask 6 12/06/18 11:14 58 18 96 12/06/18 11:09 98.6 58 12 109/46 100 Simple Mask 6 12/06/18 08:26 70 137/75 12/06/18 08:00 Nasal Cannula 3.0 12/06/18 08:00 62 12/06/18 07:39 70 16 100 Nasal Cannula 3.0 32 12/06/18 07:39 99 Nasal Cannula 3.0 32 12/06/18 04:02 71 12/06/18 04:00 Nasal Cannula 3.0 12/06/18 04:00 97.7 71 16 112/78 (89) 99 76 12/06/18 00:00 Nasal Cannula 3.0 12/06/18 00:00 97.9 72 16 116/72 (87) 99 76 12/06/18 00:00 62 12/05/18 21:29 99 123/78 12/05/18 20:00 97.7 76 16 123/78 (93) 99 76 12/05/18 20:00 73 12/05/18 20:00 Nasal Cannula 3.0 12/05/18 19:00 98.5 12/05/18 16:30 77 12/05/18 16:00 Nasal Cannula 3.0 12/05/18 16:00 98.5 77 22 140/93 (109) 97 12/05/18 16:00 69 13 118/74 (89) 99 Intake and Output 12/05/18 12/06/18 18:59 06:59 Intake Total 1295.970 ml 833.237 ml Output Total 800 ml Balance 495.970 ml 833.237 ml Intake Oral 360 ml 30 ml IV Total 935.970 ml 803.237 ml Hemodialysis UF 800 ml Laboratory Tests 12/05/18 18:55: Random Vancomycin Level 18.7 12/06/18 04:10: White Blood Count 12.2H, Red Blood Count 3.40L, Hemoglobin 9.1L, Hematocrit 28.6L, Mean Corpuscular Volume 84, Mean Corpuscular Hemoglobin 26.8L, Mean Corpuscular Hemoglobin Concent 31.9L, Red Cell Distribution Width 14.4, Platelet Count 293, Mean Platelet Volume 6.3L, Neutrophils (%) (Auto) 82.2H, Lymphocytes (%) (Auto) 9.4L, Monocytes (%) (Auto) 6.0, Eosinophils (%) (Auto) 2.0, Basophils (%) (Auto) 0.4, Erythrocyte Sedimentation Rate 110H, Prothrombin Time 28.2H, Prothromb Time International Ratio 2.8H, Activated Partial Thromboplast Time 98H, Sodium Level 135L, Potassium Level 4.3, Chloride Level 98 , Carbon Dioxide Level 26, Anion Gap 12, Blood Urea Nitrogen 36H, Creatinine 6.0H, Estimat Glomerular Filtration Rate , Glucose Level 175H, Calcium Level 9.1 , Phosphorus Level 5.4H, Magnesium Level 2.0, Total Bilirubin 0.9, Aspartate Amino Transf (AST/SGOT) 22, Alanine Aminotransferase (ALT/SGPT) 16, Alkaline Phosphatase 179H, Troponin I 2.326H, C-Reactive Protein, Quantitative 23.2H, Total Protein 6.9, Albumin 2.3L, Globulin 4.6, Albumin/Globulin Ratio 0.5L Height (Feet): 5 Height (Inches): 1.00 Weight (Pounds): 170 General Appearance: no apparent distress Cardiovascular: normal rate Abdomen: soft Extremities: other - left BKA Objective no change Sincere Almaguer MD Dec 06, 2018 15:36
--- NOTE | 2018-12-06 16:00 | NUR ---
NURSE NOTES: Patient complaining of constant 10/10 pain in his left leg. Morphine given. Will administer another dose when possible per the order. Patient alert and oriented but mohawk speaking. Vital signs stable at this time. Patient receiving FFP at this time. First of 2 bags running. Patient has a diet order for clear liquid. Will encourage PO intake. Lunch refused by the patient. Patient remains anuric at this time. Right antecubital 20 gauge peripheral IV and right femoral triple lumen catheter are both patent, asymptomatic, and intact dressing. IV fluid of NS at 50mL/hr running at this time. Patient bed in low position with bed alarm special education coordinator light in reach at this time. Will continue to monitor and follow up with surgery. Patient had 8 beats of V tach for 3 seconds at 1541. Message left for Dr Mary at 1551. Awaiting call back with orders. Patient now in normal sinus rhythm and asymptomatic.
--- NOTE | 2018-12-06 16:42 | NUR ---
*-* INSURANCE *-* ALL CLINICALS AND REVIEWS have been faxed to: [facility] IPA tracking# pending CM: Oliverio #[phone] fax#[phone]
--- NOTE | 2018-12-06 17:15 | Operative Note - Dictated ---
DATE OF OPERATION: 12/06/2018 PREOPERATIVE DIAGNOSIS: Ischemia and wet gangrene of the left heel and mid foot. POSTOPERATIVE DIAGNOSIS: Ischemia and wet gangrene of the left heel and mid foot. OPERATION PERFORMED: Left below-knee amputation. ATTENDING SURGEON: Noam Davenport M.D. WASTE TREATMENT OPERATOR: None. ANESTHESIOLOGIST: Dr. Parker. ANESTHESIA: General CASHIER PAYMENTS RECEIVED. ESTIMATED BLOOD LOSS: 75 mL. IV FLUIDS: Please see anesthesia records. COMPLICATIONS: None. DRAINS: None. COUNTS: Sponge and needle count correct x2. SPECIMENS: Left BKA. WOUND CLASSIFICATION: Class III. INDICATIONS FOR PROCEDURE: This is a 73-year-old male who presented to [facility] Emergency Department for evaluation at which time he was identified to be in septic shock with likely etiology being the left foot wet gangrene and ischemia noted to the heel and midfoot. The patient with history of bilateral midfoot amputation and has since developed an acute infection on the left side. On further evaluation, the patient was identified to have leukocytosis, hypotension, abnormal labs, and acute demand ND. The patient was admitted to the intensive care unit and resuscitated and stabilized. The patient was seen by Cardiology and was stabilized from a cardiac standpoint prior to going to the operating room. The patient improved and stabilized, but leukocytosis progressively worsened as well as inflammatory markers, but from a cardiac standpoint he was becoming more stable and therefore decision was made after explaining the risks, benefits, and alternatives of surgery to the patient to proceed to the operating room for urgent/emergent amputation and source control. I had a long discussion with the patient about the operative plan and his current medical condition. I explained to him that source control is necessary given that he is only slightly improved, but continued to deteriorate at times. 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 I explained to the patient his bleeding risk given his noted laboratory data and medications required from a cardiac standpoint. After doing so, I also explained to the patient the risks of a below-knee amputation flap and potential necessity for repeat surgery, opening wound, wound VAC placement, and potentially even above-knee amputation if necessary. The patient expressed understanding and consented to surgery, which was performed on 12/06/2018. OPERATIVE NOTE: The patient was taken to the operating room and placed on the operating table in supine position with bilateral arms out. All bony prominences were well padded. SCDs were placed on the right side. General anesthesia was induced and the patient was intubated. Preoperative time-out was taken identifying the patient, procedure, operative and surgical staff. The patient was on scheduled IV antibiotics for acute active infectious process. All bony prominences were well padded. The left lower extremity was prepped and draped in standard surgical fashion circumferentially. The left foot was wrapped with a second layer given its acute infectious process. Anatomical landmarks were identified and proposed skin flap incision for posterior flap was marked. A fresh #10 scalpel was used and the incision was made. skin was carried out through the skin with electrocautery down the subcutaneous tissue and muscle. The fascia was incised. Posterior flap was then created as well. This was taken to the subcutaneous tissue with electrocautery. The superficial peroneal nerve was identified, clamped, and cut. Anterior compartment was divided. Anterior neurovascular bundle was identified, clamped, and cut. The plane was taken down between these deep and superficial compartments. The superficial compartment was reflected posteriorly. The tibial nerve was identified, clamped, and cut out. Tibial vessels were identified, clamped and cut out. Periosteum of the tibia was elevated proximally along with the fibula. The tibia was then cut using electric saw and beveled anteriorly and smoothened down with a rasp. The fibula was then cut about 1 centimeter proximal to this using a large bone cutter. The remaining posterior compartment was divided. The peroneal bundle was identified, clamped, and cut. The leg was then passed off the operative field. Each vascular bundle was then doubly ligated with #0 silk ties. The nerves were pulled at length and cut and allowed to retract proximally. Good bleeding was noted from the tissue and hemostasis was obtained with electrocautery and silk ties as necessary. Copious irrigation was performed. The gastrocsoleus fascia was brought up and attached to the anterior fascia and periosteum using #0 Vicryl interrupted sutures in interrupted fashion. The remaining fascia was then closed using #0 Vicryl interrupted sutures. The subcutaneous tissue was reapproximated with surgical skin nixon and the wound was closed. Good reapproximation was identified without significant tension and no significant bleeding noted at the end of the procedure. Xeroform, 4x4s, and padding was applied followed by dressing. The patient tolerated the procedure well, was taken to the postanesthetic care unit in stable condition. Noam Davenport M.D. DR: ANGELES JOB#: [id number] CC: VIDA
--- NOTE | 2018-12-06 17:29 | NUR ---
NURSE NOTES: Call back and orders received from Dr Mary. Orders received and placed by IWONA Harrell. Will follow up and carry out orders.
[2018-12-06 18:42] LABS: ANION GAP 12 mmol/L (5-15); BLOOD UREA NITROGEN 39 mg/dL (7-18); CALCIUM 8.9 MG/DL (8.5-10.1); CARBON DIOXIDE 26 MMOL/L (21-32); CHLORIDE 99 MMOL/L (98-107); CREATININE 6.6 MG/DL (0.55-1.30); POTASSIUM 4.6 MMOL/L (3.5-5.1); SODIUM 136 MMOL/L (136-145)
--- NOTE | 2018-12-06 19:29 | NUR ---
HAND-OFF: Report given to IWONA Rubalcava. patient still complaining of pain. Endorsed to follow up.
--- NOTE | 2018-12-06 19:30 | NUR ---
NURSE NOTES: Endorsement received from Alexandra Sethi RN. Patient awake and alert. Able to verbalize needs. Belarusian speaking. On 3LPM oxygen per nasal cannula. With Right femoral TLC, Right AC g 20. On NS 50 ml/hr. Left upper arm fistula. On left arm precautions. S/P left BKA this morning. Dressing intact, covered with socks. Kept elevated. On P200 mattress. Bed locked and in low position. Call light within reach. Bed alarm on. Will continue to monitor.
[2018-12-06] MEDS: Dyna-Hex 2% Top Sol 2oz TOPIC SCH (20:35)
[2018-12-06] MEDS: Atorvastatin 80mg tab ORAL SCH (20:36)
--- NOTE | 2018-12-06 20:46 | Cardiology Progress Note ---
Assessment/Plan Assessment/Plan sepsis hypotension mi esrd dm gangrene nsvt repeat cardiac enzyme show a down trend will expect a slow down trend due to renal isuf echo note borderline global hypo with ef 50% on ecotrin and statin and bb still he deneis any cp ekg form a few day ago showed st depression pers reviewed orderd noath for this evening wbc still elevated ekg noted resolution of st changes tele sinus bardy noted 1 episodoe of vt trop seem to be dwon trending ekg in am i Subjective Cardiovascular: Denies: chest pain, lightheadedness, palpitations Respiratory: Denies: shortness of breath Gastrointestinal/Abdominal: Denies: abdominal pain Objective Last 24 Hour Vital Signs Date Time Temp Pulse Resp B/P (MAP) Pulse Ox O2 Delivery O2 Flow Rate FiO2 12/06/18 20:40 63 132/71 12/06/18 16:00 66 12/06/18 16:00 Nasal Cannula 3.0 12/06/18 16:00 97.3 65 21 125/70 (88) 99 12/06/18 14:25 66 12/06/18 12:00 Nasal Cannula 3.0 12/06/18 12:00 98.1 72 20 130/78 (95) 99 12/06/18 11:50 97.2 12/06/18 11:40 97.2 61 12 115/65 96 Nasal Cannula 3 12/06/18 11:30 61 16 112/56 100 Simple Mask 6 12/06/18 11:20 55 16 110/50 100 Simple Mask 6 12/06/18 11:15 54 18 105/54 100 Simple Mask 6 12/06/18 11:14 58 18 96 12/06/18 11:09 98.6 58 12 109/46 100 Simple Mask 6 12/06/18 08:26 70 137/75 12/06/18 08:00 98.7 70 21 137/75 (95) 97 71 12/06/18 08:00 Nasal Cannula 3.0 12/06/18 08:00 62 12/06/18 07:39 70 16 100 Nasal Cannula 3.0 32 12/06/18 07:39 99 Nasal Cannula 3.0 32 12/06/18 04:02 71 12/06/18 04:00 Nasal Cannula 3.0 12/06/18 04:00 97.7 71 16 112/78 (89) 99 76 10/17/19 00:00 Nasal Cannula 3.0 12/06/18 00:00 97.9 72 16 116/72 (87) 99 76 12/06/18 00:00 62 12/05/18 21:29 99 123/78 General Appearance: alert, patient on isolation Neck: supple Cardiovascular: normal rate Respiratory/Chest: lungs clear Abdomen: normal bowel sounds, non tender, soft Extremities: no swelling Intake and Output 12/05/18 12/06/18 19:00 07:00 Intake Total 993.373 ml 883.237 ml Output Total 800 ml Balance 193.373 ml 883.237 ml Intake Oral 240 ml 30 ml IV Total 753.373 ml 853.237 ml Hemodialysis UF 800 ml Laboratory Tests Test 12/06/18 04:10 12/06/18 17:46 White Blood Count 12.2 K/UL (4.8-10.8) H Red Blood Count 3.40 M/UL (4.70-6.10) L Hemoglobin 9.1 G/DL (14.2-18.0) L Hematocrit 28.6 % (42.0-52.0) L Mean Corpuscular Volume 84 FL (80-99) Mean Corpuscular Hemoglobin 26.8 PG (27.0-31.0) L Mean Corpuscular Hemoglobin Concent 31.9 G/DL (32.0-36.0) L Red Cell Distribution Width 14.4 % (11.6-14.8) Platelet Count 293 K/UL (150-450) Mean Platelet Volume 6.3 FL (6.5-10.1) L Neutrophils (%) (Auto) 82.2 % (45.0-75.0) H Lymphocytes (%) (Auto) 9.4 % (20.0-45.0) L Monocytes (%) (Auto) 6.0 % (1.0-10.0) Eosinophils (%) (Auto) 2.0 % (0.0-3.0) Basophils (%) (Auto) 0.4 % (0.0-2.0) Erythrocyte Sedimentation Rate 110 MM/HR (0-20) H Prothrombin Time 28.2 SEC (9.30-11.50) H Prothromb Time International Ratio 2.8 (0.9-1.1) H Activated Partial Thromboplast Time 98 SEC (23-33) H Sodium Level 135 MMOL/L (136-145) L 136 MMOL/L (136-145) Potassium Level 4.3 MMOL/L (3.5-5.1) 4.6 MMOL/L (3.5-5.1) Chloride Level 98 MMOL/L (98-107) 99 MMOL/L (98-107) Carbon Dioxide Level 26 MMOL/L (21-32) 26 MMOL/L (21-32) Anion Gap 12 mmol/L (5-15) 12 mmol/L (5-15) Blood Urea Nitrogen 36 mg/dL (7-18) H 39 mg/dL (7-18) H Creatinine 6.0 MG/DL (0.55-1.30) H 6.6 MG/DL (0.55-1.30) H Estimat Glomerular Filtration Rate mL/min (>60) mL/min (>60) Glucose Level 175 MG/DL (74-106) H 158 MG/DL (74-106) H Calcium Level 9.1 MG/DL (8.5-10.1) 8.9 MG/DL (8.5-10.1) Phosphorus Level 5.4 MG/DL (2.5-4.9) H Magnesium Level 2.0 MG/DL (1.8-2.4) 2.0 MG/DL (1.8-2.4) Total Bilirubin 0.9 MG/DL (0.2-1.0) Aspartate Amino Transf (AST/SGOT) 22 U/L (15-37) Alanine Aminotransferase (ALT/SGPT) 16 U/L (12-78) Alkaline Phosphatase 179 U/L (46-116) H Troponin I 2.326 ng/mL (0.000-0.056) 2.354 ng/mL (0.000-0.056) C-Reactive Protein, Quantitative 23.2 mg/dL (0.00-0.90) H Total Protein 6.9 G/DL (6.4-8.2) Albumin 2.3 G/DL (3.4-5.0) L Globulin 4.6 g/dL Albumin/Globulin Ratio 0.5 (1.0-2.7) L Milton Mary MD Dec 06, 2018 20:46
--- NOTE | 2018-12-06 22:00 | NUR ---
NURSE NOTES: Assisted with sponge bath. and change of linens. Dressing at left stump dry and intact.
[2018-12-07] VITALS: BP 116/63
--- NOTE | 2018-12-07 | NUR ---
NURSE NOTES: Patient asleep. No sign of pain or discomfort. Left stump kept elevated.
[2018-12-07] MEDS: Morphine Sulfate 4mg/ml Inj (IV USE ONLY) IVP PRN ×5 (02:02→23:01)
[2018-12-07 04:00] VITALS: BP 106/71
--- NOTE | 2018-12-07 04:00 | NUR ---
NURSE NOTES: 12L EKG done as per order, shows sinus bradycardia.
[2018-12-07] MEDS: Piperacillin/Tazobactam 2.25 GM in D5W 55 ML IVPB SCH (05:08)
[2018-12-07 05:20] LABS: HEMATOCRIT 24.9 % (42.0-52.0); HEMOGLOBIN 7.8 G/DL (14.2-18.0); MEAN CORPUSCULAR VOLUME 85 FL (80-99); PLATELET COUNT 245 K/UL (150-450); RED BLOOD COUNT 2.94 M/UL (4.70-6.10); RED CELL DISTRIBUTION WIDTH 14.8 % (11.6-14.8); WHITE BLOOD COUNT 11.9 K/UL (4.8-10.8)
[2018-12-07 05:34] LABS: ALANINE AMINOTRANSFERASE 16 U/L (12-78); ALBUMIN 2.3 G/DL (3.4-5.0); ALBUMIN/GLOBULIN RATIO 0.5 (1.0-2.7); ALKALINE PHOSPHATASE 161 U/L (46-116); ANION GAP 14 mmol/L (5-15); ASPARTATE AMINO TRANSFERASE 24 U/L (15-37); BILIRUBIN,TOTAL 0.8 MG/DL (0.2-1.0); BLOOD UREA NITROGEN 44 mg/dL (7-18); CALCIUM 8.9 MG/DL (8.5-10.1); CARBON DIOXIDE 24 MMOL/L (21-32); CHLORIDE 99 MMOL/L (98-107); CREATININE 7.4 MG/DL (0.55-1.30); POTASSIUM 4.6 MMOL/L (3.5-5.1); SODIUM 137 MMOL/L (136-145)
[2018-12-07 05:37] LABS: PHOSPHORUS 6.2 MG/DL (2.5-4.9)
[2018-12-07 05:41] LABS: INR 2.1 (0.9-1.1)
[2018-12-07] MEDS: NovoLOG Insulin Flexpen SUBQ SCH ×3 (05:50→17:53)
--- NOTE | 2018-12-07 06:29 | NUR ---
NURSE NOTES: Charge nurse received a call from the lab. Troponin 2.205, not notified due to result is trending down.
--- NOTE | 2018-12-07 06:49 | NUR ---
NURSE NOTES: Called Dr. Levon Dailey on his emergency exchange for HgB 7.8, Hct 24.9 . Left a message, awaiting for return call
--- NOTE | 2018-12-07 07:30 | NUR ---
NURSE NOTES: Received the patient from IWONA Rubalcava. Patient asleep, easily arouable to light touch. SR noted on quality assurance monitor chassis. 3L O2 via NC. Left upper arm shunt noted. s/p left BKA yesterday, dressing intact, clean and dry. Right BKA noted. Right femoral TLC and right AC 20G, running NS at 50ml/hr, asymptomatic. Patient on P200 mattress. Bed in lowest position, locked, side rails upx3. Bed alarm on. Will continue to monitor. Addendum: 12/07/18 at 1000 by JAYME UNDERWOOD RN correction: right foot amputation.
--- NOTE | 2018-12-07 07:36 | NUR ---
HAND-OFF: Report given to Joanie Lowery RN.
[2018-12-07 08:00] VITALS: BP 115/70
[2018-12-07] MEDS: Metoprolol 25mg tab ORAL SCH ×2 (09:19→20:53)
[2018-12-07] MEDS: Renvela 800mg Pkt ORAL SCH ×3 (09:19→18:40)
[2018-12-07] MEDS: Docusate 100mg cap ORAL SCH ×3 (09:19→18:00)
[2018-12-07] MEDS: Nephrovite tab (Rena-Vite) ORAL SCH (09:19)
[2018-12-07] MEDS: Pantoprazole Inj IVP SCH ×2 (09:20→20:53)
--- NOTE | 2018-12-07 09:34 | General Progress Note ---
Assessment/Plan Problem List: (1) HTN (hypertension) ICD Codes: I10 - Essential (primary) hypertension SNOMED: 85628576 (2) Diabetes ICD Codes: E11.9 - Type 2 diabetes mellitus without complications SNOMED: 11784082 (3) ESRD (end stage renal disease) ICD Codes: N18.6 - End stage renal disease SNOMED: 90769632 (4) Severe sepsis ICD Codes: A41.9 - Sepsis, unspecified organism; R65.20 - Severe sepsis without septic shock SNOMED: 33809128 (5) Amputation at midfoot ICD Codes: S98.319A - Complete traumatic amputation of unspecified midfoot, initial encounter SNOMED: 393858927 (6) Amputation below knee ICD Codes: S88.119A - Complete traumatic amputation at level between knee and ankle, unspecified lower leg, initial encounter SNOMED: 176216936 Status: stable, progressing Assessment/Plan: wound care abx pt diet cbc bmp am aru eval Subjective Constitutional: Reports: weakness Allergies: Coded Allergies: No Known Allergies (Unverified , 11/30/18) All Systems: reviewed and negative except above Subjective o2nc calm Objective Last 24 Hour Vital Signs Date Time Temp Pulse Resp B/P (MAP) Pulse Ox O2 Delivery O2 Flow Rate FiO2 12/07/18 09:19 62 115/70 12/07/18 08:00 57 12/07/18 08:00 98.3 63 18 115/70 (85) 96 12/07/18 08:00 Nasal Cannula 3.0 12/07/18 06:39 99.0 12/07/18 04:00 59 12/07/18 04:00 Nasal Cannula 3.0 12/07/18 04:00 99.0 59 20 106/71 (83) 99 12/07/18 00:00 98.5 55 20 116/63 (80) 99 12/07/18 00:00 Nasal Cannula 3.0 12/07/18 00:00 54 12/06/18 20:40 63 132/71 12/06/18 20:00 98.1 63 20 132/78 (96) 99 12/06/18 20:00 Nasal Cannula 3.0 12/06/18 20:00 62 12/06/18 16:00 66 12/06/18 16:00 Nasal Cannula 3.0 12/06/18 16:00 97.3 65 21 125/70 (88) 99 12/06/18 14:25 66 12/06/18 12:00 Nasal Cannula 3.0 12/06/18 12:00 98.1 72 20 130/78 (95) 99 12/06/18 11:50 97.2 12/06/18 11:40 97.2 61 12 115/65 96 Nasal Cannula 3 12/06/18 11:30 61 16 112/56 100 Simple Mask 6 12/06/18 11:20 55 16 110/50 100 Simple Mask 6 12/06/18 11:15 54 18 105/54 100 Simple Mask 6 12/06/18 11:14 58 18 96 12/06/18 11:09 98.6 58 12 109/46 100 Simple Mask 6 Intake and Output 12/06/18 12/07/18 19:00 07:00 Intake Total 1683 ml 700 ml Output Total 0 ml Balance 1683 ml 700 ml Intake Oral 240 ml 100 ml IV Total 1035 ml 600 ml Blood Product 408 ml Output Urine Total 0 ml Laboratory Tests 12/06/18 17:46: Sodium Level 136, Potassium Level 4.6, Chloride Level 99, Carbon Dioxide Level 26, Anion Gap 12, Blood Urea Nitrogen 39H, Creatinine 6.6H, Estimat Glomerular Filtration Rate , Glucose Level 158H, Calcium Level 8.9, Magnesium Level 2.0, Troponin I 2.354H 12/07/18 04:00: Sodium Level 137, Potassium Level 4.6, Chloride Level 99, Carbon Dioxide Level 24, Anion Gap 14, Blood Urea Nitrogen 44H, Creatinine 7.4H, Estimat Glomerular Filtration Rate , Glucose Level 101, Calcium Level 8.9, Magnesium Level 2.1, Troponin I 2.205H, White Blood Count 11.9H, Red Blood Count 2.94L, Hemoglobin 7.8L, Hematocrit 24.9L, Mean Corpuscular Volume 85, Mean Corpuscular Hemoglobin 26.6L, Mean Corpuscular Hemoglobin Concent 31.4L, Red Cell Distribution Width 14.8, Platelet Count 245, Mean Platelet Volume 6.5, Neutrophils (%) (Auto) , Lymphocytes (%) (Auto) , Monocytes (%) (Auto) , Eosinophils (%) (Auto) , Basophils (%) (Auto) , Differential Total Cells Counted 100, Neutrophils % ( Manual) 80H, Lymphocytes % (Manual) 12L, Monocytes % (Manual) 6, Eosinophils % ( Manual) 2, Basophils % (Manual) 0, Band Neutrophils 0, Platelet Estimate Adequate, Platelet Morphology Normal, Hypochromasia 1+, Anisocytosis 1+, Prothrombin Time 21.7H, Prothromb Time International Ratio 2.1H, Activated Partial Thromboplast Time 47H, Phosphorus Level 6.2H, Total Bilirubin 0.8, Aspartate Amino Transf (AST/SGOT) 24, Alanine Aminotransferase (ALT/SGPT) 16, Alkaline Phosphatase 161H, C-Reactive Protein, Quantitative 15.5H, Pro-B-Type Natriuretic Peptide > 98943Q, Total Protein 6.7, Albumin 2.3L, Globulin 4.4, Albumin/Globulin Ratio 0.5L Height (Feet): 5 Height (Inches): 1.00 Weight (Pounds): 169 General Appearance: lethargic EENT: normal ENT inspection Neck: normal alignment Cardiovascular: normal peripheral pulses, normal rate, regular rhythm Respiratory/Chest: chest wall non-tender, lungs clear, normal breath sounds Abdomen: normal bowel sounds, non tender, soft Extremities: normal inspection Edema: no edema noted Arm (L), no edema noted Arm (R), no edema noted Leg (L), no edema noted Leg (R), no edema noted Pedal (L), no edema noted Pedal (R), no edema noted Generalized Objective left bka dressing c&d Pravin Patton DO Dec 07, 2018 09:34
--- NOTE | 2018-12-07 10:00 | NUR ---
NURSE NOTES: Patient seen by Dr. Patton and Dr. Almaguer. HD and [address] Almaguer. Called [facility] dialysis center for HD today. Informed Dr. Patton that there is no DVT prophylaxis. Per MD, heparin sq ordered. No active bleeding noted. Left stump dressing intact, clean and dry.
--- NOTE | 2018-12-07 10:00 | NUR ---
NURSE NOTES: HD ongoing at bedside. Dialysis nurse, Lloyd, at bedside. patient in stable condition.
--- NOTE | 2018-12-07 10:09 | 48 Hour Post Anesthesia Eval ---
Post Anesthesia Evaluation Procedure: L BKA Date of Evaluation: Dec 07, 2018 Airway: patent Nausea: No Vomiting: No Hydration Status: adequate Cardiopulmonary Status: at baseline Mental Status/LOC: patient returned to baseline Post-Anesthesia Complications: 0 Follow-up care needed: N/A - further care as per primary team\ Lacey Kern MD Dec 07, 2018 10:09
--- NOTE | 2018-12-07 10:30 | NUR ---
RD ASSESSMENT & RECOMMENDATIONS SEE CARE ACTIVITY FOR COMPLETE ASSESSMENT DAILY ESTIMATED NEEDS: Needs based on Surgery, sepsis, ESRD w/ HD, 61kg abw 25-35 kcals/kg 7623-3397 total kcals 1.25-2 g protein/kg 76-122 g total protein Fluid per MD, on HD NUTRITION DIAGNOSIS: Increased kcal/prot needs R/T sepsis, ESRD dx, wound healing as evidenced by critically elev wbc (30.5* -> now wnl), elev CRP, currently afebrile, hypotensive, pressor support held at this time, elev HR upon adm, pt HD dependent, admitted w/ lt heel gangrene,w/ necrosis directly down to bone per MD, now s/p L BKA. CURRENT DIET:CLD, nectar thick PO DIET RECOMMENDATIONS: RENAL, CCHO LOW/ texture per NURSING OFFICER ADDITIONAL RECOMMENDATIONS: * NURSING OFFICER evaluation for appropriate texture * Monitor PO intake closely - remains minimal intake at this time -> Rec Nepro TID w/ meals * Wound healing: Continue Nephrovite x 1, Paul 1pkt BID * Calibrated bedscale wt, obtain dry wt post HD, NOW S/P L BKA ->Require updated wt s/p amputation
--- NOTE | 2018-12-07 11:00 | Nephrology Progress Note ---
Assessment/Plan Problem List: (1) ESRD (end stage renal disease) (2) Severe sepsis (3) Non-ST elevation (NSTEMI) myocardial infarction (4) Diabetes (5) Amputation below knee Assessment ESRD on HD M W Fr Sepsis / Leukocytosuis ( Pneumonia, Infected foot ulcer) Hypotension / Shock Anemia GERD ECF resident DM OOC Elevated Troponin over 5 Plan left BKA today done 12/06 HD in am Transfused 12/05 and again today 12/08 asa , beta blockers on low dose pressors Antibiotics Fluid challenge / Watch for CHF Dialysis 12/08 per orders per consultants Subjective ROS Limited/Unobtainable: Yes Objective Objective Last 24 Hour Vital Signs Date Time Temp Pulse Resp B/P (MAP) Pulse Ox O2 Delivery O2 Flow Rate FiO2 12/07/18 09:19 62 115/70 12/07/18 08:00 57 12/07/18 08:00 98.3 63 18 115/70 (85) 96 12/07/18 08:00 Nasal Cannula 3.0 12/07/18 06:39 99.0 12/07/18 04:00 59 12/07/18 04:00 Nasal Cannula 3.0 12/07/18 04:00 99.0 59 20 106/71 (83) 99 12/07/18 00:00 98.5 55 20 116/63 (80) 99 12/07/18 00:00 Nasal Cannula 3.0 12/07/18 00:00 54 12/06/18 20:40 63 132/71 12/06/18 20:00 98.1 63 20 132/78 (96) 99 12/06/18 20:00 Nasal Cannula 3.0 12/06/18 20:00 62 12/06/18 16:00 66 12/06/18 16:00 Nasal Cannula 3.0 12/06/18 16:00 97.3 65 21 125/70 (88) 99 12/06/18 14:25 66 12/06/18 12:00 Nasal Cannula 3.0 12/06/18 12:00 98.1 72 20 130/78 (95) 99 12/06/18 11:50 97.2 12/06/18 11:40 97.2 61 12 115/65 96 Nasal Cannula 3 12/06/18 11:30 61 16 112/56 100 Simple Mask 6 12/06/18 11:20 55 16 110/50 100 Simple Mask 6 12/06/18 11:15 54 18 105/54 100 Simple Mask 6 12/06/18 11:14 58 18 96 12/06/18 11:09 98.6 58 12 109/46 100 Simple Mask 6 Intake and Output 12/06/18 12/07/18 19:00 07:00 Intake Total 1683 ml 700 ml Output Total 0 ml Balance 1683 ml 700 ml Intake Oral 240 ml 100 ml IV Total 1035 ml 600 ml Blood Product 408 ml Output Urine Total 0 ml Laboratory Tests 12/06/18 17:46: Sodium Level 136, Potassium Level 4.6, Chloride Level 99, Carbon Dioxide Level 26, Anion Gap 12, Blood Urea Nitrogen 39H, Creatinine 6.6H, Estimat Glomerular Filtration Rate , Glucose Level 158H, Calcium Level 8.9, Magnesium Level 2.0, Troponin I 2.354H 12/07/18 04:00: Sodium Level 137, Potassium Level 4.6, Chloride Level 99, Carbon Dioxide Level 24, Anion Gap 14, Blood Urea Nitrogen 44H, Creatinine 7.4H, Estimat Glomerular Filtration Rate , Glucose Level 101, Calcium Level 8.9, Magnesium Level 2.1, Troponin I 2.205H, White Blood Count 11.9H, Red Blood Count 2.94L, Hemoglobin 7.8L, Hematocrit 24.9L, Mean Corpuscular Volume 85, Mean Corpuscular Hemoglobin 26.6L, Mean Corpuscular Hemoglobin Concent 31.4L, Red Cell Distribution Width 14.8, Platelet Count 245, Mean Platelet Volume 6.5, Neutrophils (%) (Auto) , Lymphocytes (%) (Auto) , Monocytes (%) (Auto) , Eosinophils (%) (Auto) , Basophils (%) (Auto) , Differential Total Cells Counted 100, Neutrophils % ( Manual) 80H, Lymphocytes % (Manual) 12L, Monocytes % (Manual) 6, Eosinophils % ( Manual) 2, Basophils % (Manual) 0, Band Neutrophils 0, Platelet Estimate Adequate, Platelet Morphology Normal, Hypochromasia 1+, Anisocytosis 1+, Prothrombin Time 21.7H, Prothromb Time International Ratio 2.1H, Activated Partial Thromboplast Time 47H, Phosphorus Level 6.2H, Total Bilirubin 0.8, Aspartate Amino Transf (AST/SGOT) 24, Alanine Aminotransferase (ALT/SGPT) 16, Alkaline Phosphatase 161H, C-Reactive Protein, Quantitative 15.5H, Pro-B-Type Natriuretic Peptide > 38139X, Total Protein 6.7, Albumin 2.3L, Globulin 4.4, Albumin/Globulin Ratio 0.5L Height (Feet): 5 Height (Inches): 1.00 Weight (Pounds): 169 General Appearance: no apparent distress Cardiovascular: normal rate Respiratory/Chest: decreased breath sounds Abdomen: distended Objective no change Sincere Almaguer MD Dec 07, 2018 11:00
--- NOTE | 2018-12-07 11:14 | Pulmonology Progress Note ---
Assessment/Plan Problems: (1) Severe sepsis (2) Above knee amputation of right lower extremity (3) Non-ST elevation (NSTEMI) myocardial infarction (4) Infection of amputation stump (5) ESRD (end stage renal disease) (6) Diabetes (7) HTN (hypertension) Assessment/Plan doing better getting HD wound care iv abx sliding scale diabetid diet pain management f/u surgery recommendations. Subjective ROS Limited/Unobtainable: Yes Constitutional: Reports: no symptoms HEENT: Repors: no symptoms Allergies: Coded Allergies: No Known Allergies (Unverified , 11/30/18) Objective Last 24 Hour Vital Signs Date Time Temp Pulse Resp B/P (MAP) Pulse Ox O2 Delivery O2 Flow Rate FiO2 12/07/18 09:19 62 115/70 12/07/18 08:00 57 12/07/18 08:00 98.3 63 18 115/70 (85) 96 12/07/18 08:00 Nasal Cannula 3.0 12/07/18 06:39 99.0 12/07/18 04:00 59 12/07/18 04:00 Nasal Cannula 3.0 12/07/18 04:00 99.0 59 20 106/71 (83) 99 12/07/18 00:00 98.5 55 20 116/63 (80) 99 12/07/18 00:00 Nasal Cannula 3.0 12/07/18 00:00 54 12/06/18 20:40 63 132/71 12/06/18 20:00 98.1 63 20 132/78 (96) 99 12/06/18 20:00 Nasal Cannula 3.0 12/06/18 20:00 62 12/06/18 16:00 66 12/06/18 16:00 Nasal Cannula 3.0 12/06/18 16:00 97.3 65 21 125/70 (88) 99 12/06/18 14:25 66 12/06/18 12:00 Nasal Cannula 3.0 12/06/18 12:00 98.1 72 20 130/78 (95) 99 12/06/18 11:50 97.2 12/06/18 11:40 97.2 61 12 115/65 96 Nasal Cannula 3 12/06/18 11:30 61 16 112/56 100 Simple Mask 6 12/06/18 11:20 55 16 110/50 100 Simple Mask 6 12/06/18 11:15 54 18 105/54 100 Simple Mask 6 Intake and Output 12/06/18 12/07/18 18:59 06:59 Intake Total 1275 ml 1108 ml Output Total 0 ml Balance 1275 ml 1108 ml Intake Oral 240 ml 100 ml IV Total 1035 ml 600 ml Blood Product 408 ml Output Urine Total 0 ml General Appearance: WD/WN HEENT: normocephalic, atraumatic Respiratory/Chest: chest wall non-tender, lungs clear Cardiovascular: normal peripheral pulses, normal rate Abdomen: normal bowel sounds, soft, non tender Genitourinary: normal external genitalia Extremities: no cyanosis 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 Lymphatic: no neck adenopathy Laboratory Tests 12/06/18 17:46: Sodium Level 136, Potassium Level 4.6, Chloride Level 99, Carbon Dioxide Level 26, Anion Gap 12, Blood Urea Nitrogen 39H, Creatinine 6.6H, Estimat Glomerular Filtration Rate , Glucose Level 158H, Calcium Level 8.9, Magnesium Level 2.0, Troponin I 2.354H 12/07/18 04:00: Sodium Level 137, Potassium Level 4.6, Chloride Level 99, Carbon Dioxide Level 24, Anion Gap 14, Blood Urea Nitrogen 44H, Creatinine 7.4H, Estimat Glomerular Filtration Rate , Glucose Level 101, Calcium Level 8.9, Magnesium Level 2.1, Troponin I 2.205H, White Blood Count 11.9H, Red Blood Count 2.94L, Hemoglobin 7.8L, Hematocrit 24.9L, Mean Corpuscular Volume 85, Mean Corpuscular Hemoglobin 26.6L, Mean Corpuscular Hemoglobin Concent 31.4L, Red Cell Distribution Width 14.8, Platelet Count 245, Mean Platelet Volume 6.5, Neutrophils (%) (Auto) , Lymphocytes (%) (Auto) , Monocytes (%) (Auto) , Eosinophils (%) (Auto) , Basophils (%) (Auto) , Differential Total Cells Counted 100, Neutrophils % ( Manual) 80H, Lymphocytes % (Manual) 12L, Monocytes % (Manual) 6, Eosinophils % ( Manual) 2, Basophils % (Manual) 0, Band Neutrophils 0, Platelet Estimate Adequate, Platelet Morphology Normal, Hypochromasia 1+, Anisocytosis 1+, Prothrombin Time 21.7H, Prothromb Time International Ratio 2.1H, Activated Partial Thromboplast Time 47H, Phosphorus Level 6.2H, Total Bilirubin 0.8, Aspartate Amino Transf (AST/SGOT) 24, Alanine Aminotransferase (ALT/SGPT) 16, Alkaline Phosphatase 161H, C-Reactive Protein, Quantitative 15.5H, Pro-B-Type Natriuretic Peptide > 11019C, Total Protein 6.7, Albumin 2.3L, Globulin 4.4, Albumin/Globulin Ratio 0.5L Current Medications Medications (Trade) Dose Ordered Sig/Elva Route PRN Reason Start Time Stop Time Status Last Admin Dose Admin Acetaminophen (Tylenol) 650 mg Q4H PRN ORAL fever 12/05/18 16:30 12/30/18 16:29 Aspirin (ASA) 325 mg DAILY ORAL 12/06/18 09:00 01/02/19 09:59 12/07/18 09:19 Atorvastatin Calcium (Lipitor) 80 mg BEDTIME ORAL 12/05/18 21:00 12/30/18 20:59 12/06/18 20:36 Chlorhexidine Gluconate (Keke-Hex 2%) 1 applic DAILY@1999 TOPIC 12/05/18 20:00 12/31/18 19:59 12/06/18 20:35 Dextrose (Dextrose 50%) 25 ml Q30M PRN IV Hypoglycemia 12/05/18 16:45 01/03/19 08:14 Dextrose (Dextrose 50%) 50 ml Q30M PRN IV Hypoglycemia 12/05/18 16:45 01/03/19 08:14 Docusate Sodium (Colace) 100 mg THREE TIMES A DAY ORAL 12/05/18 18:00 01/01/19 12:59 12/07/18 09:19 Heparin Sodium (Porcine) (Heparin 5000 units/ml) 5,000 units EVERY 12 HOURS SUBQ 12/07/18 21:00 01/06/19 20:59 Insulin Aspart (NovoLOG) BEFORE MEALS AND HS SUBQ 12/05/18 16:30 01/03/19 11:29 12/06/18 20:41 Metoprolol Tartrate (Lopressor) 25 mg Q12HR ORAL 12/05/18 21:00 01/04/19 20:59 12/07/18 09:19 Morphine Sulfate (Morphine Sulfate) 1 mg Q4H PRN IVP Mild Pain (Pain Scale 1-3) 10/17/19 13:00 12/13/18 12:59 Morphine Sulfate (Morphine Sulfate) 2 mg Q4H PRN IVP Moderate Pain (Pain Scale 4-6) 12/06/18 13:00 12/13/18 12:59 Morphine Sulfate (Morphine Sulfate) 4 mg Q4H PRN IVP Severe Pain (Pain Scale 7-10) 12/06/18 13:00 12/13/18 12:59 12/07/18 06:05 Ondansetron HCl (Zofran) 4 mg Q6H PRN IVP Nausea & Vomiting 12/05/18 16:30 12/30/18 16:29 12/05/18 16:48 Pantoprazole (Protonix) 40 mg Q12HR IVP 12/05/18 21:00 12/31/18 08:59 12/07/18 09:20 Piperacillin Sod/ Tazobactam Sod 2.25 gm/Dextrose 55 ml @ 110 mls/hr Q8HR IVPB 12/05/18 22:00 12/10/18 13:59 12/07/18 05:08 Polyethylene Glycol (Miralax) 17 gm DAILYPRN PRN ORAL Constipation 12/05/18 16:30 01/04/19 16:29 12/07/18 09:20 Sevelamer Carbonate (Renvela) 800 mg THREE TIMES A DAY ORAL 12/05/18 18:00 12/30/18 17:59 12/07/18 09:19 Sodium Chloride 1,000 ml @ 50 mls/hr Q20H IV 12/05/18 16:30 12/30/18 15:29 12/07/18 05:08 Vitamin B Complex/ Vit C/Folic Acid (Nephrovite) 1 tab DAILY ORAL 12/06/18 09:00 12/31/18 08:59 12/07/18 09:19 Rebekah Arora MD Dec 07, 2018 11:14
[2018-12-07 12:00] VITALS: BP 147/67
--- NOTE | 2018-12-07 13:38 | NUR ---
*-* DISCHARGE PLANNING *-* PATIENT HAS BEEN REFERRED TO: [facility] P: [phone] F: [phone]
[2018-12-07] MEDS ORDERED: Piperacillin/Tazobactam 2.25 GM in NS 55 ML IVPB SCH (14:00)
--- NOTE | 2018-12-07 14:20 | NUR ---
*-* INSURANCE *-* ALL CLINICALS have been faxed to: [facility] IPA tracking# pending CM: Oliverio #[phone] fax#[phone]
--- NOTE | 2018-12-07 14:55 | Hematology/Onc Progress Note ---
Assessment/Plan Assessment/Plan Assessment/Plan: # Coagulation defect, multifactorial usually related to poor PO intake versus medications, versus cirrhosis, in this case, is likely related to sepsis and dic (on admission) and now off hep gtt --> administer Vitamin K if patient is bleeding or FFP if the INR is >10 --> hold off on ffp unless active procedure/bleeding, first begin with vit K 10 --> mixing study ordered and reviewed, likely has vit K deficiency --> hep and hiv are negative --> us of the abdomen shows potential cirrhosis/undefined # Anemia of chronic disease, due to underlying chronic medical issues, multifactorial --> Anemia workup has been reviewed, is c/w acd --> No evidence of hemolysis is noted, peripheral smear has been reviewed --> Hgb goal >7. Transfuse prn. --> Epogen or iron at this time is not particularly indicated --> Medications have been reviewed --> low threshold for gi evaluation in case has occult + --> hgb 8.4-->7.7-->7.4->9.1 # Leukocytosis/elevated white blood cell count, unspecified likely related to underlying stress reaction with septic shock (with poss pna) --> have reviewed peripheral smear and bandemia/neutrophilia noted --> continue antibiotics if they have been started by ID team (clinda/indira/vanc) --->zosyn --> monitor for resolution # Elevated trop --> with esrd --> as per cards recs --> TTe neg for vegetatons # Infected leg ulcer, probably gangrene --> s/p L bka --> as per surg recs # PVD with amputation # End-stage renal disease - on hemodialysis --> per renal HD 12/03 # Electrolyte abnormalities # Diabetes mellitus with diabetic neuropathy # Dvt ppx heparin sq The timing of this note does not necessarily reflect the time of the patient was seen. Greatly appreciate consultation. Subjective HEENT: Denies: no symptoms, eye pain, blurred vision, tearing, double vision, ear pain, ear discharge, nose pain, nose congestion, throat pain, throat swelling, mouth pain, mouth swelling, other Cardiovascular: Denies: no symptoms, chest pain, edema, irregular heart rate, lightheadedness, palpitations, syncope, other Respiratory: Denies: no symptoms, cough, shortness of breath, SOB with excertion, SOB at rest, sputum, wheezing, other Gastrointestinal/Abdominal: Denies: no symptoms, abdomen distended, abdominal pain, black stools, tarry stools, blood in stool, constipated, diarrhea, difficulty swallowing, nausea, poor appetite, poor fluid intake, rectal bleeding , vomiting, other Genitourinary: Denies: no symptoms, burning, discharge, frequency, flank pain, hematuria, incontinence, pain, urgency, other Neurologic/Psychiatric: Denies: no symptoms, anxiety, depressed, emotional problems, headache, numbness, paresthesia, pre-existing deficit, seizure, tingling, tremors, weakness, other Endocrine: Denies: no symptoms, excessive sweating, flushing, intolerance to cold, intolerance to heat, increased hunger, increased thirst, increased urine, unexplained weight gain, unexplained weight loss, other Allergies: Coded Allergies: No Known Allergies (Unverified , 11/30/18) Subjective 12/03: no bleeding, no night sweats, on levo in icu, dw rn 12/04: remains on heparin, remains in icu, on pressor, pending surgery shortly 12/05: hd today, given norco, on hep gtt 12/06:or l bka. no bleeding, no night sweats noted 12/07: no events, no bleeding noted, improving, getting prbc Objective Objective Current Medications Medications (Trade) Dose Ordered Sig/Elva Route PRN Reason Start Time Stop Time Status Last Admin Dose Admin Acetaminophen (Tylenol) 650 mg Q4H PRN ORAL fever 12/05/18 16:30 12/30/18 16:29 Aspirin (ASA) 325 mg DAILY ORAL 12/06/18 09:00 01/02/19 09:59 12/07/18 09:19 Atorvastatin Calcium (Lipitor) 80 mg BEDTIME ORAL 12/05/18 21:00 12/30/18 20:59 12/06/18 20:36 Chlorhexidine Gluconate (Keke-Hex 2%) 1 applic DAILY@1999 TOPIC 12/05/18 20:00 12/31/18 19:59 12/06/18 20:35 Dextrose (Dextrose 50%) 25 ml Q30M PRN IV Hypoglycemia 12/05/18 16:45 01/03/19 08:14 Dextrose (Dextrose 50%) 50 ml Q30M PRN IV Hypoglycemia 12/05/18 16:45 01/03/19 08:14 Docusate Sodium (Colace) 100 mg THREE TIMES A DAY ORAL 12/05/18 18:00 01/01/19 12:59 12/07/18 14:03 Heparin Sodium (Porcine) (Heparin 5000 units/ml) 5,000 units EVERY 12 HOURS SUBQ 12/07/18 21:00 01/06/19 20:59 Insulin Aspart (NovoLOG) BEFORE MEALS AND HS SUBQ 12/05/18 16:30 01/03/19 11:29 12/06/18 20:41 Metoprolol Tartrate (Lopressor) 25 mg Q12HR ORAL 12/05/18 21:00 01/04/19 20:59 12/07/18 09:19 Morphine Sulfate (Morphine Sulfate) 1 mg Q4H PRN IVP Mild Pain (Pain Scale 1-3) 12/06/18 13:00 12/13/18 12:59 Morphine Sulfate (Morphine Sulfate) 2 mg Q4H PRN IVP Moderate Pain (Pain Scale 4-6) 12/06/18 13:00 12/13/18 12:59 Morphine Sulfate (Morphine Sulfate) 4 mg Q4H PRN IVP Severe Pain (Pain Scale 7-10) 12/06/18 13:00 12/13/18 12:59 12/07/18 14:17 Ondansetron HCl (Zofran) 4 mg Q6H PRN IVP Nausea & Vomiting 12/05/18 16:30 12/30/18 16:29 12/05/18 16:48 Pantoprazole (Protonix) 40 mg Q12HR IVP 12/05/18 21:00 12/31/18 08:59 12/07/18 09:20 Piperacillin Sod/ Tazobactam Sod 2.25 gm/Sodium Chloride 55 ml @ 110 mls/hr Q8HR IVPB 12/07/18 14:00 12/12/18 23:59 Polyethylene Glycol (Miralax) 17 gm DAILYPRN PRN ORAL Constipation 12/05/18 16:30 01/04/19 16:29 12/07/18 09:20 Sevelamer Carbonate (Renvela) 800 mg THREE TIMES A DAY ORAL 12/05/18 18:00 12/30/18 17:59 12/07/18 14:03 Sodium Chloride 1,000 ml @ 50 mls/hr Q20H IV 12/05/18 16:30 12/30/18 15:29 12/07/18 05:08 Vitamin B Complex/ Vit C/Folic Acid (Nephrovite) 1 tab DAILY ORAL 12/06/18 09:00 12/31/18 08:59 12/07/18 09:19 Last 24 Hour Vital Signs Date Time Temp Pulse Resp B/P (MAP) Pulse Ox O2 Delivery O2 Flow Rate FiO2 12/07/18 12:00 Nasal Cannula 3.0 12/07/18 12:00 97.7 59 20 147/67 (93) 99 12/07/18 11:40 57 12/07/18 09:19 62 115/70 12/07/18 08:05 97 Nasal Cannula 3.0 32 12/07/18 08:00 57 12/07/18 08:00 98.3 63 18 115/70 (85) 96 12/07/18 08:00 Nasal Cannula 3.0 12/07/18 06:39 99.0 12/07/18 04:00 59 12/07/18 04:00 Nasal Cannula 3.0 12/07/18 04:00 99.0 59 20 106/71 (83) 99 12/07/18 00:00 98.5 55 20 116/63 (80) 99 12/07/18 00:00 Nasal Cannula 3.0 12/07/18 00:00 54 12/06/18 20:40 63 132/71 12/06/18 20:00 98.1 63 20 132/78 (96) 99 12/06/18 20:00 Nasal Cannula 3.0 12/06/18 20:00 62 12/06/18 16:00 66 12/06/18 16:00 Nasal Cannula 3.0 12/06/18 16:00 97.3 65 21 125/70 (88) 99 12/06/18 14:25 66 12/06/18 12:00 Nasal Cannula 3.0 12/06/18 12:00 98.1 72 20 130/78 (95) 99 12/06/18 11:50 97.2 12/06/18 11:40 97.2 61 12 115/65 96 Nasal Cannula 3 12/06/18 11:30 61 16 112/56 100 Simple Mask 6 12/06/18 11:20 55 16 110/50 100 Simple Mask 6 12/06/18 11:15 54 18 105/54 100 Simple Mask 6 12/06/18 11:14 58 18 96 12/06/18 11:09 98.6 58 12 109/46 100 Simple Mask 6 12/06/18 08:26 70 137/75 12/06/18 08:00 98.7 70 21 137/75 (95) 97 71 12/06/18 08:00 Nasal Cannula 3.0 12/06/18 08:00 62 12/06/18 07:39 70 16 100 Nasal Cannula 3.0 32 12/06/18 07:39 99 Nasal Cannula 3.0 32 12/06/18 04:02 71 12/06/18 04:00 Nasal Cannula 3.0 12/06/18 04:00 97.7 71 16 112/78 (89) 99 76 12/06/18 00:00 Nasal Cannula 3.0 12/06/18 00:00 97.9 72 16 116/72 (87) 99 76 12/06/18 00:00 62 12/05/18 21:29 99 123/78 12/05/18 20:00 97.7 76 16 123/78 (93) 99 76 12/05/18 20:00 73 12/05/18 20:00 Nasal Cannula 3.0 12/05/18 19:00 98.5 12/05/18 16:30 77 12/05/18 16:00 Nasal Cannula 3.0 12/05/18 16:00 98.5 77 22 140/93 (109) 97 12/05/18 16:00 69 13 118/74 (89) 99 12/05/18 15:03 131/75 12/05/18 15:00 71 10 131/75 (93) 99 12/05/18 15:00 97.8 71 10 131/75 (93) 99 Intake and Output 12/06/18 12/07/18 18:59 06:59 Intake Total 1275 ml 1108 ml Output Total 0 ml Balance 1275 ml 1108 ml Intake Oral 240 ml 100 ml IV Total 1035 ml 600 ml Blood Product 408 ml Output Urine Total 0 ml Labs Test 12/04/18 18:30 12/05/18 01:50 12/05/18 04:00 12/05/18 09:30 Activated Partial Thromboplast Time 59 SEC (23-33) 84 SEC (23-33) White Blood Count 10.8 K/UL (4.8-10.8) 10.7 K/UL (4.8-10.8) Red Blood Count 2.97 M/UL (4.70-6.10) 2.85 M/UL (4.70-6.10) Hemoglobin 7.7 G/DL (14.2-18.0) 7.4 G/DL (14.2-18.0) Hematocrit 24.9 % (42.0-52.0) 23.8 % (42.0-52.0) Mean Corpuscular Volume 84 FL (80-99) 83 FL (80-99) Mean Corpuscular Hemoglobin 26.0 PG (27.0-31.0) 25.8 PG (27.0-31.0) Mean Corpuscular Hemoglobin Concent 31.0 G/DL (32.0-36.0) 31.0 G/DL (32.0-36.0) Red Cell Distribution Width 14.5 % (11.6-14.8) 14.6 % (11.6-14.8) Platelet Count 297 K/UL (150-450) 279 K/UL (150-450) Mean Platelet Volume 6.3 FL (6.5-10.1) 6.6 FL (6.5-10.1) Neutrophils (%) (Auto) % (45.0-75.0) % (45.0-75.0) Lymphocytes (%) (Auto) % (20.0-45.0) % (20.0-45.0) Monocytes (%) (Auto) % (1.0-10.0) % (1.0-10.0) Eosinophils (%) (Auto) % (0.0-3.0) % (0.0-3.0) Basophils (%) (Auto) % (0.0-2.0) % (0.0-2.0) Differential Total Cells Counted 100 100 Neutrophils % (Manual) 68 % (45-75) 70 % (45-75) Lymphocytes % (Manual) 18 % (20-45) 14 % (20-45) Monocytes % (Manual) 9 % (1-10) 12 % (1-10) Eosinophils % (Manual) 5 % (0-3) 4 % (0-3) Basophils % (Manual) 0 % (0-2) 0 % (0-2) Band Neutrophils 0 % (0-8) 0 % (0-8) Platelet Estimate Adequate Adequate Platelet Morphology Normal Normal Hypochromasia 3+ 3+ Anisocytosis 1+ 1+ Sodium Level 134 MMOL/L (136-145) Potassium Level 4.7 MMOL/L (3.5-5.1) Chloride Level 97 MMOL/L (98-107) Carbon Dioxide Level 23 MMOL/L (21-32) Anion Gap 14 mmol/L (5-15) Blood Urea Nitrogen 53 mg/dL (7-18) Creatinine 8.0 MG/DL (0.55-1.30) Estimat Glomerular Filtration Rate mL/min (>60) Glucose Level 172 MG/DL (74-106) Calcium Level 9.2 MG/DL (8.5-10.1) Phosphorus Level 5.2 MG/DL (2.5-4.9) Magnesium Level 2.1 MG/DL (1.8-2.4) Total Bilirubin 0.5 MG/DL (0.2-1.0) Aspartate Amino Transf (AST/SGOT) 25 U/L (15-37) Alanine Aminotransferase (ALT/SGPT) 15 U/L (12-78) Alkaline Phosphatase 183 U/L (46-116) Troponin I 4.653 ng/mL (0.000-0.056) C-Reactive Protein, Quantitative 31.4 mg/dL (0.00-0.90) Pro-B-Type Natriuretic Peptide > 59965 pg/mL (0-125) Total Protein 6.7 G/DL (6.4-8.2) Albumin 2.2 G/DL (3.4-5.0) Globulin 4.5 g/dL Albumin/Globulin Ratio 0.5 (1.0-2.7) Test 12/05/18 18:55 12/06/18 04:10 12/06/18 17:46 12/07/18 04:00 Random Vancomycin Level 18.7 ug/mL White Blood Count 12.2 K/UL (4.8-10.8) 11.9 K/UL (4.8-10.8) Red Blood Count 3.40 M/UL (4.70-6.10) 2.94 M/UL (4.70-6.10) Hemoglobin 9.1 G/DL (14.2-18.0) 7.8 G/DL (14.2-18.0) Hematocrit 28.6 % (42.0-52.0) 24.9 % (42.0-52.0) Mean Corpuscular Volume 84 FL (80-99) 85 FL (80-99) Mean Corpuscular Hemoglobin 26.8 PG (27.0-31.0) 26.6 PG (27.0-31.0) Mean Corpuscular Hemoglobin Concent 31.9 G/DL (32.0-36.0) 31.4 G/DL (32.0-36.0) Red Cell Distribution Width 14.4 % (11.6-14.8) 14.8 % (11.6-14.8) Platelet Count 293 K/UL (150-450) 245 K/UL (150-450) Mean Platelet Volume 6.3 FL (6.5-10.1) 6.5 FL (6.5-10.1) Neutrophils (%) (Auto) 82.2 % (45.0-75.0) % (45.0-75.0) Lymphocytes (%) (Auto) 9.4 % (20.0-45.0) % (20.0-45.0) Monocytes (%) (Auto) 6.0 % (1.0-10.0) % (1.0-10.0) Eosinophils (%) (Auto) 2.0 % (0.0-3.0) % (0.0-3.0) Basophils (%) (Auto) 0.4 % (0.0-2.0) % (0.0-2.0) Erythrocyte Sedimentation Rate 110 MM/HR (0-20) Prothrombin Time 28.2 SEC (9.30-11.50) 21.7 SEC (9.30-11.50) Prothromb Time International Ratio 2.8 (0.9-1.1) 2.1 (0.9-1.1) Activated Partial Thromboplast Time 98 SEC (23-33) 47 SEC (23-33) Sodium Level 135 MMOL/L (136-145) 136 MMOL/L (136-145) 137 MMOL/L (136-145) Potassium Level 4.3 MMOL/L (3.5-5.1) 4.6 MMOL/L (3.5-5.1) 4.6 MMOL/L (3.5-5.1) Chloride Level 98 MMOL/L (98-107) 99 MMOL/L (98-107) 99 MMOL/L (98-107) Carbon Dioxide Level 26 MMOL/L (21-32) 26 MMOL/L (21-32) 24 MMOL/L (21-32) Anion Gap 12 mmol/L (5-15) 12 mmol/L (5-15) 14 mmol/L (5-15) Blood Urea Nitrogen 36 mg/dL (7-18) 39 mg/dL (7-18) 44 mg/dL (7-18) Creatinine 6.0 MG/DL (0.55-1.30) 6.6 MG/DL (0.55-1.30) 7.4 MG/DL (0.55-1.30) Estimat Glomerular Filtration Rate mL/min (>60) mL/min (>60) mL/min (>60) Glucose Level 175 MG/DL (74-106) 158 MG/DL (74-106) 101 MG/DL (74-106) Calcium Level 9.1 MG/DL (8.5-10.1) 8.9 MG/DL (8.5-10.1) 8.9 MG/DL (8.5-10.1) Phosphorus Level 5.4 MG/DL (2.5-4.9) 6.2 MG/DL (2.5-4.9) Magnesium Level 2.0 MG/DL (1.8-2.4) 2.0 MG/DL (1.8-2.4) 2.1 MG/DL (1.8-2.4) Total Bilirubin 0.9 MG/DL (0.2-1.0) 0.8 MG/DL (0.2-1.0) Aspartate Amino Transf (AST/SGOT) 22 U/L (15-37) 24 U/L (15-37) Alanine Aminotransferase (ALT/SGPT) 16 U/L (12-78) 16 U/L (12-78) Alkaline Phosphatase 179 U/L (46-116) 161 U/L (46-116) Troponin I 2.326 ng/mL (0.000-0.056) 2.354 ng/mL (0.000-0.056) 2.205 ng/mL (0.000-0.056) C-Reactive Protein, Quantitative 23.2 mg/dL (0.00-0.90) 15.5 mg/dL (0.00-0.90) Total Protein 6.9 G/DL (6.4-8.2) 6.7 G/DL (6.4-8.2) Albumin 2.3 G/DL (3.4-5.0) 2.3 G/DL (3.4-5.0) Globulin 4.6 g/dL 4.4 g/dL Albumin/Globulin Ratio 0.5 (1.0-2.7) 0.5 (1.0-2.7) Differential Total Cells Counted 100 Neutrophils % (Manual) 80 % (45-75) Lymphocytes % (Manual) 12 % (20-45) Monocytes % (Manual) 6 % (1-10) Eosinophils % (Manual) 2 % (0-3) Basophils % (Manual) 0 % (0-2) Band Neutrophils 0 % (0-8) Platelet Estimate Adequate Platelet Morphology Normal Hypochromasia 1+ Anisocytosis 1+ Pro-B-Type Natriuretic Peptide > 66016 pg/mL (0-125) Height (Feet): 5 Height (Inches): 1.00 Weight (Pounds): 169 Objective Physical Exam: Vitals: reviewed General Appearance: NAD HEENT: normocephalic, atraumatic Neck: non-tender, normal alignment Respiratory/Chest: normal breath sounds bilaterally Cardiovascular/Chest: normal peripheral pulses, normal rate Abdomen: normal bowel sounds, soft, nontender Extremities: normal range of motion s/p midfoot amputation ; R midfoot Jean Carlos CORTEZ BKA++ Lloyd Dailey MD Dec 07, 2018 14:55
--- NOTE | 2018-12-07 15:00 | NUR ---
NURSE NOTES: IV Zosyn given late, medication unable to scan earlier. scanned new med as soon as delivered by pharmacy
--- NOTE | 2018-12-07 15:20 | NUR ---
NURSE NOTES: Patient seen by Dr. Mtz. Left BKA site dressing changed by
--- NOTE | 2018-12-07 15:30 | NUR ---
NURSE NOTES: Patient on room air, O2 sat 96-99%. No distress noted. Breathing even and unlabored.
[2018-12-07 16:00] VITALS: BP 123/69
--- NOTE | 2018-12-07 16:00 | NUR ---
NURSE NOTES: Patient receiving 1unit PRBC. No adverse reaction observed for 15mins of blood transfusion. VSS. will continue to monitor.
--- NOTE | 2018-12-07 16:15 | NUR ---
TRANSFER TO FLOOR: Patient transferred to [facility]. Report given to IWONA Saini. Belongings and medications given to primary nurse. pt's son, molly cochran, informed of transfer.
--- NOTE | 2018-12-07 16:30 | NUR ---
NURSE NOTES: Received report from Joanie Nash RN. Patient A&Ox4. Iranian speaking. On Nasal cannula. No signs of distress or labored breathing. Blood transfusion running in right femoral TLC. Bed in lowest condition with call light in reach. Belongings accounted for. Will continue to monitor.
[2018-12-07] MEDS ORDERED: Morphine Sulfate 2mg/ml Inj(IV/IM USE ONLY) IVP PRN ×2 (16:36→16:37)
[2018-12-07] MEDS ORDERED: Miralax 17gm pkt ORAL PRN (16:37)
--- NOTE | 2018-12-07 16:55 | Infectious Diseases Prog Note ---
Assessment/Plan Assessment/Plan Assessment: Septic shock, sp-2ry to PNA and wet gangrene -12/01 CXR: . Interval development of patchy consolidation throughout the right lung, concerning for pneumonia. Consolidations related to pulmonary edema are less likely since it is predominantly on the right side. Persistent pulmonary vascular congestion. -CXR: Pulmonary vascularity and interstitium are prominent. 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 ratgerri (S ceftriaxone), P. mirabilis (teran S), E. fecalis (S Amp, vanco) -xray L tibia/fibula: No acute injury identified. Diffuse osteopenia. Fever ; SP Hyperleukocytosis; SP- now mild leukocytosis- ESRD on HD MWF anemia polyneuropathy GERD CT resident Plan: -Continue ZOsyn #5/7 (abx d #8/) -12/06 SP IV Vancomycin #7, Clindamycin #6 -12/05 SP Azithromycin #5 -12/03 SP Meropenem #4 -11/30 SP Cefepime #1, Flagyl #1 -Monitor CBC/CMP, temperatures -aspiration precautions -podiatry, surgery f/u -wound care per surgical team Thank you for this consultation. Will continue to follow along with you. Discussed with RN Subjective Allergies: Coded Allergies: No Known Allergies (Unverified , 11/30/18) Subjective afebrile >72 hrs transferred from SDU to [facility] mild leukcoytosis improving Bcx Neg Objective Vital Signs Last 24 Hour Vital Signs Date Time Temp Pulse Resp B/P (MAP) Pulse Ox O2 Delivery O2 Flow Rate FiO2 12/07/18 16:00 63 12/07/18 16:00 97.9 62 18 123/69 (87) 99 12/07/18 16:00 Room Air 12/07/18 12:00 Nasal Cannula 3.0 12/07/18 12:00 97.7 59 20 147/67 (93) 99 12/07/18 11:40 57 12/07/18 09:19 62 115/70 12/07/18 08:05 97 Nasal Cannula 3.0 32 12/07/18 08:00 57 12/07/18 08:00 98.3 63 18 115/70 (85) 96 12/07/18 08:00 Nasal Cannula 3.0 12/07/18 06:39 99.0 12/07/18 04:00 59 12/07/18 04:00 Nasal Cannula 3.0 12/07/18 04:00 99.0 59 20 106/71 (83) 99 12/07/18 00:00 98.5 55 20 116/63 (80) 99 12/07/18 00:00 Nasal Cannula 3.0 12/07/18 00:00 54 12/06/18 20:40 63 132/71 12/06/18 20:00 98.1 63 20 132/78 (96) 99 12/06/18 20:00 Nasal Cannula 3.0 12/06/18 20:00 62 Height (Feet): 5 Height (Inches): 1.00 Weight (Pounds): 169 Laboratory Tests Test 12/06/18 17:46 12/07/18 04:00 Sodium Level 136 MMOL/L (136-145) 137 MMOL/L (136-145) Potassium Level 4.6 MMOL/L (3.5-5.1) 4.6 MMOL/L (3.5-5.1) Chloride Level 99 MMOL/L (98-107) 99 MMOL/L (98-107) Carbon Dioxide Level 26 MMOL/L (21-32) 24 MMOL/L (21-32) Anion Gap 12 mmol/L (5-15) 14 mmol/L (5-15) Blood Urea Nitrogen 39 mg/dL (7-18) H 44 mg/dL (7-18) H Creatinine 6.6 MG/DL (0.55-1.30) H 7.4 MG/DL (0.55-1.30) H Estimat Glomerular Filtration Rate mL/min (>60) mL/min (>60) Glucose Level 158 MG/DL (74-106) H 101 MG/DL (74-106) Calcium Level 8.9 MG/DL (8.5-10.1) 8.9 MG/DL (8.5-10.1) Magnesium Level 2.0 MG/DL (1.8-2.4) 2.1 MG/DL (1.8-2.4) Troponin I 2.354 ng/mL (0.000-0.056) 2.205 ng/mL (0.000-0.056) White Blood Count 11.9 K/UL (4.8-10.8) H Red Blood Count 2.94 M/UL (4.70-6.10) L Hemoglobin 7.8 G/DL (14.2-18.0) L Hematocrit 24.9 % (42.0-52.0) L Mean Corpuscular Volume 85 FL (80-99) Mean Corpuscular Hemoglobin 26.6 PG (27.0-31.0) L Mean Corpuscular Hemoglobin Concent 31.4 G/DL (32.0-36.0) L Red Cell Distribution Width 14.8 % (11.6-14.8) Platelet Count 245 K/UL (150-450) Mean Platelet Volume 6.5 FL (6.5-10.1) Neutrophils (%) (Auto) % (45.0-75.0) Lymphocytes (%) (Auto) % (20.0-45.0) Monocytes (%) (Auto) % (1.0-10.0) Eosinophils (%) (Auto) % (0.0-3.0) Basophils (%) (Auto) % (0.0-2.0) Differential Total Cells Counted 100 Neutrophils % (Manual) 80 % (45-75) H Lymphocytes % (Manual) 12 % (20-45) L Monocytes % (Manual) 6 % (1-10) Eosinophils % (Manual) 2 % (0-3) Basophils % (Manual) 0 % (0-2) Band Neutrophils 0 % (0-8) Platelet Estimate Adequate Platelet Morphology Normal Hypochromasia 1+ Anisocytosis 1+ Prothrombin Time 21.7 SEC (9.30-11.50) H Prothromb Time International Ratio 2.1 (0.9-1.1) H Activated Partial Thromboplast Time 47 SEC (23-33) H Phosphorus Level 6.2 MG/DL (2.5-4.9) H Total Bilirubin 0.8 MG/DL (0.2-1.0) Aspartate Amino Transf (AST/SGOT) 24 U/L (15-37) Alanine Aminotransferase (ALT/SGPT) 16 U/L (12-78) Alkaline Phosphatase 161 U/L (46-116) H C-Reactive Protein, Quantitative 15.5 mg/dL (0.00-0.90) H Pro-B-Type Natriuretic Peptide > 46087 pg/mL (0-125) H Total Protein 6.7 G/DL (6.4-8.2) Albumin 2.3 G/DL (3.4-5.0) L Globulin 4.4 g/dL Albumin/Globulin Ratio 0.5 (1.0-2.7) L Current Medications Medications (Trade) Dose Ordered Sig/Elva Route PRN Reason Start Time Stop Time Status Last Admin Dose Admin Acetaminophen (Tylenol) 650 mg Q4H PRN ORAL fever 12/07/18 16:35 01/06/19 16:34 Aspirin (ASA) 325 mg DAILY ORAL 12/08/18 09:00 01/02/19 09:59 Atorvastatin Calcium (Lipitor) 80 mg BEDTIME ORAL 12/07/18 21:00 12/30/18 20:59 Chlorhexidine Gluconate (Keke-Hex 2%) 1 applic DAILY@2000 TOPIC 12/07/18 20:00 12/31/18 19:59 Dextrose (Dextrose 50%) 25 ml Q30M PRN IV Hypoglycemia 12/07/18 16:45 01/03/19 08:14 Dextrose (Dextrose 50%) 50 ml Q30M PRN IV Hypoglycemia 12/07/18 16:45 01/03/19 08:14 Docusate Sodium (Colace) 100 mg THREE TIMES A DAY ORAL 12/07/18 18:00 01/01/19 12:59 Heparin Sodium (Porcine) (Heparin 5000 units/ml) 5,000 units EVERY 12 HOURS SUBQ 12/07/18 21:00 01/06/19 20:59 Insulin Aspart (NovoLOG) BEFORE MEALS AND HS SUBQ 12/07/18 21:00 01/03/19 11:29 Metoprolol Tartrate (Lopressor) 25 mg Q12HR ORAL 12/07/18 21:00 01/04/19 20:59 Morphine Sulfate (Morphine Sulfate) 1 mg Q4H PRN IVP Mild Pain (Pain Scale 1-3) 12/07/18 16:36 12/14/18 16:35 Morphine Sulfate (Morphine Sulfate) 2 mg Q4H PRN IVP Moderate Pain (Pain Scale 4-6) 12/07/18 16:37 12/14/18 16:36 Morphine Sulfate (Morphine Sulfate) 4 mg Q4H PRN IVP Severe Pain (Pain Scale 7-10) 12/07/18 16:37 12/14/18 16:36 Ondansetron HCl (Zofran) 4 mg Q6H PRN IVP Nausea & Vomiting 12/07/18 16:37 01/06/19 16:36 Pantoprazole (Protonix) 40 mg Q12HR IVP 12/07/18 21:00 12/31/18 08:59 Piperacillin Sod/ Tazobactam Sod 2.25 gm/Sodium Chloride 55 ml @ 110 mls/hr Q8HR IVPB 12/07/18 22:00 12/12/18 23:59 Polyethylene Glycol (Miralax) 17 gm DAILYPRN PRN ORAL Constipation 12/07/18 16:37 01/06/19 16:36 Sevelamer Carbonate (Renvela) 800 mg THREE TIMES A DAY ORAL 12/07/18 18:00 12/30/18 17:59 Sodium Chloride 1,000 ml @ 50 mls/hr Q20H IV 12/07/18 16:45 12/30/18 15:29 Vitamin B Complex/ Vit C/Folic Acid (Nephrovite) 1 tab DAILY ORAL 12/08/18 09:00 12/31/18 08:59 Aparna Ramirez M.D. Dec 07, 2018 16:55
--- NOTE | 2018-12-07 17:19 | Surgery Progress Note ---
Surgery Progress Note Subjective Procedure Performed left below knee amputation Symptoms: improved, tolerating diet, voiding well, passing flatus, BM Additional Comments doing okay pain controlled no n/v/f/c Objective Last 24 Hour Vital Signs Date Time Temp Pulse Resp B/P (MAP) Pulse Ox O2 Delivery O2 Flow Rate FiO2 12/07/18 16:00 63 12/07/18 16:00 97.9 62 18 123/69 (87) 99 12/07/18 16:00 Room Air 12/07/18 12:00 Nasal Cannula 3.0 12/07/18 12:00 97.7 59 20 147/67 (93) 99 12/07/18 11:40 57 12/07/18 09:19 62 115/70 12/07/18 08:05 97 Nasal Cannula 3.0 32 12/07/18 08:00 57 12/07/18 08:00 98.3 63 18 115/70 (85) 96 12/07/18 08:00 Nasal Cannula 3.0 12/07/18 06:39 99.0 12/07/18 04:00 59 12/07/18 04:00 Nasal Cannula 3.0 12/07/18 04:00 99.0 59 20 106/71 (83) 99 12/07/18 00:00 98.5 55 20 116/63 (80) 99 12/07/18 00:00 Nasal Cannula 3.0 12/07/18 00:00 54 12/06/18 20:40 63 132/71 12/06/18 20:00 98.1 63 20 132/78 (96) 99 12/06/18 20:00 Nasal Cannula 3.0 12/06/18 20:00 62 I&O Intake and Output 12/06/18 12/07/18 18:59 06:59 Intake Total 1275 ml 1108 ml Output Total 0 ml Balance 1275 ml 1108 ml Intake Oral 240 ml 100 ml IV Total 1035 ml 600 ml Blood Product 408 ml Output Urine Total 0 ml Dressing: saturated Wound: clean Cardiovascular: RSR Respiratory: clear Abdomen: soft, non-tender, present bowel sounds Extremities: no tenderness, no cyanosis Laboratory Tests Test 12/06/18 17:46 12/07/18 04:00 Sodium Level 136 MMOL/L (136-145) 137 MMOL/L (136-145) Potassium Level 4.6 MMOL/L (3.5-5.1) 4.6 MMOL/L (3.5-5.1) Chloride Level 99 MMOL/L (98-107) 99 MMOL/L (98-107) Carbon Dioxide Level 26 MMOL/L (21-32) 24 MMOL/L (21-32) Anion Gap 12 mmol/L (5-15) 14 mmol/L (5-15) Blood Urea Nitrogen 39 mg/dL (7-18) H 44 mg/dL (7-18) H Creatinine 6.6 MG/DL (0.55-1.30) H 7.4 MG/DL (0.55-1.30) H Estimat Glomerular Filtration Rate mL/min (>60) mL/min (>60) Glucose Level 158 MG/DL (74-106) H 101 MG/DL (74-106) Calcium Level 8.9 MG/DL (8.5-10.1) 8.9 MG/DL (8.5-10.1) Magnesium Level 2.0 MG/DL (1.8-2.4) 2.1 MG/DL (1.8-2.4) Troponin I 2.354 ng/mL (0.000-0.056) 2.205 ng/mL (0.000-0.056) White Blood Count 11.9 K/UL (4.8-10.8) H Red Blood Count 2.94 M/UL (4.70-6.10) L Hemoglobin 7.8 G/DL (14.2-18.0) L Hematocrit 24.9 % (42.0-52.0) L Mean Corpuscular Volume 85 FL (80-99) Mean Corpuscular Hemoglobin 26.6 PG (27.0-31.0) L Mean Corpuscular Hemoglobin Concent 31.4 G/DL (32.0-36.0) L Red Cell Distribution Width 14.8 % (11.6-14.8) Platelet Count 245 K/UL (150-450) Mean Platelet Volume 6.5 FL (6.5-10.1) Neutrophils (%) (Auto) % (45.0-75.0) Lymphocytes (%) (Auto) % (20.0-45.0) Monocytes (%) (Auto) % (1.0-10.0) Eosinophils (%) (Auto) % (0.0-3.0) Basophils (%) (Auto) % (0.0-2.0) Differential Total Cells Counted 100 Neutrophils % (Manual) 80 % (45-75) H Lymphocytes % (Manual) 12 % (20-45) L Monocytes % (Manual) 6 % (1-10) Eosinophils % (Manual) 2 % (0-3) Basophils % (Manual) 0 % (0-2) Band Neutrophils 0 % (0-8) Platelet Estimate Adequate Platelet Morphology Normal Hypochromasia 1+ Anisocytosis 1+ Prothrombin Time 21.7 SEC (9.30-11.50) H Prothromb Time International Ratio 2.1 (0.9-1.1) H Activated Partial Thromboplast Time 47 SEC (23-33) H Phosphorus Level 6.2 MG/DL (2.5-4.9) H Total Bilirubin 0.8 MG/DL (0.2-1.0) Aspartate Amino Transf (AST/SGOT) 24 U/L (15-37) Alanine Aminotransferase (ALT/SGPT) 16 U/L (12-78) Alkaline Phosphatase 161 U/L (46-116) H C-Reactive Protein, Quantitative 15.5 mg/dL (0.00-0.90) H Pro-B-Type Natriuretic Peptide > 05748 pg/mL (0-125) H Total Protein 6.7 G/DL (6.4-8.2) Albumin 2.3 G/DL (3.4-5.0) L Globulin 4.4 g/dL Albumin/Globulin Ratio 0.5 (1.0-2.7) L Plan Problems: (1) Severe sepsis Assessment & Plan: This is a 73-year-old male who presents with severe sepsis, fevers, leukocytosis, abnormal labs, elevated troponins, abnormal lecture lites. On admission patient has a very foul-smelling left heel necrotic wound/ulcer. No purulent drainage no significant foot or leg cellulitis. Prior midfoot amputation. Very foul-smelling. Given patient's current medical condition status with his consent a wound expiration was done at the bedside to ensure no underlying pus, gas-forming infection, acute etiology of severe sepsis. Using a fresh #11 scalpel incision was made in the middle of the area of necrosis and followed down to healthy tissue which is not identified until bone was reached. Wound necrosis directly down to bone. No pus tunneling or gas-forming infectious and noted. We will continue with local wound care Appreciate podiatry input. Agree foot not salvageable and recommend BKA. We will proceed once cleared Given patient's current medical condition status will need resuscitation and clearance prior to any surgical intervention or podiatry intervention. Antibiotics as per infectious disease Cardiology clearance pending We will follow with recommendations thank you s/p left bka stable labs noted dressings saturated and changed at bedside. surgical site looks good and hemostasis noted. flap okay so far -abx as per ID -local wound care -will follow with recs thank you Noam Davenport Dec 07, 2018 17:19
--- NOTE | 2018-12-07 19:28 | NUR ---
HAND-OFF: Report given to IWONA Cali.
--- NOTE | 2018-12-07 19:38 | NUR ---
NURSE NOTES: Received report from IWONA Saini. Patient is in bed, awake an able to make needs known. On NC 2L with no signs of distress or SOB. Incentive spirometer at bedside. IV intact and running fluids. Bed locked and in lowest position. Call light in easy reach. Will continue to monitor.
[2018-12-07 20:00] VITALS: BP 132/68
[2018-12-07] MEDS ORDERED: NovoLOG Insulin Flexpen SUBQ SCH (20:41)
[2018-12-07] MEDS: Dyna-Hex 2% Top Sol 2oz TOPIC SCH (20:51)
[2018-12-07] MEDS: Atorvastatin 80mg tab ORAL SCH (20:53)
[2018-12-07] MEDS ORDERED: Heparin 5000 units/ml inj SUBQ SCH (21:00)
[2018-12-07] MEDS: Heparin 5000 units/ml inj SUBQ SCH (21:16)
[2018-12-07] MEDS: Piperacillin/Tazobactam 2.25 GM in NS 55 ML IVPB SCH (21:32)
[2018-12-07] MEDS ORDERED: Tubing IV Blood Pump IV ONE (21:43)
[2018-12-07] MEDS ORDERED: Tubing IV Secondary IV ONE (21:43)
[2018-12-08] VITALS: BP 130/77
[2018-12-08] MEDS: Morphine Sulfate 4mg/ml Inj (IV USE ONLY) IVP PRN ×5 (03:09→23:12)
[2018-12-08 04:00] VITALS: BP 118/67
[2018-12-08] MEDS: Piperacillin/Tazobactam 2.25 GM in NS 55 ML IVPB SCH ×3 (05:57→21:12)
[2018-12-08] MEDS: NovoLOG Insulin Flexpen SUBQ SCH ×4 (06:01→21:16)
[2018-12-08 06:48] LABS: INR 3.2 (0.9-1.1)
[2018-12-08 07:02] LABS: BASOPHILS % (AUTO) 0.7 % (0.0-2.0); EOSINOPHILS % (AUTO) 2.6 % (0.0-3.0); HEMATOCRIT 24.8 % (42.0-52.0); HEMOGLOBIN 8.3 G/DL (14.2-18.0); LYMPHOCYTES % (AUTO) 11.1 % (20.0-45.0); MEAN CORPUSCULAR VOLUME 81 FL (80-99); MONOCYTES % (AUTO) 8.2 % (1.0-10.0); NEUTROPHILS % (AUTO) 77.4 % (45.0-75.0); PLATELET COUNT 229 K/UL (150-450); RED BLOOD COUNT 3.06 M/UL (4.70-6.10); RED CELL DISTRIBUTION WIDTH 13.3 % (11.6-14.8); WHITE BLOOD COUNT 10.2 K/UL (4.8-10.8)
[2018-12-08 07:11] LABS: ALANINE AMINOTRANSFERASE 19 U/L (12-78); ALBUMIN 2.2 G/DL (3.4-5.0); ALBUMIN/GLOBULIN RATIO 0.5 (1.0-2.7); ALKALINE PHOSPHATASE 188 U/L (46-116); ANION GAP 14 mmol/L (5-15); ASPARTATE AMINO TRANSFERASE 25 U/L (15-37); BILIRUBIN,TOTAL 0.7 MG/DL (0.2-1.0); BLOOD UREA NITROGEN 36 mg/dL (7-18); CALCIUM 8.8 MG/DL (8.5-10.1); CARBON DIOXIDE 25 MMOL/L (21-32); CHLORIDE 100 MMOL/L (98-107); CREATININE 6.4 MG/DL (0.55-1.30); PHOSPHORUS 5.6 MG/DL (2.5-4.9); POTASSIUM 4.5 MMOL/L (3.5-5.1); SODIUM 139 MMOL/L (136-145)
--- NOTE | 2018-12-08 07:31 | NUR ---
HAND-OFF: Report given to IWONA Saini.
--- NOTE | 2018-12-08 07:35 | NUR ---
NURSE NOTES: Received report from IWONA Cali. Patient in bed sleeping. On nasal cannula. No signs of distress or labored breathing. IV intact, patent, and infusing fluids. Bed in lowest position. Will continue with plan of care.
[2018-12-08 08:00] VITALS: BP 132/75
--- NOTE | 2018-12-08 08:43 | Pulmonology Progress Note ---
Assessment/Plan Problems: (1) Severe sepsis (2) Above knee amputation of right lower extremity (3) Non-ST elevation (NSTEMI) myocardial infarction (4) Infection of amputation stump (5) ESRD (end stage renal disease) (6) Diabetes (7) HTN (hypertension) Assessment/Plan no new complain getting HD wound care iv abx sliding scale diabetid diet pain management f/u surgery recommendations. Subjective ROS Limited/Unobtainable: No Constitutional: Reports: no symptoms HEENT: Repors: no symptoms Respiratory: Reports: no symptoms Allergies: Coded Allergies: No Known Allergies (Unverified , 11/30/18) Objective Last 24 Hour Vital Signs Date Time Temp Pulse Resp B/P (MAP) Pulse Ox O2 Delivery O2 Flow Rate FiO2 12/08/18 04:00 98.1 62 20 118/67 (84) 99 12/08/18 03:42 Room Air 12/08/18 00:00 Room Air 12/08/18 00:00 98.0 60 18 130/77 (94) 98 12/07/18 20:53 67 132/68 12/07/18 20:00 98.1 67 20 132/68 (89) 95 12/07/18 20:00 Room Air 12/07/18 16:00 63 12/07/18 16:00 97.9 62 18 123/69 (87) 99 12/07/18 16:00 Room Air 12/07/18 12:00 Nasal Cannula 3.0 12/07/18 12:00 97.7 59 20 147/67 (93) 99 12/07/18 11:40 57 12/07/18 09:19 62 115/70 Intake and Output 12/07/18 12/08/18 19:00 07:00 Intake Total 605 ml 250 ml Output Total 1000 ml Balance -395 ml 250 ml Intake Oral 100 ml IV Total 505 ml 250 ml Hemodialysis UF 1000 ml # Voids 1 General Appearance: WD/WN HEENT: normocephalic, atraumatic Respiratory/Chest: chest wall non-tender, lungs clear, no respiratory distress , chest wall tender Cardiovascular: normal peripheral pulses, normal rate Abdomen: normal bowel sounds, soft, non tender Genitourinary: normal external genitalia Extremities: no clubbing Skin: no rash Laboratory Tests 12/08/18 05:35: White Blood Count 10.2, Red Blood Count 3.06L, Hemoglobin 8.3L, Hematocrit 24.8L , Mean Corpuscular Volume 81, Mean Corpuscular Hemoglobin 27.2, Mean Corpuscular Hemoglobin Concent 33.5, Red Cell Distribution Width 13.3, Platelet Count 229, Mean Platelet Volume 6.7, Neutrophils (%) (Auto) 77.4H, Lymphocytes ( %) (Auto) 11.1L, Monocytes (%) (Auto) 8.2, Eosinophils (%) (Auto) 2.6, Basophils (%) (Auto) 0.7, Prothrombin Time 32.1H, Prothromb Time International Ratio 3.2H, Activated Partial Thromboplast Time 52H, Sodium Level 139, Potassium Level 4.5, Chloride Level 100, Carbon Dioxide Level 25, Anion Gap 14, Blood Urea Nitrogen 36H, Creatinine 6.4H, Estimat Glomerular Filtration Rate , Glucose Level 99, Calcium Level 8.8, Phosphorus Level 5.6H, Magnesium Level 2.2 , Total Bilirubin 0.7, Aspartate Amino Transf (AST/SGOT) 25, Alanine Aminotransferase (ALT/SGPT) 19, Alkaline Phosphatase 188H, C-Reactive Protein, Quantitative 18.3H, Pro-B-Type Natriuretic Peptide > 89474B, Total Protein 6.6, Albumin 2.2L, Globulin 4.4, Albumin/Globulin Ratio 0.5L Current Medications Medications (Trade) Dose Ordered Sig/Elva Route PRN Reason Start Time Stop Time Status Last Admin Dose Admin Acetaminophen (Tylenol) 650 mg Q4H PRN ORAL fever 12/07/18 16:35 01/06/19 16:34 Aspirin (ASA) 325 mg DAILY ORAL 12/08/18 09:00 01/02/19 09:59 Atorvastatin Calcium (Lipitor) 80 mg BEDTIME ORAL 12/07/18 21:00 12/30/18 20:59 12/07/18 20:53 Chlorhexidine Gluconate (Keke-Hex 2%) 1 applic DAILY@1999 TOPIC 12/07/18 20:00 12/31/18 19:59 12/07/18 20:51 Dextrose (Dextrose 50%) 25 ml Q30M PRN IV Hypoglycemia 12/07/18 16:45 01/03/19 08:14 Dextrose (Dextrose 50%) 50 ml Q30M PRN IV Hypoglycemia 12/07/18 16:45 01/03/19 08:14 Docusate Sodium (Colace) 100 mg THREE TIMES A DAY ORAL 12/07/18 18:00 01/01/19 12:59 Heparin Sodium (Porcine) (Heparin 5000 units/ml) 5,000 units EVERY 12 HOURS SUBQ 12/07/18 21:00 01/06/19 20:59 12/07/18 21:16 Insulin Aspart (NovoLOG) BEFORE MEALS AND HS SUBQ 12/07/18 21:00 01/03/19 11:29 12/07/18 17:53 Metoprolol Tartrate (Lopressor) 25 mg Q12HR ORAL 12/07/18 21:00 01/04/19 20:59 12/07/18 20:53 Morphine Sulfate (Morphine Sulfate) 1 mg Q4H PRN IVP Mild Pain (Pain Scale 1-3) 12/07/18 16:36 12/14/18 16:35 Morphine Sulfate (Morphine Sulfate) 2 mg Q4H PRN IVP Moderate Pain (Pain Scale 4-6) 12/07/18 16:37 12/14/18 16:36 Morphine Sulfate (Morphine Sulfate) 4 mg Q4H PRN IVP Severe Pain (Pain Scale 7-10) 12/07/18 16:37 12/14/18 16:36 12/08/18 03:09 Ondansetron HCl (Zofran) 4 mg Q6H PRN IVP Nausea & Vomiting 12/07/18 16:37 01/06/19 16:36 Pantoprazole (Protonix) 40 mg Q12HR IVP 12/07/18 21:00 12/31/18 08:59 12/07/18 20:53 Piperacillin Sod/ Tazobactam Sod 2.25 gm/Sodium Chloride 55 ml @ 110 mls/hr Q8HR IVPB 12/07/18 22:00 12/12/18 23:59 12/08/18 05:57 Polyethylene Glycol (Miralax) 17 gm DAILYPRN PRN ORAL Constipation 12/07/18 16:37 01/06/19 16:36 Sevelamer Carbonate (Renvela) 800 mg THREE TIMES A DAY ORAL 12/07/18 18:00 12/30/18 17:59 12/07/18 18:40 Sodium Chloride 1,000 ml @ 50 mls/hr Q20H IV 12/07/18 16:45 12/30/18 15:29 12/08/18 01:00 Vitamin B Complex/ Vit C/Folic Acid (Nephrovite) 1 tab DAILY ORAL 12/08/18 09:00 12/31/18 08:59 Rebekah Arora MD Dec 08, 2018 08:43
--- NOTE | 2018-12-08 08:44 | General Progress Note ---
Assessment/Plan Problem List: (1) HTN (hypertension) ICD Codes: I10 - Essential (primary) hypertension SNOMED: 58189007 (2) Diabetes ICD Codes: E11.9 - Type 2 diabetes mellitus without complications SNOMED: 62765453 (3) ESRD (end stage renal disease) ICD Codes: N18.6 - End stage renal disease SNOMED: 46124122 (4) Severe sepsis ICD Codes: A41.9 - Sepsis, unspecified organism; R65.20 - Severe sepsis without septic shock SNOMED: 23142019 (5) Amputation at midfoot ICD Codes: S98.319A - Complete traumatic amputation of unspecified midfoot, initial encounter SNOMED: 355491183 (6) Amputation below knee ICD Codes: S88.119A - Complete traumatic amputation at level between knee and ankle, unspecified lower leg, initial encounter SNOMED: 342835314 Status: stable, progressing Assessment/Plan: wound care abx pt diet cbc bmp am aru eval Subjective Constitutional: Reports: weakness Allergies: Coded Allergies: No Known Allergies (Unverified , 11/30/18) All Systems: reviewed and negative except above Subjective o2nc calm Objective Last 24 Hour Vital Signs Date Time Temp Pulse Resp B/P (MAP) Pulse Ox O2 Delivery O2 Flow Rate FiO2 12/08/18 04:00 98.1 62 20 118/67 (84) 99 12/08/18 03:42 Room Air 12/08/18 00:00 Room Air 12/08/18 00:00 98.0 60 18 130/77 (94) 98 12/07/18 20:53 67 132/68 12/07/18 20:00 98.1 67 20 132/68 (89) 95 12/07/18 20:00 Room Air 12/07/18 16:00 63 12/07/18 16:00 97.9 62 18 123/69 (87) 99 12/07/18 16:00 Room Air 12/07/18 12:00 Nasal Cannula 3.0 12/07/18 12:00 97.7 59 20 147/67 (93) 99 12/07/18 11:40 57 12/07/18 09:19 62 115/70 Intake and Output 12/07/18 12/08/18 19:00 07:00 Intake Total 605 ml 250 ml Output Total 1000 ml Balance -395 ml 250 ml Intake Oral 100 ml IV Total 505 ml 250 ml Hemodialysis UF 1000 ml # Voids 1 Laboratory Tests 12/08/18 05:35: White Blood Count 10.2, Red Blood Count 3.06L, Hemoglobin 8.3L, Hematocrit 24.8L , Mean Corpuscular Volume 81, Mean Corpuscular Hemoglobin 27.2, Mean Corpuscular Hemoglobin Concent 33.5, Red Cell Distribution Width 13.3, Platelet Count 229, Mean Platelet Volume 6.7, Neutrophils (%) (Auto) 77.4H, Lymphocytes ( %) (Auto) 11.1L, Monocytes (%) (Auto) 8.2, Eosinophils (%) (Auto) 2.6, Basophils (%) (Auto) 0.7, Prothrombin Time 32.1H, Prothromb Time International Ratio 3.2H, Activated Partial Thromboplast Time 52H, Sodium Level 139, Potassium Level 4.5, Chloride Level 100, Carbon Dioxide Level 25, Anion Gap 14, Blood Urea Nitrogen 36H, Creatinine 6.4H, Estimat Glomerular Filtration Rate , Glucose Level 99, Calcium Level 8.8, Phosphorus Level 5.6H, Magnesium Level 2.2 , Total Bilirubin 0.7, Aspartate Amino Transf (AST/SGOT) 25, Alanine Aminotransferase (ALT/SGPT) 19, Alkaline Phosphatase 188H, C-Reactive Protein, Quantitative 18.3H, Pro-B-Type Natriuretic Peptide > 84239V, Total Protein 6.6, Albumin 2.2L, Globulin 4.4, Albumin/Globulin Ratio 0.5L Height (Feet): 5 Height (Inches): 1.00 Weight (Pounds): 172 General Appearance: lethargic EENT: normal ENT inspection Neck: normal alignment Cardiovascular: normal peripheral pulses, normal rate, regular rhythm Respiratory/Chest: chest wall non-tender, lungs clear, normal breath sounds Abdomen: normal bowel sounds, non tender, soft Extremities: normal inspection Edema: no edema noted Arm (L), no edema noted Arm (R), no edema noted Leg (L), no edema noted Leg (R), no edema noted Pedal (L), no edema noted Pedal (R), no edema noted Generalized Neurologic: motor weakness Skin: normal pigmentation, warm/dry Objective left bka dressing c&d Pravin Patton DO Dec 08, 2018 08:44
[2018-12-08] MEDS: Pantoprazole Inj IVP SCH ×2 (09:37→21:13)
[2018-12-08] MEDS: Renvela 800mg Pkt ORAL SCH ×3 (09:38→18:48)
[2018-12-08] MEDS: Heparin 5000 units/ml inj SUBQ SCH (09:44)
[2018-12-08] MEDS: Nephrovite tab (Rena-Vite) ORAL SCH (09:46)
[2018-12-08] MEDS: Metoprolol 25mg tab ORAL SCH ×2 (09:46→21:13)
[2018-12-08] MEDS: Docusate 100mg cap ORAL SCH ×3 (09:46→18:48)
--- NOTE | 2018-12-08 10:49 | Surgery Progress Note ---
Surgery Progress Note Subjective Procedure Performed left below knee amputation Additional Comments Patient seen and examined bedside. No acute events. Resting comfortably. No nausea vomiting fever chills. Labs noted. Objective Last 24 Hour Vital Signs Date Time Temp Pulse Resp B/P (MAP) Pulse Ox O2 Delivery O2 Flow Rate FiO2 12/08/18 09:46 63 132/75 12/08/18 04:00 98.1 62 20 118/67 (84) 99 12/08/18 03:42 Room Air 12/08/18 00:00 Room Air 12/08/18 00:00 98.0 60 18 130/77 (94) 98 12/07/18 20:53 67 132/68 12/07/18 20:00 98.1 67 20 132/68 (89) 95 12/07/18 20:00 Room Air 12/07/18 16:00 63 12/07/18 16:00 97.9 62 18 123/69 (87) 99 12/07/18 16:00 Room Air 12/07/18 12:00 Nasal Cannula 3.0 12/07/18 12:00 97.7 59 20 147/67 (93) 99 12/07/18 11:40 57 I&O Intake and Output 12/07/18 12/08/18 19:00 07:00 Intake Total 605 ml 250 ml Output Total 1000 ml Balance -395 ml 250 ml Intake Oral 100 ml IV Total 505 ml 250 ml Hemodialysis UF 1000 ml # Voids 1 Dressing: dry Wound: clean Cardiovascular: RSR Respiratory: clear Abdomen: soft, flat, non-tender, present bowel sounds Extremities: edema, tenderness, no cyanosis Laboratory Tests Test 12/08/18 05:35 White Blood Count 10.2 K/UL (4.8-10.8) Red Blood Count 3.06 M/UL (4.70-6.10) L Hemoglobin 8.3 G/DL (14.2-18.0) L Hematocrit 24.8 % (42.0-52.0) L Mean Corpuscular Volume 81 FL (80-99) Mean Corpuscular Hemoglobin 27.2 PG (27.0-31.0) Mean Corpuscular Hemoglobin Concent 33.5 G/DL (32.0-36.0) Red Cell Distribution Width 13.3 % (11.6-14.8) Platelet Count 229 K/UL (150-450) Mean Platelet Volume 6.7 FL (6.5-10.1) Neutrophils (%) (Auto) 77.4 % (45.0-75.0) H Lymphocytes (%) (Auto) 11.1 % (20.0-45.0) L Monocytes (%) (Auto) 8.2 % (1.0-10.0) Eosinophils (%) (Auto) 2.6 % (0.0-3.0) Basophils (%) (Auto) 0.7 % (0.0-2.0) Prothrombin Time 32.1 SEC (9.30-11.50) H Prothromb Time International Ratio 3.2 (0.9-1.1) H Activated Partial Thromboplast Time 52 SEC (23-33) H Sodium Level 139 MMOL/L (136-145) Potassium Level 4.5 MMOL/L (3.5-5.1) Chloride Level 100 MMOL/L (98-107) Carbon Dioxide Level 25 MMOL/L (21-32) Anion Gap 14 mmol/L (5-15) Blood Urea Nitrogen 36 mg/dL (7-18) H Creatinine 6.4 MG/DL (0.55-1.30) H Estimat Glomerular Filtration Rate mL/min (>60) Glucose Level 99 MG/DL (74-106) Calcium Level 8.8 MG/DL (8.5-10.1) Phosphorus Level 5.6 MG/DL (2.5-4.9) H Magnesium Level 2.2 MG/DL (1.8-2.4) Total Bilirubin 0.7 MG/DL (0.2-1.0) Aspartate Amino Transf (AST/SGOT) 25 U/L (15-37) Alanine Aminotransferase (ALT/SGPT) 19 U/L (12-78) Alkaline Phosphatase 188 U/L (46-116) H C-Reactive Protein, Quantitative 18.3 mg/dL (0.00-0.90) H Pro-B-Type Natriuretic Peptide > 82481 pg/mL (0-125) H Total Protein 6.6 G/DL (6.4-8.2) Albumin 2.2 G/DL (3.4-5.0) L Globulin 4.4 g/dL Albumin/Globulin Ratio 0.5 (1.0-2.7) L Plan Problems: (1) Severe sepsis Assessment & Plan: This is a 73-year-old male who presents with severe sepsis, fevers, leukocytosis, abnormal labs, elevated troponins, abnormal lecture lites. On admission patient has a very foul-smelling left heel necrotic wound/ulcer. No purulent drainage no significant foot or leg cellulitis. Prior midfoot amputation. Very foul-smelling. Given patient's current medical condition status with his consent a wound expiration was done at the bedside to ensure no underlying pus, gas-forming infection, acute etiology of severe sepsis. Using a fresh #11 scalpel incision was made in the middle of the area of necrosis and followed down to healthy tissue which is not identified until bone was reached. Wound necrosis directly down to bone. No pus tunneling or gas-forming infectious and noted. We will continue with local wound care Appreciate podiatry input. Agree foot not salvageable and recommend BKA. We will proceed once cleared Given patient's current medical condition status will need resuscitation and clearance prior to any surgical intervention or podiatry intervention. Antibiotics as per infectious disease Cardiology clearance pending We will follow with recommendations thank you s/p left bka stable labs noted -abx as per ID -local wound care -will follow with recs thank you Noam Davenport Dec 08, 2018 10:49
[2018-12-08 12:00] VITALS: BP 127/70
[2018-12-08] MEDS ORDERED: Desmopressin (DDAVP) Inj IV SCH (13:00)
--- NOTE | 2018-12-08 15:47 | Cardiology Progress Note ---
Assessment/Plan Problem List: (1) Non-ST elevation (NSTEMI) myocardial infarction (2) Infection of amputation stump (3) ESRD (end stage renal disease) (4) Severe sepsis (5) Amputation below knee (6) HTN (hypertension) (7) Diabetes Status: stable, progressing Status Narrative Pt w/ DM, ESRD, on hemodialysis, PVD, s/p L BKA and wound infection He is noted w/ elevated troponin, but no definite ischemic ekg changes and no chest pain Troponin levels are decreasing. .ECHO did not show focal wma Assessment/Plan Continue medical therapy - aspirin, statin, b sis. Consider stress nuclear study to r/o ischemia when pt more stable. Continue antibiotics, wound care per primary team. Dialysis per nephrology. Subjective ROS Limited/Unobtainable: No Subjective Cardiology for Dr. Mary Pt appears comfortable. Denies chest pain, dyspnea Objective Last 24 Hour Vital Signs Date Time Temp Pulse Resp B/P (MAP) Pulse Ox O2 Delivery O2 Flow Rate FiO2 12/08/18 12:00 98.2 89 24 127/70 (89) 97 12/08/18 09:46 63 132/75 12/08/18 09:00 Room Air 12/08/18 08:00 98.1 63 24 132/75 (94) 98 12/08/18 04:00 98.1 62 20 118/67 (84) 99 12/08/18 03:42 Room Air 12/08/18 00:00 Room Air 12/08/18 00:00 98.0 60 18 130/77 (94) 98 12/07/18 20:53 67 132/68 12/07/18 20:00 98.1 67 20 132/68 (89) 95 12/07/18 20:00 Room Air 12/07/18 16:00 63 12/07/18 16:00 97.9 62 18 123/69 (87) 99 12/07/18 16:00 Room Air General Appearance: WD/WN, no apparent distress, alert EENT: PERRL/EOMI Neck: supple, normal inspection, no JVD Rhythm: NSR Cardiovascular: normal rate, regular rhythm, other - RRR s1s2 + s4 Respiratory/Chest: lungs clear - cl, other - clear anteriorly Abdomen: normal bowel sounds, non tender, soft Extremities: no swelling, other - R BKA L UE A V fistula, + bruit Intake and Output 12/07/18 12/08/18 18:59 06:59 Intake Total 655 ml 250 ml Output Total 1000 ml Balance -345 ml 250 ml Intake Oral 100 ml IV Total 555 ml 250 ml Hemodialysis UF 1000 ml # Voids 1 Laboratory Tests Test 12/08/18 05:35 White Blood Count 10.2 K/UL (4.8-10.8) Red Blood Count 3.06 M/UL (4.70-6.10) L Hemoglobin 8.3 G/DL (14.2-18.0) L Hematocrit 24.8 % (42.0-52.0) L Mean Corpuscular Volume 81 FL (80-99) Mean Corpuscular Hemoglobin 27.2 PG (27.0-31.0) Mean Corpuscular Hemoglobin Concent 33.5 G/DL (32.0-36.0) Red Cell Distribution Width 13.3 % (11.6-14.8) Platelet Count 229 K/UL (150-450) Mean Platelet Volume 6.7 FL (6.5-10.1) Neutrophils (%) (Auto) 77.4 % (45.0-75.0) H Lymphocytes (%) (Auto) 11.1 % (20.0-45.0) L Monocytes (%) (Auto) 8.2 % (1.0-10.0) Eosinophils (%) (Auto) 2.6 % (0.0-3.0) Basophils (%) (Auto) 0.7 % (0.0-2.0) Prothrombin Time 32.1 SEC (9.30-11.50) H Prothromb Time International Ratio 3.2 (0.9-1.1) H Activated Partial Thromboplast Time 52 SEC (23-33) H Sodium Level 139 MMOL/L (136-145) Potassium Level 4.5 MMOL/L (3.5-5.1) Chloride Level 100 MMOL/L (98-107) Carbon Dioxide Level 25 MMOL/L (21-32) Anion Gap 14 mmol/L (5-15) Blood Urea Nitrogen 36 mg/dL (7-18) H Creatinine 6.4 MG/DL (0.55-1.30) H Estimat Glomerular Filtration Rate mL/min (>60) Glucose Level 99 MG/DL (74-106) Calcium Level 8.8 MG/DL (8.5-10.1) Phosphorus Level 5.6 MG/DL (2.5-4.9) H Magnesium Level 2.2 MG/DL (1.8-2.4) Total Bilirubin 0.7 MG/DL (0.2-1.0) Aspartate Amino Transf (AST/SGOT) 25 U/L (15-37) Alanine Aminotransferase (ALT/SGPT) 19 U/L (12-78) Alkaline Phosphatase 188 U/L (46-116) H C-Reactive Protein, Quantitative 18.3 mg/dL (0.00-0.90) H Pro-B-Type Natriuretic Peptide > 50942 pg/mL (0-125) H Total Protein 6.6 G/DL (6.4-8.2) Albumin 2.2 G/DL (3.4-5.0) L Globulin 4.4 g/dL Albumin/Globulin Ratio 0.5 (1.0-2.7) Chanda Blanchard MD Dec 08, 2018 15:47
[2018-12-08 16:00] VITALS: BP 127/74
[2018-12-08] MEDS ORDERED: NS 275ml ONE (16:10)
[2018-12-08] MEDS ORDERED: Tubing IV Blood Pump IV ONE (16:10)
--- NOTE | 2018-12-08 16:23 | Nephrology Progress Note ---
Assessment/Plan Problem List: (1) ESRD (end stage renal disease) (2) Severe sepsis (3) Non-ST elevation (NSTEMI) myocardial infarction (4) Diabetes (5) Amputation below knee Assessment ESRD on HD M W Fr Sepsis / Leukocytosuis ( Pneumonia, Infected foot ulcer) Hypotension / Shock Anemia GERD ECF resident DM OOC Elevated Troponin over 5 Plan left BKA today done 12/06 HD 12/07 Transfused 12/05 and again today 12/07 asa , beta blockers on low dose pressors Antibiotics Fluid challenge / Watch for CHF Dialysis 12/10 per orders per consultants Subjective ROS Limited/Unobtainable: No Constitutional: Reports: malaise, weakness Objective Objective Last 24 Hour Vital Signs Date Time Temp Pulse Resp B/P (MAP) Pulse Ox O2 Delivery O2 Flow Rate FiO2 12/08/18 12:00 98.2 89 24 127/70 (89) 97 12/08/18 09:46 63 132/75 12/08/18 09:00 Room Air 12/08/18 08:00 98.1 63 24 132/75 (94) 98 12/08/18 04:00 98.1 62 20 118/67 (84) 99 12/08/18 03:42 Room Air 12/08/18 00:00 Room Air 12/08/18 00:00 98.0 60 18 130/77 (94) 98 12/07/18 20:53 67 132/68 12/07/18 20:00 98.1 67 20 132/68 (89) 95 12/07/18 20:00 Room Air Intake and Output 12/07/18 12/08/18 18:59 06:59 Intake Total 655 ml 250 ml Output Total 1000 ml Balance -345 ml 250 ml Intake Oral 100 ml IV Total 555 ml 250 ml Hemodialysis UF 1000 ml # Voids 1 Laboratory Tests 12/08/18 05:35: White Blood Count 10.2, Red Blood Count 3.06L, Hemoglobin 8.3L, Hematocrit 24.8L , Mean Corpuscular Volume 81, Mean Corpuscular Hemoglobin 27.2, Mean Corpuscular Hemoglobin Concent 33.5, Red Cell Distribution Width 13.3, Platelet Count 229, Mean Platelet Volume 6.7, Neutrophils (%) (Auto) 77.4H, Lymphocytes ( %) (Auto) 11.1L, Monocytes (%) (Auto) 8.2, Eosinophils (%) (Auto) 2.6, Basophils (%) (Auto) 0.7, Prothrombin Time 32.1H, Prothromb Time International Ratio 3.2H, Activated Partial Thromboplast Time 52H, Sodium Level 139, Potassium Level 4.5, Chloride Level 100, Carbon Dioxide Level 25, Anion Gap 14, Blood Urea Nitrogen 36H, Creatinine 6.4H, Estimat Glomerular Filtration Rate , Glucose Level 99, Calcium Level 8.8, Phosphorus Level 5.6H, Magnesium Level 2.2 , Total Bilirubin 0.7, Aspartate Amino Transf (AST/SGOT) 25, Alanine Aminotransferase (ALT/SGPT) 19, Alkaline Phosphatase 188H, C-Reactive Protein, Quantitative 18.3H, Pro-B-Type Natriuretic Peptide > 69105L, Total Protein 6.6, Albumin 2.2L, Globulin 4.4, Albumin/Globulin Ratio 0.5L Height (Feet): 5 Height (Inches): 1.00 Weight (Pounds): 172 General Appearance: no apparent distress Objective no change Sincere Almaguer MD Dec 08, 2018 16:23
--- NOTE | 2018-12-08 16:54 | NUR ---
PT Note PT yves completed, tx initiated. Patient c/o pain on the left BK stump, limiting his functional mobility and activity tolerance. Patient needs PT to increase his ROM, strength and balance to improve his functional mobility. Addendum: 12/08/18 at 1655 by SANDY FLOREZ PT Amended: Links added.
--- NOTE | 2018-12-08 17:34 | NUR ---
NURSE NOTES: Zosyn due at 1400 was not administered because patient was receiving fresh frozen plasma.
--- NOTE | 2018-12-08 19:20 | NUR ---
NURSE NOTES: Received report from IWONA Saini. Pt resting in bed, AAO x 4, on NC 2L/min. IV site intact and patent, running NS 50cc/hr. AV shunt on MAL intact. Dressing on L BKA dry and intact. I/S is at bedside. Bed locked, lowest position, alarm on, side rails x 2, call light within reach. Will continue to monitor.
--- NOTE | 2018-12-08 19:57 | NUR ---
HAND-OFF: Report given to IWONA Jeff.
[2018-12-08 20:00] VITALS: BP 113/61
--- NOTE | 2018-12-08 20:03 | Hematology/Onc Progress Note ---
Assessment/Plan Assessment/Plan Assessment/Plan: # Coagulation defect, multifactorial usually related to poor PO intake versus medications, versus cirrhosis, in this case, is likely related to sepsis and dic (on admission) and now off hep gtt --> administer Vitamin K if patient is bleeding or FFP if the INR is >10 --> hold off on ffp unless active procedure/bleeding, first begin with vit K 10 --> mixing study ordered and reviewed, likely has vit K deficiency --> hep and hiv are negative --> us of the abdomen shows potential cirrhosis/undefined # Anemia of chronic disease, due to underlying chronic medical issues, multifactorial --> Anemia workup has been reviewed, is c/w acd --> No evidence of hemolysis is noted, peripheral smear has been reviewed --> Hgb goal >7. Transfuse prn. --> Epogen or iron at this time is not particularly indicated --> Medications have been reviewed --> low threshold for gi evaluation in case has occult + --> hgb 8.4-->7.7-->7.4->9.1-->8.3 # Leukocytosis/elevated white blood cell count, unspecified likely related to underlying stress reaction with septic shock (with poss pna) --> have reviewed peripheral smear and bandemia/neutrophilia noted --> continue antibiotics if they have been started by ID team (clinda/indira/vanc) --->zosyn --> monitor for resolution # Elevated trop --> with esrd --> as per cards recs --> TTe neg for vegetatons # Infected leg ulcer, probably gangrene --> s/p L bka --> as per surg recs # PVD with amputation # End-stage renal disease - on hemodialysis --> per renal HD as needed, prn # Electrolyte abnormalities # Diabetes mellitus with diabetic neuropathy # Dvt ppx heparin sq The timing of this note does not necessarily reflect the time of the patient was seen. Greatly appreciate consultation. Subjective HEENT: Denies: no symptoms, eye pain, blurred vision, tearing, double vision, ear pain, ear discharge, nose pain, nose congestion, throat pain, throat swelling, mouth pain, mouth swelling, other Respiratory: Denies: no symptoms, cough, shortness of breath, SOB with excertion, SOB at rest, sputum, wheezing, other Gastrointestinal/Abdominal: Denies: no symptoms, abdomen distended, abdominal pain, black stools, tarry stools, blood in stool, constipated, diarrhea, difficulty swallowing, nausea, poor appetite, poor fluid intake, rectal bleeding , vomiting, other Genitourinary: Denies: no symptoms, burning, discharge, frequency, flank pain, hematuria, incontinence, pain, urgency, other Neurologic/Psychiatric: Denies: no symptoms, anxiety, depressed, emotional problems, headache, numbness, paresthesia, pre-existing deficit, seizure, tingling, tremors, weakness, other Endocrine: Denies: no symptoms, excessive sweating, flushing, intolerance to cold, intolerance to heat, increased hunger, increased thirst, increased urine, unexplained weight gain, unexplained weight loss, other Allergies: Coded Allergies: No Known Allergies (Unverified , 11/30/18) Subjective 12/03: no bleeding, no night sweats, on levo in icu, dw rn 12/04: remains on heparin, remains in icu, on pressor, pending surgery shortly 12/05: hd today, given norco, on hep gtt 12/06:or l bka. no bleeding, no night sweats noted 12/07: no events, no bleeding noted, improving, getting prbc 12/08: for hd monday, no bleeding or chills noted, no ns Objective Objective Current Medications Medications (Trade) Dose Ordered Sig/Elva Route PRN Reason Start Time Stop Time Status Last Admin Dose Admin Acetaminophen (Tylenol) 650 mg Q4H PRN ORAL fever 12/07/18 16:35 01/06/19 16:34 Aspirin (ASA) 325 mg DAILY ORAL 12/08/18 09:00 01/02/19 09:59 12/08/18 09:46 Atorvastatin Calcium (Lipitor) 80 mg BEDTIME ORAL 12/07/18 21:00 12/30/18 20:59 12/07/18 20:53 Chlorhexidine Gluconate (Keke-Hex 2%) 1 applic DAILY@1999 TOPIC 12/07/18 20:00 12/31/18 19:59 12/07/18 20:51 Dextrose (Dextrose 50%) 25 ml Q30M PRN IV Hypoglycemia 12/07/18 16:45 01/03/19 08:14 Dextrose (Dextrose 50%) 50 ml Q30M PRN IV Hypoglycemia 12/07/18 16:45 01/03/19 08:14 Docusate Sodium (Colace) 100 mg THREE TIMES A DAY ORAL 12/07/18 18:00 01/01/19 12:59 12/08/18 18:48 Insulin Aspart (NovoLOG) BEFORE MEALS AND HS SUBQ 12/07/18 21:00 01/03/19 11:29 12/08/18 17:33 Metoprolol Tartrate (Lopressor) 25 mg Q12HR ORAL 12/07/18 21:00 01/04/19 20:59 12/08/18 09:46 Morphine Sulfate (Morphine Sulfate) 1 mg Q4H PRN IVP Mild Pain (Pain Scale 1-3) 12/07/18 16:36 12/14/18 16:35 Morphine Sulfate (Morphine Sulfate) 2 mg Q4H PRN IVP Moderate Pain (Pain Scale 4-6) 12/07/18 16:37 12/14/18 16:36 Morphine Sulfate (Morphine Sulfate) 4 mg Q4H PRN IVP Severe Pain (Pain Scale 7-10) 12/07/18 16:37 12/14/18 16:36 12/08/18 18:48 Ondansetron HCl (Zofran) 4 mg Q6H PRN IVP Nausea & Vomiting 12/07/18 16:37 01/06/19 16:36 Pantoprazole (Protonix) 40 mg Q12HR IVP 12/07/18 21:00 12/31/18 08:59 12/08/18 09:37 Piperacillin Sod/ Tazobactam Sod 2.25 gm/Sodium Chloride 55 ml @ 110 mls/hr Q8HR IVPB 12/07/18 22:00 12/12/18 23:59 12/08/18 05:57 Polyethylene Glycol (Miralax) 17 gm DAILYPRN PRN ORAL Constipation 12/07/18 16:37 01/06/19 16:36 Sevelamer Carbonate (Renvela) 800 mg THREE TIMES A DAY ORAL 12/07/18 18:00 12/30/18 17:59 12/08/18 18:48 Sodium Chloride 1,000 ml @ 50 mls/hr Q20H IV 12/07/18 16:45 12/30/18 15:29 12/08/18 01:00 Vitamin B Complex/ Vit C/Folic Acid (Nephrovite) 1 tab DAILY ORAL 12/08/18 09:00 12/31/18 08:59 12/08/18 09:46 Last 24 Hour Vital Signs Date Time Temp Pulse Resp B/P (MAP) Pulse Ox O2 Delivery O2 Flow Rate FiO2 12/08/18 16:00 99.2 57 19 127/74 (91) 98 12/08/18 12:00 98.2 89 24 127/70 (89) 97 12/08/18 09:46 63 132/75 12/08/18 09:00 Room Air 12/08/18 08:00 98.1 63 24 132/75 (94) 98 12/08/18 04:00 98.1 62 20 118/67 (84) 99 12/08/18 03:42 Room Air 12/08/18 00:00 Room Air 12/08/18 00:00 98.0 60 18 130/77 (94) 98 12/07/18 20:53 67 132/68 12/07/18 20:00 98.1 67 20 132/68 (89) 95 12/07/18 20:00 Room Air 12/07/18 16:00 63 12/07/18 16:00 97.9 62 18 123/69 (87) 99 12/07/18 16:00 Room Air 12/07/18 12:00 Nasal Cannula 3.0 12/07/18 12:00 97.7 59 20 147/67 (93) 99 12/07/18 11:40 57 12/07/18 09:19 62 115/70 12/07/18 08:05 97 Nasal Cannula 3.0 32 12/07/18 08:00 57 12/07/18 08:00 98.3 63 18 115/70 (85) 96 12/07/18 08:00 Nasal Cannula 3.0 12/07/18 06:39 99.0 12/07/18 04:00 59 12/07/18 04:00 Nasal Cannula 3.0 12/07/18 04:00 99.0 59 20 106/71 (83) 99 12/07/18 00:00 98.5 55 20 116/63 (80) 99 12/07/18 00:00 Nasal Cannula 3.0 12/07/18 00:00 54 12/06/18 20:40 63 132/71 Intake and Output 12/07/18 12/08/18 18:59 06:59 Intake Total 655 ml 250 ml Output Total 1000 ml Balance -345 ml 250 ml Intake Oral 100 ml IV Total 555 ml 250 ml Hemodialysis UF 1000 ml # Voids 1 Labs Test 12/06/18 04:10 12/06/18 17:46 12/07/18 04:00 12/08/18 05:35 White Blood Count 12.2 K/UL (4.8-10.8) 11.9 K/UL (4.8-10.8) 10.2 K/UL (4.8-10.8) Red Blood Count 3.40 M/UL (4.70-6.10) 2.94 M/UL (4.70-6.10) 3.06 M/UL (4.70-6.10) Hemoglobin 9.1 G/DL (14.2-18.0) 7.8 G/DL (14.2-18.0) 8.3 G/DL (14.2-18.0) Hematocrit 28.6 % (42.0-52.0) 24.9 % (42.0-52.0) 24.8 % (42.0-52.0) Mean Corpuscular Volume 84 FL (80-99) 85 FL (80-99) 81 FL (80-99) Mean Corpuscular Hemoglobin 26.8 PG (27.0-31.0) 26.6 PG (27.0-31.0) 27.2 PG (27.0-31.0) Mean Corpuscular Hemoglobin Concent 31.9 G/DL (32.0-36.0) 31.4 G/DL (32.0-36.0) 33.5 G/DL (32.0-36.0) Red Cell Distribution Width 14.4 % (11.6-14.8) 14.8 % (11.6-14.8) 13.3 % (11.6-14.8) Platelet Count 293 K/UL (150-450) 245 K/UL (150-450) 229 K/UL (150-450) Mean Platelet Volume 6.3 FL (6.5-10.1) 6.5 FL (6.5-10.1) 6.7 FL (6.5-10.1) Neutrophils (%) (Auto) 82.2 % (45.0-75.0) % (45.0-75.0) 77.4 % (45.0-75.0) Lymphocytes (%) (Auto) 9.4 % (20.0-45.0) % (20.0-45.0) 11.1 % (20.0-45.0) Monocytes (%) (Auto) 6.0 % (1.0-10.0) % (1.0-10.0) 8.2 % (1.0-10.0) Eosinophils (%) (Auto) 2.0 % (0.0-3.0) % (0.0-3.0) 2.6 % (0.0-3.0) Basophils (%) (Auto) 0.4 % (0.0-2.0) % (0.0-2.0) 0.7 % (0.0-2.0) Erythrocyte Sedimentation Rate 110 MM/HR (0-20) Prothrombin Time 28.2 SEC (9.30-11.50) 21.7 SEC (9.30-11.50) 32.1 SEC (9.30-11.50) Prothromb Time International Ratio 2.8 (0.9-1.1) 2.1 (0.9-1.1) 3.2 (0.9-1.1) Activated Partial Thromboplast Time 98 SEC (23-33) 47 SEC (23-33) 52 SEC (23-33) Sodium Level 135 MMOL/L (136-145) 136 MMOL/L (136-145) 137 MMOL/L (136-145) 139 MMOL/L (136-145) Potassium Level 4.3 MMOL/L (3.5-5.1) 4.6 MMOL/L (3.5-5.1) 4.6 MMOL/L (3.5-5.1) 4.5 MMOL/L (3.5-5.1) Chloride Level 98 MMOL/L (98-107) 99 MMOL/L (98-107) 99 MMOL/L (98-107) 100 MMOL/L (98-107) Carbon Dioxide Level 26 MMOL/L (21-32) 26 MMOL/L (21-32) 24 MMOL/L (21-32) 25 MMOL/L (21-32) Anion Gap 12 mmol/L (5-15) 12 mmol/L (5-15) 14 mmol/L (5-15) 14 mmol/L (5-15) Blood Urea Nitrogen 36 mg/dL (7-18) 39 mg/dL (7-18) 44 mg/dL (7-18) 36 mg/dL (7-18) Creatinine 6.0 MG/DL (0.55-1.30) 6.6 MG/DL (0.55-1.30) 7.4 MG/DL (0.55-1.30) 6.4 MG/DL (0.55-1.30) Estimat Glomerular Filtration Rate mL/min (>60) mL/min (>60) mL/min (>60) mL/min (>60) Glucose Level 175 MG/DL (74-106) 158 MG/DL (74-106) 101 MG/DL (74-106) 99 MG/DL (74-106) Calcium Level 9.1 MG/DL (8.5-10.1) 8.9 MG/DL (8.5-10.1) 8.9 MG/DL (8.5-10.1) 8.8 MG/DL (8.5-10.1) Phosphorus Level 5.4 MG/DL (2.5-4.9) 6.2 MG/DL (2.5-4.9) 5.6 MG/DL (2.5-4.9) Magnesium Level 2.0 MG/DL (1.8-2.4) 2.0 MG/DL (1.8-2.4) 2.1 MG/DL (1.8-2.4) 2.2 MG/DL (1.8-2.4) Total Bilirubin 0.9 MG/DL (0.2-1.0) 0.8 MG/DL (0.2-1.0) 0.7 MG/DL (0.2-1.0) Aspartate Amino Transf (AST/SGOT) 22 U/L (15-37) 24 U/L (15-37) 25 U/L (15-37) Alanine Aminotransferase (ALT/SGPT) 16 U/L (12-78) 16 U/L (12-78) 19 U/L (12-78) Alkaline Phosphatase 179 U/L (46-116) 161 U/L (46-116) 188 U/L (46-116) Troponin I 2.326 ng/mL (0.000-0.056) 2.354 ng/mL (0.000-0.056) 2.205 ng/mL (0.000-0.056) C-Reactive Protein, Quantitative 23.2 mg/dL (0.00-0.90) 15.5 mg/dL (0.00-0.90) 18.3 mg/dL (0.00-0.90) Total Protein 6.9 G/DL (6.4-8.2) 6.7 G/DL (6.4-8.2) 6.6 G/DL (6.4-8.2) Albumin 2.3 G/DL (3.4-5.0) 2.3 G/DL (3.4-5.0) 2.2 G/DL (3.4-5.0) Globulin 4.6 g/dL 4.4 g/dL 4.4 g/dL Albumin/Globulin Ratio 0.5 (1.0-2.7) 0.5 (1.0-2.7) 0.5 (1.0-2.7) Differential Total Cells Counted 100 Neutrophils % (Manual) 80 % (45-75) Lymphocytes % (Manual) 12 % (20-45) Monocytes % (Manual) 6 % (1-10) Eosinophils % (Manual) 2 % (0-3) Basophils % (Manual) 0 % (0-2) Band Neutrophils 0 % (0-8) Platelet Estimate Adequate Platelet Morphology Normal Hypochromasia 1+ Anisocytosis 1+ Pro-B-Type Natriuretic Peptide > 84696 pg/mL (0-125) > 24180 pg/mL (0-125) Height (Feet): 5 Height (Inches): 1.00 Weight (Pounds): 172 Objective Physical Exam: Vitals: reviewed General Appearance: NAD HEENT: normocephalic, atraumatic Neck: non-tender, normal alignment Respiratory/Chest: normal breath sounds bilaterally Cardiovascular/Chest: normal peripheral pulses, normal rate Abdomen: normal bowel sounds, soft, nontender Extremities: normal range of motion s/p midfoot amputation ; R midfoot [employer], L BKA++ Lloyd Dailey MD Dec 08, 2018 20:03
[2018-12-08] MEDS: Atorvastatin 80mg tab ORAL SCH (21:13)
[2018-12-08] MEDS: Dyna-Hex 2% Top Sol 2oz TOPIC SCH (21:14)
[2018-12-09] VITALS: BP 116/69
[2018-12-09 04:00] VITALS: BP 117/63
[2018-12-09] MEDS: Piperacillin/Tazobactam 2.25 GM in NS 55 ML IVPB SCH ×3 (05:27→22:17)
[2018-12-09] MEDS: NovoLOG Insulin Flexpen SUBQ SCH ×4 (05:41→22:23)
--- NOTE | 2018-12-09 07:06 | NUR ---
NURSE NOTES: Received report from [place] Jeff. Patient awake, alert. On nasal cannula, no signs of distress or labored breathing. IV intact, patent, and running. [employer]en[employer] at bedside. Bed in lowest position with call light in reach. Will continue with plan of care.
--- NOTE | 2018-12-09 07:20 | NUR ---
HAND-OFF: Report given to IWONA Jeff.
--- NOTE | 2018-12-09 07:34 | NUR ---
HAND-OFF: Report given to IWONA Saini.
[2018-12-09 07:47] LABS: BASOPHILS % (AUTO) 1.1 % (0.0-2.0); EOSINOPHILS % (AUTO) 2.1 % (0.0-3.0); HEMATOCRIT 25.3 % (42.0-52.0); HEMOGLOBIN 8.1 G/DL (14.2-18.0); LYMPHOCYTES % (AUTO) 12.2 % (20.0-45.0); MEAN CORPUSCULAR VOLUME 83 FL (80-99); MONOCYTES % (AUTO) 8.6 % (1.0-10.0); NEUTROPHILS % (AUTO) 76.1 % (45.0-75.0); PLATELET COUNT 205 K/UL (150-450); RED BLOOD COUNT 3.03 M/UL (4.70-6.10); RED CELL DISTRIBUTION WIDTH 13.9 % (11.6-14.8); WHITE BLOOD COUNT 9.4 K/UL (4.8-10.8)
[2018-12-09 08:00] VITALS: BP 116/66
[2018-12-09 08:16] LABS: PHOSPHORUS 6.1 MG/DL (2.5-4.9)
[2018-12-09 08:20] LABS: ALANINE AMINOTRANSFERASE 18 U/L (12-78); ALBUMIN 2.2 G/DL (3.4-5.0); ALBUMIN/GLOBULIN RATIO 0.5 (1.0-2.7); ALKALINE PHOSPHATASE 247 U/L (46-116); ANION GAP 17 mmol/L (5-15); ASPARTATE AMINO TRANSFERASE 26 U/L (15-37); BILIRUBIN,TOTAL 0.7 MG/DL (0.2-1.0); BLOOD UREA NITROGEN 43 mg/dL (7-18); CARBON DIOXIDE 22 MMOL/L (21-32); CHLORIDE 100 MMOL/L (98-107); CREATININE 7.7 MG/DL (0.55-1.30); POTASSIUM 4.6 MMOL/L (3.5-5.1); SODIUM 139 MMOL/L (136-145)
--- NOTE | 2018-12-09 08:41 | General Progress Note ---
Assessment/Plan Problem List: (1) HTN (hypertension) ICD Codes: I10 - Essential (primary) hypertension SNOMED: 77352024 (2) Diabetes ICD Codes: E11.9 - Type 2 diabetes mellitus without complications SNOMED: 42430858 (3) ESRD (end stage renal disease) ICD Codes: N18.6 - End stage renal disease SNOMED: 72566648 (4) Severe sepsis ICD Codes: A41.9 - Sepsis, unspecified organism; R65.20 - Severe sepsis without septic shock SNOMED: 86247384 (5) Amputation at midfoot ICD Codes: S98.319A - Complete traumatic amputation of unspecified midfoot, initial encounter SNOMED: 825309925 (6) Amputation below knee ICD Codes: S88.119A - Complete traumatic amputation at level between knee and ankle, unspecified lower leg, initial encounter SNOMED: 019623164 Status: stable, progressing Assessment/Plan: wound care abx pt diet cbc bmp am aru eval Subjective Constitutional: Reports: weakness Allergies: Coded Allergies: No Known Allergies (Unverified , 11/30/18) All Systems: reviewed and negative except above Subjective o2nc calm Objective Last 24 Hour Vital Signs Date Time Temp Pulse Resp B/P (MAP) Pulse Ox O2 Delivery O2 Flow Rate FiO2 12/09/18 04:00 98.1 58 18 117/63 (81) 96 12/09/18 00:00 98.1 64 20 116/69 (85) 96 12/08/18 21:13 60 113/61 12/08/18 21:00 Nasal Cannula 2.0 12/08/18 20:23 97 Nasal Cannula 2.0 28 12/08/18 20:00 98.2 60 20 113/61 (78) 96 12/08/18 16:00 99.2 57 19 127/74 (91) 98 12/08/18 12:00 98.2 89 24 127/70 (89) 97 12/08/18 09:46 63 132/75 12/08/18 09:00 Room Air Intake and Output 12/08/18 12/09/18 19:00 07:00 Intake Total 480 ml Output Total 0 ml Balance 480 ml 0 ml Intake Oral 480 ml Output Urine Total 0 ml Laboratory Tests 12/09/18 07:00: White Blood Count 9.4, Red Blood Count 3.03L, Hemoglobin 8.1L, Hematocrit 25.3L , Mean Corpuscular Volume 83, Mean Corpuscular Hemoglobin 26.8L, Mean Corpuscular Hemoglobin Concent 32.1, Red Cell Distribution Width 13.9, Platelet Count 205, Mean Platelet Volume 6.9, Neutrophils (%) (Auto) 76.1H, Lymphocytes ( %) (Auto) 12.2L, Monocytes (%) (Auto) 8.6, Eosinophils (%) (Auto) 2.1, Basophils (%) (Auto) 1.1, Prothrombin Time 30.0H, Prothromb Time International Ratio 3.0H, Activated Partial Thromboplast Time 49H, Sodium Level 139, Potassium Level 4.6, Chloride Level 100, Carbon Dioxide Level 22, Anion Gap 17H , Blood Urea Nitrogen 43H, Creatinine 7.7H, Estimat Glomerular Filtration Rate , Glucose Level 133H, Calcium Level 9.0, Phosphorus Level 6.1H, Magnesium Level 2.2, Total Bilirubin 0.7, Aspartate Amino Transf (AST/SGOT) 26, Alanine Aminotransferase (ALT/SGPT) 18, Alkaline Phosphatase 247H, C-Reactive Protein, Quantitative 14.9H, Pro-B-Type Natriuretic Peptide > 61278E, Total Protein 6.6, Albumin 2.2L, Globulin 4.4, Albumin/Globulin Ratio 0.5L Height (Feet): 5 Height (Inches): 1.00 Weight (Pounds): 224 General Appearance: lethargic EENT: normal ENT inspection Neck: normal alignment Cardiovascular: normal peripheral pulses, normal rate, regular rhythm Respiratory/Chest: chest wall non-tender, lungs clear, normal breath sounds Abdomen: normal bowel sounds, non tender, soft Extremities: normal inspection Edema: no edema noted Arm (L), no edema noted Arm (R), no edema noted Leg (L), no edema noted Leg (R), no edema noted Pedal (L), no edema noted Pedal (R), no edema noted Generalized Neurologic: motor weakness Skin: normal pigmentation, warm/dry Objective left bka dressing c&d Pravin Patton DO Dec 09, 2018 08:41
[2018-12-09] MEDS: Morphine Sulfate 4mg/ml Inj (IV USE ONLY) IVP PRN ×4 (08:48→22:50)
[2018-12-09] MEDS: Docusate 100mg cap ORAL SCH ×3 (08:48→18:37)
[2018-12-09] MEDS: Renvela 800mg Pkt ORAL SCH ×3 (08:49→18:37)
[2018-12-09] MEDS: Metoprolol 25mg tab ORAL SCH ×2 (08:49→22:18)
[2018-12-09] MEDS: Pantoprazole Inj IVP SCH ×2 (08:49→22:17)
[2018-12-09] MEDS: Nephrovite tab (Rena-Vite) ORAL SCH (08:49)
--- NOTE | 2018-12-09 10:36 | NUR ---
NURSE NOTES: RN contacted Dr. Davenport concerning patient's left BKA stump, staining through dressing onto sheets with serosanguineous fluid. MD said okay to reinforce with gauze and kerlix until he sees patient this afternoon to change dressing. Charge nurse aware.
[2018-12-09 12:00] VITALS: BP 111/59
--- NOTE | 2018-12-09 12:25 | Nephrology Progress Note ---
Assessment/Plan Problem List: (1) ESRD (end stage renal disease) (2) Severe sepsis (3) Non-ST elevation (NSTEMI) myocardial infarction (4) Diabetes (5) Amputation below knee Assessment ESRD on HD M W Fr Sepsis / Leukocytosuis ( Pneumonia, Infected foot ulcer) Hypotension / Shock Anemia GERD [facility]CF resident DM OOC Elevated Troponin over 5 Plan left BKA today done 12/06 HD 12/07 Transfused 12/05 and again today 12/07 asa , beta blockers on low dose pressors Antibiotics Fluid challenge / Watch for CHF Dialysis 12/10 per orders per consultants Subjective ROS Limited/Unobtainable: No Constitutional: Reports: malaise Objective Objective Last 24 Hour Vital Signs Date Time Temp Pulse Resp B/P (MAP) Pulse Ox O2 Delivery O2 Flow Rate FiO2 12/09/18 10:12 96 Nasal Cannula 2.0 28 12/09/18 08:49 63 116/66 12/09/18 08:00 97.3 63 24 116/66 (83) 95 12/09/18 04:00 98.1 58 18 117/63 (81) 96 12/09/18 00:00 98.1 64 20 116/69 (85) 96 12/08/18 21:13 60 113/61 12/08/18 21:00 Nasal Cannula 2.0 12/08/18 20:23 97 Nasal Cannula 2.0 28 12/08/18 20:00 98.2 60 20 113/61 (78) 96 12/08/18 16:00 99.2 57 19 127/74 (91) 98 Intake and Output 12/08/18 12/09/18 19:00 07:00 Intake Total 480 ml Output Total 0 ml Balance 480 ml 0 ml Intake Oral 480 ml Output Urine Total 0 ml Laboratory Tests 12/09/18 07:00: White Blood Count 9.4, Red Blood Count 3.03L, Hemoglobin 8.1L, Hematocrit 25.3L , Mean Corpuscular Volume 83, Mean Corpuscular Hemoglobin 26.8L, Mean Corpuscular Hemoglobin Concent 32.1, Red Cell Distribution Width 13.9, Platelet Count 205, Mean Platelet Volume 6.9, Neutrophils (%) (Auto) 76.1H, Lymphocytes ( %) (Auto) 12.2L, Monocytes (%) (Auto) 8.6, Eosinophils (%) (Auto) 2.1, Basophils (%) (Auto) 1.1, Prothrombin Time 30.0H, Prothromb Time International Ratio 3.0H, Activated Partial Thromboplast Time 49H, Sodium Level 139, Potassium Level 4.6, Chloride Level 100, Carbon Dioxide Level 22, Anion Gap 17H , Blood Urea Nitrogen 43H, Creatinine 7.7H, Estimat Glomerular Filtration Rate , Glucose Level 133H, Calcium Level 9.0, Phosphorus Level 6.1H, Magnesium Level 2.2, Total Bilirubin 0.7, Aspartate Amino Transf (AST/SGOT) 26, Alanine Aminotransferase (ALT/SGPT) 18, Alkaline Phosphatase 247H, C-Reactive Protein, Quantitative 14.9H, Pro-B-Type Natriuretic Peptide > 85970C, Total Protein 6.6, Albumin 2.2L, Globulin 4.4, Albumin/Globulin Ratio 0.5L Height (Feet): 5 Height (Inches): 1.00 Weight (Pounds): 224 General Appearance: no apparent distress Objective no change Sincere Almaguer MD Dec 09, 2018 12:25
--- NOTE | 2018-12-09 13:21 | Infectious Diseases Prog Note ---
Assessment/Plan Assessment/Plan Assessment: Septic shock, sp-2ry to PNA and wet gangrene -12/01 CXR: . Interval development of patchy consolidation throughout the right lung, concerning for pneumonia. Consolidations related to pulmonary edema are less likely since it is predominantly on the right side. Persistent pulmonary vascular congestion. -CXR: Pulmonary vascularity and interstitium are prominent. 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 ratgerri (S ceftriaxone), P. mirabilis (teran S), E. fecalis (S Amp, vanco) -xray L tibia/fibula: No acute injury identified. Diffuse osteopenia. Fever ; SP Hyperleukocytosis; SP- now mild leukocytosis- ESRD on HD MWF anemia polyneuropathy GERD [place] resident Plan: -Continue ZOsyn #7/7 (abx d #11/29) -12/06 SP IV Vancomycin #7, Clindamycin #6 -12/05 SP Azithromycin #5 -12/03 SP Meropenem #4 -11/30 SP Cefepime #1, Flagyl #1 -Monitor CBC/CMP, temperatures -aspiration precautions -podiatry, surgery f/u -wound care per surgical team Thank you for this consultation. Will continue to follow along with you. Discussed with RN Subjective Allergies: Coded Allergies: No Known Allergies (Unverified , 11/30/18) Subjective afebrile no leukcoytosis Objective Vital Signs Last 24 Hour Vital Signs Date Time Temp Pulse Resp B/P (MAP) Pulse Ox O2 Delivery O2 Flow Rate FiO2 12/09/18 10:12 96 Nasal Cannula 2.0 28 12/09/18 08:49 63 116/66 12/09/18 08:00 97.3 63 24 116/66 (83) 95 12/09/18 04:00 98.1 58 18 117/63 (81) 96 12/09/18 00:00 98.1 64 20 116/69 (85) 96 12/08/18 21:13 60 113/61 12/08/18 21:00 Nasal Cannula 2.0 12/08/18 20:23 97 Nasal Cannula 2.0 28 12/08/18 20:00 98.2 60 20 113/61 (78) 96 12/08/18 16:00 99.2 57 19 127/74 (91) 98 Height (Feet): 5 Height (Inches): 1.00 Weight (Pounds): 224 Objective Dressing: dry Wound: clean Cardiovascular: RSR Respiratory: clear Abdomen: soft, flat, non-tender, present bowel sounds Extremities: edema, tenderness, no cyanosis Laboratory Tests Test 12/09/18 07:00 White Blood Count 9.4 K/UL (4.8-10.8) Red Blood Count 3.03 M/UL (4.70-6.10) L Hemoglobin 8.1 G/DL (14.2-18.0) L Hematocrit 25.3 % (42.0-52.0) L Mean Corpuscular Volume 83 FL (80-99) Mean Corpuscular Hemoglobin 26.8 PG (27.0-31.0) L Mean Corpuscular Hemoglobin Concent 32.1 G/DL (32.0-36.0) Red Cell Distribution Width 13.9 % (11.6-14.8) Platelet Count 205 K/UL (150-450) Mean Platelet Volume 6.9 FL (6.5-10.1) Neutrophils (%) (Auto) 76.1 % (45.0-75.0) H Lymphocytes (%) (Auto) 12.2 % (20.0-45.0) L Monocytes (%) (Auto) 8.6 % (1.0-10.0) Eosinophils (%) (Auto) 2.1 % (0.0-3.0) Basophils (%) (Auto) 1.1 % (0.0-2.0) Prothrombin Time 30.0 SEC (9.30-11.50) H Prothromb Time International Ratio 3.0 (0.9-1.1) H Activated Partial Thromboplast Time 49 SEC (23-33) H Sodium Level 139 MMOL/L (136-145) Potassium Level 4.6 MMOL/L (3.5-5.1) Chloride Level 100 MMOL/L (98-107) Carbon Dioxide Level 22 MMOL/L (21-32) Anion Gap 17 mmol/L (5-15) H Blood Urea Nitrogen 43 mg/dL (7-18) H Creatinine 7.7 MG/DL (0.55-1.30) H Estimat Glomerular Filtration Rate mL/min (>60) Glucose Level 133 MG/DL (74-106) H Calcium Level 9.0 MG/DL (8.5-10.1) Phosphorus Level 6.1 MG/DL (2.5-4.9) H Magnesium Level 2.2 MG/DL (1.8-2.4) Total Bilirubin 0.7 MG/DL (0.2-1.0) Aspartate Amino Transf (AST/SGOT) 26 U/L (15-37) Alanine Aminotransferase (ALT/SGPT) 18 U/L (12-78) Alkaline Phosphatase 247 U/L (46-116) H C-Reactive Protein, Quantitative 14.9 mg/dL (0.00-0.90) H Pro-B-Type Natriuretic Peptide > 71964 pg/mL (0-125) H Total Protein 6.6 G/DL (6.4-8.2) Albumin 2.2 G/DL (3.4-5.0) L Globulin 4.4 g/dL Albumin/Globulin Ratio 0.5 (1.0-2.7) L Current Medications Medications (Trade) Dose Ordered Sig/Elva Route PRN Reason Start Time Stop Time Status Last Admin Dose Admin Acetaminophen (Tylenol) 650 mg Q4H PRN ORAL fever 12/07/18 16:35 01/06/19 16:34 Aspirin (ASA) 325 mg DAILY ORAL 12/08/18 09:00 01/02/19 09:59 12/09/18 08:49 Atorvastatin Calcium (Lipitor) 80 mg BEDTIME ORAL 12/07/18 21:00 12/30/18 20:59 12/08/18 21:13 Chlorhexidine Gluconate (Keke-Hex 2%) 1 applic DAILY@1999 TOPIC 12/07/18 20:00 12/31/18 19:59 12/08/18 21:14 Dextrose (Dextrose 50%) 25 ml Q30M PRN IV Hypoglycemia 12/07/18 16:45 01/03/19 08:14 Dextrose (Dextrose 50%) 50 ml Q30M PRN IV Hypoglycemia 12/07/18 16:45 01/03/19 08:14 Docusate Sodium (Colace) 100 mg THREE TIMES A DAY ORAL 12/07/18 18:00 01/01/19 12:59 12/09/18 08:48 Insulin Aspart (NovoLOG) BEFORE MEALS AND HS SUBQ 12/07/18 21:00 01/03/19 11:29 12/09/18 11:58 Metoprolol Tartrate (Lopressor) 25 mg Q12HR ORAL 12/07/18 21:00 01/04/19 20:59 12/09/18 08:49 Morphine Sulfate (Morphine Sulfate) 1 mg Q4H PRN IVP Mild Pain (Pain Scale 1-3) 12/07/18 16:36 12/14/18 16:35 Morphine Sulfate (Morphine Sulfate) 2 mg Q4H PRN IVP Moderate Pain (Pain Scale 4-6) 12/07/18 16:37 12/14/18 16:36 Morphine Sulfate (Morphine Sulfate) 4 mg Q4H PRN IVP Severe Pain (Pain Scale 7-10) 12/07/18 16:37 12/14/18 16:36 12/09/18 08:48 Ondansetron HCl (Zofran) 4 mg Q6H PRN IVP Nausea & Vomiting 12/07/18 16:37 01/06/19 16:36 Pantoprazole (Protonix) 40 mg Q12HR IVP 12/07/18 21:00 12/31/18 08:59 12/09/18 08:49 Piperacillin Sod/ Tazobactam Sod 2.25 gm/Sodium Chloride 55 ml @ 110 mls/hr Q8HR IVPB 12/07/18 22:00 12/12/18 23:59 12/09/18 05:27 Polyethylene Glycol (Miralax) 17 gm DAILYPRN PRN ORAL Constipation 12/07/18 16:37 01/06/19 16:36 Sevelamer Carbonate (Renvela) 1,600 mg THREE TIMES A DAY ORAL 12/09/18 13:00 12/30/18 17:59 Sodium Chloride 1,000 ml @ 50 mls/hr Q20H IV 12/07/18 16:45 12/30/18 15:29 12/09/18 08:50 Vitamin B Complex/ Vit C/Folic Acid (Nephrovite) 1 tab DAILY ORAL 12/08/18 09:00 12/31/18 08:59 12/09/18 08:49 Aparna Ramirez M.D. Dec 09, 2018 13:21
--- NOTE | 2018-12-09 15:16 | Cardiology Progress Note ---
Assessment/Plan Problem List: (1) Non-ST elevation (NSTEMI) myocardial infarction (2) Infection of amputation stump (3) ESRD (end stage renal disease) (4) Severe sepsis (5) Amputation below knee (6) HTN (hypertension) (7) Diabetes Status: stable, progressing Status Narrative Pt w/ DM, ESRD, on hemodialysis, PVD, s/p L BKA and wound infection. WBC decreasing, on iv abx He is noted w/ elevated troponin, but no definite ischemic ekg changes and no chest pain Troponin levels are decreasing. .ECHO did not show focal wma Assessment/Plan Continue aspirin,statin and b sis for CAD. Pt w/ no anginal symptoms,BP controlled and he does not appear in CHF Noninvasive testing for ischemia can be considered once ID status cleared and pt more stable. Subjective ROS Limited/Unobtainable: No Subjective Cardiology for Dr. Mary Pt c/o L leg pain at amputation site Objective Last 24 Hour Vital Signs Date Time Temp Pulse Resp B/P (MAP) Pulse Ox O2 Delivery O2 Flow Rate FiO2 12/09/18 10:12 96 Nasal Cannula 2.0 28 12/09/18 08:49 63 116/66 12/09/18 08:00 97.3 63 24 116/66 (83) 95 12/09/18 04:00 98.1 58 18 117/63 (81) 96 12/09/18 00:00 98.1 64 20 116/69 (85) 96 12/08/18 21:13 60 113/61 12/08/18 21:00 Nasal Cannula 2.0 12/08/18 20:23 97 Nasal Cannula 2.0 28 12/08/18 20:00 98.2 60 20 113/61 (78) 96 12/08/18 16:00 99.2 57 19 127/74 (91) 98 General Appearance: WD/WN, no apparent distress, alert EENT: PERRL/EOMI Neck: supple, no JVD Rhythm: NSR Cardiovascular: normal rate, regular rhythm, no gallop/murmur Respiratory/Chest: lungs clear Abdomen: non tender, soft, no mass, other - L BKA - covered w dry dressing, R TMA. no edema. L UE AV fistula - + bruit Extremities: other Intake and Output 12/08/18 12/09/18 19:00 07:00 Intake Total 480 ml Output Total 0 ml Balance 480 ml 0 ml Intake Oral 480 ml Output Urine Total 0 ml Laboratory Tests Test 12/09/18 07:00 White Blood Count 9.4 K/UL (4.8-10.8) Red Blood Count 3.03 M/UL (4.70-6.10) L Hemoglobin 8.1 G/DL (14.2-18.0) L Hematocrit 25.3 % (42.0-52.0) L Mean Corpuscular Volume 83 FL (80-99) Mean Corpuscular Hemoglobin 26.8 PG (27.0-31.0) L Mean Corpuscular Hemoglobin Concent 32.1 G/DL (32.0-36.0) Red Cell Distribution Width 13.9 % (11.6-14.8) Platelet Count 205 K/UL (150-450) Mean Platelet Volume 6.9 FL (6.5-10.1) Neutrophils (%) (Auto) 76.1 % (45.0-75.0) H Lymphocytes (%) (Auto) 12.2 % (20.0-45.0) L Monocytes (%) (Auto) 8.6 % (1.0-10.0) Eosinophils (%) (Auto) 2.1 % (0.0-3.0) Basophils (%) (Auto) 1.1 % (0.0-2.0) Prothrombin Time 30.0 SEC (9.30-11.50) H Prothromb Time International Ratio 3.0 (0.9-1.1) H Activated Partial Thromboplast Time 49 SEC (23-33) H Sodium Level 139 MMOL/L (136-145) Potassium Level 4.6 MMOL/L (3.5-5.1) Chloride Level 100 MMOL/L (98-107) Carbon Dioxide Level 22 MMOL/L (21-32) Anion Gap 17 mmol/L (5-15) H Blood Urea Nitrogen 43 mg/dL (7-18) H Creatinine 7.7 MG/DL (0.55-1.30) H Estimat Glomerular Filtration Rate mL/min (>60) Glucose Level 133 MG/DL (74-106) H Calcium Level 9.0 MG/DL (8.5-10.1) Phosphorus Level 6.1 MG/DL (2.5-4.9) H Magnesium Level 2.2 MG/DL (1.8-2.4) Total Bilirubin 0.7 MG/DL (0.2-1.0) Aspartate Amino Transf (AST/SGOT) 26 U/L (15-37) Alanine Aminotransferase (ALT/SGPT) 18 U/L (12-78) Alkaline Phosphatase 247 U/L (46-116) H C-Reactive Protein, Quantitative 14.9 mg/dL (0.00-0.90) H Pro-B-Type Natriuretic Peptide > 73601 pg/mL (0-125) H Total Protein 6.6 G/DL (6.4-8.2) Albumin 2.2 G/DL (3.4-5.0) L Globulin 4.4 g/dL Albumin/Globulin Ratio 0.5 (1.0-2.7) Chanda Blanchard MD Dec 09, 2018 15:16
--- NOTE | 2018-12-09 15:55 | Surgery Progress Note ---
Surgery Progress Note Subjective Procedure Performed left below knee amputation Additional Comments dressings saturated. some blood but mainly serous dressings changed coagulopathy Objective Last 24 Hour Vital Signs Date Time Temp Pulse Resp B/P (MAP) Pulse Ox O2 Delivery O2 Flow Rate FiO2 12/09/18 10:12 96 Nasal Cannula 2.0 28 12/09/18 08:49 63 116/66 12/09/18 08:00 97.3 63 24 116/66 (83) 95 12/09/18 04:00 98.1 58 18 117/63 (81) 96 12/09/18 00:00 98.1 64 20 116/69 (85) 96 12/08/18 21:13 60 113/61 12/08/18 21:00 Nasal Cannula 2.0 12/08/18 20:23 97 Nasal Cannula 2.0 28 12/08/18 20:00 98.2 60 20 113/61 (78) 96 12/08/18 16:00 99.2 57 19 127/74 (91) 98 I&O Intake and Output 12/08/18 12/09/18 19:00 07:00 Intake Total 480 ml Output Total 0 ml Balance 480 ml 0 ml Intake Oral 480 ml Output Urine Total 0 ml Dressing: saturated Wound: clean, dry, intact Cardiovascular: RSR Respiratory: clear Abdomen: soft, flat, non-tender, present bowel sounds Extremities: edema, tenderness, no cyanosis Laboratory Tests Test 12/09/18 07:00 White Blood Count 9.4 K/UL (4.8-10.8) Red Blood Count 3.03 M/UL (4.70-6.10) L Hemoglobin 8.1 G/DL (14.2-18.0) L Hematocrit 25.3 % (42.0-52.0) L Mean Corpuscular Volume 83 FL (80-99) Mean Corpuscular Hemoglobin 26.8 PG (27.0-31.0) L Mean Corpuscular Hemoglobin Concent 32.1 G/DL (32.0-36.0) Red Cell Distribution Width 13.9 % (11.6-14.8) Platelet Count 205 K/UL (150-450) Mean Platelet Volume 6.9 FL (6.5-10.1) Neutrophils (%) (Auto) 76.1 % (45.0-75.0) H Lymphocytes (%) (Auto) 12.2 % (20.0-45.0) L Monocytes (%) (Auto) 8.6 % (1.0-10.0) Eosinophils (%) (Auto) 2.1 % (0.0-3.0) Basophils (%) (Auto) 1.1 % (0.0-2.0) Prothrombin Time 30.0 SEC (9.30-11.50) H Prothromb Time International Ratio 3.0 (0.9-1.1) H Activated Partial Thromboplast Time 49 SEC (23-33) H Sodium Level 139 MMOL/L (136-145) Potassium Level 4.6 MMOL/L (3.5-5.1) Chloride Level 100 MMOL/L (98-107) Carbon Dioxide Level 22 MMOL/L (21-32) Anion Gap 17 mmol/L (5-15) H Blood Urea Nitrogen 43 mg/dL (7-18) H Creatinine 7.7 MG/DL (0.55-1.30) H Estimat Glomerular Filtration Rate mL/min (>60) Glucose Level 133 MG/DL (74-106) H Calcium Level 9.0 MG/DL (8.5-10.1) Phosphorus Level 6.1 MG/DL (2.5-4.9) H Magnesium Level 2.2 MG/DL (1.8-2.4) Total Bilirubin 0.7 MG/DL (0.2-1.0) Aspartate Amino Transf (AST/SGOT) 26 U/L (15-37) Alanine Aminotransferase (ALT/SGPT) 18 U/L (12-78) Alkaline Phosphatase 247 U/L (46-116) H C-Reactive Protein, Quantitative 14.9 mg/dL (0.00-0.90) H Pro-B-Type Natriuretic Peptide > 21403 pg/mL (0-125) H Total Protein 6.6 G/DL (6.4-8.2) Albumin 2.2 G/DL (3.4-5.0) L Globulin 4.4 g/dL Albumin/Globulin Ratio 0.5 (1.0-2.7) L Plan Problems: (1) Severe sepsis Assessment & Plan: This is a 73-year-old male who presents with severe sepsis, fevers, leukocytosis, abnormal labs, elevated troponins, abnormal lecture lites. On admission patient has a very foul-smelling left heel necrotic wound/ulcer. No purulent drainage no significant foot or leg cellulitis. Prior midfoot amputation. Very foul-smelling. Given patient's current medical condition status with his consent a wound expiration was done at the bedside to ensure no underlying pus, gas-forming infection, acute etiology of severe sepsis. Using a fresh #11 scalpel incision was made in the middle of the area of necrosis and followed down to healthy tissue which is not identified until bone was reached. Wound necrosis directly down to bone. No pus tunneling or gas-forming infectious and noted. We will continue with local wound care Appreciate podiatry input. Agree foot not salvageable and recommend BKA. We will proceed once cleared Given patient's current medical condition status will need resuscitation and clearance prior to any surgical intervention or podiatry intervention. Antibiotics as per infectious disease Cardiology clearance pending We will follow with recommendations thank you s/p left bka stable labs noted -abx as per ID -local wound care -will follow with recs thank you Noam Davenport Dec 09, 2018 15:55
[2018-12-09 16:00] VITALS: BP 106/79
[2018-12-09] MEDS ORDERED: HYDROcodone/Acetamin 5/325 tab ORAL PRN (16:00)
--- NOTE | 2018-12-09 16:24 | Hematology/Onc Progress Note ---
Assessment/Plan Assessment/Plan Assessment/Plan: # Coagulation defect, multifactorial usually related to poor PO intake versus medications, versus cirrhosis --> administer Vitamin K if patient is bleeding or FFP if the INR is >10 --> hold off on ffp unless active procedure/bleeding, first begin with vit K 10 --> mixing study ordered and reviewed, likely has vit K deficiency --> hep and hiv are negative --> us of the abdomen shows potential cirrhosis/undefined --> INR of 3, vitamin K was given 12/09 # Anemia of chronic disease, due to underlying chronic medical issues, multifactorial --> Anemia workup has been reviewed, is c/w acd --> No evidence of hemolysis is noted, peripheral smear has been reviewed --> Hgb goal >7. Transfuse prn. --> Epogen or iron at this time is not particularly indicated --> Medications have been reviewed --> low threshold for gi evaluation in case has occult + --> hgb 8.4-->7.7-->7.4->9.1-->8.3 # Leukocytosis/elevated white blood cell count, unspecified likely related to underlying stress reaction with septic shock (with poss pna) --> have reviewed peripheral smear and bandemia/neutrophilia noted --> continue antibiotics if they have been started by ID team (clinda/indira/vanc) --->zosyn --> monitor for resolution # Elevated trop --> with esrd --> as per cards recs --> TTe neg for vegetatons # Infected leg ulcer, probably gangrene --> s/p L bka --> as per surg recs # PVD with amputation --> vascular aware # End-stage renal disease - on hemodialysis --> per renal HD as needed, prn --> anemia panel reviewed # Electrolyte abnormalities # Diabetes mellitus with diabetic neuropathy # Dvt ppx heparin sq The timing of this note does not necessarily reflect the time of the patient was seen. Greatly appreciate consultation. Subjective Constitutional: Denies: no symptoms, chills, fever, malaise, weakness, other HEENT: Denies: no symptoms, eye pain, blurred vision, tearing, double vision, ear pain, ear discharge, nose pain, nose congestion, throat pain, throat swelling, mouth pain, mouth swelling, other Cardiovascular: Denies: no symptoms, chest pain, edema, irregular heart rate, lightheadedness, palpitations, syncope, other Respiratory: Denies: no symptoms, cough, shortness of breath, SOB with excertion, SOB at rest, sputum, wheezing, other Genitourinary: Denies: no symptoms, burning, discharge, frequency, flank pain, hematuria, incontinence, pain, urgency, other Neurologic/Psychiatric: Denies: no symptoms, anxiety, depressed, emotional problems, headache, numbness, paresthesia, pre-existing deficit, seizure, tingling, tremors, weakness, other Endocrine: Denies: no symptoms, excessive sweating, flushing, intolerance to cold, intolerance to heat, increased hunger, increased thirst, increased urine, unexplained weight gain, unexplained weight loss, other Allergies: Coded Allergies: No Known Allergies (Unverified , 11/30/18) Subjective 12/03: no bleeding, no night sweats, on levo in icu, dw rn 12/04: remains on heparin, remains in icu, on pressor, pending surgery shortly 12/05: hd today, given norco, on hep gtt 12/06:or l bka. no bleeding, no night sweats noted 12/07: no events, no bleeding noted, improving, getting prbc 12/08: for hd monday, no bleeding or chills noted, no ns 12/09: no major events today, labs reviewed, inr remains high Objective Objective Current Medications Medications (Trade) Dose Ordered Sig/Elva Route PRN Reason Start Time Stop Time Status Last Admin Dose Admin Acetaminophen (Tylenol) 650 mg Q4H PRN ORAL fever 12/07/18 16:35 01/06/19 16:34 Acetaminophen/ Hydrocodone Bitart ([place] 5/325) 2 tab Q4H PRN ORAL Moderate Pain (Pain Scale 4-6) 12/09/18 16:00 12/16/18 15:59 Atorvastatin Calcium (Lipitor) 80 mg BEDTIME ORAL 12/07/18 21:00 12/30/18 20:59 12/08/18 21:13 Chlorhexidine Gluconate (Keke-Hex 2%) 1 applic DAILY@2000 TOPIC 12/07/18 20:00 12/31/18 19:59 12/08/18 21:14 Dextrose (Dextrose 50%) 25 ml Q30M PRN IV Hypoglycemia 12/07/18 16:45 01/03/19 08:14 Dextrose (Dextrose 50%) 50 ml Q30M PRN IV Hypoglycemia 12/07/18 16:45 01/03/19 08:14 Docusate Sodium (Colace) 100 mg THREE TIMES A DAY ORAL 12/07/18 18:00 01/01/19 12:59 12/09/18 14:23 Insulin Aspart (NovoLOG) BEFORE MEALS AND HS SUBQ 12/07/18 21:00 01/03/19 11:29 12/09/18 11:58 Metoprolol Tartrate (Lopressor) 25 mg Q12HR ORAL 12/07/18 21:00 01/04/19 20:59 12/09/18 08:49 Morphine Sulfate (Morphine Sulfate) 1 mg Q4H PRN IVP Mild Pain (Pain Scale 1-3) 12/07/18 16:36 12/14/18 16:35 Morphine Sulfate (Morphine Sulfate) 2 mg Q4H PRN IVP Moderate Pain (Pain Scale 4-6) 12/07/18 16:37 12/14/18 16:36 Morphine Sulfate (Morphine Sulfate) 4 mg Q4H PRN IVP Severe Pain (Pain Scale 7-10) 12/07/18 16:37 12/14/18 16:36 12/09/18 14:34 Ondansetron HCl (Zofran) 4 mg Q6H PRN IVP Nausea & Vomiting 12/07/18 16:37 01/06/19 16:36 Pantoprazole (Protonix) 40 mg Q12HR IVP 12/07/18 21:00 12/31/18 08:59 12/09/18 08:49 Phytonadione 10 mg/Dextrose 56 ml @ 112 mls/hr ONCE ONCE IVPB 12/09/18 17:00 12/09/18 17:29 Piperacillin Sod/ Tazobactam Sod 2.25 gm/Sodium Chloride 55 ml @ 110 mls/hr Q8HR IVPB 12/07/18 22:00 12/12/18 23:59 12/09/18 14:23 Polyethylene Glycol (Miralax) 17 gm DAILYPRN PRN ORAL Constipation 12/07/18 16:37 01/06/19 16:36 Sevelamer Carbonate (Renvela) 1,600 mg THREE TIMES A DAY ORAL 12/09/18 13:00 12/30/18 17:59 12/09/18 14:33 Sodium Chloride 1,000 ml @ 50 mls/hr Q20H IV 12/07/18 16:45 12/30/18 15:29 12/09/18 08:50 Vitamin B Complex/ Vit C/Folic Acid (Nephrovite) 1 tab DAILY ORAL 12/08/18 09:00 12/31/18 08:59 12/09/18 08:49 Last 24 Hour Vital Signs Date Time Temp Pulse Resp B/P (MAP) Pulse Ox O2 Delivery O2 Flow Rate FiO2 12/09/18 10:12 96 Nasal Cannula 2.0 28 12/09/18 08:49 63 116/66 12/09/18 08:00 97.3 63 24 116/66 (83) 95 12/09/18 04:00 98.1 58 18 117/63 (81) 96 12/09/18 00:00 98.1 64 20 116/69 (85) 96 12/08/18 21:13 60 113/61 12/08/18 21:00 Nasal Cannula 2.0 12/08/18 20:23 97 Nasal Cannula 2.0 28 12/08/18 20:00 98.2 60 20 113/61 (78) 96 12/08/18 16:00 99.2 57 19 127/74 (91) 98 12/08/18 12:00 98.2 89 24 127/70 (89) 97 12/08/18 09:46 63 132/75 12/08/18 09:00 Room Air 12/08/18 08:00 98.1 63 24 132/75 (94) 98 12/08/18 04:00 98.1 62 20 118/67 (84) 99 12/08/18 03:42 Room Air 12/08/18 00:00 Room Air 12/08/18 00:00 98.0 60 18 130/77 (94) 98 12/07/18 20:53 67 132/68 12/07/18 20:00 98.1 67 20 132/68 (89) 95 12/07/18 20:00 Room Air Intake and Output 12/08/18 12/09/18 19:00 07:00 Intake Total 480 ml Output Total 0 ml Balance 480 ml 0 ml Intake Oral 480 ml Output Urine Total 0 ml Labs Test 12/06/18 17:46 12/07/18 04:00 12/08/18 05:35 12/09/18 07:00 Sodium Level 136 MMOL/L (136-145) 137 MMOL/L (136-145) 139 MMOL/L (136-145) 139 MMOL/L (136-145) Potassium Level 4.6 MMOL/L (3.5-5.1) 4.6 MMOL/L (3.5-5.1) 4.5 MMOL/L (3.5-5.1) 4.6 MMOL/L (3.5-5.1) Chloride Level 99 MMOL/L (98-107) 99 MMOL/L (98-107) 100 MMOL/L (98-107) 100 MMOL/L (98-107) Carbon Dioxide Level 26 MMOL/L (21-32) 24 MMOL/L (21-32) 25 MMOL/L (21-32) 22 MMOL/L (21-32) Anion Gap 12 mmol/L (5-15) 14 mmol/L (5-15) 14 mmol/L (5-15) 17 mmol/L (5-15) Blood Urea Nitrogen 39 mg/dL (7-18) 44 mg/dL (7-18) 36 mg/dL (7-18) 43 mg/dL (7-18) Creatinine 6.6 MG/DL (0.55-1.30) 7.4 MG/DL (0.55-1.30) 6.4 MG/DL (0.55-1.30) 7.7 MG/DL (0.55-1.30) Estimat Glomerular Filtration Rate mL/min (>60) mL/min (>60) mL/min (>60) mL/min (>60) Glucose Level 158 MG/DL (74-106) 101 MG/DL (74-106) 99 MG/DL (74-106) 133 MG/DL (74-106) Calcium Level 8.9 MG/DL (8.5-10.1) 8.9 MG/DL (8.5-10.1) 8.8 MG/DL (8.5-10.1) 9.0 MG/DL (8.5-10.1) Magnesium Level 2.0 MG/DL (1.8-2.4) 2.1 MG/DL (1.8-2.4) 2.2 MG/DL (1.8-2.4) 2.2 MG/DL (1.8-2.4) Troponin I 2.354 ng/mL (0.000-0.056) 2.205 ng/mL (0.000-0.056) White Blood Count 11.9 K/UL (4.8-10.8) 10.2 K/UL (4.8-10.8) 9.4 K/UL (4.8-10.8) Red Blood Count 2.94 M/UL (4.70-6.10) 3.06 M/UL (4.70-6.10) 3.03 M/UL (4.70-6.10) Hemoglobin 7.8 G/DL (14.2-18.0) 8.3 G/DL (14.2-18.0) 8.1 G/DL (14.2-18.0) Hematocrit 24.9 % (42.0-52.0) 24.8 % (42.0-52.0) 25.3 % (42.0-52.0) Mean Corpuscular Volume 85 FL (80-99) 81 FL (80-99) 83 FL (80-99) Mean Corpuscular Hemoglobin 26.6 PG (27.0-31.0) 27.2 PG (27.0-31.0) 26.8 PG (27.0-31.0) Mean Corpuscular Hemoglobin Concent 31.4 G/DL (32.0-36.0) 33.5 G/DL (32.0-36.0) 32.1 G/DL (32.0-36.0) Red Cell Distribution Width 14.8 % (11.6-14.8) 13.3 % (11.6-14.8) 13.9 % (11.6-14.8) Platelet Count 245 K/UL (150-450) 229 K/UL (150-450) 205 K/UL (150-450) Mean Platelet Volume 6.5 FL (6.5-10.1) 6.7 FL (6.5-10.1) 6.9 FL (6.5-10.1) Neutrophils (%) (Auto) % (45.0-75.0) 77.4 % (45.0-75.0) 76.1 % (45.0-75.0) Lymphocytes (%) (Auto) % (20.0-45.0) 11.1 % (20.0-45.0) 12.2 % (20.0-45.0) Monocytes (%) (Auto) % (1.0-10.0) 8.2 % (1.0-10.0) 8.6 % (1.0-10.0) Eosinophils (%) (Auto) % (0.0-3.0) 2.6 % (0.0-3.0) 2.1 % (0.0-3.0) Basophils (%) (Auto) % (0.0-2.0) 0.7 % (0.0-2.0) 1.1 % (0.0-2.0) Differential Total Cells Counted 100 Neutrophils % (Manual) 80 % (45-75) Lymphocytes % (Manual) 12 % (20-45) Monocytes % (Manual) 6 % (1-10) Eosinophils % (Manual) 2 % (0-3) Basophils % (Manual) 0 % (0-2) Band Neutrophils 0 % (0-8) Platelet Estimate Adequate Platelet Morphology Normal Hypochromasia 1+ Anisocytosis 1+ Prothrombin Time 21.7 SEC (9.30-11.50) 32.1 SEC (9.30-11.50) 30.0 SEC (9.30-11.50) Prothromb Time International Ratio 2.1 (0.9-1.1) 3.2 (0.9-1.1) 3.0 (0.9-1.1) Activated Partial Thromboplast Time 47 SEC (23-33) 52 SEC (23-33) 49 SEC (23-33) Phosphorus Level 6.2 MG/DL (2.5-4.9) 5.6 MG/DL (2.5-4.9) 6.1 MG/DL (2.5-4.9) Total Bilirubin 0.8 MG/DL (0.2-1.0) 0.7 MG/DL (0.2-1.0) 0.7 MG/DL (0.2-1.0) Aspartate Amino Transf (AST/SGOT) 24 U/L (15-37) 25 U/L (15-37) 26 U/L (15-37) Alanine Aminotransferase (ALT/SGPT) 16 U/L (12-78) 19 U/L (12-78) 18 U/L (12-78) Alkaline Phosphatase 161 U/L (46-116) 188 U/L (46-116) 247 U/L (46-116) C-Reactive Protein, Quantitative 15.5 mg/dL (0.00-0.90) 18.3 mg/dL (0.00-0.90) 14.9 mg/dL (0.00-0.90) Pro-B-Type Natriuretic Peptide > 27733 pg/mL (0-125) > 94022 pg/mL (0-125) > 01452 pg/mL (0-125) Total Protein 6.7 G/DL (6.4-8.2) 6.6 G/DL (6.4-8.2) 6.6 G/DL (6.4-8.2) Albumin 2.3 G/DL (3.4-5.0) 2.2 G/DL (3.4-5.0) 2.2 G/DL (3.4-5.0) Globulin 4.4 g/dL 4.4 g/dL 4.4 g/dL Albumin/Globulin Ratio 0.5 (1.0-2.7) 0.5 (1.0-2.7) 0.5 (1.0-2.7) Height (Feet): 5 Height (Inches): 1.00 Weight (Pounds): 224 Objective Physical Exam: Vitals: reviewed General Appearance: NAD HEENT: normocephalic, atraumatic Neck: non-tender, normal alignment Respiratory/Chest: normal breath sounds bilaterally Cardiovascular/Chest: normal peripheral pulses, normal rate Abdomen: normal bowel sounds, soft, nontender Extremities: normal range of motion s/p midfoot amputation ; R midfoot Jean Carlos CORTEZ BKJoan++ Lloyd Dailey MD Dec 09, 2018 16:24
--- NOTE | 2018-12-09 16:26 | Pulmonology Progress Note ---
Assessment/Plan Problems: (1) Severe sepsis (2) Above knee amputation of right lower extremity (3) Non-ST elevation (NSTEMI) myocardial infarction (4) Infection of amputation stump (5) ESRD (end stage renal disease) (6) Diabetes (7) HTN (hypertension) Assessment/Plan comfortable wound care iv abx sliding scale diabetid diet pain management f/u surgery recommendations. Subjective ROS Limited/Unobtainable: No Constitutional: Reports: no symptoms HEENT: Repors: no symptoms Respiratory: Reports: no symptoms Allergies: Coded Allergies: No Known Allergies (Unverified , 11/30/18) Objective Last 24 Hour Vital Signs Date Time Temp Pulse Resp B/P (MAP) Pulse Ox O2 Delivery O2 Flow Rate FiO2 12/09/18 10:12 96 Nasal Cannula 2.0 28 12/09/18 08:49 63 116/66 12/09/18 08:00 97.3 63 24 116/66 (83) 95 12/09/18 04:00 98.1 58 18 117/63 (81) 96 12/09/18 00:00 98.1 64 20 116/69 (85) 96 12/08/18 21:13 60 113/61 12/08/18 21:00 Nasal Cannula 2.0 12/08/18 20:23 97 Nasal Cannula 2.0 28 12/08/18 20:00 98.2 60 20 113/61 (78) 96 Intake and Output 12/08/18 12/09/18 19:00 07:00 Intake Total 480 ml Output Total 0 ml Balance 480 ml 0 ml Intake Oral 480 ml Output Urine Total 0 ml General Appearance: WD/WN HEENT: normocephalic, atraumatic Respiratory/Chest: chest wall non-tender, lungs clear Cardiovascular: normal peripheral pulses, normal rate Abdomen: normal bowel sounds, soft, non tender Genitourinary: normal external genitalia Extremities: no clubbing Skin: no ulcers Lymphatic: no neck adenopathy Musculoskeletal: normal muscle bulk Laboratory Tests 12/09/18 07:00: White Blood Count 9.4, Red Blood Count 3.03L, Hemoglobin 8.1L, Hematocrit 25.3L , Mean Corpuscular Volume 83, Mean Corpuscular Hemoglobin 26.8L, Mean Corpuscular Hemoglobin Concent 32.1, Red Cell Distribution Width 13.9, Platelet Count 205, Mean Platelet Volume 6.9, Neutrophils (%) (Auto) 76.1H, Lymphocytes ( %) (Auto) 12.2L, Monocytes (%) (Auto) 8.6, Eosinophils (%) (Auto) 2.1, Basophils (%) (Auto) 1.1, Prothrombin Time 30.0H, Prothromb Time International Ratio 3.0H, Activated Partial Thromboplast Time 49H, Sodium Level 139, Potassium Level 4.6, Chloride Level 100, Carbon Dioxide Level 22, Anion Gap 17H , Blood Urea Nitrogen 43H, Creatinine 7.7H, Estimat Glomerular Filtration Rate , Glucose Level 133H, Calcium Level 9.0, Phosphorus Level 6.1H, Magnesium Level 2.2, Total Bilirubin 0.7, Aspartate Amino Transf (AST/SGOT) 26, Alanine Aminotransferase (ALT/SGPT) 18, Alkaline Phosphatase 247H, C-Reactive Protein, Quantitative 14.9H, Pro-B-Type Natriuretic Peptide > 40571A, Total Protein 6.6, Albumin 2.2L, Globulin 4.4, Albumin/Globulin Ratio 0.5L Current Medications Medications (Trade) Dose Ordered Sig/Elva Route PRN Reason Start Time Stop Time Status Last Admin Dose Admin Acetaminophen (Tylenol) 650 mg Q4H PRN ORAL fever 12/07/18 16:35 01/06/19 16:34 Acetaminophen/ Hydrocodone Bitart ([place] 5/325) 2 tab Q4H PRN ORAL Moderate Pain (Pain Scale 4-6) 12/09/18 16:00 12/16/18 15:59 Atorvastatin Calcium (Lipitor) 80 mg BEDTIME ORAL 12/07/18 21:00 12/30/18 20:59 12/08/18 21:13 Chlorhexidine Gluconate (Keke-Hex 2%) 1 applic DAILY@1999 TOPIC 12/07/18 20:00 12/31/18 19:59 12/08/18 21:14 Dextrose (Dextrose 50%) 25 ml Q30M PRN IV Hypoglycemia 12/07/18 16:45 01/03/19 08:14 Dextrose (Dextrose 50%) 50 ml Q30M PRN IV Hypoglycemia 12/07/18 16:45 01/03/19 08:14 Docusate Sodium (Colace) 100 mg THREE TIMES A DAY ORAL 12/07/18 18:00 01/01/19 12:59 12/09/18 14:23 Insulin Aspart (NovoLOG) BEFORE MEALS AND HS SUBQ 12/07/18 21:00 01/03/19 11:29 12/09/18 11:58 Metoprolol Tartrate (Lopressor) 25 mg Q12HR ORAL 12/07/18 21:00 01/04/19 20:59 12/09/18 08:49 Morphine Sulfate (Morphine Sulfate) 1 mg Q4H PRN IVP Mild Pain (Pain Scale 1-3) 12/07/18 16:36 12/14/18 16:35 Morphine Sulfate (Morphine Sulfate) 2 mg Q4H PRN IVP Moderate Pain (Pain Scale 4-6) 12/07/18 16:37 12/14/18 16:36 Morphine Sulfate (Morphine Sulfate) 4 mg Q4H PRN IVP Severe Pain (Pain Scale 7-10) 12/07/18 16:37 12/14/18 16:36 12/09/18 14:34 Ondansetron HCl (Zofran) 4 mg Q6H PRN IVP Nausea & Vomiting 12/07/18 16:37 01/06/19 16:36 Pantoprazole (Protonix) 40 mg Q12HR IVP 12/07/18 21:00 12/31/18 08:59 12/09/18 08:49 Phytonadione 10 mg/Dextrose 56 ml @ 112 mls/hr ONCE ONCE IVPB 12/09/18 17:00 12/09/18 17:29 Piperacillin Sod/ Tazobactam Sod 2.25 gm/Sodium Chloride 55 ml @ 110 mls/hr Q8HR IVPB 12/07/18 22:00 12/12/18 23:59 12/09/18 14:23 Polyethylene Glycol (Miralax) 17 gm DAILYPRN PRN ORAL Constipation 12/07/18 16:37 01/06/19 16:36 Sevelamer Carbonate (Renvela) 1,600 mg THREE TIMES A DAY ORAL 12/09/18 13:00 12/30/18 17:59 12/09/18 14:33 Sodium Chloride 1,000 ml @ 50 mls/hr Q20H IV 12/07/18 16:45 12/30/18 15:29 12/09/18 08:50 Vitamin B Complex/ Vit C/Folic Acid (Nephrovite) 1 tab DAILY ORAL 12/08/18 09:00 12/31/18 08:59 12/09/18 08:49 Rebekah Arora MD Dec 09, 2018 16:26
[2018-12-09] MEDS ORDERED: Phytonadione 10 MG in D5W 55 ML IVPB ONE (17:00)
--- NOTE | 2018-12-09 19:30 | NUR ---
NURSE NOTES: Received report from IWONA Saini. Pt resting in bed, AAO x 4, on NC 2L/min. IV site intact and patent, running NS 50cc/hr. AV shunt on MAL intact. Dressing on L BKA intact. I/S is at bedside. Bed locked, lowest position, alarm on, side rails x 2, call light within reach. Will continue to monitor.
--- NOTE | 2018-12-09 19:31 | NUR ---
NURSE NOTES: Called [facility] to confirm dialysis tomorrow. Oncoming nurse, IWONA Jeff aware.
--- NOTE | 2018-12-09 19:32 | NUR ---
NURSE NOTES: Spoke with Neha from [facility] dialysis.
[2018-12-09 20:00] VITALS: BP 106/81
[2018-12-09] MEDS: Dyna-Hex 2% Top Sol 2oz TOPIC SCH (22:17)
[2018-12-09] MEDS: Atorvastatin 80mg tab ORAL SCH (22:18)
[2018-12-10] VITALS: BP 94/65
[2018-12-10] MEDS: Morphine Sulfate 4mg/ml Inj (IV USE ONLY) IVP PRN (03:13)
[2018-12-10 04:00] VITALS: BP 107/68
[2018-12-10] MEDS: Piperacillin/Tazobactam 2.25 GM in NS 55 ML IVPB SCH (05:11)
[2018-12-10] MEDS: NovoLOG Insulin Flexpen SUBQ SCH ×2 (06:08→11:30)
--- NOTE | 2018-12-10 06:37 | NUR ---
NURSE NOTES: Spoke with MARSHAL from [facility] for hemodialysis schedule today. Waiting for call back.
[2018-12-10 07:11] LABS: HEMATOCRIT 23.9 % (42.0-52.0); HEMOGLOBIN 7.6 G/DL (14.2-18.0); MEAN CORPUSCULAR VOLUME 84 FL (80-99); PLATELET COUNT 204 K/UL (150-450); RED BLOOD COUNT 2.84 M/UL (4.70-6.10); RED CELL DISTRIBUTION WIDTH 13.9 % (11.6-14.8); WHITE BLOOD COUNT 9.7 K/UL (4.8-10.8)
[2018-12-10 07:23] LABS: ANION GAP 14 mmol/L (5-15); BLOOD UREA NITROGEN 47 mg/dL (7-18); CARBON DIOXIDE 23 MMOL/L (21-32); CHLORIDE 101 MMOL/L (98-107); CREATININE 8.6 MG/DL (0.55-1.30); POTASSIUM 5.2 MMOL/L (3.5-5.1); SODIUM 137 MMOL/L (136-145)
[2018-12-10 07:36] LABS: INR 1.5 (0.9-1.1)
--- NOTE | 2018-12-10 07:40 | NUR ---
HAND-OFF: Report given to IWONA Olmedo.
--- NOTE | 2018-12-10 07:45 | NUR ---
NURSE NOTES: Received report from IWONA Jeff. The patient is resting on the bed without acute distress or shortness of breath. The patient's bed in the lowest position, call light in reach, and fall and aspiration precaution reinforced. IV site intact and patent. Left BKA surgery dressing intact. Will continue plan of care.
[2018-12-10 08:00] VITALS: BP 96/43
--- NOTE | 2018-12-10 08:41 | General Progress Note ---
Assessment/Plan Problem List: (1) HTN (hypertension) ICD Codes: I10 - Essential (primary) hypertension SNOMED: 02955381 (2) Diabetes ICD Codes: E11.9 - Type 2 diabetes mellitus without complications SNOMED: 15851095 (3) ESRD (end stage renal disease) ICD Codes: N18.6 - End stage renal disease SNOMED: 34191937 (4) Severe sepsis ICD Codes: A41.9 - Sepsis, unspecified organism; R65.20 - Severe sepsis without septic shock SNOMED: 61241986 (5) Amputation at midfoot ICD Codes: S98.319A - Complete traumatic amputation of unspecified midfoot, initial encounter SNOMED: 500209353 (6) Amputation below knee ICD Codes: S88.119A - Complete traumatic amputation at level between knee and ankle, unspecified lower leg, initial encounter SNOMED: 897555503 Status: stable, progressing Assessment/Plan: wound care abx pt diet cbc bmp am sx f./u heme f/u aru eval Subjective Constitutional: Reports: weakness Allergies: Coded Allergies: No Known Allergies (Unverified , 11/30/18) All Systems: reviewed and negative except above Subjective o2nc calm Objective Last 24 Hour Vital Signs Date Time Temp Pulse Resp B/P (MAP) Pulse Ox O2 Delivery O2 Flow Rate FiO2 12/10/18 08:23 98 Nasal Cannula 2.0 28 12/10/18 04:00 97.2 64 20 107/68 (81) 100 12/10/18 00:00 97.6 61 19 94/65 (75) 99 12/09/18 22:18 57 106/81 12/09/18 21:00 Nasal Cannula 2.0 12/09/18 20:12 99 Nasal Cannula 2.0 28 12/09/18 20:00 97.5 57 19 106/81 (89) 100 12/09/18 16:00 97.9 59 18 106/79 (88) 100 12/09/18 12:00 97.6 61 16 111/59 (76) 94 12/09/18 10:12 96 Nasal Cannula 2.0 28 12/09/18 09:00 Nasal Cannula 2.0 12/09/18 08:49 63 116/66 Intake and Output 12/09/18 12/10/18 19:00 07:00 Intake Total 480 ml Output Total 0 ml Balance 480 ml 0 ml Intake Oral 480 ml Output Urine Total 0 ml Laboratory Tests 12/10/18 06:25: White Blood Count 9.7, Red Blood Count 2.84L, Hemoglobin 7.6L, Hematocrit 23.9L , Mean Corpuscular Volume 84, Mean Corpuscular Hemoglobin 26.7L, Mean Corpuscular Hemoglobin Concent 31.8L, Red Cell Distribution Width 13.9, Platelet Count 204, Mean Platelet Volume 8.0, Neutrophils (%) (Auto) , Lymphocytes (%) (Auto) , Monocytes (%) (Auto) , Eosinophils (%) (Auto) , Basophils (%) (Auto) , Neutrophils % (Manual) [Pending], Lymphocytes % (Manual) [Pending], Platelet Estimate [Pending], Platelet Morphology [Pending], Prothrombin Time 16.1H, Prothromb Time International Ratio 1.5H, Activated Partial Thromboplast Time 38H, Sodium Level 137, Potassium Level 5.2H, Chloride Level 101, Carbon Dioxide Level 23, Anion Gap 14, Blood Urea Nitrogen 47H, Creatinine 8.6H, Estimat Glomerular Filtration Rate , Glucose Level 107H, Calcium Level 9.0 Height (Feet): 5 Height (Inches): 1.00 Weight (Pounds): 212 General Appearance: lethargic EENT: normal ENT inspection Neck: normal alignment Cardiovascular: normal peripheral pulses, normal rate, regular rhythm Respiratory/Chest: chest wall non-tender, lungs clear, normal breath sounds Abdomen: normal bowel sounds, non tender, soft Extremities: normal inspection Edema: no edema noted Arm (L), no edema noted Arm (R), no edema noted Leg (L), no edema noted Leg (R), no edema noted Pedal (L), no edema noted Pedal (R), no edema noted Generalized Neurologic: motor weakness Skin: normal pigmentation, warm/dry Objective left bka dressing c&d Pravin Patton DO Dec 10, 2018 08:40
[2018-12-10] MEDS: Pantoprazole Inj IVP SCH (08:51)
[2018-12-10 08:52] VITALS: BP 96/43
[2018-12-10] MEDS: Metoprolol 25mg tab ORAL SCH (08:52)
[2018-12-10] MEDS: Docusate 100mg cap ORAL SCH ×2 (08:52→13:00)
[2018-12-10] MEDS: Nephrovite tab (Rena-Vite) ORAL SCH (08:53)
[2018-12-10] MEDS: Renvela 800mg Pkt ORAL SCH ×2 (08:53→13:00)
--- NOTE | 2018-12-10 09:20 | NUR ---
NURSE NOTES: Called [facility] for dialysis schedule for today. Will call oncmorris Arauz to call the primary nurse back. Will continue plan of care.
--- NOTE | 2018-12-10 09:30 | NUR ---
NURSE NOTES: Notified Dr. Almaguer regarding abnormal labs including hemoglobin, PT, INR, [place], BUN, Cr, CRP, and BNP. Also notified low blood pressure this morning. No new order or transfusion order yet. Dr. Almaguer will page the primary nurse if blood transfusion is indicated. Will continue plan of care.
--- NOTE | 2018-12-10 09:30 | NUR ---
NURSE NOTES: As the patient's blood pressure was low, held Metoprolol prior to dialysis today. Will continue plan of care.
--- NOTE | 2018-12-10 10:30 | NUR ---
NURSE NOTES: The patient is stable without acute distress or shortness of breath. Will continue plan of care.
--- NOTE | 2018-12-10 11:48 | NUR ---
CODE BLUE: See Code sheet which remains on paper. The primary nurse has been doing hourly rounding to address the patient's needs. The primary nurse went inside the patient's room to check the patient on 1106 and noticed that the patient does not have pulse and unresponsive. Immediately called pepe moreno, and the primary nurse who witness the patient's change in condition immediately started CPR. The patient was connected to the heart monitor immediately, and pepe blue team came in for the patient's code that started on 1107. The charge nurse, nursing petroleum products district supervisor, Dr. Arora, and Dr. Davenport were notified immediately and were at the scene. Dr. Patton, who is the primary physician, was also notified regarding the patient's code blue immediately. Called the family member immediately regarding the patient's coding. Per family member, they will come to the hospital as soon as possible. The patient had first code blue and regained pulse and received stat order to be transferred to ICU. On the way to ICU, the patient coded again and the pepe moreno called again. The pepe moreno initiated again but the patient did not regained the pulse. Dr. Davenport announced the patient's on 12/10/2018 @1148. The charge nurse immediately called [facility] for the case before transferring the patient to mortuary. The patient's medical devices got removed with the charge nurse and cleaned the patient. The patient got transferred to [facility] until the family member figures out the own mortuary under family members' agreement. Mortuary information provided by Lisa, the social work case manager, to Steven, who is one of the family members. Proper post-mortem care provided to the patient by the primary nurse and the charge nurse.
--- NOTE | 2018-12-10 12:05 | Cardiology Report ---
APPROVED REPORT EKG Measurement Heart [id number] MD [id number] Sinus bradycardia Low voltage QRS Nonspecific T wave abnormality Abnormal ECG
--- NOTE | 2018-12-10 12:11 | Cardiology Report ---
APPROVED REPORT EKG Measurement Heart [id number] MD [id number] Normal sinus rhythm Low voltage QRS Nonspecific ST and T wave abnormality Abnormal ECG
--- NOTE | 2018-12-10 12:48 | Pulmonology Progress Note ---
Assessment/Plan Problems: (1) Severe sepsis Assessment/Plan despite being coded twice, the resusative measures were not successful. Subjective Interval Events: pt seen during the code. That was his second code. Allergies: Coded Allergies: No Known Allergies (Unverified , 11/30/18) Objective Last 24 Hour Vital Signs Date Time Temp Pulse Resp B/P (MAP) Pulse Ox O2 Delivery O2 Flow Rate FiO2 12/10/18 08:52 76 96/43 12/10/18 08:23 98 Nasal Cannula 2.0 28 12/10/18 08:00 98.0 76 18 96/43 (60) 96 12/10/18 04:00 97.2 64 20 107/68 (81) 100 12/10/18 00:00 97.6 61 19 94/65 (75) 99 12/09/18 22:18 57 106/81 12/09/18 21:00 Nasal Cannula 2.0 12/09/18 20:12 99 Nasal Cannula 2.0 28 12/09/18 20:00 97.5 57 19 106/81 (89) 100 12/09/18 16:00 97.9 59 18 106/79 (88) 100 Intake and Output 12/09/18 12/10/18 19:00 07:00 Intake Total 480 ml Output Total 0 ml Balance 480 ml 0 ml Intake Oral 480 ml Output Urine Total 0 ml Laboratory Tests 12/10/18 06:25: White Blood Count 9.7, Red Blood Count 2.84L, Hemoglobin 7.6L, Hematocrit 23.9L , Mean Corpuscular Volume 84, Mean Corpuscular Hemoglobin 26.7L, Mean Corpuscular Hemoglobin Concent 31.8L, Red Cell Distribution Width 13.9, Platelet Count 204, Mean Platelet Volume 8.0, Neutrophils (%) (Auto) , Lymphocytes (%) (Auto) , Monocytes (%) (Auto) , Eosinophils (%) (Auto) , Basophils (%) (Auto) , Differential Total Cells Counted 100, Neutrophils % ( Manual) 76H, Lymphocytes % (Manual) 16L, Monocytes % (Manual) 7, Eosinophils % ( Manual) 1, Basophils % (Manual) 0, Band Neutrophils 0, Platelet Estimate Adequate, Platelet Morphology Normal, Hypochromasia 1+, Prothrombin Time 16.1H, Prothromb Time International Ratio 1.5H, Activated Partial Thromboplast Time 38H , Sodium Level 137, Potassium Level 5.2H, Chloride Level 101, Carbon Dioxide Level 23, Anion Gap 14, Blood Urea Nitrogen 47H, Creatinine 8.6H, Estimat Glomerular Filtration Rate , Glucose Level 107H, Calcium Level 9.0 Current Medications Medications (Trade) Dose Ordered Sig/Elva Route PRN Reason Start Time Stop Time Status Last Admin Dose Admin Acetaminophen (Tylenol) 650 mg Q4H PRN ORAL fever 12/07/18 16:35 01/06/19 16:34 Acetaminophen/ Hydrocodone Bitart ([place] 5/325) 2 tab Q4H PRN ORAL Moderate Pain (Pain Scale 4-6) 12/09/18 16:00 12/16/18 15:59 Atorvastatin Calcium (Lipitor) 80 mg BEDTIME ORAL 12/07/18 21:00 12/30/18 20:59 12/09/18 22:18 Chlorhexidine Gluconate (Keke-Hex 2%) 1 applic DAILY@2000 TOPIC 12/07/18 20:00 12/31/18 19:59 12/09/18 22:17 Dextrose (Dextrose 50%) 25 ml Q30M PRN IV Hypoglycemia 12/07/18 16:45 01/03/19 08:14 Dextrose (Dextrose 50%) 50 ml Q30M PRN IV Hypoglycemia 12/07/18 16:45 01/03/19 08:14 Docusate Sodium (Colace) 100 mg THREE TIMES A DAY ORAL 12/07/18 18:00 01/01/19 12:59 12/10/18 08:52 Insulin Aspart (NovoLOG) BEFORE MEALS AND HS SUBQ 12/07/18 21:00 01/03/19 11:29 12/10/18 06:08 Metoprolol Tartrate (Lopressor) 25 mg Q12HR ORAL 12/07/18 21:00 01/04/19 20:59 12/09/18 22:18 Morphine Sulfate (Morphine Sulfate) 1 mg Q4H PRN IVP Mild Pain (Pain Scale 1-3) 12/07/18 16:36 12/14/18 16:35 Morphine Sulfate (Morphine Sulfate) 2 mg Q4H PRN IVP Moderate Pain (Pain Scale 4-6) 12/07/18 16:37 12/14/18 16:36 Morphine Sulfate (Morphine Sulfate) 4 mg Q4H PRN IVP Severe Pain (Pain Scale 7-10) 12/07/18 16:37 12/14/18 16:36 12/10/18 03:13 Ondansetron HCl (Zofran) 4 mg Q6H PRN IVP Nausea & Vomiting 12/07/18 16:37 01/06/19 16:36 Pantoprazole (Protonix) 40 mg Q12HR IVP 12/07/18 21:00 12/31/18 08:59 12/10/18 08:51 Piperacillin Sod/ Tazobactam Sod 2.25 gm/Sodium Chloride 55 ml @ 110 mls/hr Q8HR IVPB 12/07/18 22:00 12/12/18 23:59 12/10/18 05:11 Polyethylene Glycol (Miralax) 17 gm DAILYPRN PRN ORAL Constipation 12/07/18 16:37 01/06/19 16:36 Sevelamer Carbonate (Renvela) 1,600 mg THREE TIMES A DAY ORAL 12/09/18 13:00 12/30/18 17:59 12/10/18 08:53 Sodium Chloride 1,000 ml @ 50 mls/hr Q20H IV 12/07/18 16:45 12/30/18 15:29 12/10/18 03:14 Vitamin B Complex/ Vit C/Folic Acid (Nephrovite) 1 tab DAILY ORAL 12/08/18 09:00 12/31/18 08:59 12/10/18 08:53 Rebekah Arora MD Dec 10, 2018 12:48
--- NOTE | 2018-12-10 13:06 | Infectious Diseases Prog Note ---
Assessment/Plan Assessment/Plan Assessment: Septic shock, sp-2ry to PNA and wet gangrene -12/01 CXR: . Interval development of patchy consolidation throughout the right lung, concerning for pneumonia. Consolidations related to pulmonary edema are less likely since it is predominantly on the right side. Persistent pulmonary vascular congestion. -CXR: Pulmonary vascularity and interstitium are prominent. 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 ratgerri (S ceftriaxone), P. mirabilis (teran S), E. fecalis (S Amp, vanco) -xray L tibia/fibula: No acute injury identified. Diffuse osteopenia. Fever ; SP Hyperleukocytosis; SP ESRD on HD MWF anemia polyneuropathy GERD DC resident Plan: -D/c ZOsyn #8/7 (abx d #12/30) and monitor off abx -12/06 SP IV Vancomycin #7, Clindamycin #6 -12/05 SP Azithromycin #5 -12/03 SP Meropenem #4 -11/30 SP Cefepime #1, Flagyl #1 -Monitor CBC/CMP, temperatures -aspiration precautions -podiatry, surgery f/u -wound care per surgical team Thank you for this consultation. Will continue to follow along with you. Discussed with RN Subjective Allergies: Coded Allergies: No Known Allergies (Unverified , 11/30/18) Subjective afebrile no leukcoytosis at 2l NC Objective Vital Signs Last 24 Hour Vital Signs Date Time Temp Pulse Resp B/P (MAP) Pulse Ox O2 Delivery O2 Flow Rate FiO2 12/10/18 08:52 76 96/43 12/10/18 08:23 98 Nasal Cannula 2.0 28 12/10/18 08:00 98.0 76 18 96/43 (60) 96 12/10/18 04:00 97.2 64 20 107/68 (81) 100 12/10/18 00:00 97.6 61 19 94/65 (75) 99 12/09/18 22:18 57 106/81 12/09/18 21:00 Nasal Cannula 2.0 12/09/18 20:12 99 Nasal Cannula 2.0 28 12/09/18 20:00 97.5 57 19 106/81 (89) 100 12/09/18 16:00 97.9 59 18 106/79 (88) 100 Height (Feet): 5 Height (Inches): 1.00 Weight (Pounds): 212 Objective Dressing: dry Wound: clean Cardiovascular: RSR Respiratory: clear Abdomen: soft, flat, non-tender, present bowel sounds Extremities: edema, tenderness, no cyanosis Laboratory Tests Test 12/10/18 06:25 White Blood Count 9.7 K/UL (4.8-10.8) Red Blood Count 2.84 M/UL (4.70-6.10) L Hemoglobin 7.6 G/DL (14.2-18.0) L Hematocrit 23.9 % (42.0-52.0) L Mean Corpuscular Volume 84 FL (80-99) Mean Corpuscular Hemoglobin 26.7 PG (27.0-31.0) L Mean Corpuscular Hemoglobin Concent 31.8 G/DL (32.0-36.0) L Red Cell Distribution Width 13.9 % (11.6-14.8) Platelet Count 204 K/UL (150-450) Mean Platelet Volume 8.0 FL (6.5-10.1) Neutrophils (%) (Auto) % (45.0-75.0) Lymphocytes (%) (Auto) % (20.0-45.0) Monocytes (%) (Auto) % (1.0-10.0) Eosinophils (%) (Auto) % (0.0-3.0) Basophils (%) (Auto) % (0.0-2.0) Differential Total Cells Counted 100 Neutrophils % (Manual) 76 % (45-75) H Lymphocytes % (Manual) 16 % (20-45) L Monocytes % (Manual) 7 % (1-10) Eosinophils % (Manual) 1 % (0-3) Basophils % (Manual) 0 % (0-2) Band Neutrophils 0 % (0-8) Platelet Estimate Adequate Platelet Morphology Normal Hypochromasia 1+ Prothrombin Time 16.1 SEC (9.30-11.50) H Prothromb Time International Ratio 1.5 (0.9-1.1) H Activated Partial Thromboplast Time 38 SEC (23-33) H Sodium Level 137 MMOL/L (136-145) Potassium Level 5.2 MMOL/L (3.5-5.1) H Chloride Level 101 MMOL/L (98-107) Carbon Dioxide Level 23 MMOL/L (21-32) Anion Gap 14 mmol/L (5-15) Blood Urea Nitrogen 47 mg/dL (7-18) H Creatinine 8.6 MG/DL (0.55-1.30) H Estimat Glomerular Filtration Rate mL/min (>60) Glucose Level 107 MG/DL (74-106) H Calcium Level 9.0 MG/DL (8.5-10.1) Current Medications Medications (Trade) Dose Ordered Sig/Elva Route PRN Reason Start Time Stop Time Status Last Admin Dose Admin Acetaminophen (Tylenol) 650 mg Q4H PRN ORAL fever 12/07/18 16:35 01/06/19 16:34 Acetaminophen/ Hydrocodone Bitart ([place] 5/325) 2 tab Q4H PRN ORAL Moderate Pain (Pain Scale 4-6) 12/09/18 16:00 12/16/18 15:59 Atorvastatin Calcium (Lipitor) 80 mg BEDTIME ORAL 12/07/18 21:00 12/30/18 20:59 12/09/18 22:18 Chlorhexidine Gluconate (Keke-Hex 2%) 1 applic DAILY@1999 TOPIC 12/07/18 20:00 12/31/18 19:59 12/09/18 22:17 Dextrose (Dextrose 50%) 25 ml Q30M PRN IV Hypoglycemia 12/07/18 16:45 01/03/19 08:14 Dextrose (Dextrose 50%) 50 ml Q30M PRN IV Hypoglycemia 12/07/18 16:45 01/03/19 08:14 Docusate Sodium (Colace) 100 mg THREE TIMES A DAY ORAL 12/07/18 18:00 01/01/19 12:59 12/10/18 08:52 Insulin Aspart (NovoLOG) BEFORE MEALS AND HS SUBQ 12/07/18 21:00 01/03/19 11:29 12/10/18 06:08 Metoprolol Tartrate (Lopressor) 25 mg Q12HR ORAL 12/07/18 21:00 01/04/19 20:59 12/09/18 22:18 Morphine Sulfate (Morphine Sulfate) 1 mg Q4H PRN IVP Mild Pain (Pain Scale 1-3) 12/07/18 16:36 12/14/18 16:35 Morphine Sulfate (Morphine Sulfate) 2 mg Q4H PRN IVP Moderate Pain (Pain Scale 4-6) 12/07/18 16:37 12/14/18 16:36 Morphine Sulfate (Morphine Sulfate) 4 mg Q4H PRN IVP Severe Pain (Pain Scale 7-10) 12/07/18 16:37 12/14/18 16:36 12/10/18 03:13 Ondansetron HCl (Zofran) 4 mg Q6H PRN IVP Nausea & Vomiting 12/07/18 16:37 01/06/19 16:36 Pantoprazole (Protonix) 40 mg Q12HR IVP 12/07/18 21:00 12/31/18 08:59 12/10/18 08:51 Piperacillin Sod/ Tazobactam Sod 2.25 gm/Sodium Chloride 55 ml @ 110 mls/hr Q8HR IVPB 12/07/18 22:00 12/12/18 23:59 12/10/18 05:11 Polyethylene Glycol (Miralax) 17 gm DAILYPRN PRN ORAL Constipation 12/07/18 16:37 01/06/19 16:36 Sevelamer Carbonate (Renvela) 1,600 mg THREE TIMES A DAY ORAL 12/09/18 13:00 12/30/18 17:59 12/10/18 08:53 Sodium Chloride 1,000 ml @ 50 mls/hr Q20H IV 12/07/18 16:45 12/30/18 15:29 12/10/18 03:14 Vitamin B Complex/ Vit C/Folic Acid (Nephrovite) 1 tab DAILY ORAL 12/08/18 09:00 12/31/18 08:59 12/10/18 08:53 Aparna Ramirez M.D. Dec 10, 2018 13:06
--- NOTE | 2018-12-10 14:37 | Surgery Progress Note ---
Surgery Progress Note Subjective Procedure Performed left below knee amputation Additional Comments Patient seen and examined earlier this morning at bedside. He was doing well. Pain was improved. No nausea vomiting fever or chills. His dressings were clean and dry and no longer saturated. Coag significantly improved. Leukocytosis has resolved. He did overcome the infectious process after source control with BKA and was recovering. He was keeping his leg elevated and improving. Unfortunately at the time of this note since patient had coded twice. Patient sometime this morning identified to have PEA and unresponsive requiring resuscitation. ACLS conducted and initially patient resuscitated but in transferring to intensive care unit had another cardio vascular event at which time continued ACLS but was unable to resuscitate patient. Patient pronounced at 1148 this morning after multiple attempts to regain vitals were unsuccessful. Objective Last 24 Hour Vital Signs Date Time Temp Pulse Resp B/P (MAP) Pulse Ox O2 Delivery O2 Flow Rate FiO2 12/10/18 08:52 76 96/43 12/10/18 08:23 98 Nasal Cannula 2.0 28 12/10/18 08:00 98.0 76 18 96/43 (60) 96 12/10/18 04:00 97.2 64 20 107/68 (81) 100 12/10/18 00:00 97.6 61 19 94/65 (75) 99 12/09/18 22:18 57 106/81 12/09/18 21:00 Nasal Cannula 2.0 12/09/18 20:12 99 Nasal Cannula 2.0 28 12/09/18 20:00 97.5 57 19 106/81 (89) 100 12/09/18 16:00 97.9 59 18 106/79 (88) 100 I&O Intake and Output 12/09/18 12/10/18 19:00 07:00 Intake Total 480 ml Output Total 0 ml Balance 480 ml 0 ml Intake Oral 480 ml Output Urine Total 0 ml Dressing: dry Wound: clean Drains: none Cardiovascular: RSR Respiratory: clear Abdomen: soft, flat, non-tender, present bowel sounds Extremities: edema - Improving postoperatively, tenderness - Incisional, no cyanosis Laboratory Tests Test 12/10/18 06:25 White Blood Count 9.7 K/UL (4.8-10.8) Red Blood Count 2.84 M/UL (4.70-6.10) L Hemoglobin 7.6 G/DL (14.2-18.0) L Hematocrit 23.9 % (42.0-52.0) L Mean Corpuscular Volume 84 FL (80-99) Mean Corpuscular Hemoglobin 26.7 PG (27.0-31.0) L Mean Corpuscular Hemoglobin Concent 31.8 G/DL (32.0-36.0) L Red Cell Distribution Width 13.9 % (11.6-14.8) Platelet Count 204 K/UL (150-450) Mean Platelet Volume 8.0 FL (6.5-10.1) Neutrophils (%) (Auto) % (45.0-75.0) Lymphocytes (%) (Auto) % (20.0-45.0) Monocytes (%) (Auto) % (1.0-10.0) Eosinophils (%) (Auto) % (0.0-3.0) Basophils (%) (Auto) % (0.0-2.0) Differential Total Cells Counted 100 Neutrophils % (Manual) 76 % (45-75) H Lymphocytes % (Manual) 16 % (20-45) L Monocytes % (Manual) 7 % (1-10) Eosinophils % (Manual) 1 % (0-3) Basophils % (Manual) 0 % (0-2) Band Neutrophils 0 % (0-8) Platelet Estimate Adequate Platelet Morphology Normal Hypochromasia 1+ Prothrombin Time 16.1 SEC (9.30-11.50) H Prothromb Time International Ratio 1.5 (0.9-1.1) H Activated Partial Thromboplast Time 38 SEC (23-33) H Sodium Level 137 MMOL/L (136-145) Potassium Level 5.2 MMOL/L (3.5-5.1) H Chloride Level 101 MMOL/L (98-107) Carbon Dioxide Level 23 MMOL/L (21-32) Anion Gap 14 mmol/L (5-15) Blood Urea Nitrogen 47 mg/dL (7-18) H Creatinine 8.6 MG/DL (0.55-1.30) H Estimat Glomerular Filtration Rate mL/min (>60) Glucose Level 107 MG/DL (74-106) H Calcium Level 9.0 MG/DL (8.5-10.1) Plan Problems: (1) Severe sepsis Assessment & Plan: Patient pronounced at 11:48 AM Noam Davenport Dec 10, 2018 14:37
--- NOTE | 2018-12-10 14:40 | Hematology/Onc Progress Note ---
Assessment/Plan Assessment/Plan Assessment/Plan: # Coagulation defect, multifactorial usually related to poor PO intake versus medications, versus cirrhosis --> administer Vitamin K if patient is bleeding or FFP if the INR is >10 --> hold off on ffp unless active procedure/bleeding, first begin with vit K 10 --> mixing study ordered and reviewed, likely has vit K deficiency --> hep and hiv are negative --> us of the abdomen shows potential cirrhosis/undefined --> INR of 3->1.5 --> vitamin K was given 12/09 # Anemia of chronic disease, due to underlying chronic medical issues, multifactorial --> Anemia workup has been reviewed, is c/w acd --> No evidence of hemolysis is noted, peripheral smear has been reviewed --> Hgb goal >7. Transfuse prn. --> Epogen or iron at this time is not particularly indicated --> Medications have been reviewed --> low threshold for gi evaluation in case has occult + --> hgb 8.4-->7.7-->7.4->9.1-->8.3-->7.6 --> transfuse if symptomatic # Leukocytosis/elevated white blood cell count, unspecified likely related to underlying stress reaction with septic shock (with poss pna) --> have reviewed peripheral smear and bandemia/neutrophilia noted --> continue antibiotics if they have been started by ID team (clinda/indira/vanc) --->zosyn --> monitor for resolution # Elevated trop --> with esrd --> as per cards recs --> TTe neg for vegetatons # Infected leg ulcer, probably gangrene --> s/p L bka --> as per surg recs # PVD with amputation --> vascular aware # End-stage renal disease - on hemodialysis --> per renal HD as needed, prn --> anemia panel reviewed # Electrolyte abnormalities # Diabetes mellitus with diabetic neuropathy # Dvt ppx Scds The timing of this note does not necessarily reflect the time of the patient was seen. Greatly appreciate consultation. Subjective HEENT: Denies: no symptoms, eye pain, blurred vision, tearing, double vision, ear pain, ear discharge, nose pain, nose congestion, throat pain, throat swelling, mouth pain, mouth swelling, other Cardiovascular: Denies: no symptoms, chest pain, edema, irregular heart rate, lightheadedness, palpitations, syncope, other Respiratory: Denies: no symptoms, cough, shortness of breath, SOB with excertion, SOB at rest, sputum, wheezing, other Gastrointestinal/Abdominal: Denies: no symptoms, abdomen distended, abdominal pain, black stools, tarry stools, blood in stool, constipated, diarrhea, difficulty swallowing, nausea, poor appetite, poor fluid intake, rectal bleeding , vomiting, other Genitourinary: Denies: no symptoms, burning, discharge, frequency, flank pain, hematuria, incontinence, pain, urgency, other Neurologic/Psychiatric: Denies: no symptoms, anxiety, depressed, emotional problems, headache, numbness, paresthesia, pre-existing deficit, seizure, tingling, tremors, weakness, other Endocrine: Denies: no symptoms, excessive sweating, flushing, intolerance to cold, intolerance to heat, increased hunger, increased thirst, increased urine, unexplained weight gain, unexplained weight loss, other Allergies: Coded Allergies: No Known Allergies (Unverified , 11/30/18) Subjective 12/03: no bleeding, no night sweats, on levo in icu, dw rn 12/04: remains on heparin, remains in icu, on pressor, pending surgery shortly 12/05: hd today, given norco, on hep gtt 12/06:or l bka. no bleeding, no night sweats noted 12/07: no events, no bleeding noted, improving, getting prbc 12/08: for hd monday, no bleeding or chills noted, no ns 12/09: no major events today, labs reviewed, inr remains high Objective Objective Current Medications Medications (Trade) Dose Ordered Sig/Elva Route PRN Reason Start Time Stop Time Status Last Admin Dose Admin Acetaminophen (Tylenol) 650 mg Q4H PRN ORAL fever 12/07/18 16:35 01/06/19 16:34 Acetaminophen/ Hydrocodone Bitart ([place] 5/325) 2 tab Q4H PRN ORAL Moderate Pain (Pain Scale 4-6) 12/09/18 16:00 12/16/18 15:59 Atorvastatin Calcium (Lipitor) 80 mg BEDTIME ORAL 12/07/18 21:00 12/30/18 20:59 12/09/18 22:18 Chlorhexidine Gluconate (Keke-Hex 2%) 1 applic DAILY@2000 TOPIC 12/07/18 20:00 12/31/18 19:59 12/09/18 22:17 Dextrose (Dextrose 50%) 25 ml Q30M PRN IV Hypoglycemia 12/07/18 16:45 01/03/19 08:14 Dextrose (Dextrose 50%) 50 ml Q30M PRN IV Hypoglycemia 12/07/18 16:45 01/03/19 08:14 Docusate Sodium (Colace) 100 mg THREE TIMES A DAY ORAL 12/07/18 18:00 01/01/19 12:59 12/10/18 08:52 Insulin Aspart (NovoLOG) BEFORE MEALS AND HS SUBQ 12/07/18 21:00 01/03/19 11:29 12/10/18 06:08 Metoprolol Tartrate (Lopressor) 25 mg Q12HR ORAL 12/07/18 21:00 01/04/19 20:59 12/09/18 22:18 Morphine Sulfate (Morphine Sulfate) 1 mg Q4H PRN IVP Mild Pain (Pain Scale 1-3) 12/07/18 16:36 12/14/18 16:35 Morphine Sulfate (Morphine Sulfate) 2 mg Q4H PRN IVP Moderate Pain (Pain Scale 4-6) 12/07/18 16:37 12/14/18 16:36 Morphine Sulfate (Morphine Sulfate) 4 mg Q4H PRN IVP Severe Pain (Pain Scale 7-10) 12/07/18 16:37 12/14/18 16:36 12/10/18 03:13 Ondansetron HCl (Zofran) 4 mg Q6H PRN IVP Nausea & Vomiting 12/07/18 16:37 01/06/19 16:36 Pantoprazole (Protonix) 40 mg Q12HR IVP 12/07/18 21:00 12/31/18 08:59 12/10/18 08:51 Polyethylene Glycol (Miralax) 17 gm DAILYPRN PRN ORAL Constipation 12/07/18 16:37 01/06/19 16:36 Sevelamer Carbonate (Renvela) 1,600 mg THREE TIMES A DAY ORAL 12/09/18 13:00 12/30/18 17:59 12/10/18 08:53 Sodium Chloride 1,000 ml @ 50 mls/hr Q20H IV 12/07/18 16:45 12/30/18 15:29 12/10/18 03:14 Vitamin B Complex/ Vit C/Folic Acid (Nephrovite) 1 tab DAILY ORAL 12/08/18 09:00 12/31/18 08:59 12/10/18 08:53 Last 24 Hour Vital Signs Date Time Temp Pulse Resp B/P (MAP) Pulse Ox O2 Delivery O2 Flow Rate FiO2 12/10/18 08:52 76 96/43 12/10/18 08:23 98 Nasal Cannula 2.0 28 12/10/18 08:00 98.0 76 18 96/43 (60) 96 12/10/18 04:00 97.2 64 20 107/68 (81) 100 12/10/18 00:00 97.6 61 19 94/65 (75) 99 12/09/18 22:18 57 106/81 12/09/18 21:00 Nasal Cannula 2.0 12/09/18 20:12 99 Nasal Cannula 2.0 28 12/09/18 20:00 97.5 57 19 106/81 (89) 100 12/09/18 16:00 97.9 59 18 106/79 (88) 100 12/09/18 12:00 97.6 61 16 111/59 (76) 94 12/09/18 10:12 96 Nasal Cannula 2.0 28 12/09/18 09:00 Nasal Cannula 2.0 12/09/18 08:49 63 116/66 12/09/18 08:00 97.3 63 24 116/66 (83) 95 12/09/18 04:00 98.1 58 18 117/63 (81) 96 12/09/18 00:00 98.1 64 20 116/69 (85) 96 12/08/18 21:13 60 113/61 12/08/18 21:00 Nasal Cannula 2.0 12/08/18 20:23 97 Nasal Cannula 2.0 28 12/08/18 20:00 98.2 60 20 113/61 (78) 96 12/08/18 16:00 99.2 57 19 127/74 (91) 98 Intake and Output 12/09/18 12/10/18 19:00 07:00 Intake Total 480 ml Output Total 0 ml Balance 480 ml 0 ml Intake Oral 480 ml Output Urine Total 0 ml Labs Test 12/08/18 05:35 12/09/18 07:00 12/10/18 06:25 White Blood Count 10.2 K/UL (4.8-10.8) 9.4 K/UL (4.8-10.8) 9.7 K/UL (4.8-10.8) Red Blood Count 3.06 M/UL (4.70-6.10) 3.03 M/UL (4.70-6.10) 2.84 M/UL (4.70-6.10) Hemoglobin 8.3 G/DL (14.2-18.0) 8.1 G/DL (14.2-18.0) 7.6 G/DL (14.2-18.0) Hematocrit 24.8 % (42.0-52.0) 25.3 % (42.0-52.0) 23.9 % (42.0-52.0) Mean Corpuscular Volume 81 FL (80-99) 83 FL (80-99) 84 FL (80-99) Mean Corpuscular Hemoglobin 27.2 PG (27.0-31.0) 26.8 PG (27.0-31.0) 26.7 PG (27.0-31.0) Mean Corpuscular Hemoglobin Concent 33.5 G/DL (32.0-36.0) 32.1 G/DL (32.0-36.0) 31.8 G/DL (32.0-36.0) Red Cell Distribution Width 13.3 % (11.6-14.8) 13.9 % (11.6-14.8) 13.9 % (11.6-14.8) Platelet Count 229 K/UL (150-450) 205 K/UL (150-450) 204 K/UL (150-450) Mean Platelet Volume 6.7 FL (6.5-10.1) 6.9 FL (6.5-10.1) 8.0 FL (6.5-10.1) Neutrophils (%) (Auto) 77.4 % (45.0-75.0) 76.1 % (45.0-75.0) % (45.0-75.0) Lymphocytes (%) (Auto) 11.1 % (20.0-45.0) 12.2 % (20.0-45.0) % (20.0-45.0) Monocytes (%) (Auto) 8.2 % (1.0-10.0) 8.6 % (1.0-10.0) % (1.0-10.0) Eosinophils (%) (Auto) 2.6 % (0.0-3.0) 2.1 % (0.0-3.0) % (0.0-3.0) Basophils (%) (Auto) 0.7 % (0.0-2.0) 1.1 % (0.0-2.0) % (0.0-2.0) Prothrombin Time 32.1 SEC (9.30-11.50) 30.0 SEC (9.30-11.50) 16.1 SEC (9.30-11.50) Prothromb Time International Ratio 3.2 (0.9-1.1) 3.0 (0.9-1.1) 1.5 (0.9-1.1) Activated Partial Thromboplast Time 52 SEC (23-33) 49 SEC (23-33) 38 SEC (23-33) Sodium Level 139 MMOL/L (136-145) 139 MMOL/L (136-145) 137 MMOL/L (136-145) Potassium Level 4.5 MMOL/L (3.5-5.1) 4.6 MMOL/L (3.5-5.1) 5.2 MMOL/L (3.5-5.1) Chloride Level 100 MMOL/L (98-107) 100 MMOL/L (98-107) 101 MMOL/L (98-107) Carbon Dioxide Level 25 MMOL/L (21-32) 22 MMOL/L (21-32) 23 MMOL/L (21-32) Anion Gap 14 mmol/L (5-15) 17 mmol/L (5-15) 14 mmol/L (5-15) Blood Urea Nitrogen 36 mg/dL (7-18) 43 mg/dL (7-18) 47 mg/dL (7-18) Creatinine 6.4 MG/DL (0.55-1.30) 7.7 MG/DL (0.55-1.30) 8.6 MG/DL (0.55-1.30) Estimat Glomerular Filtration Rate mL/min (>60) mL/min (>60) mL/min (>60) Glucose Level 99 MG/DL (74-106) 133 MG/DL (74-106) 107 MG/DL (74-106) Calcium Level 8.8 MG/DL (8.5-10.1) 9.0 MG/DL (8.5-10.1) 9.0 MG/DL (8.5-10.1) Phosphorus Level 5.6 MG/DL (2.5-4.9) 6.1 MG/DL (2.5-4.9) Magnesium Level 2.2 MG/DL (1.8-2.4) 2.2 MG/DL (1.8-2.4) Total Bilirubin 0.7 MG/DL (0.2-1.0) 0.7 MG/DL (0.2-1.0) Aspartate Amino Transf (AST/SGOT) 25 U/L (15-37) 26 U/L (15-37) Alanine Aminotransferase (ALT/SGPT) 19 U/L (12-78) 18 U/L (12-78) Alkaline Phosphatase 188 U/L (46-116) 247 U/L (46-116) C-Reactive Protein, Quantitative 18.3 mg/dL (0.00-0.90) 14.9 mg/dL (0.00-0.90) Pro-B-Type Natriuretic Peptide > 90174 pg/mL (0-125) > 42029 pg/mL (0-125) Total Protein 6.6 G/DL (6.4-8.2) 6.6 G/DL (6.4-8.2) Albumin 2.2 G/DL (3.4-5.0) 2.2 G/DL (3.4-5.0) Globulin 4.4 g/dL 4.4 g/dL Albumin/Globulin Ratio 0.5 (1.0-2.7) 0.5 (1.0-2.7) Differential Total Cells Counted 100 Neutrophils % (Manual) 76 % (45-75) Lymphocytes % (Manual) 16 % (20-45) Monocytes % (Manual) 7 % (1-10) Eosinophils % (Manual) 1 % (0-3) Basophils % (Manual) 0 % (0-2) Band Neutrophils 0 % (0-8) Platelet Estimate Adequate Platelet Morphology Normal Hypochromasia 1+ Height (Feet): 5 Height (Inches): 1.00 Weight (Pounds): 212 Objective Physical Exam: Vitals: reviewed General Appearance: NAD HEENT: normocephalic, atraumatic Neck: non-tender, normal alignment Respiratory/Chest: normal breath sounds bilaterally Cardiovascular/Chest: normal peripheral pulses, normal rate Abdomen: normal bowel sounds, soft, nontender Extremities: normal range of motion s/p midfoot amputation ; R midfoot Jean Carlos CORTEZ BKA++ Lloyd Dailey MD Dec 10, 2018 14:40
--- NOTE | 2018-12-10 15:05 | Emergency Room Report ---
History of Present Illness General Chief Complaint: Fever Source: Medical Record, EMS Present Illness Allergies: Coded Allergies: No Known Allergies (Unverified , 11/30/18) Nursing Documentation-[facility] Past Medical History: No History, Except For Hx Cardiac Problems: Yes Hx Hypertension: Yes Hx Diabetes: Yes Hx Gastrointestinal Problems: Yes - GERD Hx Dialysis: Yes - CKD, MWF Hx Neurological Problems: No Physical Exam Vital Signs Date Time Temp Pulse Resp B/P (MAP) Pulse Ox O2 Delivery O2 Flow Rate FiO2 12/06/18 07:39 99 Nasal Cannula 3.0 32 12/06/18 07:39 70 16 12/06/18 08:00 98.7 137/75 (95) Procedures Critical Care Time Critical Care Time i. I feel this is a highly complex case requiring extensive working including EKG/Rhythm strip, Xray/CT/US, Blood/urine lab work, repeat exams while in ED, and administration of strong opiates/narcotics for pain control, admission to hospital or close patient follow up. Total time: 30 min bedside evaluation and treatment excludes procedures (EKG). Reason for critical care: Possible complications: hypotension, hypertension, UT, shock, arrhythmias, metabolic acidosis, end organ damage, respiratory failure. Interventions: ACLS, chest compressions, intubation Course: patient presented in asystole. Patient intubated. Chest compressions started. After multiple rounds of epinephrine, calcium and bicarbonate patient temporarily regained pulses. Shortly after patient lost pulses again. Patient underwent additional course of chest compressions and ACLS with Dr. Davenport at bedside. However patient did not regain pulses and Consultations: nursing staff, EMS, family Performed by: Dr Seo Tolerated well condition = j. because of unstable vital signs this patient had a condition that could potentially threaten life or limb. I feel this is a critical patient who required my full attention while patient was considered critical. Total Critical Care Time excluding procedures was greater than 35 minutes CPR/Code Blue CPR/Code Blue Narrative see code blue sheet for full narrative Intubation Intubation : Consent: Emergent Intubation Method: orotracheal Tube Size (cm): 7.5 Intubation Complications: no complications Post Intubation Xray: Yes Attempts: One Patient Tolerated: Well Complications: None Medical Decision Making Diagnostic Impression: Primary Impression: Severe sepsis Additional Impressions: Amputation below knee Infected ulcer of skin Amputation at midfoot Elevated troponin ESRD (end stage renal disease) ER Course I was called to 4E to evaluate this patient for CODE BLUE. Patient lost pulses. In asystole. I intubated the patient. After multiple rounds of epinephrine, calcium and bicarbonate patient was slowly regained pulse. Pulse was faint. Within a few minutes patient lost his pulse again. Dr. Davenport at bedside resume the code. After multiple rounds of medication and compressions patient did not regain pulses. Resuscitative efforts terminated and patient Last Vital Signs Date Time Temp Pulse Resp B/P (MAP) Pulse Ox O2 Delivery O2 Flow Rate FiO2 12/10/18 08:52 76 96/43 12/10/18 08:23 98 Nasal Cannula 2.0 28 12/10/18 08:00 98.0 18 Status: worsened Disposition: Condition: Critical Referrals: NON PHYSICIAN (PCP) Nj Seo MD Dec 10, 2018 15:05
--- NOTE | 2018-12-10 15:07 | NUR ---
*-* INSURANCE *-* UPDATED CLINICALS have been faxed to: [employer] tracking# pending CM: Oliverio #[phone] fax#[phone]
--- NOTE | 2018-12-10 15:30 | NUR ---
Social Service Note [facility] spoke with patient's son Steven [phone] to address arrangements. Patient doesn't have a pre-need. Son requested a list of homes to review and obtain fees. [employer] emailed son a list at [email or web address]. Emotional support provided.
--- NOTE | 2018-12-11 11:34 | NUR ---
*-* INSURANCE *-* UPDATED CLINICALS have been faxed to: [employer] tracking# pending CM: Oliverio #[phone] fax#[phone]
--- NOTE | 2018-12-11 13:50 | Discharge Summary ---
Discharge Summary Discharge Summary _ SUMMARY DATE OF ADMISSION: 11/30/2018 DATE OF EXPIRATION: 12/10/2018 REASON FOR ADMISSION: 73 years old male with past medical history of hypertension, end-stage renal disease on hemodialysis, bilateral midfoot amputation, hypercholesterolemia, diabetes mellitus, anemia, was brought from [facility] facility for fever and hypoxia. At the facility fever was over 102. Patient did not have dialysis at that day as scheduled. Upon arrival patient was afebrile , but hypotensive with blood pressure 78/51 and was hypoxic requiring 100% nonrebreathing mask. Patient was also tachypneic. Laboratory work-up revealed significant leukocytosis WBC 30.5, hemoglobin 9.1, hematocrit 29.8, platelet count 362. Sodium 129, potassium 5.3, chloride 93. BUN 51, creatinine 8.7, consistent with known history of end-stage renal disease. Glucose 328. Stable LFT. Troponin-5.612, pro BNP above 35,000. EKG revealed sinus rhythm , no acute ischemic changes. Physical exam revealed foul-smelling drainage from the left leg ulcer. Surgeon seen patient in the emergency department. Patient received fluid bolus , and blood pressure initially responded to fluid challenge. Patient pancultured , started on empiric antibiotics and admitted to ICU for further management. CONSULTANTS: photographic laboratory technician Dr. Mary pulmonary/hospitalist Dr. Arora ID specialist Dr. Ramirez maintainability engineer/oncologist Dr. Dailey air conditioning manager Dr. Garcia [facility] COURSE: Patient admitted to ICU. Supplemental oxygen provided and titrated to keep pulse oximetry above 92%. Bronchodilator therapy provided. Patient was followed-up with chest x-ray and ABG. Blood pressure initially responded to the IV fluids, but later patient required starting of pressors. Hemodynamic status was closely monitored . Pressors titrated to keep mean arterial blood pressure above 65. Serial troponin trended up to 13. 986 and then started to trend down. Echocardiogram revealed ejection fraction of 50% with mildly depressed systolic function and wall motion. Mild left ventricular hypertrophy. No evidence of pericardial effusion. Right ventricular systolic pressure of 53 suggestive of a moderate pulmonary hypertension. Significant left ventricular diastolic dysfunction grade 2. Patient started on antiplatelet therapy with aspirin and statin. When blood pressure allowed, patient started on low dose of beta-sis. Patient by himself denied any chest pain. DVT prophylaxis provided. Patient started on antibiotic as per ID specialist recommendation. Blood cultures were negative. Sputum culture revealed Bree . Left foot wound culture revealed Providencia stuartii and Enterococcus faecalis. X-ray of tibia and fibula revealed no acute injury , but showed diffuse osteopenia. Hemodialysis provided as per supervisor game farm recommendations with close monitoring of volumes , renal parameters and electrolytes. Electrolytes corrected as needed. Blood sugar was managed with sliding scale of insulin. Hemoglobin and hematocrit were closely monitored with goal to keep hemoglobin above 7. Supportive care provided. Patient initially had a wound exploration bu general surgeon and noted necrosis to bone . Wound care provided as per surgeon recommendation. Sewer Digger evaluation was requested, who stated that the left foot was not salvageable and will require amputation. Patient subsequently undergone on 12/06 left below-knee amputation due to ischemia and wet gangrene of the left heel and midfoot. Wound care further provided as per surgeon recommendation. Patient was able to be weaned from pressors on 12/05. After stabilization patient was initially transferred to direct observational unit, and then to medical surgical floor. INR was elevated 3.0 on 12/09 , and patient received vitamin K . Hemoglobin and hematocrit were closely monitored with goal to keep hemoglobin above 7. While in the hospital , patient undergone transfusion of total of 4 units of fresh frozen plasma and 4 units of PRBC. On the day of expiration hemoglobin 7.6 , hematocrit 23.9. INR 1.5. Hepatitis panel was negative. HIV test was nonreactive. Follow-up chest x-ray revealed no acute process. Leukocytosis was trending down , fevers resolved . Antibiotic completed as per ID specialist recommendations. Wood Machine Carver followed. Troponin levels were decreasing. Echocardiogram did not show, as mentioned above , any wall motion abnormality. Patient denied any chest pain. EKG showed no acute ischemic changes. Wood Machine Carver recommended continue with aspirin, statin , and beta-sis. Blood pressure was stable, and patient did not appear to be in congestive heart failure. Wood Machine Carver recommended to consider noninvasive testing for ischemia , once patient more stable and infectious status cleared. Hemoglobin A1c -8.9 , was not at goal. Blood sugar was managed with sliding scale of insulin. Blood sugar was stable while in the hospital. BALJINDER HONEYCUTT was called 12/10 . Patient was in asystole. Patient was orally intubated , and ACLS protocol initiated. Patient regained spontaneous circulation temporarily, but shortly after lost pulses again. Patient undergone another course of chest compressions and ACLS. Unfortunately the resuscitative measures were not successful. Patient was pronounced at 11:48 on 12/10/2018 . Cause of : cardiopulmonary arrest. FINAL DIAGNOSES: Status post cardiopulmonary arrest x 2 on 12/10 Acute respiratory failure, requiring intubation Sepsis with shock secondary to pneumonia and wet gangrene Acute [place]/NSTEMI ,possibly due to coronary artery disease aggravated by sepsis Ischemia with wet gangrene of the left heel and mid foot Infection of amputation stump Status post left BKA End-stage renal disease, on hemodialysis GERD Peripheral vascular disease Anemia of chronic kidney disease Electrolyte abnormalities Diabetic mellitus [id number] with diabetic neuropathy GERD Coagulation defect , multifactorial Beatriz Nova NP Dec 11, 2018 13:50
== END 2018-12-10 11:48 | disposition expired | DRG 710 ==
LOC: EDBD 09:34 → EMR 10:25 → ICU 12:50 → UNDOADMIN 12:50 → EDBEDREQ 13:09 → 2W 12-05 16:28 → 4E 12-07 16:17
PROC: 5A1D70Z Performance of Urinary Filtration, Intermittent, Less than 6 Hours Per Day (ICD-10-PCS; principal; 2018-12-01)
PROC: 06HM33Z Insertion of Infusion Device into Right Femoral Vein, Percutaneous Approach (ICD-10-PCS; 2018-12-01)
PROC: 0J9R3ZZ Drainage of Left Foot Subcutaneous Tissue and Fascia, Percutaneous Approach (ICD-10-PCS; 2018-12-02)
PROC: 0Y6J0Z1 Detachment at Left Lower Leg, High, Open Approach (ICD-10-PCS; 2018-12-06)
PROC: 0BH17EZ Insertion of Endotracheal Airway into Trachea, Via Natural or Artificial Opening (ICD-10-PCS; 2018-12-10)
DX: A41.9 Sepsis, unspecified organism (principal); R65.21 Severe sepsis with septic shock; N18.6 End stage renal disease; I13.2 Hypertensive heart and chronic kidney disease with heart failure and with stage 5 chronic kidney disease, or end stage renal disease; E11.22 Type 2 diabetes mellitus with diabetic chronic kidney disease; E11.65 Type 2 diabetes mellitus with hyperglycemia; I50.9 Heart failure, unspecified; Z99.2 Dependence on renal dialysis; T87.44 Infection of amputation stump, left lower extremity; E11.42 Type 2 diabetes mellitus with diabetic polyneuropathy; E46 Unspecified protein-calorie malnutrition; Z68.41 Body mass index [BMI] 40.0-44.9, adult; G93.41 Metabolic encephalopathy; I96 Gangrene, not elsewhere classified; E11.52 Type 2 diabetes mellitus with diabetic peripheral angiopathy with gangrene; J18.9 Pneumonia, unspecified organism; I21.A1 Myocardial infarction type 2; I25.10 Atherosclerotic heart disease of native coronary artery without angina pectoris; D63.1 Anemia in chronic kidney disease; D68.9 Coagulation defect, unspecified; J96.00 Acute respiratory failure, unspecified whether with hypoxia or hypercapnia; M85.872 Other specified disorders of bone density and structure, left ankle and foot
CPT/HCPCS: 36415; 36600; 71045; 76700; 80048; 80053; 80061; 80076; 80202; 82140; 82550; 82553; 82607; 82728; 82746; 82803; 82962; 82977; 83036; 83540; 83550; 83605; 83735; 83880; 84100; 84443; 84484; 84550; 85007; 85025; 85610; 85651; 85730; 86140; 86703; 86705; 86709; 86710; 86803; 86850; 86900; 86901; 86920; 86927; 87040; 87070; 87081; 87181; 87205; 87340; 93005; 93306; 94003; 94150; 94640; 94664; 96361; 96365; 96366; 96367; 97803; 99285; J1815; J2370; J2405; J2710; J7030; J7620; S0077